=== PATIENT | female | born 1935 | race Caucasian/White ===

== ENCOUNTER → 2018-08-08 10:30 | Outpatient (CLI) | payer MEDICARE, OTHER, SELFPAY ==
--- NOTE | 2018-08-08 10:33 | BI_ITS ---
MAMMOGRAPHY - BILATERAL SCREENING REASON FOR EXAM: Female, 83 years old. Routine annual screening examination. PERTINENT HISTORY: Non-contributory. TECHNIQUE: Digital bilateral breast moises (3D mammographic acquisition) in the CC and MLO projections. 2-D mediolateral oblique (MLO) and craniocaudad (CC) views of both breasts were obtained. CAD: Full Field Digital Mammography with Computer Added Detection was performed. COMPARISON: Comparison is made with prior study dated June 04, 2017 and May 28, 2016. FINDINGS: Breast Composition: There are scattered areas of fibroglandular density. There are no dominant masses or suspicious calcifications. No other significant abnormalities are identified. There has been no significant change since the prior study. BI/SCREENING MAMM (CAD), BILAT IMPRESSION: Stable bilateral screening mammogram. Yearly follow-up mammogram recommended. (A) ASSESSMENT CATEGORY: BIRADS Category 1: Negative. A letter regarding these results will be sent to the patient by the facility within 30 days. Approximately 10% of breast cancers are not detected by mammography. A normal mammogram should not delay biopsy of a clinically suspicious abnormality. [id number] Electronically Signed: Dre Vogel MD at 12:36 EDT Tel [phone], Service support ,
== END ==
PROVIDERS: Family Provider Family Medicine; PCP Family Medicine; Visit Provider Family Medicine
DX: Z12.31 Encounter for screening mammogram for malignant neoplasm of breast (principal)
CPT/HCPCS: 77063; 77067

== ENCOUNTER → 2021-01-10 14:07 | Outpatient (CLI) | payer MEDICARE, OTHER, SELFPAY ==
[2019-06-29 20:10] VITALS: BMI 25.6
--- NOTE | 2021-01-10 14:11 | US_ITS ---
STUDY: ULTRASOUND BREAST - LEFT REASON FOR EXAM: Female, 85 years old. TECHNIQUE: Axial and longitudinal images of the LEFT breast were performed with a high resolution ultrasound transducer. # OF IMAGES: 22 COMPARISON: Comparison is made with prior mammogram done earlier in the day. FINDINGS: LEFT Breast: There is a 4 mm x 4 mm x 2 mm well-defined hypoechoic solid nodule at the 2 o''clock position of the breast at 5 cm from the nipple. This may represent a small fibroadenoma. Biopsy is recommended. US/Breast Limited Unilateral IMPRESSION: 4 mm x 4 mm x 2 mm well-defined hypoechoic solid nodule at the 2 o''clock position of the breast at 5 cm from the nipple. Biopsy is recommended. ASSESSMENT CATEGORY: BIRADS Category 4: Suspicious - Biopsy Should Be Considered. A letter regarding these results will be sent to the patient by the facility within 30 days. Electronically Signed: Dre Vogel MD at 19:23 EDT , Service support ,
--- NOTE | 2021-01-10 14:11 | BI_ITS ---
MAMMOGRAPHY - BILATERAL DIAGNOSTIC REASON FOR EXAM: Female, 85 years old. Pea-sized lump in the upper outer quadrant of the left breast. PERTINENT HISTORY: Non-contributory. TECHNIQUE: Digital bilateral breast moises (3D mammographic acquisition) in the CC and MLO projections. 2-D mediolateral oblique (MLO) and craniocaudad (CC) views of both breasts were obtained. CAD: Full Field Digital Mammography with Computer Added Detection was performed. COMPARISON: Comparison is made with prior examination 08/08/2018 and 06/04/2017. FINDINGS: Breast Composition: There are scattered areas of fibroglandular density. There are no dominant masses or suspicious calcifications. No other significant abnormalities are identified. There has been no significant change since the prior study. BI/DIAG MAMM W/CAD, BILAT IMPRESSION: Stable bilateral diagnostic mammogram. With the patient''s history of a lump in the upper outer quadrant of the left breast, correlation with ultrasound is recommended. ASSESSMENT CATEGORY: BIRADS Category 0: Incomplete. Need additional imaging evaluation. A letter regarding these results will be sent to the patient by the facility within 30 days. Approximately 10% of breast cancers are not detected by mammography. A normal mammogram should not delay biopsy of a clinically suspicious abnormality. Electronically Signed: Dre Vogel MD at 15:03 EDT , Service support ,
--- NOTE | 2021-01-13 11:30 | NURSING ---
THIS RN CALLED DR QUIROZ'S OFFICE TO SET UP PATIENT REFERRAL FOR BIRADS 4 OF LT BREAST. ROSANA WILL CALL THE PATIENT TO SCHEDULE. THIS RN CALLED PATIENT TO INFORM HER OF THE RESULTS, ANSWER QUESTIONS, AND TO EXPECT A CALL.
== END ==
PROVIDERS: PCP Family Medicine; Referring Provider Family Medicine; Visit Provider Family Medicine
DX: N60.02 Solitary cyst of left breast (principal)
CPT/HCPCS: 76642; 77062; 77066; G0279

== ENCOUNTER → 2021-01-20 10:07 | Outpatient (CLI) | payer MEDICARE, OTHER, SELFPAY ==
[2021-01-16 15:31] VITALS: BMI 25.1
--- NOTE | 2021-01-20 10:12 | US_ITS ---
STUDY: ULTRASOUND BREAST - LEFT REASON FOR EXAM: Female, 85 years old. Breast nodule. TECHNIQUE: Axial and longitudinal images of the LEFT breast were performed with a high resolution ultrasound transducer. # OF IMAGES: 12 COMPARISON: Comparison is made with prior ultrasound of the left breast dated 01/10/2021. FINDINGS: LEFT Breast: There is a 7 mm x 6 mm x 2 mm well-defined hypoechoic nodule at the 2 o''clock position of the breast and 5 cm from the nipple. The biopsy was not performed. Six-month follow-up will be obtained. US/Breast Limited Unilateral IMPRESSION: Stable examination. ASSESSMENT CATEGORY: BIRADS Category 3: Probably Benign - Short-Interval Follow-up Suggested. A letter regarding these results will be sent to the patient by the facility within 30 days. Electronically Signed: Dre Vogel MD at 13:05 EDT , Service support ,
--- NOTE | 2021-01-20 10:47 | HP.PCM_ITS ---
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 Ambrocio Mendez MD) Abnormal ultrasound of breast (Acute) Pruritic dermatitis (Acute) Poison giovanna dermatitis (Acute) Abnormal mammogram of left breast (Acute) Acute ulcerative colitis (Acute) History of back problems (Acute) Hypertension (Chronic) Surgical History (Updated 01/16/21 @ 15:30 by Regina Fontenot) History of eye surgery (Acute) Family History (Updated 01/16/21 @ 15:30 by Regina Fontenot) Father Heart disease Hypertension Social History (Updated 01/16/21 @ 15:[address] Ambrocio Mendez MD) Smoking Status: Never smoker HPI HPI HPI: JOSHUA JETT, is a 85 F who presents to the office today for surgical consultation regarding a palpable left breast mass. The patient is referred by Dr. Tang Iraheta and a written copy my surgical consult and recommendations will be returned to him. 85-year-old female. G6, . Menarche was age 17. First child was born when she was 22. She did not breast-feed. No previous breast biopsies. She has not been on any estrogen replacement. Family history is negative for breast cancer. By the patient reports she had a routine physical exam per Dr. Iraheta and there was concern about a possible left breast mass. For that reason it was recommended to the patient that she have bilateral mammography. It is of note that the patient herself was not able to feel a mass. By the patient report mammography techs also not able to detect a mass. On January 10, 2021 at the [facility] [place] bilateral mammography was performed. This was felt to be stable compared to previous examinations of August 08, 2018 and August 04, 2017. No dominant masses or suspicious calcifications. However it was interpreted as a BI-RADS Category 0. Because the patient had a reported history of a left breast mass and ultrasound was recommended. A left breast ultrasound was performed suggesting a 4 x 4 x 2 mm well-defined hypoechoic solid nodule 2 o'clock position +5 cm. Possible small fibroadenoma. BI-RADS Category 4 biopsy recommended. mputer Aided Diagnostic [facility] Imaging Services [address] [place] [address] DIAG MAMM W/CAD, BILAT MR#: [id number] Name: JOSHUA JETT #:[id number] : 1935 85 From: Dre Vogel MD PCP:Dr. Tang Iraheta, Status[facility] Study:DIAG MAMM W/CAD, BILAT Date of Exam:01/10/21 Exam#[id number] Ordering Dr: Tang Iraheta DO MAMMOGRAPHY - BILATERAL DIAGNOSTIC REASON FOR EXAM: Female, 85 years old. Pea-sized lump in the upper outer quadrant of the left breast. PERTINENT HISTORY: Non-contributory. TECHNIQUE: Digital bilateral breast moises (3D mammographic acquisition) in the CC and MLO projections. 2-D mediolateral oblique (MLO) and craniocaudad (CC) views of both breasts were obtained. CAD: Full Field Digital Mammography with Computer Added Detection was performed. COMPARISON: Comparison is made with prior examination 08/08/2018 and 06/04/2017. FINDINGS: Breast Composition: There are scattered areas of fibroglandular density. There are no dominant masses or suspicious calcifications. No other significant abnormalities are identified. There has been no significant change since the prior study. BI/DIAG MAMM W/CAD, BILAT IMPRESSION: Stable bilateral diagnostic mammogram. With the patient''s history of a lump in the upper outer quadrant of the left breast, correlation with ultrasound is recommended. ASSESSMENT CATEGORY: BIRADS Category 0: Incomplete. Need additional imaging evaluation. A letter regarding these results will be sent to the patient by the facility within 30 days. Approximately 10% of breast cancers are not detected by mammography. A normal mammogram should not delay biopsy of a clinically suspicious abnormality. Electronically Signed: Dre Vogel MD at 15:03 EDT , Service support , [facility] Imaging Services [address] [place] [id number] Breast Limited Unilateral MR#: [id number] Name: JOSHUA JETT Chayhermelinda #:[id number] : 1935F 85 From: Dre Vogel MD PCP:Dr. Tang Iraheta DO Status:[facility] CLI Study:Breast Limited Unilateral Date of Exam:01/10/21 Exam#[id number] Ordering Dr: Tang Iraheta DO STUDY: ULTRASOUND BREAST - LEFT REASON FOR EXAM: Female, 85 years old. TECHNIQUE: Axial and longitudinal images of the LEFT breast were performed with a high resolution ultrasound transducer. # OF IMAGES: 22 COMPARISON: Comparison is made with prior mammogram done earlier in the day. FINDINGS: LEFT Breast: There is a 4 mm x 4 mm x 2 mm well-defined hypoechoic solid nodule at the 2 o''clock position of the breast at 5 cm from the nipple. This may represent a small fibroadenoma. Biopsy is recommended. US/Breast Limited Unilateral IMPRESSION: 4 mm x 4 mm x 2 mm well-defined hypoechoic solid nodule at the 2 o''clock position of the breast at 5 cm from the nipple. Biopsy is recommended. ASSESSMENT CATEGORY: BIRADS Category 4: Suspicious - Biopsy Should Be Considered. A letter regarding these results will be sent to the patient by the facility within 30 days. Electronically Signed: Dre Vogel MD at 19:23 EDT , Service support , HPI HPI HPI: JOSHUA JETT, is a 85 F who presents to the office today for ROS General General: No weight change, appetite, fatigue, colon cancer, breast cancer or weakness HEENT HEENT: Yes eye surgery; no difficulty swallowing, eye injury, swollen glands or hoarseness Endo Endocrine: No thyroid disease, diabetes mellitus, thyroid cancer, Hair loss, heat intolerance or cold intolerance Skin Skin: No rash or changing moles Breast Breast: Yes abnormal mammogram and abnormal US; no left breast lump, right breast lump, nipple discharge, breast pain or breast enlargement Musc Musculoskeletal: Yes back problems; no arthritis, rheumatoid arthritis, gout or joint pain Cardio Cardiovascular: Yes high blood pressure; no murmur, pacemaker, heart disease, atrial fibrillation, heart attack, heart stent, palpitations, shortness of breat with exertion or chest pain Psych Psychiatric: No depression, anxiety or hearing voices Resp Respiratory: No shortness of breath, No sleep apnea, No cough, No COPD, No asthma, No emphysema, No wheezing Gastro Gastrointestinal: No abdominal pain, No nausea or vomiting, No diarrhea, No constipation, No blood in stool, No acid reflux, No hemorrhoids, No ulcers, No gallbladder problem, No black,tarry stools Benjy Hematologic: No blood thinners, No blood disorders, No bleeding, No anemia, No blood clots Neuro Neurologic: No system reviewed and no additional complaints, except as docu, No as per HPI, No abnormal walking, No abnormal hearing, No abnormal movements, No abnormal speech, No behavioral changes, No burning sensations, No confusion, No seizure-like activity, No unsteadiness, No dizziness, No localized weakness, No frequent falls, No headache(s), No lack of coordination, No loss of vision, No memory loss, No numbness, No other visual disturbances, No radiating pain, No restless legs, No sensory deficit, No fainting, No tingling, No tremor(s), No weakness, No other Exam Chest Breast Palpation: No nipple discharge Other: Right breast: No focally concerning mass. No nipple discharge. No axillary or clavicular adenopathy Left breast: Diffuse fibrous change upper outer quadrant left breast. Slight nondescript nodularity. No focally concerning mass. No nipple discharge. No axillary or clavicular adenopathy Cardio Heart Sounds: no murmurs Office Procedures Procedure Time Out Time Out Informed consent given: Yes Consent signed: Yes Time out checklist: patient, procedure, site marked/identified, positioning of patient, supplies available, allergies confirmed, team agrees on procedure Time out staff in room: Yes Time out verified: Yes Time out date: 01/16/21 Time out time: 15:33 Assessment & Plan Problems 1. Abnormal ultrasound of breast R92.8 Plan I have personally reviewed the patient's breast ultrasound. I have personally attempted a left breast ultrasound scanning particularly the left breast 2 o'clock position +5 cm. The area suggested to be present on preultrasound imaging could not be duplicated today. The area on measurement on ultrasound a nd depth is far too small and too deep to be palpated. It does not represent the area that was felt to be of initial concern. In an 85-year-old female the sensitivity of mammography should be very good and no item was identified. At this point I believe that we have a low indication for malignancy. I have offered the patient an attempt at a ultrasound-guided needle core biopsy 2:00 +5 cm to be performed in the ultrasound suite. As noted this lesion has very benign characteristics being very small smooth fatter than wider. It would seem to have a low risk indication. I appreciate the opportunity of assisting with her surgical care. We will schedule and proceed as noted. Copy:Dr. Tang Mendez M.D., F.A.C.S. Coding Level of Care Code 63205 Diagnoses Abnormal ultrasound of breast R92.8 I have re-examined the patient. There are no clinical changes since date of exam.
== END ==
PROVIDERS: PCP Family Medicine; Referring Provider Surgery; Visit Provider Surgery
DX: R92.8 Other abnormal and inconclusive findings on diagnostic imaging of breast (principal)
CPT/HCPCS: 76642

== ENCOUNTER 2021-02-28 15:00 | Outpatient (RCR) | payer MEDICARE, OTHER, SELFPAY ==
[2021-01-16 15:31] VITALS: BMI 25.1
--- NOTE | 2021-01-31 11:03 | HP.PTEVAL_ITS ---
Patient's Visit Information JOSHUA JETT is a 85 year old F referred to Physical Therapy by Dr. Tang Iraheta DO with a diagnosis of SACROLITIS JOINT DYSFUNCTION. Date of Evaluation: 01/31/21 Physical Therapist: Hossein Hernandez, PT, Cert MDT, OCS - Visit Plan Frequency: 2x /Week Duration: 4 Weeks Plan: PT INTERVENTIONS POSTURAL EX'S,DLS,LUMBAR FLEXION ,LE STRENGTHNING/FLEXABLITTY ,MODALTIES NEED , - Subjective This 85 y/o female presents to physical therapy with LBP/SI .Patient has had LBP Feb no predisopsing or mechanism of injury. Patient has pain right lumbar and hamstring. Seen DR muscle relaxers and pain MEDS.Patient denies pa rathesia/tingling. Patient sleeping good .As the day goes gets better.Aggraveting symptoms in AM, wallking and standing affects ADL's and housework . Alleviating factors sitting and resting. Bowel/bladder - .Coughing/sneezing -. No abnormal night pain. No h/o back pain or trauma. Patient treatment . Patient had MRI showed DDD,anteriorlothesis. Patient symptoms affects QOL and function. - Pain Right Back Pain Intensity (Out of 10): 8 Pain Intensity Range: 10 - Objective POSTURE: mild foward posture. GAIT: recipocal pattern mild antalgic. NEURO: denies parathesia/tingling,reflexes L3-4,L4-5,L5-S1 1/3. PALPATION: unremarkable. MMT: quads/hams 4/5,hip flexion 4-/5,ankle 4/5. LUMBAR ROM: flexion min loss,extension mod/severe loss,side glides min loss. FLEXABLITY: : mams min tight ,piriformis min tight - Special Tests L/S Slump test left side: Negative L/S Slump test right side: Negative L/S Left Straight Leg Raise: Negative L/S Right Straight Leg Raise: Negative Lumbar Standing: Flexion - Mechanical Response: No effect Lumbar Standing: Flexion - Symptoms During Testing: No effect Lumbar Standing: Flexion - Symptoms After Testing: No effect Lumbar Standing: Extension - Mechanical Response: No effect Lumbar Standing: Extension - Symptoms During Testing: Increases Lumbar Standing: Extension - Symptoms After Testing: No worse Lumbar Standing: Right Side Glides - Mechanical Response: No effect Lumbar Standing: Right Side Goehner - Symptoms During Testing: No effect Lumbar Standing: Right Side Goehner - Symptoms After Testing: No effect Lumbar Standing: Left Side Goehner - Mechanical Response: No effect Lumbar Standing: Left Side Goehner - Symptoms During Testing: No effect Lumbar Standing: Left Side Goehner - Symptoms After Testing: No effect - Goals Goal 1:: I with HEP Goal Time Frame: 4-6 Weeks Goal 2:: Improved posture/body mechanics Goal Time Frame: 4-6 Weeks Goal 3:: Patient to decrease lumbar pain by 50% or > to improve function and ADLS Goal Time Frame: 4-6 Weeks Goal 4:: Improve lumbar ROM for function of recovery Goal Time Frame: 4-6 Weeks Goal 5:: Patient to decrease back owestry score by 5 points > to improve QOL. Goal Time Frame: 4-6 Weeks - Rehabilitation Potential Physical Therapy Diagnosis: Patient has right lumbar painand radicular symptoms hamstrings with MRI showinh anteriorlothesis causing lateral stenosis with decrease lumbar spine,weakness in hips impairs walking and stbading for ADLS' Rehabilitation Potential: Good - Anticipated Interventions Patient/Client Instruction: Educate patient on: Condition, Plan of Care For the Purpose of:: To decrease pain, To increase ROM, To improve muscle performance and motor function, To improve ability to perform ADL's, To increase tolerance to activity/condition/position, To improve ability of physical actions for home/community/work/leisure, To improve health of tissue, To decrease soft tissue restriction, To increase flexibility/ROM, To reduce risk of recurrence, To improve ability to perform tasks related to life management Therapeutic Exercise to Include: Strength training, Postural training, Flexibilty training, Dynamic Lumbar Stabilization Comment: BLE For the Purpose of:: To decrease pain, To improve muscle performance and motor function, To improve ability to perform ADL's, To increase tolerance to activity/condition/position, To improve performance and independence with ADL's, To improve ability of physical actions for home/community/work/leisure, To improve health of tissue, To decrease soft tissue restriction, To increase flexibility/ROM TENS: Yes IF ES: Yes Cryotherapy (ice pack, ice massage): Yes Thermo therapy (hot pack): Yes Ultrasound (thermal/non thermal): Yes For the Purpose of:: To decrease pain, To decrease swelling/inflammation, To improve nutrient delivery to tissue, To increase oxygenation perfusion, To improve health of tissue, To decrease soft tissue restriction Thank you for the opportunity to evaluate your patient. For Medicare and Medicare HMO plans, please review the plan of care and approve it. It will need to be FAXED BACK to us at [phone] for Medicare purposes. For Medicare only, by signing this I certify the plan of care. Please let me know if there are questions or concerns regarding this plan of care. Physician Signature: Date:
--- NOTE | 2021-02-28 15:23 | HP.PTDCSUM ---
It has been my pleasure to treat JOSHUA JETT referred by Dr. Tang Iraheta DO, with the diagnosis of SACROLITIS JOINT DYSFUNCTION for a total of 9 visit(s). Discharge Date: Please see the following information for a summary of their discharge status. Subjective: Doing alot better .just some ache Right Back Pain Intensity (Out of 10): 0 % Improvement: 90 Objective/Function: GAIT: normal cadance. NEURO:denies parathesia /tingling. LUMBAR ROM: flexion min loss,extension min loss,side glides in loss. MMT: QUADS/HAMS/HIP 4/5 ANKLE 5/5 Goal 1:: I with HEP Goal Progress: Goal Met Goal 2:: Improved posture/body mechanics Goal Progress: Goal Met Goal 3:: Patient to decrease lumbar pain by 50% or > to improve function and ADLS Goal Progress: Goal Met Goal 4:: Improve lumbar ROM for function of recovery Goal Progress: Goal Met Goal 5:: Patient to decrease back owestry score by 5 points > to improve QOL. Goal Progress: Goal Met Plan: D/C If there are questions or concerns regarding this patient's physical therapy, please feel free to call me at [phone]. Thank you for the referral of this patient. Sincerely, Hossein Hernandez PT, Cert MDT, OCS
== END 2021-02-28 19:00 | disposition home or self-care (01) ==
LOC: PT 15:00
PROVIDERS: PCP Family Medicine; Referring Provider Family Medicine; Visit Provider Family Medicine
DX: M53.3 Sacrococcygeal disorders, not elsewhere classified (principal)
CPT/HCPCS: 97014; 97110; 97162; G0283

== ENCOUNTER → 2021-07-25 10:45 | Outpatient (CLI) | payer MEDICARE, OTHER, SELFPAY ==
--- NOTE | 2021-07-25 10:48 | US_ITS ---
STUDY: ULTRASOUND BREAST - LEFT REASON FOR EXAM: Female, 86 years old. Short interval follow-up TECHNIQUE: Axial and longitudinal images of the LEFT breast were performed with a high resolution ultrasound transducer. # OF IMAGES: 11 COMPARISON: 01/20/2021 FINDINGS: LEFT Breast: Heterogeneous background echotexture. At 2 o''clock, 5 cm from nipple, there is no change in the 7 mm oval parallel indistinct isoechoic mass with no posterior features within some dense breast parenchyma and continued short-term follow-up is recommended.: US/Breast Limited Unilateral IMPRESSION: No change in the 7 mm oval parallel indistinct isoechoic mass in the left breast and continued short follow-up is recommended. CC and MLO mammograms of both breasts and the left breast ultrasound recommended in 6 months. ASSESSMENT CATEGORY: BIRADS Category 3: Probably Benign - Short-Interval Follow-up Suggested. A letter regarding these results will be sent to the patient by the facility within 30 days. Electronically Signed: Cuba Madrid MD at 11:54 EDT Tel , Service support ,
== END ==
PROVIDERS: PCP Family Medicine; Visit Provider Surgery
DX: R92.8 Other abnormal and inconclusive findings on diagnostic imaging of breast (principal)
CPT/HCPCS: 76642

== ENCOUNTER 2022-01-31 09:12 | Outpatient (CLI) | payer MEDICARE, OTHER, SELFPAY ==
--- NOTE | 2022-01-31 08:48 | BI_ITS ---
MAMMOGRAPHY - BILATERAL DIAGNOSTIC REASON FOR EXAM: Female, 86 years old. Six-month follow-up examination. PERTINENT HISTORY: Left breast nodule. TECHNIQUE: Digital bilateral breast moises (3D mammographic acquisition) in the CC and MLO projections. 2-D mediolateral oblique (MLO) and craniocaudad (CC) views of both breasts were obtained. CAD: Full Field Digital Mammography with Computer Added Detection was performed. COMPARISON: Comparison is made with prior mammogram dated 01/10/2021 and 08/08/2018. FINDINGS: Breast Composition: There are scattered areas of fibroglandular density. There are no dominant masses or suspicious calcifications. No other significant abnormalities are identified. There has been no significant change since the prior study. BI/DIAG MAMM W/CAD, BILAT IMPRESSION: Stable bilateral diagnostic mammogram. Follow-up sonogram of the left breast is recommended. ASSESSMENT CATEGORY: BIRADS Category 0: Incomplete. Need additional imaging evaluation. A letter regarding these results will be sent to the patient by the facility within 30 days. Approximately 10% of breast cancers are not detected by mammography. A normal mammogram should not delay biopsy of a clinically suspicious abnormality. Electronically Signed: Dre Vogel MD at 10:55 EDT ,
--- NOTE | 2022-01-31 10:20 | US_ITS ---
STUDY: ULTRASOUND BREAST - LEFT REASON FOR EXAM: Female, 86 years old. Six-month follow-up examination for 7 mm nodule in the left breast. TECHNIQUE: Axial and longitudinal images of the LEFT breast were performed with a high resolution ultrasound transducer. # OF IMAGES: 12 COMPARISON: Comparison is made with prior sonogram of the left breast in 07/25/2021 and prior mammogram done earlier today. FINDINGS: LEFT Breast: Stable 7 mm x 8 mm x 4 mm slightly hypoechoic well-defined solid nodule at the 2 o''clock position breast at 5 cm from nipple. US/Breast Limited Unilateral IMPRESSION: Stable examination. ASSESSMENT CATEGORY: BIRADS Category 2: Benign. A letter regarding these results will be sent to the patient by the facility within 30 days. Electronically Signed: Dre Vogel MD at 10:57 EDT ,
== END 2022-01-31 23:59 | disposition home or self-care (01) ==
LOC: OPBI 09:14
PROVIDERS: PCP Family Medicine; Visit Provider Surgery
DX: R92.2 Inconclusive mammogram (principal); R92.8 Other abnormal and inconclusive findings on diagnostic imaging of breast; N63.20 Unspecified lump in the left breast, unspecified quadrant
CPT/HCPCS: 76642; 77062; 77066; G0279

== ENCOUNTER → 2025-06-09 | Outpatient (CLI) | payer MEDICARE, OTHER, SELFPAY ==
--- OUTSIDE RECORDS SUMMARY | 2025-06-09 21:23 | XMS RPT_ITS | CCD ---
Author Organization [facility] Care Team Providers Care Sanitizer Name Role Phone Myrtle Tang Unavailable Unavailable UNKNOWN, PROVIDER Unavailable Unavailable Fracasso, Tang Unavailable Unavailable Fracasso, Tang Unavailable Unavailable UNKNOWN, PROVIDER Unavailable Unavailable Fracasso, Tang Unavailable Unavailable Fracasso, Tang Unavailable Unavailable UNKNOWN, PROVIDER Unavailable Unavailable Fracasso, Tang Unavailable Unavailable Fracasso, Tang Unavailable Unavailable UNKNOWN, PROVIDER Unavailable Unavailable Fracasso, Tang Unavailable Unavailable SCHWEIKERT, DEANDRA A Unavailable Unavailable FRACASSOTANG Unavailable Unavailable SCHWEIKERKal, DEANDRA A Unavailable Unavailable FRACASSO, TANG Unavailable Unavailable FRACASSO, TANG Unavailable Unavailable SCHWEIKERT, DEANDRA A Unavailable Unavailable FRACASSO, TANG Unavailable Unavailable FRACASSO, TANG Unavailable Unavailable FracassoTang Primary Care Provider Tang Iraheta DO Primary Care Provider Rileyo Tang BISHOP Primary Care Provider Tang Iraheta DO Primary Care Provider Tang Iraheta DO Primary Care Provider Deandra Tanner MD Unavailable [phone] Geronimo, Moi Nabi Unavailable MARICRUZ BEDOLLA Attending Unavaila YULI Saha Referring Unavailable TANG IRAHETA Primary Care Unavailable YULI DRUMMOND Attending Unavailable TANG IRAHETA Primary Care Unavailable MARICRUZ BEDOLLA Referring Unavaila opal Irving APRN - JARON, Mary Anna Primary Care Provider [phone] Francisco Javiercahoneyo Tang BISHOP Primary Care Provider [facility], [facility] [place] Primary Care Provider [facility], [facility] [place] [facility] [place] Primary Care Provider Tang Iraheta DO Primary Care Provider Deandra Tanner MD Unavailable [phone] Moi Melton Unavailable Tang Iraheta DO Primary Care Provider [facility] Primary Care Unavailable BAVIS, MORRO Referring Unavailable BAVIS, MORRO Attending Unavailable [facility] Primary Care Unavailable BAVIS, MORRO Referring Unavailable BAVIS, MORRO Attending Unavailable PET[facility]LL[facility] Primary Care Unavailable BAVIS, MORRO Referring Unavailable BAVIS, MORRO Attending Unavailable PET[facility]LLA, [facility] Primary Care Unavailable BAVIS, MORRO Referring Unavailable BAVIS, MORRO Attending Unavailable PETRILLA, [facility] Primary Care Unavailable BAVIS, MORRO Referring Unavailable BAVIS, MORRO Attending Unavailable PETRILLA, [facility] Primary Care Unavailable BAVIS, MORRO Referring Unavailable BAVIS, MORRO Attending Unavailable PETRILLA, [facility] Primary Care Unavailable BAVIS, MORRO Referring Unavailable BAVIS, MORRO Attending Unavailable PETRILLA, [facility] Primary Care Unavailable BAVIS, MORRO Referring Unavailable BAVIS, MORRO Attending Unavailable PETRILLA, [facility] Primary Care Unavailable BAVIS, MORRO Referring Unavailable BAVIS, MORRO Attending Unavailable PETRILLA, [facility] Primary Care Unavailable BAVIS, MORRO Referring Unavailable BAVIS, MORRO Attending Unavailable PETRILLA, [facility] Primary Care Unavailable BAVIS, MORRO Attending Unavailable PETRILLA, [facility] Primary Care Unavailable BAVIS, MORRO Attending Unavailable PETRILLA, [facility] Primary Care Unavailable PETRILLA, WILFRIDO Attending Unavailable [facility]LL[facility], [facility] Primary Care Unavailable PETRILLA, WILFRIDO Attending Unavailable [facility]LL[facility], [facility] Primary Care Unavailable PETRILLA, WILFRIDO Referring Unavailable PETRILLA, WILFRIDO Attending Unavailable [facility] Primary Care Unavailable PET[facility]LL[facility], [facility] Attending Unavailable Medications Current Medications Medication Drug Class(es) Dates Sig (Normalized) Sig (Original) aspirin 81 mg delayed release oral tablet (20 sources) Platelet Aggregation Inhibitor, Nonsteroidal Anti-inflammatory Drug take 1 tablet by mouth once daily aspirin 81 MG EC tablet Take 81 mg by mouth daily. Active biotin 10 mg oral tablet (20 sources) take 1 tablet by mouth once daily biotin 39166 MCG tablet Take by mouth daily. 10,000 mcg Active Calcium Carb-Cholecalciferol (CALCIUM 600 + D PO) (8 sources) take 1 tablet by mouth once daily Calcium Carb-Cholecalcif shameka (CALCIUM 600 + D PO) Take 1 tablet by mouth daily 0 Active calcium citrate 250 mg / cholecalciferol 100 unt oral tablet (20 sources) Vitamin D Calcium Citrate-Vitamin D 250-2.5 MG-MCG tablet Take by mouth. Active lisinopril 20 mg oral tablet (20 sources) Angiotensin Converting Enzyme Inhibitor Start: 04-02-2024 End: 05-14-2025 lisinopril 20 MG tablet TAKE 1 TABLET DAILY 90 tablet 1 05/14/2025 Active Start: 03-10-2024 End: 09-06-2024 take 1 tablet by mouth once daily lisinopril 10 MG tablet Take 1 tablet (10 mg) by mouth daily. 30 tablet 5 03/10/2024 04/02/2024 Discontinued memantine hydrochloride 10 mg oral tablet (16 sources) P-ufhktg-R-aspartate Receptor Antagonist Start: 12-03-2024 End: 03-03-2025 take 1 tablet by mouth twice daily memantine (Namenda) 10 MG tablet Indications: Moderate dementia without behavioral disturbance, psychotic disturbance, mood disturbance, or anxiety, unspecified dementia type (HCC) Take 1 tablet (10 mg) by mouth 2 times daily. 180 tablet 3 12/03/2024 Active Multiple Vitamin tablet (20 sources) take 1 tablet by mouth in the morning Multiple Vitamin tablet Take 1 tablet by mouth in the morning. Active take 1 tablet by mouth in the mo rning Multiple Vitamin tablet Take 1 tablet by mouth in the morning. 0 Active Multiple Vitamin TABS (8 sources) take 1 tablet by iliana th once daily Multiple Vitamin TABS Take 1 tablet by mouth daily 0 Active multivit with minerals/lutein (MULTIVITAMIN 50 PLUS ORAL) (3 sources) multivit with minerals/lutein (MULTIVITAMIN 50 PLUS ORAL) Take by mouth. Active multivit with mi nerals/lutein (MULTIVITAMIN 50 PLUS ORAL) Take by mouth. 0 Active Comment on above: Take by mouth. verapamil hydrochloride 240 mg extended release oral tablet (20 sources) Calcium Channel Chalo Start: 08-23-2022 End: 10-23-2025 take 1 tablet by mouth once daily verapamil SR (Calan SR) 240 MG ER tablet Take 1 tablet (240 mg) by mouth Nightly. 90 tablet 1 04/26/2025 10/23/2025 Active Start: 12-28-2020 End: 05-01-2022 take 1 tablet by mouth once daily verapamil (CALAN SR) 240 MG extended release tablet Take 1 tablet by mouth nightly 90 tablet 1 01/16/2022 05/01/2022 Discontinued (REORDER) Start: 06-30-2019 take 240 mg by mouth every twelve hours Verapamil Active 240 MG PO Q12H June 30, 2019 12:01pm Comment on above: Take 240 mg by mouth daily at bedtime. Completed/Discontinued Medications Medication Drug Class(es) Dates Sig (Normalized) Sig (Original) acetaminophen 500 mg oral tablet (17 sources) Start: 09-03-2024 End: 12-21-2024 acetaminophen (Tylenol) 500 MG tablet 2 bid prn 30 tablet 09/03/2024 12/21/2024 Discontinued (Therapy completed) betamethasone 3 mg/ml / betamethasone acetate 3 mg/ml injectable suspension (4 sources) Corticosteroid Start: 12-26-2023 End: 12-26-2023 betamethasone acetate-betamethason e sodium phosphate (Celestone) injection 6 mg Start: 12-26-2023 End: 12-26-2023 betamethasone acetate-betame thasone sodium phosphate (Celestone) injection 6 mg Start: 02-07-2023 End: 02-07-2023 betamethasone acetate-betame thasone sodium phosphate (Celestone) injection 6 mg calcium carbonate/vitamin D2 (CALCIUM 600 WITH VITAMIN D ORAL) (1 source) End: 09-11-2022 calcium carbonate/vitamin D2 (CALCIUM 600 WITH VITAMIN D ORAL) Take by mouth. 0 09/11/2022 Discontinued Comment on above: Take by mouth. cephalexin 500 mg oral capsule (8 sources) Cephalosporin Antibacterial Start: 02-25-2024 End: 03-10-2024 cephalexin (Keflex) 500 MG capsule Indications: Skin infection Take 1 capsule (500 mg) by mouth in the morning and 1 capsule (500 mg) at noon and 1 capsule (500 mg) in the evening and 1 capsule (500 mg) before bedtime. Do all this for 7 days. 28 capsule 0 02/25/2024 03/10/2024 Discontinued (Therapy completed) collagenase 0.25 unt/mg topical ointment (2 sources) Collagen-specific Enzyme Start: 03-30-2022 End: 03-30-2023 collagenase 250 UNIT/GM ointment APPLY TO WOUND ONCE A DAY (MORE FREQUENTLY IF DRESSING IS SOILED) FOR 30 DAYS 120 g 5 03/30/2022 11/22/2022 Discontinued (Therapy completed) donepezil hydrochloride 5 mg oral tablet (14 sources) Start: 09-01-2024 End: 12-21-2024 take 1 tablet by mouth once daily donepezil (Aricept) 5 MG tablet Take 1 tablet (5 mg) by mouth daily with supper. 90 tablet 3 09/01/2024 12/21/2024 Discontinued EPINEPHrine 0.01 mg/ml / lidocaine hydrochloride 10 mg/ml injectable solution (1 source) Antiarrhythmic, alpha-Adrenergic Agonist, beta-Adrenergic Agonist, Catecholamine, Amide Local Anesthetic Start: 06-23-2021 End: 06-23-2021 lidocaine-EPINEPHrine 1 %-1:[id number] injection 8 mL gadobutrol (Gadavist) injection 5.6 mL (2 sources) Start: 12-04-2022 End: 12-04-2022 gadobutrol (Gadavist) injection 5.6 mL 10 ml lidocaine hydrochloride 10 mg/ml injection (4 sources) Antiarrhythmic, Amide Local Anesthetic Start: 12-26-2023 End: 12-26-2023 lidocaine (Xylocaine) 1 % injection 1 mL Start: 12-26-2023 End: 12-26-2023 lidocaine (Xylocaine) 1 % in jection 1 mL Start: 02-07-2023 End: 02-07-2023 lidocaine (Xylocaine) 1 % in jection 1 mL 24 hr mesalamine 375 mg extended release oral capsule (4 sources) Aminosalicylate Start: 04-20-2019 End: 11-20-2022 take 1 capsule by mouth every twenty-four hours in the morning mesalamine ER (Apriso) 0.375 g 24 hr capsule Take 0.375 g by mouth in the morning. 0 04/20/2019 11/20/2022 Discontinued (Therapy completed) Start: 04-20-2019 End: 09-11-2022 take 1 capsule by mouth once daily in the morning Mesalamine (Apriso) 0.375 gram capsule,extended release 24hr Discontinued 1.5 GM PO EVERY MORNING June 30, 2019 12:00pm January 16, 2021 3:32pm Comment on above: Take 1 capsule by [facility] once daily. predniSONE 10 mg oral tablet (1 source) Start: 2020 End: 2020 Prednisone Discontinued 20 MG PO TWICE A DAY 30 4 September 06, 2021 8:48pm September 10, 2021 1:01am 2 po bid 4D,1 po bid for 4 D, 1 po qd for 4 D 1/2 po qd for 2 days 10 ml sodium bicarbonate 42 mg/ml prefilled syringe (1 source) Start: 2020 End: 2020 sodium bicarbonate 4.2 % injection 1 mEq triamcinolone acetonide 40 mg/ml injectable suspension (2 sources) Corticosteroid Start: 2020 End: 2020 inject 60 mg by intramuscular injection once triamcinolone acetonide 40 mg/mL suspension for injection Discontinued 60 MG IM ONCE 1.5 September 06, 2021 8:21pm September 06, 2021 8:21pm Start: 06-29-2019 End: 06-29-2019 inject 60 mg by intramuscular injection once triamcinolone acetonide 40 mg/mL suspension for injection Discontinued 60 MG IM ONCE 1.5 June 29, 2019 8:00pm June 29, 2019 8:00pm Problems Active Problems Problem Classification Problem Date Documented Date Episodic/Chronic Allergic reactions (1 source) Contact dermatitis due to poison giovanna; Translations: [Allergic contact dermatitis due to plants, except food] Episodic Cardiac dysrhythmias (20 sources) Supraventricular tachycardia; Translations: [Supraventricular tachycardia] Onset: 02-26-2018 Resolved: 04-08-2018 12-29-2019 Chronic Delirium, dementia, and amnestic and other cognitive disorders (20 sources) Dementia; Translations: [Moderate dementia without behavioral disturbance, psychotic disturbance, mood disturbance, or anxiety, unspecified dementia type (HCC)] Onset: 12-21-2024 09-01-2024 Chronic Essential hypertension (20 sources) Essential (primary) hypertension; Translations: [Essential hypertension] Onset: 01-26-2016 01-26-2016 Chronic Heart valve disorders (2 sources) Combined rheumatic disorders of mitral, aortic and tricuspid valves; Translations: [Comb rheumatic disord of mitral, aortic and tricuspid valves] Onset: 02-26-2018 Chronic Joint disorders and dislocations; trauma-related (2 sources) Other internal derangements of left knee; Translations: [Other internal derangements of left knee] Onset: 07-01-2017 Chronic Osteoarthritis (2 sources) Bilateral primary osteoarthritis of knee; Translations: [Bilateral primary osteoarthritis of knee] Onset: 05-24-2017 Chronic Other and ill-defined cerebrovascular disease (20 sources) Cerebrovascular disease; Translations: [Cerebrovascular disease, unspecified] Onset: 03-10-2024 03-10-2024 Chronic Other and ill-defined cerebrovascular disease (2 sources) Cerebrovascular disease, unspecified; Translations: [Cerebrovascular disease, unspecified] Onset: 03-10-2024 Chronic Other and unspecified benign neoplasm (2 sources) History of polyp of colon; Translations: [Personal history of colonic polyps] Episodic Other and unspecified benign neoplasm (1 source) Personal history of colonic polyps; Translations: [History of colonic polyps] Onset: 10-18-2022 Episodic Other bone disease and musculoskeletal deformities (2 sources) Other specified disorders of bone density and structure, unspecified site; Translations: [Oth disrd of bone density and structure, unspecified site] Onset: 01-21-2018 Episodic Other connective tissue disease (1 source) Pain in right arm; Translations: [Pain in right arm] Episodic Other connective tissue disease (4 sources) Triggering of digit; Translations: [Trigger finger, left index finger] Episodic Other connective tissue disease (14 sources) Pain in left lower limb; Translations: [Pain in left leg] 02-28-2024 Episodic Other connective tissue disease (1 source) Bursitis of left hip; Translations: [Other bursitis of hip, left hip] 09-03-2024 Episodic Other hereditary and degenerative nervous system conditions (20 sources) Mild cognitive impairment, so stated; Translations: [Mild cognitive impairment, so stated] Onset: 03-10-2024 03-10-2024 Chronic Other inflammatory condition of skin (1 source) Pruritus of skin; Translations: [Pruritus, unspecified] Episodic Other lower respiratory disease (3 sources) Shortness of breath; Translations: [Shortness of breath] Onset: 02-26-2018 Episodic Other lower respiratory disease (3 sources) Dyspnea; Translations: [Shortness of breath] 04-08-2018 Episodic Other lower respiratory disease (3 sources) Cough; Translations: [Subacute cough] 06-23-2024 Episodic Other nervous system disorders (2 sources) Numbness of hand; Translations: [Anesthesia of skin] Episodic Residual codes; unclassified (1 source) Menopause present; Translations: [Menopause] Onset: 07-04-2017 07-04-2017 Chronic Residual codes; unclassified (2 sources) Edema of left lower leg; Translations: [Localized edema] 04-03-2024 Episodic Residual codes; unclassified (2 sources) Amnesia; Translations: [Other amnesia] 06-23-2024 Episodic Respiratory failure; insufficiency; arrest (adult) (20 sources) Respiratory failure; insufficiency; arrest (adult) Onset: 03-06-2024 03-06-2024 Spondylosis; intervertebral disc disorders; other back problems (1 source) Low back pain; Translations: [Low back pain without sciatica, unspecified back pain laterality, unspecified chronicity] Episodic Unclassified (2 sources) Asymptomatic menopausal state; Translations: [Asymptomatic menopausal state] Onset: 01-21-2018 Episodic Unclassified (1 source) Unknown / UNK(Unknown) Onset: 04-08-2018 Unclassified (20 sources) Impaired Tissue Onset: 03-06-2024 03-06-2024 Unclassified (20 sources) Education needed on impact of smoking on wound Onset: 03-06-2024 03-06-2024 Unclassified (20 sources) Education needed related to ulceration/compromised skin integrity. Onset: 03-06-2024 03-06-2024 Unclassified (20 sources) Patient Stated Goal Onset: 03-06-2024 03-06-2024 Unclassified (20 sources) Knowledge deficit related to disease process & management Onset: 03-06-2024 03-06-2024 Unclassified (1 source) Dementia in other diseases classified elsewhere, moderate, without behavioral disturbance, psychotic disturbance, mood disturbance, and anxiety (HCC); Translations: [Dementia in other diseases classified elsewhere, moderate, without behavioral disturbance, psychotic disturbance, mood disturbance, and anxiety (HCC)] Onset: 12-21-2024 Unclassified (1 source) Unspecified dementia, moderate, without behavioral disturbance, psychotic disturbance, mood disturbance, and anxiety (HCC); Translations: [Unspecified dementia, moderate, without behavioral disturbance, psychotic disturbance, mood disturbance, and anxiety (HCC)] Onset: 12-03-2024 Unclassified (1 source) Subacute cough; Translations: [Subacute cough] Onset: 06-23-2024 Past or Other Problems Problem Classification Problem Date Documented Da te Episodic/Chronic Cardiac dysrhythmias (13 sources) Tachycardia, unspecified; Translations: [Palpitations] Onset: 04-08-2018 04-08-2018 Episodic Conditions associated with dizziness or vertigo (6 sources) Dizziness; Translations: [Dizziness and giddiness] Onset: 09-01-2024 Episodic Disorders of teeth and jaw (20 sources) Torus mandibularis; 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] Onset: 05-13-2022 08-03-2022 Episodic Gastrointestinal hemorrhage (3 sources) Rectal hemorrhage; Translations: [Hemorrhage of anus and rectum] Onset: 09-03-2024 09-03-2024 Episodic Open wounds of extremities (20 sources) Tear of skin; Translations: [Laceration without foreign body, left lower leg, initial encounter] Onset: 02-25-2024 Resolved: 06-23-2024 02-25-2024 Episodic Other connective tissue disease (2 sources) Synovial cyst of popliteal space [Nielsen], left knee; Translations: [Synovial cyst of popliteal space [Nielsen], left knee] Onset: 07-01-2017 Episodic Other connective tissue disease (2 sources) Myalgia, other site; Translations: [Myalgia, other site] Onset: 09-03-2024 Episodic Other connective tissue disease (2 sources) Trochanteric bursitis, left hip; Translations: [Trochanteric bursitis, left hip] Onset: 09-03-2024 Episodic Other gastrointestinal disorders (2 sources) Constipation; Translations: [Other constipation] Onset: 09-03-2024 09-03-2024 Episodic Other gastrointestinal disorders (1 source) Other constipation; Translations: [Other constipation] Onset: 09-03-2024 Episodic Other nervous system disorders (20 sources) Carpal tunnel syndrome of right wrist; Translations: [Carpal tunnel syndrome, right upper limb] Onset: 12-26-2023 Resolved: 06-23-2024 04-08-2023 Chronic Other nervous system disorders (3 sources) Ataxia; Translations: [Ataxia, unspecified] Episodic Other nervous system disorders (13 sources) Unsteady when standing; Translations: [Unsteadiness on feet] Onset: 12-22-2024 12-03-2024 Episodic Other nervous system disorders (1 source) Unsteadiness on feet; Translations: [Unsteadiness on feet] Onset: 12-22-2024 Episodic Other non-traumatic joint disorders (6 sources) Effusion, left knee; Translations: [Other specified joint disorders, left knee] Onset: 05-24-2017 Episodic Residual codes; unclassified (20 sources) Menopause present; Translations: [Asymptomatic menopausal state] Onset: 07-04-2017 07-04-2017 Episodic Residual codes; unclassified (1 source) Forgetful; Translations: [Other general symptoms and signs] Episodic Residual codes; unclassified (2 sources) Other amnesia; Translations: [Other amnesia] Onset: 06-23-2024 Episodic Skin and subcutaneous tissue infections (20 sources) Infection of skin; Translations: [Local infection of the skin and subcutaneous tissue, unspecified] Onset: 02-25-2024 Resolved: 06-23-2024 02-25-2024 Episodic Unclassified (9 sources) Encounter for screening for osteoporosis; Translations: [Ultrasonography of breast abnormal] Onset: 01-21-2018 Episodic Unclassified (1 source) Dementia in other diseases classified elsewhere, moderate, without behavioral disturbance, psychotic disturbance, mood disturbance, and anxiety (HCC); Translations: [Dementia in other diseases classified elsewhere, moderate, without behavioral disturbance, psychotic disturbance, mood disturbance, and anxiety (HCC)] Onset: 12-21-2024 Unclassified (1 source) Unspecified dementia, moderate, without behavioral disturbance, psychotic disturbance, mood disturbance, and anxiety (HCC); Translations: [Unspecified dementia, moderate, without behavioral disturbance, psychotic disturbance, mood disturbance, and anxiety (HCC)] Onset: 12-03-2024 Unclassified (1 source) Subacute cough; Translations: [Subacute cough] Onset: 06-23-2024 Results Test Name Value Interpretation Reference Range Facility 36on 06-02-2025 36 Discussed with shelby tripathi office is unable to schedule at this time. [facility] 36 Name of Caller: John Contact Reason for Appointment: Patient returning call to reschedule cancelled 06/23/25. Unsure who to reschedule with since Dr. Mclaughlin will be out on leave. Please advise. Office Name: [facility] Medication Refills need, if any: n/a Medication Name: n/a [facility] [id number] Recent Visits Date Type Provider Dept 12/21/24 Office Visit Wilfrido Mclaughlin, DO [facility] 09/03/24 Office Visit Wilfrido Mclaughlin DO [facility] 06/23/24 Office Visit Wilfrido Mclaughlin DO [facility] Showing recent visits within past 365 days and meeting all other requirements Future Appointments Date Type Provider Dept 06/23/25 Appointment Wilfrido Mclaughlin DO [facility] Showing future appointments within next 90 days and meeting all other requirements Requested Prescriptions Pending Prescriptions Disp Refills lisinopril 20 MG tablet [Pharmacy Med Name: LISINOPRIL TABS 20MG] 90 tablet 3 Sig: TAKE 1 TABLET DAILY Provider: Wilfrido Mclaughlin DO Verified pharmacy: yes Verified day(s) supplied: yes Verified refill(s) needed (previous prescription showing no refills in chart): Yes Have you received any controlled medications from any other provider? N/A Overdue for visit: No If yes - patient scheduled? Yes Most recent labs completed in chart? Yes Hypertension: Lab Results Component Value Date NA 137 01/16/2022 K 4.3 01/16/2022 EGFR 71 12/21/2024 BUN 19 12/21/2024 CREATININE 0.80 12/21/2024 [facility] [id number] Recent Visits Date Type Provider Dept 12/21/24 Office Visit Wilfrido Mclaughlin DO [facility] 09/03/24 Office Visit Wilfrido Mclaughlin DO [facility] 06/23/24 Office Visit Wilfrido Mclaughlin DO [facility] Showing recent visits within past 365 days and meeting all other requirements Future Appointments Date Type Provider Dept 06/23/25 Appointment Wilfrido Mclaughlin DO [facility] Showing future appointments within next 90 days and meeting all other requirements Requested Prescriptions Pending Prescriptions Disp Refills verapamil SR (Calan SR) 240 MG ER tablet [Pharmacy Med Name: VERAPAMIL ER TABS 240MG] 90 tablet 1 Sig: Take 1 tablet (240 mg) by mouth Nightly. Provider: Wilfrido Mclaughlin DO Verified pharmacy: yes Verified day(s) supplied: yes Verified refill(s) needed (previous prescription showing no refills in chart): Yes Have you received any controlled medications from any other provider? N/A Overdue for visit: No If yes - patient scheduled? N/A Most recent labs completed in chart? N/A None Normal [facility] Progress Noteon 01-19-2025 Progress Note [facility] [employer] [facility] [address] [place] [address] [place] [address] Dept: [phone] Dept PHYSICAL THERAPY DISCHARGE Patient Name: John Navarrete : 1935 Date of Service: 01/19/2025 Referring Provider: Morro Mccray MD Visit #: [id number] Diagnosis: Unsteadiness on feet Mechanism of injury: Was diagnosed with moderate dementia 2 months ago. Pt is forgetful, unsteady. No LOB. No device use. Not feeling that she is limited with any specific activity. Balance issues worsened in past year. (Denied dizziness initially, though onset of dizziness roll supine to left during MMT). Does not feel weak or any decrease in endurance. Patient Preferences: pt goes by John Cristina/Red Flags: None Subjective General Comments: I am good. I think I am done. Has not had any dizziness for about 2 weeks. My head feels better. Balance is better. Once in a while will feel unsteady. Is stronger and I feel like I could go walking again. Is doing all her new and old exercise programs. Outcome Measures Activities-specific Balance Confidence (ABC): 1100, 68.75% (pt confused on how to properly answer these. Score slightly less than initial, despite good subjective reports of balance improvements. Objective GAIT & BALANCE Lower Extremity Strength Right Left Hip Flexion 5 5 Hip Abduction 5- 4 Hip Extension 4+ 4 Knee Extension 5 5 Knee Flexion 5 5 Serratus anterior 4+ 4 Eversion 5 Core Strength: bridge full ROM, abs 4/5 Multi-system balance testin time [id number] (STS): 11 seconds - Use of UEs?: no - Chair height (standard chair = 16-18 in): 17 DGI: - Assistive device used: no Additional balance testing Test Eyes Open (seconds) Eyes Closed (seconds) Sway 0 SLS L 0 mod SLS R 0 mod Assessment John has made good improvements with her core and LE strength, dynamic balance, and she is no longer dizzy. BPPV testing had been positive in 3 canals. BPPV testing was positive for brief symptoms in bilateral HC at her appointment on 01-12-25, though she has been symptom free. At this time, she is able to continue with her independent HEP to work towards further improvements in her functional strength and balance. Skilled PT no longer needed. Goals Active General/Ortho Patient will be independent with HEP. (Completed) Start: 12/08/24 Expected End: 03/08/25 Resolved: 01/19/25 Patient will increase strength in the core, hip and postural mm to be able to improve postural strength and reduce risk for falling. (Completed) Start: 12/08/24 Expected End: 03/08/25 Resolved: 01/19/25 Balance: Patient will improve SLS from 0 to 1 second bilaterally to improve safety with ambulation. (Not Progressing) Start: 12/08/24 Expected End: 03/08/25 Functional Outcome Measure: Patient will improve the ABC score from 69.4% balance confidence to 85% to demonstrate reduce fall risk. (Progressing) Start: 12/08/24 Expected End: 03/08/25 PT Misc Misc: The patient will have an improved FTSTS from 22 seconds to 17 seconds to demonstrate improved functional LE strength. (Completed) Start: 12/08/24 Expected End: 03/08/25 Resolved: 01/19/25 Misc 2 (Progressing) Start: 12/08/24 Expected End: 03/08/25 The patient will have an improved DGI from to to show her fall risk is reducing. Plan Patient no longer requires skilled PT services and will be discharged at this time. Thank you for this referral. For any questions on this patient?s course of therapy, please call the clinic for clarification. Treatment Therapeutic Activity Therapeutic Activity 1: Assessment of MMT, SLS, FTSTS, DGI, function, ABC scale Activity 1 Comment: 27 min Therapeutic Activity 6: balance on firm surface Activity 6 Comment: partial tandem 10 sec x 1 each; SLS at counter 1x each LE Therapeutic Activity 14: standing rows Activity 14 Comment: Lv3 1 x 10 Therapeutic Activity 15: standing bilateral shoulder extension Activity 15 Comment: Lv 3 1 x 10 Patient Education: education re: HEP progression, how to safely progress and when, split over 2 days. Review of step ups. Issued Lv 3 band. 6 min Home Exercise Program: Progressed home exercise program Time Entry Total Treatment Time Start Time: 1623 Stop Time: 1701 Time Calculation (min): 38 min PT Therapeutic Procedures Time Entry Therapeutic Exercise Time Entry: 6 Therapeutic Activity Time Entry: 32 Rani Forbes, PT [facility] Progress Noteon 01-12-2025 Progress Note [facility] [employer] [facility] AT [facility] [address] [facility] [address] Dept: [phone] Dept PHYSICAL THERAPY TREATMENT Patient Name: John Navarrete : 1935 Date of Service: 01/12/2025 Referring Provider: Morro Mccray MD Visit #: 9 Diagnosis: Unsteadiness on feet Mechanism of injury: Was diagnosed with moderate dementia 2 months ago. Pt is forgetful, unsteady. No LOB. No device use. Not feeling that she is limited with any specific activity. Balance issues worsened in past year. (Denied dizziness initially, though onset of dizziness roll supine to left during MMT). Does not feel weak or any decrease in endurance. Patient Preferences: pt goes by John Precautions/Red Flags: None Subjective I feel a lot better. Has not had any of dizziness for the past 2 weeks though still gets the woozy sensation. Once in a while I lose my balance. The balance is much better. Feeling stronger. Wants to work on her balance more for the remaining visits. Compliance with HEP: Yes Objective Roll Test positive right for brief dizziness. Roll Test positive left for brief dizziness. Treatment Therapeutic Activity Therapeutic Activity 3: cable lateral walk with belt & CGA/min assist Activity 3 Comment: 1.5 pl 1 x 4 each Therapeutic Activity 10: cable retro walk with belt & CGA/min assist Activity 10 Comment: 2.5 Pl 1 x 8 Therapeutic Activity 12: standing rows on AIREX Activity [address]: [address] 2 x 10 Therapeutic Activity 15: standing bilateral shoulder extension on AIREX Activity 15 Comment: 2 Pl 2 x 10 Canalith Repositioning Maneuvers BBQ Roll L: Roll Test positive left for brief dizziness. BBQ Roll x 1 BBQ Roll R: Roll Test positive right for brief dizziness. BBQ Roll x 1 Patient Education: education re: continue Modified Mitesh whitaker for HEP. 1 min Home Exercise Program: Deferred Assessment Skilled physical therapy interventions utilized to improve patient?s impairments and work towards established goals. Patient response to treatment: Progressed core, hip, LE and postural strengthening to improve functional strength and mobility and improve balance. Initiated postural strengthening on compliant surface to further improve balance. BPPV testing was positive in bilateral HC. Performed FUR BLOWER OPERATOR to treat bilateral HC canalithiasis. Patient will benefit from continued physical therapy to work towards reduction in dizziness and improved balance and strength. The rationale for today?s treatment was explained to the patient. Verbal cues were provided for correct form with all exercises. Advised patient to continue with Home Exercise Program (HEP). Goals General/Ortho Patient will be independent with HEP. (Progressing) Start: 12/08/24 Expected End: 03/08/25 Patient will increase strength in the core, hip and postural mm to be able to improve postural strength and reduce risk for falling. (Progressing) Start: 12/08/24 Expected End: 03/08/25 Balance: Patient will improve SLS from 0 to 1 second bilaterally to improve safety with ambulation. (Not Addressed) Start: 12/08/24 Expected End: 03/08/25 Functional Outcome Measure: Patient will improve the ABC score from 69.4% balance confidence to 85% to demonstrate reduce fall risk. (Not Addressed) Start: 12/08/24 Expected End: 03/08/25 PT Misc Misc: The patient will have an improved FTSTS from 22 seconds to 17 seconds to demonstrate improved functional LE strength. (Not Addressed) Start: 12/08/24 Expected End: 03/08/25 Misc 2 (Not Addressed) Start: 12/08/24 Expected End: 03/08/25 The patient will have an improved DGI from to to show her fall risk is reducing. Plan Plan for next session: reassessment. Time Entry Total Treatment Time Start Time: 1502 Stop Time: 1547 Time Calculation (min): 45 min PT Therapeutic Procedures Time Entry Therapeutic Exercise Time Entry: 1 Therapeutic Activity Time Entry: 1 Neuromuscular Re-Education Time Entry: 16 Rani Forbes, PT [facility] Progress Noteon 01-05-2025 Progress Note [facility] THERAPY AT [facility] [address] [place] [address] Dept: [phone] Dept PHYSICAL THERAPY TREATMENT Patient Name: John Navarrete : 1935 Date of Service: 01/05/2025 Referring Provider: Morro Mccray MD Visit #: 8 Diagnosis: Unsteadiness on feet Mechanism of injury: Was diagnosed with moderate dementia 2 months ago. Pt is forgetful, unsteady. No LOB. No device use. Not feeling that she is limited with any specific activity. Balance issues worsened in past year. (Denied dizziness initially, though onset of dizziness roll supine to left during MMT). Does not feel weak or any decrease in endurance. Patient Preferences: pt goes by John Precautions/Red Flags: None Subjective I still feel woozy sometimes but not off balance. My head just isn't clear. Compliance with HEP: Yes Objective Objective measurements not taken today. Treatment Therapeutic Exercise Therapeutic Exercise Activity 1: gastroc wedge stretch Activity 1 Comment: 2 min x 1 Therapeutic Activity Therapeutic Activity 1: step ups forwards Activity 1 Comment: 6 step x 5 each LE leading Soft Tissue Mobilization Location: suboccipitals Body Position: Supine Comments: release x 11 minutes Canalith Repositioning Maneuvers BBQ Roll L: 2x BBQ Roll R: 2x Patient Education: review of proper step up for HEP to avoid hitting shins on steps. Home Exercise Program: Deferred Assessment Skilled physical therapy interventions utilized to improve patient?s impairments and work towards established goals. Patient response to treatment: Performed FUR BLOWER OPERATOR to treat BPPV in bilateral HC and reduce dizziness. Manual intervention to address any cervicogenic components of dizziness. Pt had increased mm tension in right > left suboccipitals. No c/o dizziness at end of session today. Patient will benefit from continued physical therapy to work towards reduction of dizziness and improved balance. The rationale for today?s treatment was explained to the patient. Verbal cues were provided for correct form with all exercises. Advised patient to continue with Home Exercise Program (HEP). Goals General/Ortho Patient will be independent with HEP. (Progressing) Start: 12/08/24 Expected End: 03/08/25 Patient will increase strength in the core, hip and postural mm to be able to improve postural strength and reduce risk for falling. (Progressing) Start: 12/08/24 Expected End: 03/08/25 Balance: Patient will improve SLS from 0 to 1 second bilaterally to improve safety with ambulation. (Not Addressed) Start: 12/08/24 Expected End: 03/08/25 Functional Outcome Measure: Patient will improve the ABC score from 69.4% balance confidence to 85% to demonstrate reduce fall risk. (Not Addressed) Start: 12/08/24 Expected End: 03/08/25 PT Misc Misc: The patient will have an improved FTSTS from 22 seconds to 17 seconds to demonstrate improved functional LE strength. (Not Addressed) Start: 12/08/24 Expected End: 03/08/25 Misc 2 (Not Addressed) Start: 12/08/24 Expected End: 03/08/25 The patient will have an improved DGI from 16 to to show her fall risk is reducing. Plan Plan for next session: Progress dynamic balance and LE strengthening. Continue FUR BLOWER OPERATOR as appropriate. Time Entry Total Treatment Time Start Time: 1505 Stop Time: 1547 Time Calculation (min): 42 min PT Therapeutic Procedures Time Entry Therapeutic Exercise Time Entry: 2 Therapeutic Activity Time Entry: 3 Manual Therapy Time Entry: 11 Neuromuscular Re-Education Time Entry: 24 Rani Forbes, PT [facility] 36on 12-31-2024 36 Lyric has been notified [facility] Progress Noteon 12-31-2024 Progress Note [facility]AP[facility] AT [facility] [address] [facility] [place] [address] Dept: [phone] Dept PHYSICAL THERAPY TREATMENT Patient Name: John Navarrete : 1935 Date of Service: 12/31/2024 Referring Provider: Morro Mccray MD Visit #: 7 Diagnosis: Unsteadiness on feet Mechanism of injury: Was diagnosed with moderate dementia 2 months ago. Pt is forgetful, unsteady. No LOB. No device use. Not feeling that she is limited with any specific activity. Balance issues worsened in past year. (Denied dizziness initially, though onset of dizziness roll supine to left during MMT). Does not feel weak or any decrease in endurance. Patient Preferences: pt goes by John Precautions/Red Flags: None Subjective I don't think I am as dizzy as I was. Does feel like she is still off in the head. Also unsteady. Balance is getting better. Also feeling stronger. Compliance with HEP: Yes Objective Sara-Hallpike negativ right & left. Roll test positive bilaterally. Treatment Therapeutic Activity Therapeutic Activity 3: cable lateral walk with belt & CGA/min assist Activity 3 Comment: 1 pl 1 x 7 each Therapeutic Activity 5: BIG step fwd with arms open Activity 5 Comment: 1 x 10 ea Therapeutic Activity 10: cable retro walk with belt & CGA/min assist Activity 10 Comment: 2.5 Pl 1 x Canalith Repositioning Maneuvers Jaleel L PC: Sara-Hallpike negativ left Jaleel R PC: [place]-Hallpike negativ right BBQ Roll L: Roll test positive left. BBQ Roll 1x BBQ Roll R: Roll test positive right. BBQ Roll 1x Home Exercise Program: Deferred Assessment Skilled physical therapy interventions utilized to improve patient?s impairments and work towards established goals. Patient response to treatment: BPPV negative in bilateral PC and positive in bilateral HC for canalithiasis. Performed FUR BLOWER OPERATOR to treat BPPV and reduce dizziness. Progressed core and hip strengthening to improve balance and safety with ambulation. Patient will benefit from continued physical therapy to work towards resolution of BPPV and dizziness and improvements in balance and functional strength and mobility. The rationale for today?s treatment was explained to the patient. Verbal cues were provided for correct form with all exercises. Advised patient to continue with Home Exercise Program (HEP). Goals General/Ortho Patient will be independent with HEP. (Progressing) Start: 12/08/24 Expected End: 03/08/25 Patient will increase strength in the core, hip and postural mm to be able to improve postural strength and reduce risk for falling. (Progressing) Start: 12/08/24 Expected End: 03/08/25 Balance: Patient will improve SLS from 0 to 1 second bilaterally to improve safety with ambulation. (Not Addressed) Start: 12/08/24 Expected End: 03/08/25 Functional Outcome Measure: Patient will improve the ABC score from 69.4% balance confidence to 85% to demonstrate reduce fall risk. (Not Addressed) Start: 12/08/24 Expected End: 03/08/25 PT Misc Misc: The patient will have an improved FTSTS from 22 seconds to 17 seconds to demonstrate improved functional LE strength. (Not Addressed) Start: 12/08/24 Expected End: 03/08/25 Misc 2 (Not Addressed) Start: 12/08/24 Expected End: 03/08/25 The patient will have an improved DGI from to to show her fall risk is reducing. Plan Plan for next session: Continue progression of dynamic balance and balance on compliant surface. Possible initiation of quadruped core strengthening. Time Entry Total Treatment Time Start Time: 1431 Stop Time: 1516 Time Calculation (min): 45 min PT Therapeutic Procedures Time Entry Therapeutic Activity Time Entry: Neuromuscular Re-Education Time Entry: Rani Forbes, PT [facility] 36on 12-30-2024 36 She can stop the mem antine. If the memantine was making her dizzy she will feel better after 48 hours. If she is still dizzy 48 hours later, then she may be coming down with something and needs to call Dr. Mclaughlin. [facility] 36 Name of caller: Lyric Contact phone number: [phone] Relationship to Patient: family member patient and daughter Provider: Dr. Mccray Practice: Neurology Chief Complaint/Reason for Call: Lyric called advising since patient has been taking medication memantine (Namenda) 10 MG tablet she has been feeling more dizziness. Lyric advised if provider wants patient to discontinue taking medication. Please call Lyric back and advise. Best time of day caller can be reached: any Patient advised that office/PCP has 24-48 business hours to return their call: Yes [facility] Progress Noteon 12-29-2024 Progress Note [facility] [address] [place] [id number] Dept: [phone] Dept PHYSICAL THERAPY TREATMENT Patient Name: John Navarrete : 1935 Date of Service: 12/29/2024 Referring Provider: Morro Mccray MD Visit #: 6 Diagnosis: Unsteadiness on feet Mechanism of injury: Was diagnosed with moderate dementia 2 months ago. Pt is forgetful, unsteady. No LOB. No device use. Not feeling that she is limited with any specific activity. Balance issues worsened in past year. (Denied dizziness initially, though onset of dizziness roll supine to left during MMT). Does not feel weak or any decrease in endurance. Patient Preferences: pt goes by John Precautions/Red Flags: None Subjective I am still not 100% with the dizziness, but it is much better. Stopped taking Nimenda on Saturday Had stopped the Aricept one month ago ( Nimenda was the replacement). The dizziness is now a 4/10 and was an 8/10. Not really a change in the dizziness from the last PT visit until stopping the meds. I'm not dizzy, my head just doesn't feel right. Compliance with HEP: Yes Objective Objective measurements not taken today. Treatment Therapeutic Activity Therapeutic Activity 3: cable lateral walk with belt & CGA/min assist Activity 3 Comment: 1 pl 1 x 5 each Therapeutic Activity 9: march walk forwards with CGA to min assist Activity 9 Comment: 2 x 40' Therapeutic Activity 10: cable retro walk with belt & CGA/min assist Activity [address]: [address] 1 x 6 Therapeutic Activity 11: AIREX Activity 11 Comment: feet together EO 1 min x 1, feet apart EC 1 min; staggered stance EO: 1 min x 1 each Therapeutic Activity 12: standing rows Activity 12 Comment: 2.5 Pl 2 x 10 Therapeutic Activity 13: step over 6 wyatt from [employer] mats with railing Activity 13 Comment: laterally x 12; forwards/retro 1 x 12 each LE leading. Therapeutic Activity 14: retro walk Activity 14 Comment: 40' x 2 with CGA/min assist. Patient Education: education re: progression of LE strengthening for HEP & how to safely perform. 2 min Home Exercise Program: Progressed home exercise program Assessment Skilled physical therapy interventions utilized to improve patient?s impairments and work towards established goals. Patient response to treatment: Progressed postural, core, and LE strengthening and balance on compliant surfaces to improve balance and safety with ambulation and ADLs. Pt required 2 brief seated rest breaks during treatment. Attempted to increase weight with resisted lateral stepping, though unable due to weakness. Patient will benefit from continued physical therapy to further improve balance and LE strength and reduce dizziness with ADLs. The rationale for today?s treatment was explained to the patient. Verbal cues were provided for correct form with all exercises. Advised patient to continue with Home Exercise Program (HEP). Goals General/Ortho Patient will be independent with HEP. (Progressing) Start: 12/08/24 Expected End: 03/08/25 Patient will increase strength in the core, hip and postural mm to be able to improve postural strength and reduce risk for falling. (Progressing) Start: 12/08/24 Expected End: 03/08/25 Balance: Patient will improve SLS from 0 to 1 second bilaterally to improve safety with ambulation. (Not Addressed) Start: 12/08/24 Expected End: 03/08/25 Functional Outcome Measure: Patient will improve the ABC score from 69.4% balance confidence to 85% to demonstrate reduce fall risk. (Not Addressed) Start: 12/08/24 Expected End: 03/08/25 PT Misc Misc: The patient will have an improved FTSTS from 22 seconds to 17 seconds to demonstrate improved functional LE strength. (Not Addressed) Start: 12/08/24 Expected End: 03/08/25 Misc 2 (Not Addressed) Start: 12/08/24 Expected End: 03/08/25 The patient will have an improved DGI from 1624 to 2224 to show her fall risk is reducing. Plan Plan for next session: Continue progression of dynamic balance and strengthening. Resume BIG step outs. Time Entry Total Treatment Time Start Time: 1323 Stop Time: 1406 Time Calculation (min): 43 min PT Therapeutic Procedures Time Entry Therapeutic Exercise Time Entry: 2 Therapeutic Activity Time Entry: 39 Rani Forbes, PT [facility] Progress Noteon 12-24-2024 Progress Note [facility] AT [facility] [address] [facility] [place] [address] Dept: [phone] Dept PHYSICAL THERAPY TREATMENT Patient Name: John Navarrete : 1935 Date of Service: 12/24/2024 Referring Provider: Morro Mccray MD Visit #: 5 Diagnosis: Unsteadiness on feet Mechanism of injury: Was diagnosed with moderate dementia 2 months ago. Pt is forgetful, unsteady. No LOB. No device use. Not feeling that she is limited with any specific activity. Balance issues worsened in past year. (Denied dizziness initially, though onset of dizziness roll supine to left during MMT). Does not feel weak or any decrease in endurance. Patient Preferences: pt goes by John Precautions/Red Flags: None Subjective I felt good and the dizziness was gone until the next day. Woke the next day with a little less intense dizziness. Not seeing a lot of change in balance yet. A little dizziness currently. Compliance with HEP: Yes Objective Sara-Hallpike pos brief dizziness x 2-3 seconds. Treatment Therapeutic Activity Therapeutic Activity 3: cable lateral walk with belt & CGA/min assist Activity 3 Comment: 1 pl 1 x 4 each Therapeutic Activity 10: cable retro walk with belt & CGA/min assist Activity [address]: [address] 1 x 7 Therapeutic Activity 11: [employer]RE[employer] Activity 11 Comment: feet close EO 1 min x 1, feet apart EC 1 min, with head turns & nods 1 min x 1 each Canalith Repositioning Maneuvers Jaleel L PC: [place]-Hallpike pos brief dizziness x 2-3 seconds. Jaleel x 1 BBQ Roll L: 1x VOR Exercises VOR x 1 horizontal: 2 min Position: sitting Occulomotor Exercises Smooth pursuit L/R: 1 x 10 sitting Smooth pursuit Up/down: 1 x 10 sitting Convergence: 1 x 10 sitting Home Exercise Program: Deferred Assessment Skilled physical therapy interventions utilized to improve patient?s impairments and work towards established goals. Patient response to treatment: Progressed dynamic LE strengthening and balance on compliant surface to improve the patient's functional strength and mobility. BPPV positive in the left PC with testing. Performed FUR BLOWER OPERATOR to treat left HC and PC. Intiated pursuits and convergence without onset of any symptoms. No dizziness at end of session post FUR BLOWER OPERATOR. Patient will benefit from continued physical therapy to work towards improvements in balance, strength and safety with ADLs, and to reduce dizziness. The rationale for today?s treatment was explained to the patient. Verbal cues were provided for correct form with all exercises. Advised patient to continue with Home Exercise Program (HEP). Goals General/Ortho Patient will be independent with HEP. (Progressing) Start: 12/08/24 Expected End: 03/08/25 Patient will increase strength in the core, hip and postural mm to be able to improve postural strength and reduce risk for falling. (Progressing) Start: 12/08/24 Expected End: 03/08/25 Balance: Patient will improve SLS from 0 to 1 second bilaterally to improve safety with ambulation. (Not Addressed) Start: 12/08/24 Expected End: 03/08/25 Functional Outcome Measure: Patient will improve the ABC score from 69.4% balance confidence to 85% to demonstrate reduce fall risk. (Not Addressed) Start: 12/08/24 Expected End: 03/08/25 PT Misc Misc: The patient will have an improved FTSTS from 22 seconds to 17 seconds to demonstrate improved functional LE strength. (Not Addressed) Start: 12/08/24 Expected End: 03/08/25 Misc 2 (Not Addressed) Start: 12/08/24 Expected End: 03/08/25 The patient will have an improved DGI from to to show her fall risk is reducing. Plan Plan for next session: Progress reps with resisted walking. Progress BIG step outs, Add Modified Gufoni with review for HEP. Progress dynamic gaze stabilization. Time Entry Total Treatment Time Start Time: 1433 Stop Time: 1516 Time Calculation (min): 43 min PT Therapeutic Procedures Time Entry Therapeutic Activity Time Entry: 19 Neuromuscular Re-Education Time Entry: 13 Canalith Repositioning Time Entry: 8 Rani Forbes, PT [facility] Progress Noteon 12-22-2024 Progress Note [facility] AT [facility] [address] [facility] [address] [facility] [address] Dept: [phone] Dept PHYSICAL THERAPY TREATMENT Patient Name: John Navarrete : 1935 Date of Service: 12/22/2024 Referring Provider: Morro Mccray MD Visit #: 4 Diagnosis: Unsteadiness on feet Mechanism of injury: Was diagnosed with moderate dementia 2 months ago. Pt is forgetful, unsteady. No LOB. No device use. Not feeling that she is limited with any specific activity. Balance issues worsened in past year. (Denied dizziness initially, though onset of dizziness roll supine to left during MMT). Does not feel weak or any decrease in endurance. Patient Preferences: pt goes by John Precautions/Red Flags: None Subjective No change in the dizziness yet. Currently 5-6/10 dizziness. I did feel better for 2-3 hours after the last therapy. Dizziness was gone for that duration. Compliance with HEP: Yes Objective [place]-Hallpike pos brief dizziness x 4 seconds Treatment Therapeutic Activity Therapeutic Activity 8: BIG step out laterally with arm open Activity 8 Comment: 1 x 10 each LE Therapeutic Activity 9: march walk forwards with CGA to min assist Activity 9 Comment: 1 x 40' Therapeutic Activity 10: retro walk Activity 10 Comment: 40' x 1 Canalith Repositioning Maneuvers Jaleel L PC: Sara-Hallpike pos brief dizziness x 4 seconds. Jaleel x 1 BBQ Roll L: 1x BBQ Roll R: 1x Munoz-Daroff exercise: ambulation with head turns and nods 40' x 3 each Patient Education: education re: purpose of gaze stabilization to improve vestibulo-ocular dysfunction. 2 min Home Exercise Program: Deferred Assessment Skilled physical therapy interventions utilized to improve patient?s impairments and work towards established goals. Patient response to treatment: Performed FUR BLOWER OPERATOR to reduce BPPV and dizziness. Progressed dynamic balance and LE strengthening, which challenged the patient and required frequent min assist to correct LOB. Onset of dizziness with ambulation with head nod/turns. Pt reported no dizziness immediately post FUR BLOWER OPERATOR today. Patient will benefit from continued physical therapy to work towards resolution of dizziness and progression of core and hip strengthening and improved balance. The rationale for today?s treatment was explained to the patient. Verbal cues were provided for correct form with all exercises. Advised patient to continue with Home Exercise Program (HEP). Goals General/Ortho Patient will be independent with HEP. (Progressing) Start: 12/08/24 Expected End: 03/08/25 Patient will increase strength in the core, hip and postural mm to be able to improve postural strength and reduce risk for falling. (Progressing) Start: 12/08/24 Expected End: 03/08/25 Balance: Patient will improve SLS from 0 to 1 second bilaterally to improve safety with ambulation. (Not Addressed) Start: 12/08/24 Expected End: 03/08/25 Functional Outcome Measure: Patient will improve the ABC score from 69.4% balance confidence to 85% to demonstrate reduce fall risk. (Not Addressed) Start: 12/08/24 Expected End: 03/08/25 PT Misc Misc: The patient will have an improved FTSTS from 22 seconds to 17 seconds to demonstrate improved functional LE strength. (Not Addressed) Start: 12/08/24 Expected End: 03/08/25 Misc 2 (Not Addressed) Start: 12/08/24 Expected End: 03/08/25 The patient will have an improved DGI from to to show her fall risk is reducing. Plan Plan for next session: Add cable retro and lateral walking with belt and CGA. Continue FUR BLOWER OPERATOR. Time Entry Total Treatment Time Start Time: 1319 Stop Time: 1403 Time Calculation (min): 44 min PT Therapeutic Procedures Time Entry Therapeutic Exercise Time Entry: 2 Therapeutic Activity Time Entry: 13 Neuromuscular Re-Education Time Entry: 21 Canalith Repositioning Time Entry: 8 Rani Forbes, PT [facility] ECG 12 leadOrdered By: Enid Barrett on 12-21-2024 [facility] Office Visiton 12-21-2024 Follow-up visit [id number] John Navarrete 1935 [facility] Provider Department Center 12/21/2024 [id number] [facility] Family History Problem Relation Age of Onset Coronary artery disease Mother 86 Comments: age 94 Alcohol abuse Father Comments: age 48 Heart disease Father 48 High Blood Pressure Sister Valvular heart disease Sister Comments: s/p AVR Hyperlipidemia Sister Kidney failure Brother Comments: 06/12 age 80 Family Status - Relation Status Age at Mother 48 Father 94 Sister Alive Brother Level of Service:93979 GA OFFICE/OUTPATIENT ESTABLISHED LOW MDM 20 MIN Reason for Visit and Comments: Follow-up [324664] - Med Check Dizziness [930364] - With rapid heart rate Normal [facility] Progress Noteon 12-21-[address] [facility] [address] [facility] [address] Visit type: Established Patient Reason for Visit: Follow-up (Med Check ) and Dizziness (With rapid heart rate ) Assessment / Plan: John was seen today for follow-up and dizziness. Diagnoses and all orders for this visit: Palpitations (Primary) Comments: Resolved, possible 7-day Holter. Orders: - CBC auto differential; Future - Comprehensive metabolic panel; Future - ECG 12 lead; Future - CBC auto differential - Comprehensive metabolic panel - ECG 12 lead - Magnesium; Future - TSH; Future - T4, free; Future - T3, free; Future - Magnesium - TSH - T4, free - T3, free Essential hypertension Comments: Stable, continue verapamil and lisinopril Moderate late onset Alzheimer's dementia without behavioral disturbance, psychotic disturbance, mood disturbance, or anxiety (HCC) Comments: Encouragement given, reviewed past MRIs and neurology consultation follow-up with Dr. Mccray on consideration of repeat MRI Subjective: Patient ID: John Navarrete is a 89 y.o. female. HPI well-controlled hypertensive patient recently diagnosed with moderate dementia presents concerned about ongoing palpitations over the last week. Occur with and without activity. Lasts a few minutes. Not accompanied by chest pain or shortness of breath. Intermittently has been getting lightheaded for many months and started physical therapy for balance a couple days ago. Recently placed on Namenda per neurology. Had MRI of the head 2 years ago for similar complaints. She denies diplopia or scotomas. No unilateral numbness to the face arm or legs. Review of Systems Aricept gave her side effects. She denies headache or confusion. No photophobia. No recent cough or congestion. Eating and voiding well. Had SVT 7 years ago treated with verapamil successfully. No history of CHF or CVA. No Known Allergies Current Outpatient Medications on File Prior to Visit Medication Sig Dispense Refill aspirin 81 MG EC tablet Take 81 mg by mouth daily. biotin 93632 MCG tablet Take by mouth daily. 10,000 mcg Calcium Citrate-Vitamin D 250-2.5 MG-MCG tablet Take by mouth. lisinopril 20 MG tablet Take 1 tablet (20 mg) by mouth daily. 90 tablet 1 memantine (Namenda) 10 MG tablet Take 1 tablet (10 mg) by mouth 2 times daily. 180 tablet 3 Multiple Vitamin tablet Take 1 tablet by mouth in the morning. verapamil SR (Calan SR) 240 MG ER tablet Take 1 tablet (240 mg) by mouth Nightly. 90 tablet 1 [DISCONTINUED] acetaminophen (Tylenol) 500 MG tablet 2 bid prn 30 tablet 0 [DISCONTINUED] donepezil (Aricept) 5 MG tablet Take 1 tablet (5 mg) by mouth daily with supper. (Patient not taking: Reported on 12/03/2024) 90 tablet 3 No current facility-administered medications on file prior to visit. Patient Active Problem List Diagnosis SVT (supraventricular tachycardia) (HCC) Torus mandibularis Essential hypertension Menopause Mild cognitive impairment with memory loss Cerebral vascular disease Moderate late onset Alzheimer's dementia without behavioral disturbance, psychotic disturbance, mood disturbance, or anxiety (HCC) Social History Tobacco Use Smoking status: Never Smokeless tobacco: Never Substance Use Topics Alcohol use: No Alcohol/week: 0.0 standard drinks of alcohol Past Surgical History: Procedure Laterality Date BUNIONECTOMY Left 2019 CARPAL TUNNEL RELEASE Right 03/29/2023 Endoscopic right carpal tunnel release - Dr. Sommer CATARACT EXTRACTION W/ INTRAOCULAR LENS IMPLANT, BILATERAL Bilateral COLONOSCOPY W/ POLYPECTOMY 08/2019 COLONOSCOPY W/ POLYPECTOMY 09/2022 Dr. Bedolla- no reason for f/u TRIGGER FINGER RELEASE Right 2020 right middle and ring - Dr Sommer TUBAL LIGATION Family History Problem Relation Name Age of Onset Coronary artery disease Mother 86 age 94 Alcohol abuse Father Sherman age 48 Heart disease Father Sherman 48 High Blood Pressure Sister Radha Valvular heart disease Sister Radha s/p AVR Hyperlipidemia Sister Radha Kidney failure Brother Ed 06/12 age 80 Objective: BP 132/76 Pulse 76 Temp 36.3 ?C (97.3 ?F) (Temporal) Ht 5' 3 (1.6 m) Wt 121 lb 6.4 oz (55.1 kg) SpO2 97% BMI 21.51 kg/m? Physical Exam Very pleasant alert and well-groomed. Pupils equal. Extraocular muscles are intact. Cranial nerves are normal. No overt motor or sensory loss of the arms and legs. Her gait is stable. No carotid bruits or thyroid masses. Heart is regular without ectopy or new murmurs. Lungs are clear. Abdomen soft nontender without pain hepatosplenomegaly or masses. No bruits. Extremities have no appreciable edema. Blood pressure recheck excellent. Pupils equal. Extraocular muscles are intact. All cranial nerves normal. Negative Romberg, [id number]-[id number], and fair tandem gait testing. EKG sinus rhythm without ischemia or ectop (more content not included)... Normal [facility] Progress Noteon 12-17-2024 Progress Note [facility] [address] [place] [address] Dept: [phone] Dept PHYSICAL THERAPY TREATMENT Patient Name: John Navarrete : 1935 Date of Service: 12/17/2024 Referring Provider: Morro Mccray MD Visit #: 3 Diagnosis: Unsteadiness on feet Mechanism of injury: Was diagnosed with moderate dementia 2 months ago. Pt is forgetful, unsteady. No LOB. No device use. Not feeling that she is limited with any specific activity. Balance issues worsened in past year. (Denied dizziness initially, though onset of dizziness roll supine to left during MMT). Does not feel weak or any decrease in endurance. Patient Preferences: pt goes by John Cristina/Red Flags: None Subjective I am more unsteady today. Is doing well with the therapy. Legs were a little tired after the PT here. Compliance with HEP: Yes Objective VESTIBULAR Dizziness Current: 0 Worst: 6-7 Best: 0 Positional testing [place] L: positive for spinning x 2-3 seconds; no nystagmus [place] R: negative Roll Test L: positive for brief dizziness Roll Test R: positive for brief dizziness Treatment Therapeutic Activity # of Activities: 7 Therapeutic Activity 1: assessment of BPPV Activity 1 Comment: 6 min Therapeutic Activity 5: BIG step fwd with arms open Activity 5 Comment: 1 x 10 ea Therapeutic Activity 7: step ups forwards with railings Activity 7 Comment: 1 x 15 each LE leading. Canalith Repositioning Maneuvers Jaleel L PC: 1x BBQ Roll L: 1x BBQ Roll R: 1x Patient Education: education re: BPPV, treatment, expected outcome. 4 min Home Exercise Program: Deferred Assessment Skilled physical therapy interventions utilized to improve patient?s impairments and work towards established goals. Patient response to treatment: BPPV testing performed today, and was positive in bilateral HC and the left PC. Performed FUR BLOWER OPERATOR to reduce dizziness and improve functional mobility and safety. Progressed dynamic balance and LE strengthening to increase safety with ADLs and reduce fall risk. Pt struggled with rolling s/l to prone and prone to s/l. Patient will benefit from continued physical therapy to reduce dizziness, improve balance and functional strength and mobility. The rationale for today?s treatment was explained to the patient. Verbal cues were provided for correct form with all exercises. Advised patient to continue with Home Exercise Program (HEP). Goals General/Ortho Patient will be independent with HEP. (Progressing) Start: 12/08/24 Expected End: 03/08/25 Patient will increase strength in the core, hip and postural mm to be able to improve postural strength and reduce risk for falling. (Progressing) Start: 12/08/24 Expected End: 03/08/25 Balance: Patient will improve SLS from 0 to 1 second bilaterally to improve safety with ambulation. (Not Addressed) Start: 12/08/24 Expected End: 03/08/25 Functional Outcome Measure: Patient will improve the ABC score from 69.4% balance confidence to 85% to demonstrate reduce fall risk. (Not Addressed) Start: 12/08/24 Expected End: 03/08/25 PT Misc Misc: The patient will have an improved FTSTS from 22 seconds to 17 seconds to demonstrate improved functional LE strength. (Not Addressed) Start: 12/08/24 Expected End: 03/08/25 Misc 2 (Not Addressed) Start: 12/08/24 Expected End: 03/08/25 The patient will have an improved DGI from 1624 to 2224 to show her fall risk is reducing. Plan Plan for next session: Continue FUR BLOWER OPERATOR, progress with BIG lateral step outs. Time Entry Total Treatment Time Start Time: 1401 Stop Time: 1449 Time Calculation (min): 48 min PT Therapeutic Procedures Time Entry Therapeutic Exercise Time Entry: 4 Therapeutic Activity Time Entry: 18 Neuromuscular Re-Education Time Entry: 14 Canalith Repositioning Time Entry: 8 Rani Forbes, PT Normal [facility] Progress Noteon 12-15-2024 Progress Note [facility] [address] [place] [address] [address] [facility] [address] Dept: [phone] Dept PHYSICAL THERAPY TREATMENT Patient Name: John Navarrete : 1935 Date of Service: 12/15/2024 Referring Provider: Morro Mccray MD Visit #: 2 Diagnosis: Unsteadiness on feet Mechanism of injury: Was diagnosed with moderate dementia 2 months ago. Pt is forgetful, unsteady. No LOB. No device use. Not feeling that she is limited with any specific activity. Balance issues worsened in past year. (Denied dizziness initially, though onset of dizziness roll supine to left during MMT). Does not feel weak or any decrease in endurance. Patient Preferences: pt goes by John Subjective Has continued exercises from prior as well as HEP given. Pt states dizziness more intense last few days more unsteadiness. Compliance with HEP: Yes Objective Objective measurements not taken today. Treatment Therapeutic Exercise # of Activities: 5 Therapeutic Exercise Activity 3: heel/toe raises Activity 3 Comment: at counter 1 x 15 Therapeutic Exercise Activity 4: hip abd at counter Activity 4 Comment: 1 x 15 ea Therapeutic Exercise Activity 5: hip ext at counter Activity 5 Comment: 1 x 15 ea Therapeutic Activity # of Activities: 6 Therapeutic Activity 2: sit to stand Activity 2 Comment: chair 1 x 10 Therapeutic Activity 3: sidestepping Activity 3 Comment: 25' x 1 Therapeutic Activity 4: ambulation fwd wtih head turns/nods Activity 4 Comment: 25' x 2 ea Therapeutic Activity 5: BIG step fwd with arms open Activity 5 Comment: 1 x 10 ea Therapeutic Activity 6: balance on firm surface Activity 6 Comment: WBOS/EC x 30; NBOS/EO x 30; tandem L/R,R/L x 30 ea Home Exercise Program: Progressed home exercise program, documented pt's other exercises in [facility] Assessment Skilled physical therapy interventions utilized to improve patient?s impairments and work towards established goals. Patient response to treatment: Pt reported slight dizziness during ambulation with head turns, 1 L.O.B., CGA for safety. MIN sway on firm surface with WBOS/EO, NBOS/EO; MOD sway with full tandem, CGA. Progressed hip/ankle strengthening at counter, issued for HEP. No report of dizziness at end of session. Patient will benefit from continued physical therapy to improve strength, balance and function. The rationale for today?s treatment was explained to the patient. Verbal cues were provided for correct form with all exercises. Advised patient to continue with Home Exercise Program (HEP). Goals General/Ortho Patient will be independent with HEP. (Initiated) Start: 12/08/24 Expected End: 03/08/25 Patient will increase strength in the core, hip and postural mm to be able to improve postural strength and reduce risk for falling. (Initiated) Start: 12/08/24 Expected End: 03/08/25 Balance: Patient will improve SLS from 0 to 1 second bilaterally to improve safety with ambulation. (Initiated) Start: 12/08/24 Expected End: 03/08/25 Functional Outcome Measure: Patient will improve the ABC score from 69.4% balance confidence to 85% to demonstrate reduce fall risk. (Not Addressed) Start: 12/08/24 Expected End: 03/08/25 PT Misc Misc: The patient will have an improved FTSTS from 22 seconds to 17 seconds to demonstrate improved functional LE strength. (Not Addressed) Start: 12/08/24 Expected End: 03/08/25 Misc 2 (Not Addressed) Start: 12/08/24 Expected End: 03/08/25 The patient will have an improved DGI from to to show her fall risk is reducing. Plan Plan for next session: test ear canals. Progress dynamic balance on firm and compliant surfaces. Time Entry Total Treatment Time Start Time: 321 Stop Time: 399 Time Calculation (min): 38 min PT Therapeutic Procedures Time Entry Therapeutic Exercise Time Entry: 10 Therapeutic Activity Time Entry: 28 Juani Santillan PTA [facility] 36on 12-08-2024 36 Medication name: lisinopril tablet Medication dosage: 20 mg (Miligrams Monthly quantity needed: 30 How many day supply requestin days Medication route: oral (PO) Medication administration time(s): daily If taking medication PRN, reason for taking medication: N/A If this is a controlled substance do you receive this or any other controlled medication from any other doctor or facility: N/A Ordering provider: Arnoldo Date of last office visit: 09.03.2024 Date of next office visit: 12.21.2024 Date of last refill: (see medication tab): 08.11.2024 Updated/Validated preferred pharmacy: Yes Patient instructed to contact the pharmacy prior to picking up the medication: N/A [facility] Progress Noteon 12-08-2024 Progress Note [facility] [address] [facility] [place] [address] Dept: [phone] Dept PHYSICAL THERAPY EVALUATION Patient Name: John Navarrete : 1935 Date of Service: 12/08/2024 Referring Provider: Morro Mccray MD Visit #: 1 Diagnosis: Unsteadiness on feet General Information Mechanism of injury: Was diagnosed with moderate dementia 2 months ago. Pt is forgetful, unsteady. No LOB. No device use. Not feeling that she is limited with any specific activity. Balance issues worsened in past year. (Denied dizziness initially, though onset of dizziness roll supine to left during MMT). Does not feel weak or any decrease in endurance. Patient Preferences: pt goes by John Precautions/Red Flags: None Fall Risk: Yes and unsteady Work status: retired Home Setup: Mandeep in 1 story home with railing to basement. PMHX: John has a past medical history of Diverticular disease, H/O colonoscopy with polypectomy, Hearing loss, History of colon polyps, HTN (hypertension), Lumbar degenerative disc disease, Osteoporosis, and SVT (supraventricular tachycardia) (HCC). She has no past medical history of PONV (postoperative nausea and vomiting). PSHX: John has a past surgical history that includes Colonoscopy w/ polypectomy (08/2019); Bunionectomy (Left, 2018); Trigger finger release (Right, 2020); Cataract extraction w/ intraocular lens implant, bilateral (Bilateral); Tubal ligation; Colonoscopy w/ polypectomy (09/2022); and Carpal tunnel release (Right, 03/29/2023). Have you experienced any anxiety or depression?: No Have you experienced thoughts of self-harm or suicidal thoughts?: No Social Drivers of Health Reviewed: Yes and relies on due to off balance Physician follow-up appointment?: Yes Subjective Chief Complaint: Was diagnosed with moderate dementia 2 months ago. Pt is forgetful, unsteady. No LOB. No device use. Not feeling that she is limited with any specific activity. Balance issues worsened in past year. (Denied dizziness initially, though onset of dizziness roll supine to left during MMT). Does not feel weak or any decrease in endurance. Prior Level of Function: not limited Current Level of Function: not feeling limited with anything specific; just unsteady. Requires railing for any stairs Patient?s Stated Goal: to improve balance. Outcome Measures Activities-specific Balance Confidence (ABC): 1110/16, 69.4% Objective GAIT & BALANCE Observation: slight to mild forward head/rounded shoulder posture. C curvature to spine. Gait Assessment: slower gait speed, no LOB, shortened stride length, slight shuffle on 2 instances. Stairs: step to with railing Transfers: onset of dizziness rolling to left Lower Extremity Strength Right Left Hip Flexion 5 5- Hip Abduction 4- 4- Hip Extension 4 4- Knee Extension 5 5 Knee Flexion 5- 5 Ankle Dorsiflexion (DF) 5 5 Ankle Plantarflexion (PF) Inversion 5 5 Eversion 5 4+ Serratus anterior: right: 4/5, left 4-/5 Core Strength: abs: 4-/5, bridge 1/2 ROM Flexibility: slight HS restrictions bilat. Multi-system balance testin time [id number] (STS): 22 seconds - Use of UEs?: both hands pushing from arm rests yes - Chair height (standard chair = 16-18 in): 17 DGI: - Assistive device used: no Additional balance testing Test Eyes Open (seconds) Eyes Closed (seconds) Sway Romberg 20 slight sway 20 mild sway SLS L 0 mod SLS R 0 mod Assessment John is a 89 y.o. patient with chief complaint of unsteadiness that has gradually worsened and has a recent diagnosis of dementia. She presents with postural faults, gait and balance deficits, core, postural and LE weakness, and intermittent dizziness. She would benefit from further vestibular assessment to be able to fully address balance deficits. She presents with signs and symptoms consistent with weakness, gait and balance deficits associated with aging. The patient would benefit from skilled physical therapy to address decreased strength, impaired balance, decreased mobility, decreased coordination, impaired gait, impaired functional activities, and vestibular impairment. Evaluation complexity is moderate secondary to: patient has 4 or more personal factors and/or comorbidities that will affect plan of care, therapy will be addressing 3 or more elements, and clinical presentation is evolving. Body Systems Affected: musculoskeletal, neuromuscular, and vestibular Rehab Potential: Good Learning Preferences: demonstration, explanation, performance, and printed materials Barriers to Rehab: age, chronicity, comorbidities, duration of symptoms, and memory deficits Goals General/Ortho Patient will be independent with HEP. (Initiated) Start: 12/08/24 Expected End: 03/08/25 Patient will increase strength in the core (more content not included)... Normal [facility] 37on 12-03-2024 37 Start memantine as f ollows: Take 1 tab po QPM for 7 days then take 1 tab po BID. Normal [facility] Office Visiton 12-03-2024 Follow-up visit [id number] LandonJohn mansfield 1935 F Date Provider Department Center 12/03/2024 [id number] MCCRAY [facility] SB ANA LUISA None Family History Problem Relation Age of Onset Coronary artery disease Mother 86 Comments: age 94 Alcohol abuse Father Comments: age 48 Heart disease Father 48 High Blood Pressure Sister Valvular heart disease Sister Comments: s/p AVR Hyperlipidemia Sister Kidney failure Brother Comments: 06/12 age 80 Family Status - Relation Status Age at Mother 48 Father 94 Sister Alive Brother Level of Service:33757 [place] OFFICE/OUTPATIENT ESTABLISHED LOW MDM 20 MIN Reason for Visit and Comments: Follow-up [539759] Memory Loss [66] Normal [facility] Progress Noteon 12-03-2024 Progress Note [facility] [place] [address] [address] [facility] [address] [facility] [address] Dept: [phone] Dept Loc: [phone] Morro Mccray MD CHIEF COMPLAINT: Chief Complaint Patient presents with Follow-up Memory Loss HISTORY OF PRESENT ILLNESS: The patient is a 89 y.o. person who presents with memory loss. She is misplaicing things. She reports that she felt worse and she had more cognitive difficulties. She declined the MRI brain. I reviewed with her why I had ordered it again . I also showed the images from the MRI 2 years ago again. Ask informant to rate the patient's ability using the following scoring system: Dependent= 3 Requires Assistance= 2 Has difficulty but does by self= 1 Normal= 0 Never did the activity but could do now= 0 Never did and would have difficulty now= 1 Score Writing checks, paying bills, balancing checkbook 1 Assembling tax records, business affairs, or papers 0 Shopping alone for clothes, household necessities or groceries 0 Playing a game of skill, working on a hobby 0 Heating water, making a cup of coffee turning off stove after use 0 Preparing a balanced meal 0 Keeping track of current events 0 Paying attention to, understanding, discussing TV, book, magazine 0 Remembering appointments, family occasions, holidays, medications 1 Traveling out of neighborhood, driving, arranging to take a bus 0 Total Score 2 Evaluation Sum scores (range 0-30). Cut-point of 9 (dependent in 3 or more activities) is recommended to indicate impaired function and possible cognitive impairment. She is dizzy when she stands. Not dizzy when seated or lying. Past Medical History: has a past medical history of Diverticular disease, H/O colonoscopy with polypectomy (07/2022), Hearing loss, History of colon polyps (2018), HTN (hypertension) (2005), Lumbar degenerative disc disease (2018), Osteoporosis, and SVT (supraventricular tachycardia) ([facility]) (2017). She has no past medical history of PONV (postoperative nausea and vomiting). Past Surgical History: has a past surgical history that includes Colonoscopy w/ polypectomy (08/2019); Bunionectomy (Left, 2018); Trigger finger release (Right, 2020); Cataract extraction w/ intraocular lens implant, bilateral (Bilateral); Tubal ligation; Colonoscopy w/ polypectomy (09/2022); and Carpal tunnel release (Right, 03/29/2023). Medications: Current Outpatient Medications: aspirin 81 MG EC tablet, Take 81 mg by mouth daily., Disp: , Rfl: biotin 50128 MCG tablet, Take by mouth daily. 10,000 mcg, Disp: , Rfl: Calcium Citrate-Vitamin D 250-2.5 MG-MCG tablet, Take by mouth., Disp: , Rfl: lisinopril 20 MG tablet, TAKE 1 TABLET BY MOUTH DAILY, Disp: 90 tablet, Rfl: 1 Multiple Vitamin tablet, Take 1 tablet by mouth in the morning., Disp: , Rfl: verapamil SR (Calan SR) 240 MG ER tablet, Take 1 tablet (240 mg) by mouth Nightly., Disp: 90 tablet, Rfl: 1 acetaminophen (Tylenol) 500 MG tablet, 2 bid prn (Patient not taking: Reported on 12/03/2024), Disp: 30 tablet, Rfl: 0 memantine (Namenda) 10 MG tablet, Take 1 tablet (10 mg) by mouth 2 times daily., Disp: 180 tablet, Rfl: 3 Allergies: Patient has no known allergies. Social History: Social History Socioeconomic History Marital status: Spouse name: Not on file Number of children: Not on file Years of education: Not on file Highest education level: Not on file Occupational History Not on file Tobacco Use Smoking status: Never Smokeless tobacco: Never Vaping Use Vaping status: Never Used Substance and Sexual Activity Alcohol use: No Alcohol/week: 0.0 standard drinks of alcohol Drug use: No Sexual activity: Not on file Other Topics Concern Not on file Social History Narrative to Mandeep, NS or ETOH use, has 2 sons and 2 dtr, 7 GC and 6 GCC. 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 Overall Financial Resource Strain (CARDIA) Difficulty of Paying Living Expenses: Not hard at all Food Insecurity: No Food Insecurity (01/16/2022) Received from [facility] Hunger Vital Sign Worried About Running Out of Food in the Last Year: Never true Ran Out of Food in the Last Year: Never true Transportation Needs: No Transportation Needs (02/13/2019) Received from [facility] PRAPARE - Transportation Lack of Transportation (Medical): No Lack of Transportation (Non-Medical): No Physical Activity: Insufficiently Active (05/01/2022) Received from [facility] Exercise Vital Sign Days of Exercise per Week: 7 days Minutes of Exercise per Ses (more content not included)... [facility] 36on 11-06-2024 36 Name of caller: John Contact phone number: [phone] Relationship to Patient: patient Provider: Dr. Mclaughlin Practice: [facility] Chief Complaint/Reason for Call: Spoke with patient and pharmacy would be [facility]. Pharmacy updated. Patient would need medications transferred over. Please advise. Best time of day caller can be reached:any Patient advised that office/PCP has 24-48 business hours to return their call: Yes [facility] 36 Name of caller: john Contact phone number: [phone] Relationship to Patient: patient Provider: Dr. Mclaughlin Practice: [facility] Chief Complaint/Reason for Call: pt called in, changed mail order [facility], #[phone], could not find in system, needs refill on verapamil, please call and advise Best time of day caller can be reached: AM Patient advised that office/PCP has 24-48 business hours to return their call: Yes [facility] 36on 10-26-2024 36 Recent Visits Date Type Provider Dept 09/03/24 Office Visit Wilfrido Mclaughlin DO [facility] 06/23/24 Office Visit Wilfrido Mclaughlin DO [facility] 03/10/24 Office Visit Wilfrido Mclaughlin DO [facility] Showing recent visits within past 365 days and meeting all other requirements Future Appointments Date Type Provider Dept 12/21/24 Appointment DO Liliana Soto [facility] Showing future appointments within next 90 days and meeting all other requirements Requested Prescriptions Pending Prescriptions Disp Refills verapamil SR (Calan SR) 240 MG ER tablet [Pharmacy Med Name: VERAPAMIL 240MG SR TABLET 12H] 90 tablet 1 Sig: Take 1 tablet (240 mg) by mouth Nightly. Provider: Wilfrido Mclaughlin DO Verified pharmacy: yes Verified day(s) supplied: yes Verified refill(s) needed (previous prescription showing no refills in chart): Yes Have you received any controlled medications from any other provider? N/A Overdue for visit: No If yes - patient scheduled? N/A Most recent labs completed in chart? N/A None [facility] 36on 09-23-2024 36 Lyric has been notifi ed of providers message and was put on the cancellation list. Next appointment Dec 03, 2024. [facility] 36 Please ask her to ho ld off on taking the donepezil. Please put her on a cancellation list so that she can be seen by Lisbet Acharya, or me at the soonest available so we can go over what has been happening and come up with a game plan. [facility] 36 Lyric called office. States patient wants to cancel MRI. She does not want to do it. She is also requesting a callback to discuss Aricept . She wants to know if patient will go back to how she was previously or be worse. Please advise,. [place] [address] patient has been not ified of providers message [place] [address] Please advise them t o immediately stop the Aricept. We will re-assess what to do at next appt. [place] [address] Name of caller: Lyric Contact phone number: [phone] Relationship to Patient: family member patient and daughter Provider: Lynn MOBLEY Practice: endo Chief Complaint/Reason for Call: patient has told daughter that she feels worst on this new medication donepezil (Aricept) 5 MG Her memory is worst. Please call daughter back to advise. Best time of day caller can be reached: AM Patient advised that office/PCP has 24-48 business hours to return their call: Yes [facility] Office Visiton 09-03-2024 Follow-up visit [id number] John Navarrete 1935 [facility] Provider Department [place] 09/03/2024 [id number] MCLAUGHLIN [facility] Family History Problem Relation Age of Onset Coronary artery disease Mother 86 Comments: age 94 Alcohol abuse Father Comments: age 48 Heart disease Father 48 High Blood Pressure Sister Valvular heart disease Sister Comments: s/p AVR Hyperlipidemia Sister Kidney failure Brother Comments: 06/12 age 80 Family Status - Relation Status Age at Mother 48 Father 94 Sister Alive Brother Level of Service:99073 [place] OFFICE/OUTPATIENT ESTABLISHED LOW MDM 20 MIN Reason for Visit and Comments: Leg Pain [422567] - Left leg Rectal Bleeding [550179] Constipation [928124] [facility] Progress Noteon 09-03-2024 Progress Note [facility] [address] [facility] [address] Visit type: Established Patient Reason for Visit: Leg Pain (Left leg ), Rectal Bleeding, and Constipation Assessment / Plan: John was seen today for leg pain, rectal bleeding and constipation. Diagnoses and all orders for this visit: Bursitis of other bursa of left hip (Primary) Comments: Improving, continue Tylenol 1 g twice daily for bursitis. Orders: - XR hip left 2 or 3 views; Future Essential hypertension Comments: Stable, continue as is Other constipation Comments: Chronic, increase Colace daily, more fruit and fiber Rectal bleeding Comments: Resolved, increase Colace daily. Call with update in a week or 2 if recurring for possible GI referral Other orders - acetaminophen (Tylenol) 500 MG tablet; 2 bid prn Subjective: Patient ID: John Navarrete is a 89 y.o. female. HPI hypertensive patient on verapamil presents with concerns of 1 week of pain in her posterior left buttock. No falls injury. 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 Denies sciatica. Things are improving nicely with Tylenol. Also having 2 episodes of bright red bleeding a scant amount on the toilet tissue. Has some general constipation for a long time. History of diverticulosis and small polyp 2 years ago. No repeat colonoscopy was recommended. She generally is eating well and voiding well. No abdominal pain or emesis. No mucus melena or constipation. Review of Systems no cough Dussel symptoms. Has done well. Being worked up for memory loss. She has deferred recheck MRI and screening lab work for Alzheimer's. Denies chest pain or palpitations. Blood pressure well elsewhere. No recent falls or injury. History of SVT and on verapamil for a while. No Known Allergies Current Outpatient Medications on File Prior to Visit Medication Sig Dispense Refill aspirin 81 MG EC tablet Take 81 mg by mouth daily. biotin 43777 MCG tablet Take by mouth daily. 10,000 mcg Calcium Citrate-Vitamin D 250-2.5 MG-MCG tablet Take by mouth. donepezil (Aricept) 5 MG tablet Take 1 tablet (5 mg) by mouth daily with supper. 90 tablet 3 lisinopril 20 MG tablet TAKE 1 TABLET BY MOUTH DAILY 90 tablet 1 Multiple Vitamin tablet Take 1 tablet by mouth in the morning. verapamil SR (Calan SR) 240 MG ER tablet Take 1 tablet (240 mg) by mouth Nightly. Do not crush or chew. 90 tablet 1 No current facility-administered medications on file prior to visit. Patient Active Problem List Diagnosis SVT (supraventricular tachycardia) (HCC) Torus mandibularis Essential hypertension Menopause Mild cognitive impairment with memory loss Cerebral vascular disease Social History Tobacco Use Smoking status: Never Smokeless tobacco: Never Substance Use Topics Alcohol use: No Alcohol/week: 0.0 standard drinks of alcohol Past Surgical History: Procedure Laterality Date BUNIONECTOMY Left 2019 CARPAL TUNNEL RELEASE Right 03/29/2023 Endoscopic right carpal tunnel release - Dr. Sommer CATARACT EXTRACTION W/ INTRAOCULAR LENS IMPLANT, BILATERAL Bilateral COLONOSCOPY W/ POLYPECTOMY 08/2019 COLONOSCOPY W/ POLYPECTOMY 09/2022 Dr. Bedolla- no reason for f/u TRIGGER FINGER RELEASE Right 2020 right middle and ring - Dr Sommer TUBAL LIGATION Family History Problem Relation Name Age of Onset Coronary artery disease Mother 86 age 94 Alcohol abuse Father Sherman age 48 Heart disease Father Sherman 48 High Blood Pressure Sister Radha Valvular heart disease Sister Radha s/p AVR Hyperlipidemia Sister Radha Kidney failure Brother Ed 06/12 age 80 Objective: BP 138/82 Pulse 68 Temp 36.7 ?C (98 ?F) (Temporal) Ht 5' 3 (1.6 m) Wt 123 lb (55.8 kg) SpO2 98% BMI 21.79 kg/m? Physical Exam pleasant alert and oriented. Well-hydrated. No adenopathy of her neck heart is regular. Lungs are clear. Abdomen soft nontender without pain hepatosplenomegaly or masses. No bruits. Certainly no guarding rigidity or rebound tenderness. Rectal exam revealed a small hemorrhoidal tag with a small crack in it. Possibly recently blood. Not indurated or thrombosed. There is no internal rectal masses on digital exam. Fair range of motion of the back. Pain along the posterior buttock. Negative straight leg raising bilaterally. Normal hip range of motion bilaterally. No motor or sensory loss of the legs feet or toes. Toes downgoing no clonus. She can walk on heels and toes. Pulse color temperature the extremities are normal Normal [facility] 36on 09-01-2024 36 S: Patient spoke wit h [facility] nurse regarding constipation. B: Onset of symptoms the last few days A: Has had 2 BMS and blood noted in the toilet and has a HX of hemorrhoids, small drops on toilet paper, the last couple days has not had blood. Taking stool softener and increasing water, denies open area, has trouble walking d/t the pain. Pain in the back of the leg with a sore spot R: Patient understands care advice. No further needs at this time. Patient instructed to call back with new or worsening symptoms. Reason for Disposition ? MILD rectal bleeding (more than just a few drops or streaks) Protocols used: Rectal [id number] Normal [facility] Office Visiton 09-01-2024 Follow-up visit [id number] John Navarrete 1935 F Date Provider Department Center 09/01/2024 [id number] MCCRAY [facility] ANA LUISA None Family History Problem Relation Age of Onset Coronary artery disease Mother 86 Comments: age 94 Alcohol abuse Father Comments: age 48 Heart disease Father 48 High Blood Pressure Sister Valvular heart disease Sister Comments: s/p AVR Hyperlipidemia Sister Kidney failure Brother Comments: 06/12 age 80 Family Status - Relation Status Age at Mother 48 Father 94 Sister Alive Brother Level of Service:75054 [place] OFFICE/OUTPATIENT ESTABLISHED HIGH MDM 40 MIN Reason for Visit and Comments: New Patient [542] Memory Loss [66] Normal [facility] Progress Noteon 09-01-2024 Progress Note [facility] [address] [facility] [address] Dept: [phone] Dept Loc: [phone] Morro Mccray MD Thank you for your kind request for a neurological consultation on this patient. CHIEF COMPLAINT: Chief Complaint Patient presents with New Patient Memory Loss HISTORY OF PRESENT ILLNESS: The patient is a 89 y.o. person who presents with memory loss. She is misplaicing things. Onset Gradual? Yes Age over 65? No Alzheimer's Dementia? No Short term memory loss for facts (declarative) while distant memories are spared? No Difficulty with word finding of familiar words? Yes Difficulty with drawing, buttoning shirts, constructing models, making a bed, and putting together something that is unassembled? No Changes in personality, behavior, or comportment? No Difficulty with executive functioning? No Making plans? Yes Keeping track of time and finishing tasks on time? No Meaningfully include past knowledge in discussions? No Ask for help or seek information when needed? No Telling stories with details in an organized, sequential manner? Sometimes Prior history of Parkinson's Disease (Parkinson's Disease relate Dementia)? No Associated with impairment in attention fluctuating during the day or from day to day? No Associated with impairment in tasks requiring construction (visuospatial orientation or perception)? No Associated with impairment in recall of recent events? Yes Associated with apathy? No Associated with depressive mood changes and anxiety? No Associated with hallucinations of people, animals or objects? No Associated with excessive daytime sleepiness? No Associated with delusions? No Associated with parkinsonism bradykinesia, tremor, rigidity, or gait changes (Lewy Body Disease)? No Cognitive impairment (similar to above)? No Hallucinations? No H/o acting out dreams? No Fluctuations in attention? No Orthostasis? Yes Age under 65? No Frontal temporal dementia? No Behavioral variant? No Associated with hallucinations? No Associated with socially inappropriate behavior, loss of manners or decorum? No Associated with impulsivity, rashness, or careless actions? No Associated with apathy, loss of initiative? No Associated with binge eating, binge drinking, binge smoking? No Associated with repetitive movements or repeating the same words over and over? Yes Semantic Variant? No Impaired object naming? No Impaired single-word comprehension? No Difficulty reading or writing? Eye issues limits her reading No trouble repeating? Yes No trouble with speaking clearly or with proper grammar? Yes Nonfluent Agrammatic Variant? No Effortful, halting speech with inconsistent sound errors and distortion? No Impaired comprehension of syntactically complex sentences? No Spared single-word comprehension? No Spared object knowledge? No Corticobasal Degeneration? No Asymmetric limb rigidity, akinesia, dystonia, or myclonus? No Orobuccal or limb apraxia? No Cortical sensory deficit? No Alien limb phenomenon? No Progressive Supranuclear Palsy? No Falls or postural instability? No Urinary incontinence? No Behavioral changes? No Onset Sudden? No Associated with head trauma? No Associated with TIA or Stroke symptoms? No Associated with infection? No Associated with auto-immune disease? No Associated with drug or medication? No Associated with tumor or treatment of tumor? No Associated with diet change or gastric bypass? No Associated with depression, anxiety, psychosis, or other psychiatric disease? No Associated with seizures? No Ask informant to rate the patient's ability using the following scoring system: Dependent= 3 Requires Assistance= 2 Has difficulty but does by self= 1 Normal= 0 Never did the activity but could do now= 0 Never did and would have difficulty now= 1 Score Writing checks, paying bills, balancing checkbook 1 Assembling tax records, business affairs, or papers 0 Shopping alone for clothes, household necessities or groceries 0 Playing a game of skill, working on a hobby 0 Heating water, making a cup of coffee turning off stove after use 0 Preparing a balanced meal 0 Keeping track of current events 0 Paying attention to, understanding, discussing TV, book, magazine 0 Remembering appointments, family occasions, holidays, medications 1 Traveling out of neighborhood, driving, arranging to take a bus 0 Total Score 2 Evaluation Sum scores (range 0-30). Cut-point of 9 (dependent in 3 or more activities) is recommended to indicate impaired function and possible cognitive impairment. She is dizzy when she stands. Not dizzy when seated or lying. Past Medical History: has a past medical history of Hearing loss, History of colon polyps (2019), HTN (hypertension) (2006), Lumbar degenerative disc disease (2019), (more content not included)... [facility] 36 08-11-2024 36 Recent Visits Date Type Provider Dept 06/23/24 Office Visit Wilfrido Mclaughlin DO [facility] 03/10/24 Office Visit Wilfrido Mclaughlin DO [facility] 08/29/23 Office Visit Morro Quintana PA-C [facility] Showing recent visits within past 365 days and meeting all other requirements Future Appointments No visits were found meeting these conditions. Showing future appointments within next 90 days and meeting all other requirements Requested Prescriptions Pending Prescriptions Disp Refills lisinopril 20 MG tablet [Pharmacy Med Name: Lisinopril 20 MG Oral Tablet] 90 tablet 1 Sig: TAKE 1 TABLET BY MOUTH DAILY Provider: Wilfrido Mclaughlin DO Verified pharmacy: yes Verified day(s) supplied: yes Verified refill(s) needed (previous prescription showing no refills in chart): Yes Have you received any controlled medications from any other provider? N/A Overdue for visit: No If yes - patient scheduled? N/A Most recent labs completed in chart? Yes Hypertension: Lab Results Component Value Date NA 137 01/16/2022 K 4.3 01/16/2022 EGFR 51 (L) 06/24/2024 BUN 22 06/24/2024 CREATININE 1.05 (H) 06/24/2024 Normal [facility] 36on 06-24-2024 36 Placed call to shelby tripathi. Two patient identifers confirmed. Was able to speak to patient. All concerns in message have been addressed. No questions at this time. Call ended [facility] 36 Name of caller: John Relationship to patient: patient Contact phone number: [phone] Speciality referral requested for: Neurology Diagnosis or reason for referral: Patients forgetfulness as discussed with Dr. Mclaughlin Name of specialist: n/a Name of group/practice: [facility] Patient verified insurance covers referral: N/A Patient insurance: Medicare A and B Has patient seen this specialist in the past: No Estimated time/date patient last saw the specialist: n/a Patient requesting a phone call once referral is placed. States she is not good at using her MyChart. Normal [facility] Office Visiton 06-23-2024 Follow-up visit [id number] John Navarrete 1935 F Date Provider Department Center 06/23/2024 [id number] MCLAUGHLIN [facility] Family History Problem Relation Age of Onset Coronary artery disease Mother 86 Comments: age 94 Alcohol abuse Father Comments: age 48 Heart disease Father 48 High Blood Pressure Sister Valvular heart disease Sister Comments: s/p AVR Hyperlipidemia Sister Kidney failure Brother Comments: 06/12 age 80 Family Status - Relation Status Age at Mother 48 Father 94 Sister Alive Brother Level of Service:91902 [place] OFFICE/OUTPATIENT ESTABLISHED MOD MDM 30 MIN Reason for Visit and Comments: Follow-up [048443] - Med check Cough [28] - X 3 wk Normal [facility] Progress Noteon 06-23-2024 Progress Note [facility] [address] [facility] [address] [place] [facility] [address] Visit type: Established Patient Reason for Visit: Follow-up (Med check) and Cough (X 3 wk ) Assessment / Plan: John was seen today for follow-up and cough. Diagnoses and all orders for this visit: Subacute cough (Primary) Comments: X-ray, [id number] Robitussin-questionable LUBNA inhibitor cough Orders: - XR chest 2 views; Future Essential hypertension Comments: Well-controlled at home, continue verapamil and lisinopril Memory loss Comments: Reviewed past MRI. She will talk with family about neurology consultation,, check lab, baby aspirin daily Orders: - Comprehensive metabolic panel; Future - Vitamin B12; Future - Comprehensive metabolic panel - Vitamin B12 Lipid screening - Lipid panel; Future - Lipid panel Cerebral vascular disease Comments: Reviewed MRI of the head Subjective: Patient ID: John Navarrete is a 89 y.o. female. HPI hypertensive non-smoker presents for checkup but also worried about 3 weeks of a dry cough. Does not feel particularly ill. Negative COVID exam yesterday. Denies fevers shortness of breath or chest pain. Occasional clear phlegm. No history of allergies. Denies exertional dyspnea or edema Review of Systems does bring up about her feeling dizzy still. In November 2022 complaints of dizziness and memory loss were addressed with MRI of the head. Showed possible bilateral lacunar infarcts. Moderate severe generalized parenchymal volume loss but no signs of hydrocephalus or other worrisome features. Had some mild sinus issues. Denies exertional dyspnea or chest pain or sense of palpitations. Echocardiogram done in 2018 not available to review. Complains of intermittent dizzy with turning position. No diplopia or unilateral numbness of the face arm or legs. She does feel she memory is not as good but she reads a lot and feels it is stable. No headache or incontinence. Has not driven in a year due to her 's concerns about her getting dizzy while driving. No change in bowels or bladder. Overall feels well with rare arthralgia. He is pretty positive and upbeat No Known Allergies Current Outpatient Medications on File Prior to Visit Medication Sig Dispense Refill aspirin 81 MG EC tablet Take 81 mg by mouth daily. biotin 51768 MCG tablet Take by mouth daily. 10,000 mcg Calcium Citrate-Vitamin D 250-2.5 MG-MCG tablet Take by mouth. lisinopril 20 MG tablet Take 1 tablet (20 mg) by mouth daily. 90 tablet 1 Multiple Vitamin tablet Take 1 tablet by mouth in the morning. verapamil SR (Calan SR) 240 MG ER tablet Take 1 tablet (240 mg) by mouth Nightly. Do not crush or chew. 90 tablet 1 No current facility-administered medications on file prior to visit. Patient Active Problem List Diagnosis SVT (supraventricular tachycardia) (HCC) Torus mandibularis Essential hypertension Menopause Mild cognitive impairment with memory loss Cerebral vascular disease Social History Tobacco Use Smoking status: Never Smokeless tobacco: Never Substance Use Topics Alcohol use: No Alcohol/week: 0.0 standard drinks of alcohol Past Surgical History: Procedure Laterality Date BUNIONECTOMY Left 2018 Hallux Valgus correction CARPAL TUNNEL RELEASE Right 03/29/2023 Endoscopic right carpal tunnel release - Dr. Sommer CATARACT EXTRACTION W/ INTRAOCULAR LENS IMPLANT, BILATERAL Bilateral COLONOSCOPY W/ POLYPECTOMY 08/2019 no reason to repeat COLONOSCOPY W/ POLYPECTOMY 09/2022 no reason for f/u TRIGGER FINGER RELEASE Right 2020 right middle and ring - Dr Sommer TUBAL LIGATION Family History Problem Relation Name Age of Onset Coronary artery disease Mother 86 age 94 Alcohol abuse Father Sherman age 48 Heart disease Father Sherman 48 High Blood Pressure Sister Radha Valvular heart disease Sister Radha s/p AVR Hyperlipidemia Sister Radha Kidney failure Brother Ed 06/12 age 80 Objective: BP 138/74 Pulse 76 Temp 36.1 ?C (97 ?F) (Temporal) Ht 5' 3 (1.6 m) Wt 124 lb 6.4 oz (56.4 kg) SpO2 98% BMI 22.04 kg/m? Physical Exam exam was unremarkable.. Alert and oriented. She is well-groomed. Has good eye contact and insight. Pupils equal. Extraocular muscles are intact. Cranial nerves are normal. Normal [id number]-lf-[id number] tandem gait testing and lumbar testing. No carotid bruits. No adenopathy or neck masses. No thyroid lesions. Heart is regular. No murmurs. Lungs are clear without rales wheezes or cough abdomen scaphoid without pain hepatosplenomegaly masses or bruits femoral pulses good. No abnormal Normal [facility] [employer] [facility] XR Chest 2 Viewson 4 No focal consolidati on or pulmonary edema. Report Dictated on Electronically Signed By: Daniel Montgomery MD Electronically Signed Date/Time: 06/23/2024 3:23 PM EDT [facility] Patient Name: JOHN NAVARRETE : 1935 Exam Date/Time: 06/23/2024 14:05 Procedure: XR CHEST 2 VIEWS Ordering Provider: MCLAUGHLIN EUGENE Reason For Exam: cough for 3 wks CHEST: CLINICAL INDICATION: cough for 3 wks TECHNIQUE: PA and Lateral COMPARISON: None FINDINGS: No focal consolidation or pulmonary edema. No pleural effusions or pneumothorax. The heart demonstrates normal size. Calcification of the thoracic aorta is noted. Degenerative change of the thoracic spine is noted. Levoscoliosis of the mid to lower thoracic spine. [facility] Daniel Montgomery MD - 12/2023 Patient Name: JOHN NAVARRETE : 1935 Exam Date/Time: 06/23/2024 14:05 Procedure: XR CHEST 2 VIEWS Ordering Provider: MCLAUGHLIN EUGENE Reason For Exam: cough for 3 wks CHEST: CLINICAL INDICATION: cough for 3 wks TECHNIQUE: PA and Lateral COMPARISON: None FINDINGS: No focal consolidation or pulmonary edema. No pleural effusions or pneumothorax. The heart demonstrates normal size. Calcification of the thoracic aorta is noted. Degenerative change of the thoracic spine is noted. Levoscoliosis of the mid to lower thoracic spine. IMPRESSION: No focal consolidation or pulmonary edema. Report Dictated on Electronically Signed By: Daniel Montgomery MD Electronically Signed Date/Time: 06/23/2024 3:23 PM EDT [employer] Radiology Study observation (narrative) [facility] XR Chest 2 ViewsOrdered By: Daniel Montgomery on 06-23-2024 [facility] Work Phone: No Panel Informationon 04-03 CAMILO Brown 04/03/2024 3:31 PM Debridement Wound/Incision 02/28/24 Venous Ulcer Leg Lower;Left;Lateral Performed by: Elisabeth Fairbanks DPM Authorized by: Elisabeth Fairbanks DPM Consent Consent obtained? verbal Consent given by: patient Risks discussed? procedural risks discussed Debridement Details Performed by: physician Debridement type: surgical Level of debridement: subcutaneous tissue Pain control: lidocaine 2% Pain control administration type: topical Pre-debridement measurements Length (cm): 1.4 Width (cm): 1 Depth (cm): 0.1 Surface Area (cm^2): 1.4 Post-debridement measurements Length (cm): 1.4 Width (cm): 1 Depth (cm): 0.1 Percent debrided: 50% Surface Area (cm^2): 1.4 Area Debrided (cm^2): 0.7 Volume (cm^3): 0.14 Tissue and other material debrided: subcutaneous tissue Devitalized tissue debrided: slough Instrument(s) utilized: curette Bleeding: small Hemostasis obtained with: not applicable Procedural pain (0-10): 0 Post-procedural pain: 0 Response to treatment: procedure was tolerated well [facility] No Panel Informationon 03-20 CAMLIO Brown 03/20/2024 2:54 PM Debridement Wound/Incision 02/28/24 Venous Ulcer Leg Lower;Left;Lateral Performed by: Elisabeth Fairbanks DPM Authorized by: Elisabeth Fairbanks DPM Consent Consent obtained? verbal Consent given by: patient Risks discussed? procedural risks discussed Debridement Details Performed by: physician Debridement type: surgical Level of debridement: subcutaneous tissue Pain control: lidocaine 2% Pain control administration type: topical Pre-debridement measurements Length (cm): 1.4 Width (cm): 1 Depth (cm): 0.1 Surface Area (cm^2): 1.4 Post-debridement measurements Length (cm): 1.4 Width (cm): 1 Depth (cm): 0.1 Percent debrided: 50% Surface Area (cm^2): 1.4 Area Debrided (cm^2): 0.7 Volume (cm^3): 0.14 Tissue and other material debrided: subcutaneous tissue Devitalized tissue debrided: fibrin and slough Instrument(s) utilized: curette Bleeding: small Hemostasis obtained with: pressure Procedural pain (0-10): 0 Post-procedural pain: 0 Response to treatment: procedure was tolerated well [facility] No Panel Informationon 03-13 CAMILO Brown 03/13/2024 1:31 PM Debridement Wound/Incision 02/28/24 Venous Ulcer Leg Lower;Left;Lateral Performed by: Elisabeth Fairbanks DPM Authorized by: Elisabeth Fairbanks DPM Consent Consent obtained? verbal Consent given by: patient Risks discussed? procedural risks discussed Debridement Details Performed by: physician Debridement type: surgical Level of debridement: subcutaneous tissue Pain control: lidocaine 2% Pain control administration type: topical Pre-debridement measurements Length (cm): 1.5 Width (cm): 1 Depth (cm): 0.1 Surface Area (cm^2): 1.5 Post-debridement measurements Length (cm): 1.5 Width (cm): 1 Depth (cm): 0.1 Percent debrided: 50% Surface Area (cm^2): 1.5 Area Debrided (cm^2): 0.75 Volume (cm^3): 0.15 Tissue and other material debrided: subcutaneous tissue Devitalized tissue debrided: fibrin and slough Instrument(s) utilized: curette Bleeding: small Hemostasis obtained with: not applicable Procedural pain (0-10): 1 Post-procedural pain: 0 Response to treatment: procedure was tolerated well [employer] ECG 12 leadon 03-10-2024 [facility] No Panel Informationon 03-06 CAMILO Brown 03/06/2024 3:30 PM Debridement Wound/Incision 02/28/24 Venous Ulcer Leg Lower;Left;Lateral Performed by: Elisabeth Fairbanks DPM Authorized by: Elisabeth Fairbanks DPM Consent Consent obtained? verbal Consent given by: patient Risks discussed? procedural risks discussed Debridement Details Performed by: physician Debridement type: surgical Level of debridement: subcutaneous tissue Pain control: lidocaine 2% Pain control administration type: topical Pre-debridement measurements Length (cm): 1.8 Width (cm): 1.1 Depth (cm): 0.1 Surface Area (cm^2): 1.98 Post-debridement measurements Length (cm): 1.8 Width (cm): 1.1 Depth (cm): 0.1 Percent debrided: 75% Surface Area (cm^2): 1.98 Area Debrided (cm^2): 1.49 Volume (cm^3): 0.2 Tissue and other material debrided: subcutaneous tissue Devitalized tissue debrided: fibrin and slough Instrument(s) utilized: curette Bleeding: none Hemostasis obtained with: not applicable Procedural pain (0-10): 1 Post-procedural pain: 1 Response to treatment: procedure was tolerated well [facility] NERVE CONDUCTION TEST WITH Cristiana Quintana 02-20-2023 Tate Flores DO Jeff 02/20/2023 10:17 AM [facility] Neurology Lab EMG/NCS report: Patient: John Navarrete AGE: 87 y.o. Handedness: Left Gender: Female Referring physician: Noah Sommer MD Study date: 02/20/23 Reason for referral: Patient presents with numbness, weakness, and paresthesia in the right hand. EMG/NCS of the right arm is done to evaluate for mononeuropathy affecting the right upper extremity vs. Right cervical radiculopathy. Summary: The right median sensory nerve action potential was absent. The right ulnar sensory nerve action potential was remarkable for a decreased amplitude. The right radial sensory nerve action potential was unremarkable. The right median to ulnar palmar comparison mixed nerve action potential was remarkable for an absent median palmar response. The right median to APB compound muscle action potential was remarkable for a prolonged distal latency, decreased amplitude and a decreased conduction velocity. The right ulnar to ADM compound muscle action potential was remarkable for a decreased conduction velocity across the elbow segment. The right ulnar to FDI compound muscle action potential was remarkable for a decreased conduction velocity across the elbow segment. The right median to ulnar lumbrical interossei comparison study was remarkable for a prolonged median distal latency compared to its ulnar counterpart. Concentric needle EMG was performed in the right upper extremity. No increased insertional activity, fibrillation potentials, fasciculation potentials or positive sharp waves were seen any muscle tested. Motor unit action potentials demonstrated normal morphology and firing pattern throughout. Impression: This is an abnormal study. 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 carpal tunnel syndrome, which is severe electrophysiologically. 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 There is no evidence of a right cervical radiculopathy on this study. All normal values/reference values for this study were taken from the AANEM reference values which were created in 2019. This dictation was done by using the [employer] dictation system. It has been proofread but still may contain unrecognized voice recognition errors. [facility] CBC panel Auto (Bld)on 11-22 Erythrocyte distribution width (RBC) [Ratio] 11.7 % 11.0 - 15.0 % [facility] Hematocrit (Bld) [Volume fraction] 41.5 % 35.0 - 45.0 % [facility] Hemoglobin (Bld) [Mass/Vol] 13.9 g/dL 11.7 - 15.5 g/dL [facility] MCH (RBC) [Entitic mass] 30.6 pg 27.0 - 33.0 pg [facility] MCHC (RBC) [Mass/Vol] 33.5 g/dL 32.0 - 36.0 g/dL [facility] MCV (RBC) [Entitic vol] 91.4 fL 80.0 - 100.0 fL [facility] Platelet mean volume (Bld) [Entitic vol] 9.7 fL 7.5 - 12.5 fL [facility] Platelets (Bld) [#/Vol] 270 10*3/uL [facility] RBC (Bld) [#/Vol] 4.54 10*6/uL [facility] WBC (Bld) [#/Vol] 6.3 10*3/uL [facility] Comprehensive metabolic 1998 panelon 11-22-2022 Albumin [Mass/Vol] 4.4 g/dL 3.6 - 5.1 g/dL [facility] ALP [Catalytic activity/Vol] 98 U/L 37 - 153 U/L [facility] ALT [Catalytic activity/Vol] 13 U/L 6 - 29 U/L [facility] Anion gap [Moles/Vol] 5 mmol/L Low [facility] AST [Catalytic activity/Vol] 19 U/L 10 - 35 U/L [facility] Bilirubin [Mass/Vol] 0.4 mg/dL 0.2 - 1.2 mg/dL [facility] Calcium [Mass/Vol] 9.6 mg/dL 8.6 - 10. 4 mg/dL [facility] Chloride [Moles/Vol] 106 mmol/L 98 - 110 mmol/L [facility] CO2 [Moles/Vol] 29 mmol/L 20 - 32 mmol/L [facility] Creatinine [Mass/Vol] 0.84 mg/dL 0.60 - 0.95 mg/dL [facility] GFR/1.73 sq M.predicted among non-blacks MDRD (S/P/Bld) [Vol rate/Area] 68 mL/min/{1.73_m2} > OR = 60 mL/min/1.73m 2 [facility] Comment on above: The eGFR is based on the CKD-EPI 2020 equation. To calculate the new eGFR from a previous Creatinine or Cystatin C result, go to https://www.kidney.org/professionals/ kdoqi/gfr%5Fcalculator Glucose [Mass/Vol] 97 mg/dL 65 - 99 mg/dL [facility] Comment on above: Fasting reference interval Interpretation and review of laboratory results Abnormal [facility] [employer] Potassium [Moles/Vol] 4.2 mmol/L 3.5 - 5.3 mmol/L [facility] [employer] Protein [Mass/Vol] 6.6 g/dL 6.1 - 8.1 g/dL [facility] Sodium [Moles/Vol] 140 mmol/L 135 - 146 mmol/L [facility] Urea nitrogen [Mass/Vol] 20 mg/dL 7 - 25 mg/dL [facility] [employer] No Panel Informationon 11-22 [facility] SURGICAL PATHOLOGYOrdered By : Lucila Mott on 10-19-2022 Case Report Surgical Pathology R eport Case: [id number] Authorizing Provider: Maricruz Bedolla MD Collected: 10/18/2022 12:17 PM Ordering Location: Ambulatory Surgery Received: 10/18/2022 09:49 PM Pathologist: Lucila Mott MD Specimen: SIGMOID COLON POLYP [facility] Work Phone: FINAL DIAGNOSIS g3qjwSCwINPgcLOaNPJe NVxhbnN bEFMdpSCxV0ClpuktCQmnYY5jDD 4mxXlvtCUhxOQcQPPrKmOsq1hyf 171kQMqp8oiSUNWqqtdbJr3vBwg K22nv5J4OoizW77zoFNuRIV9XOP xSNSduINeEDHyVAG8QMTfwJPoL9 wtVGGqAW3webtuXCegAJqoFVTxl LI2WUEzmNFvC6DwWVWxHYdhNWCq lgs8RcUbFu7cuNBiaOjjCGveUTM oUZFkJYakFWHmZtKuX5rnyE0eJU xkmH5kwYSlL0OeuEs5FSdwemKcM UQdzePtZMA3eMKzdVIyMFNbzCjp KZK2PZfahqFdAMAlgj7dHGI9YxM fWAAsDKLeub9mTHbdKOA2 [facility] Work Phone: Gross Description c8wtoUOrLLEwbYESXCXs MDRcYW5 njOostLy4tYbyEUMahmI2rBBaEX iwd9baBLV9i5xgesQLHahsVNFsF XljQEAzelcyPbR7YNesSSHgcfac GBw2VVrbIVSprAB3WXRcxGGsE1K tSNGqVD2szto7TCZ1SDwhYVDcVa S2TZWhRrXoKhafGPl6EIWyzmV5K ji5MFIyHBWbrEPmf4X1TZijkaju BXQigBPfT588UGqrp4WakVDkBVk ddBOhKWICXpipKpmedHfjw6EeuY NcAApbMAAuZXGePRsedxodVUw5Y TAuFMlwiVIqVE7xbUorNdygtIou s0XykFFwINihJXRbJCJqYBycDFI jFL0MBeAfIEHqCojhMQN5XvR7WQ n2WIVNCcTqWkOwNzUoIWZ6UcSmI Fc3SEf4JNeYKjH0ZCA9GGYbJWA0 UJI8EKT4BFekkVEtSTwxIvZNtoa yuXXoANDbSPqhmfZ7KFAoPGlgRC FcANKGJ58RUHCzD09YS98bDM8PQ BIyqOSaNP1NXWXupXYMSJW5RF6h MSANClxsdHJwYXJcbGluMFxyaW4 gON1ICUy8liDcPEOlKjEyRgXgRO s7NDWjdZ5gBc8irNBseF1wKOYgV HU4ayBacBVbXSDsg9XneSIuYRTx h9A7RVMpz2S7ELCoI4boVGlaySj nPsY0xvIzNlVgvAJeMmVtkSPnAv ArF15cRXZsjGMcwGjcc8LagSc5x JHtQZyuPP5eHVGbGFJeRYK8HO7b LDGjhoCZQkyjLJOaBDvZly0gswJ dlDSgrK4jlOzvwqBdOLHjr6CmZW NyUVJgJ1xlqcLzYE0tKTCmaR7hE ywgOTUwMCBFdWNsaWQgQXZlLiwg E8ifcoBtTK6uKCJISET4SEX3JIq bGYGpGFszkEBaHR8HOfMyVZElYb AvMjAyMiAxOjAxIEFNXHBhciANC pqhqRzvEvOdxIExMaLngzU8ZHGi uBDbKUA7TS7lEOYtkfjqROBtTXB gFGG6SLndwZ81hUSuGBTsHGMwoM NhiTsrmAMgbqNZHzevaU7rCaYin 2wigNg4MSWMPvitqBXmssrvwpK0 QCBjn7bbhHffb2TkvJTbBL6htEw lqJ8yIuLhEjXYDq5= [facility] Work Phone: Performing Lab l3mebQAePMCywANzRkPf MDAwXGF bk5dkFUVdqNWvYxKsZaDrQeJeMp lzqWPwYPBgGvRvd2caq227oGUkt 4axHOJdYvE2uUGdHRUxbZZbD418 JLIeMMpdq5dow8VxWFUarGEmx9O 8AQUUuvnaeFp8jSwdU95vv2U3Hs rmK7jhXSRnHPOqB8QnVN0qIRNkP ws4LOB9JSJ4CWMiKQTtT9CjLU5z WUBlkYHgVOc2r2vnvZqnZXYlIAH 8n6mjBLyaqeOuEB0msb8yjPr9g7 gbglXyKOQuOWFcvWUBVQPjI7Kgz VdeCf2qsIl7uJmpMggpJPO6Jvs5 DD1onb68ukz6pBlpYLEoblhgUrG 3KYjuLCCuayeuTBj0JDhnPXCecL N0TUDltVUcB4QnXMixTT1nibs9Q TO7KKcvXHEdViI6UJCkjYEnJHUt lPeeILcna142JMU1VfSnLW9cA5C gw6K9tZ0yzJKrVZFdnFSoKyCcYQ Fdcp0duIZcWWqsk9QpYSB7clJ7r ZXkuGVgPLYhAX56Ijaym8YiTlbc m5BiK62shOW3MSofh8ujGF1iRbC 2mfAaCLfoh5ozgK5kStD9FNibKU 2mXE2wGUTddP7iksanOOGuTzIpi dpuJWJrvWvivmVkTc6rkRlpNRE7 HVccF8ivxO6jBrP6KIbzT2jsmE6 sXTp1KHaryXJ2HNAigY0mFD4yqr gnd3bmOWcyMRspXGBvecU1flLaJ WKlmRDjE8UizQ6uAMZeKK8xomgg h3yfUQW7RQbyCLFbQOC3JgUxYVR hd4Zwaui3OeImm8CtaCOqJTtzZ7 8no765WFTtiaEjO4hyjAHvdrory WLyvojoVAnqooA0BJSkQSNnILwl XGYxXGZzMjJcbGFuZzEwMzNcaGl trHohHUcrYiVeYXQrGBmsK1efSc RdItQsFtGYhIQczg6biVbjPKooz JXucFNgmFQ4gI6iTMAdjiNzyo3r UYNsnBQXaLV7MFegbrWkW4mtdrs tFNY8GOJnXTX4E0lkQWQTuaLoXH ZeEKJeoZIdIMQQWCD2CER8BGPpU VUVBYDtKMJ0JGH3YVOkPCMhqPYv XHBhclxwYXJkXHBsYWluXGYwXGZ nRhAdaZwzrZ3gBxIcRqRtDxfnZW 3iNZMfR6oubPKyQAYzGVUyT2ieF oPrhO2csDllHEseFeToDlDjTjfp uHXnjQTGQAParuV9d7Q7RDkznUY pblxmMVxmczIyXGxhbmcxMDMzXG bhY7wuFzTiZLEcgVvoVZdwu2RqS SRyOPOdYtWrOAbyWMY5p3J8MFoi xIXytrVSVwUTEA2riBXfbatqIK7 ELlxwYXJ9 [facility] Work Phone: [facility] Work Phone: ANES POSTPROC EVALon 022 ANES POSTPROC EVAL HNO ID: [id number] Author: Zhen Henderson APRN.JOY LOADING MACHINE OPERATOR Service: Anesthesiology Author Type: Nurse Surgery Technician Type: Anesthesia Postprocedure Evaluation Filed: 10/18/2022 12:33 PM Note Text: POST ANESTHESIA EVALUATION NOTE : 1935 Procedure Summary Date: 10/18/22 Room / Location: Ambulatory Surgery Anesthesia Start: 1201 Anesthesia Stop: 1232 Procedure: COLONOSCOPY SCREENING Diagnosis: Screening for colon cancer History of colonic polyps (High risk colon cancer surveillance: Personal history of colonic polyps) Scheduled Providers: Maricruz Bedolla MD Responsible Provider: Zhen Henderson APRN.JOY LOADING MACHINE OPERATOR Anesthesia Type: MAC ASA Status: 2 Anesthesia Type: MAC Last Vitals Vitals Value Taken Time BP 105/57 10/18/22 1231 Temp 36.8 ?C (98.3 ?F) 10/18/22 1231 Pulse 81 10/18/22 1231 Resp 16 10/18/22 1231 SpO2 96 % 10/18/22 1231 Post Anesthesia Patient Status Patient Evaluation: bedside. Anticipated Disposition: phase 2 then home. Neurological Status: sleepy but arousable. Pulmonary Status: breathing comfortably on room air Airway Control: returned to baseline unsupported. Cardiovascular Status: stable. Pain Management: clinically adequate Postoperative Hydration: acceptable. Intraoperative Events: no significant anesthesia events Post Operative Nausea/Vomiting Status: no significant post operative nausea or vomiting Recommendation: continue current plan of care. Anesthesia Observations No Documentation SIGNATURE: Zhen Henderson APRN.JOY LOADING MACHINE OPERATOR PATIENT NAME: John Navarrete DATE: October 18, 2022 TIME: 12:33 PM CSN: [id number] Normal [facility] ANES PRE-OPon 10-18-2022 ANES PRE-OP HNO ID: [id number] Author: Zahraa Padilla APRN.JOY LOADING MACHINE OPERATOR Service: ? Author Type: Nurse Surgery Technician Type: Anesthesia Preprocedure Evaluation Filed: 10/18/2022 11:58 AM Note Text: ANESTHESIOLOGY DAY OF SURGERY NOTE : 1935 Procedure Information Date/Time: 10/18/22 1130 Scheduled providers: Maricruz Bedolla MD Procedure: COLONOSCOPY SCREENING Location: Ambulatory Surgery Estimated body mass index is 24.51 kg/m? as calculated from the following: Height as of this encounter: 157.5 cm (5' 2). Weight as of this encounter: 60.8 kg (134 lb). Most recent hematocrit and potassium results: Potassium 3.8 02/16/2018 Relevant Problems CARDIO (+) Essential hypertension (+) SVT (supraventricular tachycardia) (HCC) PULMONARY (+) SOB (shortness of breath) I - PHYSICAL EVALUATION AIRWAY Patient intubated: No. Tracheostomy tube not present Mallampati: II. TM distance: >3 FB. Neck ROM: full ROM without neurological symptoms. Mouth opening: adequate. Short neck: no. Thick neck: no [place] present: no DENTAL Dental findings: teeth intact. Additional exam findings: no II - ANESTHESIA PLAN ASA Score: 2 Anesthetic Plan: MAC The patient is not a current smoker. NPO Status: adequate Beta Chalo Monitoring Plan Monitoring plan: standard ASA. Post Procedure Analgesic Plan Postoperative analgesic plan: multimodal analgesia. Informed Consent Anesthetic risks, benefits, alternatives, personnel and consent discussed: yes. Patient / Responsible Green Party agrees to proceed: yes Patient / Surrogate agrees to blood products: blood products not planned DNR status not reviewed with patient and/or family prior to surgery. Significant changes in the patient condition since the History and Physical, not otherwise documented in primary service progress note: no. Vitals Value Taken Time BP 174/73 10/18/22 1126 Pulse 99 10/18/22 1126 Resp 16 10/18/22 1126 Temp 36.7 ?C (98.1 ?F) 10/18/22 1126 SpO2 96 % 10/18/22 112 Outpatient Medications as of 10/18/2022 Medication Sig - multivit with minerals/lutein (MULTIVITAMIN 50 PLUS ORAL) Take by mouth. - verapamil SR (CALAN SR, ISOPTIN SR) 240 mg CR tablet Take 240 mg by mouth daily at bedtime. Facility-Administered Medications as of 10/18/2022 Medication Dose Route Frequency - lactated ringers iv infusion 30 mL/hr INTRAVENOUS CONTINUOUS I have interviewed and examined the patient. I have reviewed the medical record and/or the pre-anesthesia evaluation, pertinent labs, and test results. This contains updated information obtained within 48 hours of Surgery/Procedure. SIGNATURE: Zahraa Padilla APRN.CRNA PATIENT NAME: John Navarrete DATE: October 18, 2022 TIME: 11:56 AM CSN: [id number] Normal [facility] Colonoscopyon 10-18-2022 Colonoscopy [facility] Gastrointestinal Endoscopy Patient Name: John Navarrete Procedure Date: 10/18/2022 11:56 AM Date of : 1935 Admit Type: Outpatient Age: 87 Room: [place] [address] Gender: Female Note Status: Finalized Attending MD: Maricruz Bedolla MD Procedure: Colonoscopy Indications: High risk colon cancer surveillance: Personal history of colonic polyps Providers: Maricruz Bedolla MD Patient Profile: Last Colonoscopy: 5 years ago. Referring Physician: Yuli Drummond (Referring ) Medicines: Propofol per Anesthesia Complications: No immediate complications. Requesting Provider: Procedure: Pre-Anesthesia Assessment: - Prior to the procedure, a History and Physical was performed, and patient medications and allergies were reviewed. The patient's tolerance of previous anesthesia was also reviewed. The risks and benefits of the procedure and the sedation options and risks were discussed with the patient. All questions were answered, and informed consent was obtained. Prior Anticoagulants: The patient has taken no anticoagulant or antiplatelet agents. ASA Grade Assessment: II - A patient with mild systemic disease. After reviewing the risks and benefits, the patient was deemed in satisfactory condition to undergo the procedure. After I obtained informed consent, the scope was passed under direct vision. Throughout the procedure, the patient's blood pressure, pulse, and oxygen saturations were monitored continuously. The Colonoscope was introduced through the anus and advanced to the cecum, identified by appendiceal orifice and ileocecal valve. I was present and participated during the entire procedure, including non-guerra portions, and during the administration and monitoring of Moderate Sedation. The colonoscopy was performed without difficulty. The patient tolerated the procedure well. The quality of the bowel preparation was good. The ileocecal valve, appendiceal orifice, and rectum were photographed. Moderate Sedation: MAC anesthesia was administered by the anesthesia team. Findings: A 5 mm polyp was found in the sigmoid colon. The polyp was sessile. The polyp was removed with a hot snare. Resection and retrieval were complete. Scattered small and large-mouthed diverticula were found in the sigmoid colon and descending colon. Impression: - One 5 mm polyp in the sigmoid colon, removed with a hot snare. Resected and retrieved. - Diverticulosis in the sigmoid colon and in the descending colon. Recommendation: - Patient has a contact number available for emergencies. The signs and symptoms of potential delayed complications were discussed with the patient. Return to normal activities tomorrow. Written discharge instructions were provided to the patient. - Resume previous diet. - Continue present medications. - No repeat colonoscopy due to age. - The patient is not currently taking anticoagulant or antiplatelet agents. Procedure Code(s): --- Professional --- 68753, Colonoscopy, flexible; with removal of tumor(s), polyp(s), or other lesion(s) by snare technique CPT copyright 2020 [employer]. All rights reserved. The codes documented in this report are preliminary and upon truck technician review may be revised to meet current compliance requirements. Attending Participation: I personally performed the entire procedure. Scope In: 12:07:22 PM Scope Out: 12:26:23 PM MD Maricruz Pisano MD 10/18/2022 12:30:27 PM This report has been signed electronically by Maricruz Bedolla MD Number of Addenda: 0 Note Initiated On: 10/18/2022 11:56 AM Estimated Blood Loss: Estimated blood loss: none. [facility] Colonoscopy Study observatio non 10-18-2022 [facility] Patient Name: John Navarrete Procedure Date: 10/18/2022 11:56 AM Date of : 1935 Admit Type: Outpatient Age: 87 Room: [place] [address] Gender: Female Note Status: Finalized Attending MD: Maricruz Bedolla MD Procedure: Colonoscopy Indications: High risk colon cancer surveillance: Personal history of colonic polyps Providers: Maricruz Bedolla MD Patient Profile: Last Colonoscopy: 5 years ago. Referring Physician: Yuli Drummond (Referring MD) Medicines: Propofol per Anesthesia Complications: No immediate complications. Requesting Provider: Procedure: Pre-Anesthesia Assessment: - Prior to the procedure, a History and Physical was performed, and patient medications and allergies were reviewed. The patient's tolerance of previous anesthesia was also reviewed. The risks and benefits of the procedure and the sedation options and risks were discussed with the patient. All questions were answered, and informed consent was obtained. Prior Anticoagulants: The patient has taken no anticoagulant or antiplatelet agents. ASA Grade Assessment: II - A patient with mild systemic disease. After reviewing the risks and benefits, the patient was deemed in satisfactory condition to undergo the procedure. After I obtained informed consent, the scope was passed under direct vision. Throughout the procedure, the patient's blood pressure, pulse, and oxygen saturations were monitored continuously. The Colonoscope was introduced through the anus and advanced to the cecum, identified by appendiceal orifice and ileocecal valve. I was present and participated during the entire procedure, including non-guerra portions, and during the administration and monitoring of Moderate Sedation. The colonoscopy was performed without difficulty. The patient tolerated the procedure well. The quality of the bowel preparation was good. The ileocecal valve, appendiceal orifice, and rectum were photographed. Moderate Sedation: MAC anesthesia was administered by the anesthesia team. Findings: A 5 mm polyp was found in the sigmoid colon. The polyp was sessile. The polyp was removed with a hot snare. Resection and retrieval were complete. Scattered small and large-mouthed diverticula were found in the sigmoid colon and descending colon. Impression: - One 5 mm polyp in the sigmoid colon, removed with a hot snare. Resected and retrieved. - Diverticulosis in the sigmoid colon and in the descending colon. Recommendation: - Patient has a contact number available for emergencies. The signs and symptoms of potential delayed complications were discussed with the patient. Return to normal activities tomorrow. Written discharge instructions were provided to the patient. - Resume previous diet. - Continue present medications. - No repeat colonoscopy due to age. - The patient is not currently taking anticoagulant or antiplatelet agents. Procedure Code(s): --- Professional --- 22556, Colonoscopy, flexible; with removal of tumor(s), polyp(s), or other lesion(s) by snare technique CPT copyright 2020 [employer]. All rights reserved. The codes documented in this report are preliminary and upon truck technician review may be revised to meet current compliance requirements. Attending Participation: I personally performed the entire procedure. Scope In: 12:07:22 PM Scope Out: 12:26:23 PM MD Maricruz Pisano MD 10/18/2022 12:30:27 PM This report has been signed electronically by Maricruz Bedolla MD Number of Addenda: 0 Note Initiated On: 12 (more content not included)... PROVATION [facility] Radiology Study observation (narrative) [facility] HISTORY PHYSICALon 2 HISTORY PHYSICAL HNO ID: [id number] Author: Maricruz Bedolla MD Service: Gastroenterology Author Type: Physician Type: HANDP Filed: 10/18/2022 11:52 AM Note Text: HISTORY AND PHYSICAL John Navarrete, 87 year old female here colonoscopy, high risk for colon cancer, personal history of colon polyps Current history and physical on file: No Is a new History and Physical required for today's visit? Yes Indication for procedure: History of colon polyps PROCEDURE(S) SCHEDULED FOR: Colonoscopy with or without biopsies and with or without removal of polyps or lesions, dilation (any means), treatment of bleeding (any means), based on clinical findings. BASELINE BEHAVIOR: Calm BASELINE ORIENTATION: A AND O x3 All medications and allergies reviewed: Yes Skin Assessment: Warm dry muscus membranes pink Airway/Respiratory Assessment: Airway: visualization of the uvula- Yes Mouth: opening greater than 2 fingerbreadths- Yes Neck: full range of motion- Yes Breath sounds clear/equal- Yes Cardiac Assessment: Regular rate and rhythm without murmur Abdominal Assessment: Abdomen soft, non-tender, no masses or organomegaly. Sedation Plan: Deep Additional Comments: None Maricruz Bedolla MD [facility] NURSING PROGon 10-18-2022 NURSING PROG HNO ID: [id number] Author: Whitley Reddy RN Service: ? Author Type: Registered Nurse Type: Nursing Progress Note Filed: 10/18/2022 12:51 PM Note Text: Discharge instructions given and patient voices understanding. All questions answered. Whitley Reddy RN [facility] SURGICAL PATHOLOGYon 022 CASE REPORT [facility] Comment on above: Order Comment: Patrizia vargas Type: TISSUE SPECIMEN Ordering Facility: [facility] Address: [address] [place] [address] Result Comment: Surg ica Pathology Report Case: [id number] Authorizing Provider: Maricruz Bedolla MD Collected: 10/18/2022 12:17 PM Ordering Location: Ambulatory Surgery Received: 10/18/2022 09:49 PM Pathologist: Lucila Mott MD Specimen: SIGMOID COLON POLYP Performed By: #### S #### [facility] CLIA [id number] [address] [place], [place] [address] [facility] FINAL DIAGNOSIS [facility] Comment on above: Order Comment: Patrizia vargas Type: TISSUE SPECIMEN Ordering Facility: [facility] Address: [address] [place] [address] Result Comment: Sigm oid, polypectomy: -Severe thermal artifact -Favor tubular adenoma Performed By: #### S #### [facility] CLIA [id number] [address] [place] [address] FINAL PERFORMING LAB [facility] Comment on above: Order Comment: Speci men Type: TISSUE SPECIMEN Ordering Facility: [facility] Address: [address] [place] [address] Result Comment: Diag nostic interpretation performed at [facility], [address] [place] [address] CLIA# [id number] Agricultural Purchasing Agent: Leonel Lin M.D. Performed By: #### S #### [facility] CLIA [id number] [address] [place] [address] GROSS DESCRIPTION Normal [facility] Comment on above: Order Comment: Speci men Type: TISSUE SPECIMEN Ordering Facility: [facility] Address: [address] [place] [address] Result Comment: A. S IGMOID COLON POLYP Received in formalin are two pieces of allen, soft tissue aggregating to 0.3 x 0.1 x 0.1 cm. Totally submitted in one cassette. [place] [address] JT 10/19/2022 1:01 AM Performed By: #### S #### [facility] IA [id number] [address] [place] [address] CNOVon 09-11-2022 CNOV Office Visit ([facility] ) JOHN NAVARRETE ([id number]) 1935 F Date Time Provider Department 09/11/22 11:00 AM BHANU, YULI GSTNOR During your visit today, we recorded the following information about you: Pulse Blood pressure Weight Height 72/minute 148/64 60.8 kg 1.575 m Yuli Drummond PA-C 09/11/2022 11:20 AM Signed CHIEF COMPLAINT: Patient presents with: Colonoscopy eval: Last colon 09/14/19 HPI John Navarrete is a 87 year old female here today for Colonoscopy eval (Last colon 09/14/19) PMHx of HTN, SVT, SOB Patient tells me that her bowels are usually regular for her. Mostly formed. No abdominal pain, nausea, vomiting, rectal bleeding. Dealing with low back pain. Colonoscopy 2019: Impression: - One 8 mm polyp in the proximal descending colon, removed with a hot snare. Resected and retrieved. Recommendation: - Patient has a contact number available for emergencies. The signs and symptoms of potential delayed complications were discussed with the patient. Return to normal activities tomorrow. Written discharge instructions were provided to the patient. - Resume previous diet. - Continue present medications. - Await pathology results. - No repeat colonoscopy due to age and current age (66 years or older). - The patient has taken no previous anticoagulant or antiplatelet agents. CONVERTED FINAL DIAGNOSIS Proximal descending colon polyp, biopsy - Sessile serrated polyp Current Outpatient Medications Medication Sig multivit with minerals/lutein (MULTIVITAMIN 50 PLUS ORAL) Take by mouth. verapamil SR (CALAN SR, ISOPTIN SR) 240 mg CR tablet Take 240 mg by mouth daily at bedtime. No current facility-administered medications for this visit. 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 ECHOCARDIOGRAM 02/26/2018 normal LV size and systolic fxn; LVEF 66%; moderate 2+ MR; mild 1+ TR; mild 1+ AI TUBAL LIGATION 1972 FAMILY HISTORY Problem Relation Age of Onset Coronary Artery Disease Mother had 4-vessel CABG at age 86 yrs Coronary Artery Disease Father Alcohol/Drug Father heavy drinker (whiskey) Heart disease Sister valvular; valve replacement (pig valve) Hypertension Sister Hyperlipidemia Sister DVT Brother other (pulmonary embolism) Brother REVIEW OF SYSTEMS Review of Systems All other systems reviewed and are negative. PHYSICAL EXAM Pulse 72 Ht 5' 2 (1.58m) Wt 134 lb (60.8kg) BMI 24.50 kg/(m2). Physical Exam Constitutional: Appearance: Normal appearance. She is normal weight. HENT: Head: Normocephalic and atraumatic. Eyes: General: No scleral icterus. Extraocular Movements: Extraocular movements intact. Conjunctiva/sclera: Conjunctivae normal. Pupils: Pupils are equal, round, and reactive to light. Cardiovascular: Rate and Rhythm: Normal rate and regular rhythm. Pulses: Normal pulses. Heart sounds: Normal heart sounds. Pulmonary: Effort: Pulmonary effort is normal. Breath sounds: Normal breath sounds. Abdominal: General: Abdomen is flat. Bowel sounds are normal. Palpations: Abdomen is soft. Tenderness: There is no abdominal tenderness. Musculoskeletal: General: Normal range of motion. Cervical back: Normal range of motion and neck supple. Skin: General: Skin is warm and dry. Coloration: Skin is not jaundiced. Neurological: General: No focal deficit present. Mental Status: She is alert and oriented to person, place, and time. Psychiatric: Mood and Affect: Mood normal. Behavior: Behavior normal. Thought Content: Thought content normal. Judgment: Judgment normal. Assessment/Plan (Z12.11) Screening for colon cancer (primary encounter diagnosis) (Z86.010) History of colonic polyps 1. Screening for colon cancer -- Patient is a healthy 87 year old here today to discuss screening colonoscopy. Discussed this potential complications of a colonoscopy at her age including anesthe (more content not included)... [facility] ED NOTEon 03-16-2022 ED NOTE HNO ID: [id number] Author: Sarina Waggoner RN Service: Emergency Medicine Author Type: Registered Nurse Type: ED Notes Filed: 03/16/2022 8:10 PM Note Text: Wound care are directed. Patient tolerated well. [facility] ED NOTE HNO ID: [id number] Author: Sarina Waggoner RN Service: Emergency Medicine Author Type: Registered Nurse Type: ED Notes Filed: 03/16/2022 7:11 PM Note Text: Patient is camping locally, states she tripped going up the step into the camper and injured skin of right lower leg. [facility] ED PROV NOTEon 03-16-2022 ED PROV NOTE HNO ID: [id number] Author: Jos Kelley MD Service: Emergency Medicine Author Type: Physician Type: ED Provider Notes Filed: 03/16/2022 8:23 PM Note Text: ED Provider Note Patient Name: John Navarrete : 1935 SERVICE DATE: 03/16/22 History Patient presents with: Laceration John Navarrete is a 86 year old female with history of frequent skin tears who presents with Laceration. Patient took nothing for this prior to arrival. - Symptoms began 1 hours prior to arrival. - Severity: moderate - Timing: constant - Quality: Skin tear right guallpa - Laceration is exacerbated by movement. - Laceration is not exacerbated by palpation. - Symptoms are associated with no other injuries. - Symptoms are not associated with numbness tingling or weakness. - Improved by nothing. - Not improved by rest History of frequent skin tears and trouble with wound healing not diabetic. Uncertain when her last tetanus vaccination she was getting into her camper and tripped and struck her right guallpa on the metal step and suffered a skin tear to the right guallpa. PAST MEDICAL HISTORY Diagnosis Date - Adenomatous colon polyp - Aortic valve regurgitation mild 1+ AI - Edema - HTN (hypertension) - Mitral valve regurgitation moderate 2+ MR - Osteoporosis - Palpitations Symptom during SVT - SOB (shortness of breath) Symptom during SVT - SVT (supraventricular tachycardia) (HCC) symptomatic; recurrent; regular tachycardia; terminates abruptly with IV adenosine, so likely adenosine sensitive AV jose dependent type of SVT such as AVNRT or AVRT - Tachycardia - Tricuspid valve regurgitation mild 1+ TR - Ulcerative colitis (HCC) PAST SURGICAL HISTORY Procedure Laterality Date - CATARACT EXTRACTION HX Right 2012 - CATARACT EXTRACTION HX Left 2017 - COLONOSCOPY 09/05/2016 adenomatous polyps - COLONOSCOPY 09/14/2019 Sessile serrated polyp. - ECHOCARDIOGRAM 02/26/2018 normal LV size and systolic fxn; LVEF 66%; moderate 2+ MR; mild 1+ TR; mild 1+ AI - TUBAL LIGATION 1972 FAMILY HISTORY Problem Relation Age of Onset - Coronary Artery Disease Mother had 4-vessel CABG at age 86 yrs - Coronary Artery Disease Father - Alcohol/Drug Father heavy drinker (whiskey) - Heart disease Sister valvular; valve replacement (pig valve) - Hypertension Sister - Hyperlipidemia Sister - DVT Brother - other (pulmonary embolism) Brother Social History Tobacco Use - Smoking status: Never Smoker - Smokeless tobacco: Never Used Vaping Use - Vaping Use: Never used Substance and Sexual Activity - Alcohol use: No - Drug use: No - Sexual activity: Not on file ALLERGIES No Known Allergies Review of Systems Constitutional: Negative for chills and fever. Respiratory: Negative for cough and shortness of breath. Cardiovascular: Negative for chest pain. Gastrointestinal: Negative for abdominal pain, nausea and vomiting. Musculoskeletal: Negative for back pain and neck pain. Skin: Positive for wound. Negative for rash. Allergic/Immunologic: Negative for environmental allergies, food allergies and immunocompromised state. Neurological: Negative for syncope and light-headedness. Psychiatric/Behavioral: Negative for confusion. The patient is not nervous/anxious. Physical Exam Vitals [03/16/22 1909] BP Pulse Temp Temp src Resp SpO2 Weight Height 196/66 90 36.9 ?C (98.5 ?F) Temporal 18 97 % 59 kg (130 lb) 1.575 m (5' 2) Physical Exam Vitals and nursing note reviewed. Constitutional: General: She is not in acute distress. Appearance: Normal appearance. She is not ill-appearing. HENT: Head: Normocephalic and atraumatic. Eyes: General: Right eye: No discharge. Left eye: No discharge. Extraocular Movements: Extraocular movements intact. Cardiovascular: Rate and Rhythm: Normal rate and regular rhythm. Pulmonary: Effort: Pulmonary effort is normal. No respiratory distress. Chest: Chest wall: No tenderness. Abdominal: Palpations: Abdomen is soft. Tenderness: There is no abdominal tenderness. Musculoskeletal: General: Tenderness and signs of injury present. No swelling or deformity. Normal range of motion. Cervical back: No tenderness. Comments: Stellate skin tear right guallpa about 4 cm x 5 cm circumference. Skin: General: Skin is warm and dry. Capillary Refill: Capillary refill takes less than 2 seconds. Findings: No rash. Neurological: General: No focal deficit present. Mental Status: She is alert and oriented to person, place, and time. Psychiatric: Mood and Affect: Mood normal. Behavior: Behavior normal. Thought Content: Thought content normal. Judgment: Judgment normal. Diagnostic Testing ED Labs Ordered and Reviewed - No data to display Procedures ED Course / Clinical Impression Clinical Impressions as of 03/16/22 2016 Noninfected skin tear of right lower extremity, initial encounte (more content not included)... [facility] Surgery Visit Reporton 03-01 Surgery Visit Report [facility] [address] [place] [address] OFFICE VISIT Date of Service: 03/01/22 MR#: [id number] Acct: [id number] Name: JOHN NAVARRETE Rep #: [id number] : 1935 Provider: Dr. Deandra Acevedo Ceb MD soren Age/Sex: 86/F Location: [facility] Status: Signed Intake Intake Visit Reasons: BREAST IMAGING 01/31 Chief Complaint: BIRADS 4 Left Breast Land Manager Required: No Is patient in pain?: No Allergies No Known Allergies Allergy (Verified 03/01/22 14:27) Medications verapamil 240 mg tablet,extended release 240 mg PO Q12H 06/30/19 [History Confirmed 03/01/22] PFSH Medical History Abnormal mammogram of left breast Abnormal ultrasound of breast Acute ulcerative colitis History of back problems Hypertension Poison giovanna dermatitis Pruritic dermatitis Surgical History History of eye surgery Family History Father Heart disease Hypertension Social History Smoking Status: Never smoker HPI HPI HPI: JOHN NAVARRETE, is a 86 F who presents to the office today for ongoing surgical follow-up care. My previous notes reflect the following. HPI: JOHN NAVARRETE, is a 86 F who presents to the office today for surgical follow-up of breast imaging. My previous note of January 20, 2021 reflects the following. Her mammograms of January 10, 2021 were unremarkable. The ultrasound was requested because the patient could palpate an area in the left breast. 85-year-old female presented for a planned ultrasound-guided needle core biopsy upper outer quadrant left breast. She presented to the ultrasound suite. I accompanied her. I inspected the ultrasound finding demonstrated to me by the battery technician. This seemed to be very very similar to surrounding tissue. I could not be absolutely convinced that this represented distinctly different tissue and that I would be able to provide the patient with a definitive result. On July 21, 2021 the patient had an updated left breast ultrasound. Radiology suggests at the 2 o'clock position +5 cm there is a 7 mm oval parallel indistinct isoechoic mass with no posterior features within some dense breast parenchyma. BI-RADS Category 3. Short-term follow-up recommended. Patient has no complaints today. No nipple discharge. No palpable mass. She had updated mammography January 31, 2022 as noted below. At that same setting she had a left unilateral breast ultrasound. They still suggest that these can see a vague density on ultrasound 7 x 8 x 4 mm 2 o'clock position +5 cm left breast. Interpretation is unchanged and BI-RADS Category 2 January 31, 2022 MAMMOGRAPHY - BILATERAL DIAGNOSTIC REASON FOR EXAM: Female, 86 years old. Six-month follow-up examination. PERTINENT HISTORY: Left breast nodule. TECHNIQUE: Digital bilateral breast moises (3D mammographic acquisition) in the CC and MLO projections. 2-D mediolateral oblique (MLO) and craniocaudad (CC) views of both breasts were obtained. CAD: Full Field Digital Mammography with Computer Added Detection was performed. COMPARISON: Comparison is made with prior mammogram dated 01/10/2021 and 08/08/2018. FINDINGS: Breast Composition: There are scattered areas of fibroglandular density. There are no dominant masses or suspicious calcifications. No other significant abnormalities are identified. There has been no significant change since the prior study. BI/DIAG MAMM W/CAD, BILAT IMPRESSION: Stable bilateral diagnostic mammogram. Follow-up sonogram of the left breast is recommended. ASSESSMENT CATEGORY: BIRADS Category 0: Incomplete. Need additional imaging evaluation. A letter regarding these results will be sent to the patient by the facility within 30 days. Approximately 10% of breast cancers are not detected by mammography. A normal mammogram should not delay biopsy of a clinically suspicious abnormality. Electronically Signed: Dre Vogel MD at 10:55 EDT , January 31, 2022 STUDY: ULTRASOUND BREAST - LEFT REASON FOR EXAM: Female, 86 years old. Six-month follow-up examination for 7 mm nodule in the left breast. TECHNIQUE: Axial and longitudinal images of the LEFT breast were performed with a high resolution ultrasound transducer. # OF IMAGES: 12 COMPARISON: Comparison is made with prior sonogram of the left breast in 07/25/2021 and prior mammogram done earlier today. (more content not included)... Normal [facility] Breast Limited Unilateralon 01-31-2022 Breast Limited Unilateral [facility] [address] [place] [address] Breast Limited Unilateral MR#: [id number] Acct: [id number] Name: JOHN NAVARRETE Rep #: [id number] : 1935 F 86 From: Dre smith MD PCP: Dr. Tang Iraheta, Status: [facility] Study: Breast Limited Unilateral Date of Exam: Exam# [id number] Ordering Dr: Deandra Mendez MD STUDY: ULTRASOUND BREAST - LEFT REASON FOR EXAM: Female, 86 years old. Six-month follow-up examination for 7 mm nodule in the left breast. TECHNIQUE: Axial and longitudinal images of the LEFT breast were performed with a high resolution ultrasound transducer. # OF IMAGES: 12 COMPARISON: Comparison is made with prior sonogram of the left breast in 07/25/2021 and prior mammogram done earlier today. FINDINGS: LEFT Breast: Stable 7 mm x 8 mm x 4 mm slightly hypoechoic well-defined solid nodule at the 2 o''clock position breast at 5 cm from nipple. US/Breast Limited Unilateral IMPRESSION: Stable examination. ASSESSMENT CATEGORY: BIRADS Category 2: Benign. A letter regarding these results will be sent to the patient by the facility within 30 days. Electronically Signed: Dre Vogel MD at 10:57 EDT , CC: Dr. Tang Iraheta DO; Dr. Deandra Mendez MD Compliance Analyst: Signed Normal [facility] DIAG MAMM W/CAD, BILATon DIAG MAMM W/CAD, BILAT [facility] [address] [place] [address] DIAG MAMM W/CAD, BILAT MR#: [id number] Acct: [id number] Name: JOHN NAVARRETE Rep #: [id number] : 1935 F 86 From: Dre smith MD PCP: Dr. Tang Iraheta DO Status: REG CLI Study: DIAG MAMM W/CAD, BILAT Date of Exam: 01/31/22 Exam# [id number] Ordering Dr: Deandra Mendez MD MAMMOGRAPHY - BILATERAL DIAGNOSTIC REASON FOR EXAM: Female, 86 years old. Six-month follow-up examination. PERTINENT HISTORY: Left breast nodule. TECHNIQUE: Digital bilateral breast moises (3D mammographic acquisition) in the CC and MLO projections. 2-D mediolateral oblique (MLO) and craniocaudad (CC) views of both breasts were obtained. CAD: Full Field Digital Mammography with Computer Added Detection was performed. COMPARISON: Comparison is made with prior mammogram dated 01/10/2021 and 08/08/2018. FINDINGS: Breast Composition: There are scattered areas of fibroglandular density. There are no dominant masses or suspicious calcifications. No other significant abnormalities are identified. There has been no significant change since the prior study. BI/DIAG MAMM W/CAD, BILAT IMPRESSION: Stable bilateral diagnostic mammogram. Follow-up sonogram of the left breast is recommended. ASSESSMENT CATEGORY: BIRADS Category 0: Incomplete. Need additional imaging evaluation. A letter regarding these results will be sent to the patient by the facility within 30 days. Approximately 10% of breast cancers are not detected by mammography. A normal mammogram should not delay biopsy of a clinically suspicious abnormality. Electronically Signed: Dre Vogel MD at 10:55 EDT , CC: Dr. Tang Iraheta DO; Dr. Deandra Mendez MD Compliance Analyst: Signed Normal [facility] CR Humerus 2+ Views Righton 09-05-2021 CR Humerus 2+ Views Right Patient Name: JOHN NAVARRETE Diagnostic Radiology ACCESSION EXAM DATE/TIME PROCEDURE ORDERING PROVIDER [id number] 09/05/2021 12:16 EST CR Humerus 2+ Views RILEYDO Burden PAUL E. Right CPT code 09708 Reason For Exam (CR Humerus 2+ Views Right) . Report CLINICAL INFORMATION: Right arm pain since remote trauma. No recent trauma. Right humerus: AP and lateral views which include the shoulder and the elbow demonstrate no evidence of acute fracture or dislocation. No bone erosion or periosteal reaction is seen. There is a small calcification lateral to the greater tuberosity most likely related to mild calcific tendinitis. There is mild hypertrophy of the acromioclavicular joint. No significant soft tissue abnormality is identified. IMPRESSION: Mild calcific probable supraspinatus tendinitis. Mild hypertrophy of the acromioclavicular joint. No other significant radiographic abnormality. Report Dictated on Final Dictating Physician: MD BRIGGS HARLAN Signed Date and Time: 09/05/2021 4:30 pm Signed by: MD BRIGGS HARLAN Transcribed Date and Time: 09/05/2021 4:31 Normal [facility] XR HUMERUS RIGHT (MIN 2 VIEW S)on 09-05-2021 Patient Name: JOHN NAVARRETE Diagnostic Radiology ACCESSION EXAM DATE/TIME PROCEDURE ORDERING PROVIDER [id number] 09/05/2021 12:16 EST CR Humerus 2+ Views RILEYDO Burden PAUL Cristiana. Right CPT code 12637 Reason For Exam (CR Humerus 2+ Views Right) . Report CLINICAL INFORMATION: Right arm pain since remote trauma. No recent trauma. Right humerus: AP and lateral views which include the shoulder and the elbow demonstrate no evidence of acute fracture or dislocation. No bone erosion or periosteal reaction is seen. There is a small calcification lateral to the greater tuberosity most likely related to mild calcific tendinitis. There is mild hypertrophy of the acromioclavicular joint. No significant soft tissue abnormality is identified. IMPRESSION: Mild calcific probable supraspinatus tendinitis. Mild hypertrophy of the acromioclavicular joint. No other significant radiographic abnormality. Report Dictated on --- Final --- Dictating Physician: MD BRIGGS HARLAN Signed Date and Time: 09/05/2021 4:30 pm Signed by: MD BRIGGS HARLAN Transcribed Date and Time: 09/05/2021 4:31 Capo Sewell MD - 09/05/2021 [id number] Radiology ACCESSION EXAM DATE/TIME PROCEDURE ORDERING PROVIDER [id number] 09/05/2021 12:16 EST CR Humerus 2+ Views DO IRAHETA PAUL E. Right CPT code 29261 Reason For Exam (CR Humerus 2+ Views Right) . Report CLINICAL INFORMATION: Right arm pain since remote trauma. No recent trauma. Right humerus: AP and lateral views which include the shoulder and the elbow demonstrate no evidence of acute fracture or dislocation. No bone erosion or periosteal reaction is seen. There is a small calcification lateral to the greater tuberosity most likely related to mild calcific tendinitis. There is mild hypertrophy of the acromioclavicular joint. No significant soft tissue abnormality is identified. IMPRESSION: Mild calcific probable supraspinatus tendinitis. Mild hypertrophy of the acromioclavicular joint. No other significant radiographic abnormality. Report Dictated on --- Final --- Dictating Physician: MD BRIGGS HARLAN Signed Date and Time: 09/05/2021 4:30 pm Signed by: MD BRIGGS HARLAN Transcribed Date and Time: 09/05/2021 4:31 [facility] Work Phone: Radiology Study observation (narrative) [facility] Work Phone: XR HUMERUS RIGHT (MIN 2 VIEW S)Ordered By: Cpao Briggs on 09-05-2021 [facility] Work Phone: Surgery Visit Reporton 08-01 Surgery Visit Report [facility] [address] [place], [place] [address] OFFICE VISIT Date of Service: 08/01/21 MR#: [id number] Acct: [id number] Name: JOHN NAVARRETE Rep #: [id number] : 1935 Provider: Dr. Deandra doty MD Age/Sex: 86/F Location: [facility] Status: Signed with Addenda ADDENDUM by Dr. Deandra Mendez MD on 08/01/21 at 1604 Intake Chief Complaint: BIRADS 4 Left Breast Allergies No Known Allergies Allergy (Verified 01/16/21 15:32) Assessment and Plan Assessment and Plan (1) Abnormal ultrasound of breast: Status: Acute 08/01/21 1604 Date Deandra Mendez MD cc: Dr. Tang Iraheta DO * Signed Intake Intake Visit Reasons: DISCUSS BREAST U/S 07/25 RESULTS Chief Complaint: BIRADS 4 Left Breast Allergies No Known Allergies Allergy (Verified 01/16/21 15:32) PFSH Medical History (Updated 01/20/21 @ 10:[address] Deandra Mendez MD) Abnormal mammogram of left breast Abnormal ultrasound of breast Acute ulcerative colitis History of back problems Hypertension Poison giovanna dermatitis Pruritic dermatitis Surgical History (Updated 01/20/21 @ 10:[address] Deandra Mendez MD) History of eye surgery Family History (Updated 01/16/21 @ 15:30 by Regina Fontenot) Father Heart disease Hypertension Social History (Updated 01/16/21 @ 15:[address] Deandra Mendez MD) Smoking Status: Never smoker HPI HPI HPI: JOHN NAVARRETE, is a 86 F who presents to the office today for surgical follow-up of breast imaging. My previous note of January 20, 2021 reflects the following. Her mammograms of January 10, 2021 were unremarkable. The ultrasound was requested because the patient could palpate an area in the left breast. 85-year-old female presented for a planned ultrasound-guided needle core biopsy upper outer quadrant left breast. She presented to the ultrasound suite. I accompanied her. I inspected the ultrasound finding demonstrated to me by the battery technician. This seemed to be very very similar to surrounding tissue. I could not be absolutely convinced that this represented distinctly different tissue and that I would be able to provide the patient with a definitive result. On July 21, 2021 the patient had an updated left breast ultrasound. Radiology suggests at the 2 o'clock position +5 cm there is a 7 mm oval parallel indistinct isoechoic mass with no posterior features within some dense breast parenchyma. BI-RADS Category 3. Short-term follow-up recommended. The patient states that she herself cannot palpate any abnormalities. She has had no nipple discharge. July 25, 2021 STUDY: ULTRASOUND BREAST - LEFT REASON FOR EXAM: Female, 86 years old. Short interval follow-up TECHNIQUE: Axial and longitudinal images of the LEFT breast were performed with a high resolution ultrasound transducer. # OF IMAGES: 11 COMPARISON: 01/20/2021 FINDINGS: LEFT Breast: Heterogeneous background echotexture. At 2 o''clock, 5 cm from nipple, there is no change in the 7 mm oval parallel indistinct isoechoic mass with no posterior features within some dense breast parenchyma and continued short-term follow-up is recommended.: US/Breast Limited Unilateral IMPRESSION: No change in the 7 mm oval parallel indistinct isoechoic mass in the left breast and continued short follow-up is recommended. CC and MLO mammograms of both breasts and the left breast ultrasound recommended in 6 months. ASSESSMENT CATEGORY: BIRADS Category 3: Probably Benign - Short-Interval Follow-up Suggested. A letter regarding these results will be sent to the patient by the facility within 30 days. Electronically Signed: Cuba Madrid MD at 11:54 EDT Tel , Service support , Exam Chest Other: Left breast: Diffuse fibrous change throughout. I cannot detect any focal mass within the left breast. With nursing assistance I attempted ultrasound of the upper outer quadrant left breast 2 o'clock position +5 cm. I again as previously I was unable to duplicate the finding of a consistent mass or abnormality. Assessment and Plan Assessment and Plan (1) Abnormal ultrasound of breast: Status: Acute Plan: Again on clinical examination neither the patient nor I are able to palpate an upper outer quadrant left breast mass. Again I am not able to duplicate the findings of a distinct mass in the upper outer quadrant left breast. I have reviewed the images supplied. This again seems to be consistent with breast tissue. BI-RADS Category 3. Recommendations for bilateral mammograms and left breast ultr (more content not included)... Normal [facility] Breast Limited Unilateralon 07-25-2021 Breast Limited Unilateral [facility] [address] [place] [address] Breast Limited Unilateral MR#: [id number] Acct: [id number] Name: JOHN NAVARRETE Rep #: [id number] : 1935 F 86 From: Cuba Madrid MD PCP: Dr. Tang Iraheta, Status: REG [facility] Study: Breast Limited Unilateral Date of Exam: Exam# [id number] Ordering Dr: Deandra Mendez MD STUDY: ULTRASOUND BREAST - LEFT REASON FOR EXAM: Female, 86 years old. Short interval follow-up TECHNIQUE: Axial and longitudinal images of the LEFT breast were performed with a high resolution ultrasound transducer. # OF IMAGES: 11 COMPARISON: 01/20/2021 FINDINGS: LEFT Breast: Heterogeneous background echotexture. At 2 o''clock, 5 cm from nipple, there is no change in the 7 mm oval parallel indistinct isoechoic mass with no posterior features within some dense breast parenchyma and continued short-term follow-up is recommended.: US/Breast Limited Unilateral IMPRESSION: No change in the 7 mm oval parallel indistinct isoechoic mass in the left breast and continued short follow-up is recommended. CC and MLO mammograms of both breasts and the left breast ultrasound recommended in 6 months. ASSESSMENT CATEGORY: BIRADS Category 3: Probably Benign - Short-Interval Follow-up Suggested. A letter regarding these results will be sent to the patient by the facility within 30 days. Electronically Signed: Cuba Madrid MD at 11:54 EDT Tel , Service support , CC: Dr. Tang Iraheta DO; Dr. Deandra Mendez MD Compliance Analyst: Signed [facility] CR Spine Lumbosacral 4+ View son 01-16-2021 CR Spine Lumbosacral 4+ Views Patient Name: JOHN NAVARRETE Diagnostic Radiology ACCESSION EXAM DATE/TIME PROCEDURE ORDERING PROVIDER [id number] 01/16/2021 11:20 EDT CR Spine Lumbosacral 4+ DO IRAHETA PAUL E. Views CPT code 17714 Reason For Exam (CR Spine Lumbosacral 4+ Views) Pain Report LUMBAR SPINE: CLINICAL INDICATION: Pain. TECHNIQUE: AP, lateral and coned-down L5-S1. COMPARISON: 03/17/2017 FINDINGS: Five lumbar vertebrae are present. The lumbar vertebrae demonstrate no wedge fracture or compression deformity. There is a dextrocurvature of the spine centered at L3. There are hypertrophic facet changes, anterior osteophytes, degenerative endplate changes and multilevel disc height loss which is most notable at L2-L3 and L5-S1. There is approximately 5 mm of anterolisthesis at L4-L5, and approximately 6 mm of anterolisthesis at L5-S1. The pedicles and sacroiliac joints are unremarkable. No abnormal soft tissue calcifications are noted. IMPRESSION: 1. Multilevel lumbar spondylosis. 2. Anterolisthesis at L4-L5 and L5-S1. Report Dictated on Final Dictating Physician: MD PUCKETT NICHOLAS Signed Date and Time: 01/17/2021 2:11 pm Signed by: MD PUCKETT NICHOLAS Transcribed Date and Time: 01/17/2021 2:12 Normal [facility] CNOVon 04-08-2018 CNOV Office Visit (AGCARDPHRA) LANDONJOHN MANSFIELD ([id number]) 1935 FDate Time Provider Department04/08/18 3:00 PM DEANDRA TANNER During your visit today, we recorded the following information about you: Pulse Blood pressure Weight Height 73/minute 150/70 62.1 kg 1.6 Janette Cooley CMA 04/08/2018 2:49 PM SignedMrziyad Navarrete is here as a new patient referred from Dr. Tang Iraheta. Nocardiac complaints today.Aury Joseph MD 04/08/2018 7:53 PM SignedPRIMARY CARE PHYSICIAN:[place] [address]Wbxxn: [phone]: [phone] PHYSICIAN:TANG IRAHE[place] [facility] [place] [address]Nopvilq Care Team:Tang Iraheta as PCP - General (Family Practice)Deandra Tanner as Specialty Expressive Music Therapist (Cardiology)Moi Melton as Specialty Expressive Music Therapist (Gastroenterology)CHIEF COMPLAINT:Evaluation of arrhythmiaHISTORY OF PRESENT ILLNESS:Mrs. Navarrete is a 82 year old female who presents today with her forevaluation of supraventricular tachycardia (SVT). She states she is experiencedintermittent palpitations and tachycardia since at least the . Sheexperiences episodes where she feels rapid heartbeats with palpitations, heartpounding. Episodes start and end suddenly. Episodes typically occur at night,awakening her from sleep. This year, she has experienced episodes 10/30/2017(duration 10 min), 11/21/2017 (two episodes, one at midnight and one at 02:00AM, duration 10 min each), 12/09/2017 (duration 5 min), and 02/16/2018(duration one and one-half hours -- had to go to [facility] and received IVadenosine). She states the only other time that she had to go to the ER was [id number], at which time she received an IV medication that made her hot orflushed so probably adenosine (she states she received the same medication inApril this year). Otherwise, the episodes are self-limited. She tries variousmaneuvers to stop the episodes, such as bearing down, coughing, etc or drinkingcold water. She has been treated with verapamil for at least 10 years, howevershe states that this is also for blood pressure. She states the dosage wasincreased from 180 mg daily to 240 mg daily about 2 or 3 years ago. She is notaware of factors that trigger the episodes, such as caffeine intake or such,although she thinks that stress might play a role. When not having arrhythmia,she denies chest pain, shortness of breath, orthopnea, cough, PND,lightheadedness or syncope. 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- Tachycardia- Tricuspid valve regurgitation mild 1+ TR- Ulcerative colitis (HCC)PAST SURGICAL HISTORYProcedure Laterality Date- CATARACT EXTRACTION HX Right 2012- CATARACT EXTRACTION HX Left 2017- ECHOCARDIOGRAM 02/26/2018 normal LV size and systolic fxn; LVEF 66%; moderate 2+ MR; mild 1+ TR; mild 1+AI- TUBAL LIGATION 1973SOCIAL HISTORYSocial HistorySubstance Use Topics- Smoking status: Never Smoker- Smokeless tobacco: Never Used- Alcohol use NoFAMILY HISTORYProblem Relation Age of Onset- Coronary Artery Disease Mother had 4-vessel CABG at age 86 yrs- Coronary Artery Disease Father- Alcohol/Drug Father heavy drinker (whiskkarena)- Heart disease Sister valvular; valve replacement (pig valve)- Hypertension Sister- Hyperlipidemia Sister- DVT Brother- pulmonary embolism [OTHER] BrotherALLERGIES:ALLERGIESN o Known AllergiesMEDICATIONS:verapa mil SR (CALAN SR) 240 mg CR tablet Take 240 mg by mouth daily at bedtime.mesalamine ER (APRISO) 0.375 gram capsule Take 375 mg by mouth once daily.REVIEW OF SYSTEMS:PAIN ASSESSMENT: arthritic pain; recently had shot for left kneeGENERAL: Negative for: Weight loss or gain, Fever or Chills, Weakness and Sleepdifficulties.HEENT: Negative for:Hearing Impairment, Nosebleeds, Poor Dental Care andBleeding GumsNECK: Negative for: Swelling, Pain, StiffnessRESPIRATORY: Negative for: Cough, Blood in Sputum, Shortness of breath,Wheezing, ApneaGASTROINTESTINAL: Negative for: Trouble swallowing, Heartburn, Change in bowelhabits, Blood in stool, Dark black stoolsMUSCULOSKELETAL: Positive for: generalized arthritic painNEUROLOGIC/PSYCHIATRIC: Negative for: Weakness, Paralysis, Numbness, Tingling,Tremor, Nervousness or anxiety, Depressed mood, Memory lossSKIN: Negative for: Rash, ItchingHEMATOLOGICAL/LYMPHA TIC: Negative for: Easy bruising, Easy bleedingENDOCRINE: Negative for: Heat or Cold Intolerance, Excessive Sweating,Frequent Urination, Frequent ThirstPHYSICAL EXAMINATION:BP 150/70 Pulse 73 Ht 5' 3 (1.60m) Wt 137 lb (62.1kg) SpO2 97% BMI24.27 kg/(m2).General: Well appearing, in no acute distress, speaking in complete sentences.Skin: No clubbing, no cyanosis.Eyes: Extra ocular movements intact, Non-icteric scleraeNeck: no jugular venous distention,, no carotid bruits, , carotids have anormal upstrokeLungs: Clear to auscultation bilaterally, no wheezing or rhonchi.Heart: Regular rhythm, S1, S2 normal, soft Gr I/ systolic murmur lower LSB;no rubsAbdomen: Soft, nontender, bowel sounds normalExtremities: mild pitting edema at ankles bilaterally; Grade 2/4 distal pulsesbilaterally.Neuro: Oriented to person, place and time, alert, cooperative, gait coordinated.CARDIOVASCULAR MEDICINE TESTING:Electrocardiograms: 02/16/2018 01:58: SVT 177 bpm; 02/16/2018 02:18: sinustachycardia 104 bpm; left axis deviation; LVH with repolarization abnormality;04/21/2010 22:09: SVT 177 bpmThere were no tests performed today for review.ASSESSMENT/PLAN:1. SVT (supraventricular tachycardia) (HCC) - ICD9: 427.89, ICD10: I47.1(primary diagnosis)Long history of recurrent episodes, all but two episodes (04/2010, 01/2018)have been self-limited. Termination of the SVT with vagal maneuvers and/or IVadenosine indicates this is AV jose dependent SVT such as AV jose reentranttachycardia (AVNRT) or AV reciprocating tachycardia (AVRT). These AV nodaldependent SVTs are highly curable with catheter ablation and this procedure caneven be offered first-line treatment option in light of superior safety andefficacy. Medical therapy is also a good option, and Ms. Navarrete has done wellwith oral verapamil. She has only had two sustained episodes of SVT in the past8 years. She could certainly continue with the current treatment approach andpursue catheter ablation if the episodes increase in frequency and/or duration.2. Tachycardia - ICD9: 785.0, ICD10: R00.03. Palpitations - ICD9: 785.1, ICD10: R00.2Symptom during SVT4. SOB (shortness of breath) - ICD9: 786.05, ICD10: R06.02Symptom during SVTIMPRESSION:Mrs. Navarrete has recurrent symptomatic SVT. The appearance by EKG is ofnarrow-complex short RP tachycardia consistent with SVT, and the behavior(response to IV adenosine, abrupt onset and termination) is consistent with anAV jose dependent SVT such as AVNRT or AVRT. See discussion above.My recommendation is that Mrs. Navarrete should pursue a change to the currenttreatment approach only if she is experiencing unacceptable quality of lifewith this treatment. She would be a very good candidate for catheter ablationof the SVT if she determines she needs a change in the treatment approach. Fornow, she would like to continue with the medication regimen as prescribed, andthis is not unreasonable.I had a detailed discussion with Mrs. Navarrete and her regarding myevaluation and recommendations. After our discussion, Mrs. Navarrete and trisha expressed understanding and I answered all questions to their apparentsatisfaction. I provided her with educational literature regarding SVT and itsmanagement including catheter ablation.PLAN AND RECOMMENDATIONS:Continue with present treatment regimen as prescribed. Consider catheterablation in the future if things change and she is having unacceptable qualityof life from the SVT.Return if symptoms worsen or fail to improve. She will continue to follow upwith her PCP Dr. Iraheta, and with me as needed. I encouraged her to nothesitate to call the office with questions or concerns in the future.Deandra Tanner MD04/08/2018Deandra Tanner MD 04/08/2018 4:03 PM SignedHeart Rhythm Problem (Arrhythmia)What is arrhythmia?Arrhythmia is an abnormal rhythm of your heartbeat. Your heart may beat fasteror more slowly than normal, or it may skip beats. This can make it harder forthe heart to pump enough blood to your body.Another term for arrhythmia is dysrhythmia.What is the cause?An electrical signal in your heart starts each heartbeat, causing the heartmuscle to squeeze (contract). Normally, this signal starts in the upper rightchamber of the heart (the right atrium) at a place called the sinus node. Thesignal then follows normal pathways to the upper left atrium and to the lowerchambers of the heart (the ventricles). You may have an abnormal heart rhythmif the electrical signals don?t follow the normal pathways or the nerve cellsthat make the electrical signals don?t work right.Common causes of heart rhythm problems are conditions that damage the heart,like coronary artery disease, heart attack, or heart failure.Problems with the heart valves are another common cause. The heart has 4 valvesthat open and close with each heartbeat to help blood flow in the rightdirection through the heart.Some other causes of heart rhythm problems include:-Health problems, such as a stroke, lung disease, diabetes, overactive thyroidgland, or high blood pressure-Abuse of alcohol or drugs, such as cocaine-Some medicines, such as cold medicines-Some natural remedies, such as ephedra, guarana, and licoriceExercise or emotional stress can make your heart beat faster or skip beats, butthis is usually not a cause for concern.Sometimes no cause for arrhythmia can be found.What are the different types of arrhythmia?There are many different types of arrhythmia. The heart may beat very slowly(bradycardia) or very fast (tachycardia). The abnormal rhythm may start ineither the upper or the lower heart chambers. The 2 main types of arrhythmiaare:-Atrial arrhythmia: The electrical signals don?t start in the normal place inthe right atrium and don?t travel normally. This can cause part or all of theheart to beat very fast and not in a normal pattern. This affects the abilityof the heart to pump blood to the rest of the body.-Ventricular arrhythmia: The abnormal rhythm starts in the lower chambers ofthe heart. The heart beats in a rhythm that may be irregular or very fast. Ifsevere and untreated, it can be life-threatening.What are the symptoms?Some arrhythmias do not cause any symptoms, or the symptoms may come and go.Your body may simply adjust to the change in rhythm over time.When you do have symptoms, they may include:-Feeling like your heart is beating too fast or too hard or skipping beats orfluttering-Feeling dizzy or xrjtizdtuel-Epxkquab-Auftzm g tired or weak-Chest pain-Shortness of breathHow is it diagnosed?Your healthcare provider will ask about your symptoms and medical history andexamine your heart and lungs. Tests may include:-An ECG (also called an EKG), which measures and records your heartbeat. Youmay have an ECG while you are resting or while you exercise on a treadmill. Youmay also be asked to wear a small portable ECG monitor for a few days orsometimes a couple weeks.-Blood tests-Chest X-ray-An echocardiogram, which uses sound waves (ultrasound) to show the structuresof the heart and how well the heart muscle is pumping-An angiogram, which uses dye injected into a vein and X-rays to look fornarrowing or blockages of blood vessels-An electrophysiology study (EPS), which uses tiny wires put into your heartthrough your veins to look at the electrical pathways in your heartHow is it treated?The goal of treatment is to help the heart keep a normal rhythm. The righttreatment for you depends on the cause of the arrhythmia, how often you havesymptoms, and the severity of your symptoms. If you have no symptoms, or yoursymptoms are fairly mild, you may not need treatment.If a health problem like a leaky heart valve or heart failure is causing thearrhythmia, treating the health problem may also treat the arrhythmia. Otherpossible treatments are:-Medicine to control the heart rate-Surgery to:?Make small cuts or scars in the heart that will block abnormal electricalpathways (cardiac ablation)?Put an electronic device, such as a pacemaker, under the skin in your chest tohelp control the heartbeat?Improve blood flow to the heart if you have coronary artery disease (bypasssurgery)How can I take care of myself?Follow your healthcare provider's instructions. Ask your provider:-How and when you will hear your test results-How long it will take to recover-What activities you should avoid and when you can return to your normalactivities-How to take care of yourself at home-What symptoms or problems you should watch for and what to do if you have themMake sure you know when you should come back for a checkup.How can I help prevent arrhythmia?The best prevention is to have a heart-healthy lifestyle:-Keep a healthy weight.-Eat a healthy diet.-Stay fit with the right kind of exercise for you.-Decrease stress.-Don?t smoke.-Limit your use of alcohol.Let your healthcare provider know if you have a family history of arrhythmia.If you have heart disease or high blood pressure, follow your healthcareprovider's instructions for treatment.Developed by [employer].Published by [employer].Copyright ?2014 [employer] and/or one of its subsidiaries. All rightsreserved.Deandra Tanner MD 04/08/2018 7:54 PM SignedAddended by: DEANDRA TANNER MD on: 04/08/2018 07:54 PM Modules accepted: OrdersReferring Provider: TANG IRAHETA [[id number]]Allergies As of Date: 04/08/2018(No Known Allergies)Date Reviewed: 04/08/2018Reviewed by: Deandra Tanner - Fully AssessedReason for Visit: New Patient [172] Cmt: ref from Dr. Tang Iraheta-tachycardiaPrimary Visit Diagnosis:SVT (supraventricular tachycardia) (HCC) [I47.1] Other Visit Diagnoses:Tachycardia [R00.0] Palpitations [R00.2] SOB (shortness of breath) [R06.02]Prescriptions as of 04/08/2018 Sig: VERAPAMIL ER (SR) 240 MG TABL* Take 240 mg by mouth daily at* MESALAMINE ER 0.375 GRAM CAPS* Take 375 mg by mouth once franky*Problem List As Of Date 04/08/2018 Noted Resolved A-fib (HCC) [I48.91] 04/08/2018 Essential hypertension [I10] Tachycardia [R00.0] SVT (supraventricular tachycardia) (HCC) [I47.1] SOB (shortness of breath) [R06.02] Palpitations [R00.2] Other instructions from your clinician: Heart Rhythm Problem (Arrhythmia) What is arrhythmia? Arrhythmia is an abnormal rhythm of your heartbeat. Your heart may beat faster or more slowly than normal, or it may skip beats. This can make it harder for the heart to pump enough blood to your body. Another term for arrhythmia is dysrhythmia. What is the cause? An electrical signal in your heart starts each heartbeat, causing the heart muscle to squeeze (contract). Normally, this signal starts in the upper right chamber of the heart (the right atrium) at a place called the sinus node. The signal then follows normal pathways to the upper left atrium and to the lower chambers of the heart (the ventricles). You may have an abnormal heart rhythm if the electrical signals don?t follow the normal pathways or the nerve cells that make the electrical signals don?t work right. Common causes of heart rhythm problems are conditions that damage the heart, like coronary artery disease, heart attack, or heart failure. Problems with the heart valves are another common cause. The heart has 4 valves that open and close with each heartbeat to help blood flow in the right direction through the heart. Some other causes of heart rhythm problems include: -Health problems, such as a stroke, lung disease, diabetes, overactive thyroid gland, or high blood pressure -Abuse of alcohol or drugs, such as cocaine -Some medicines, such as cold medicines -Some natural remedies, such as ephedra, guarana, and licorice Exercise or emotional stress can make your heart beat faster or skip beats, but this is usually not a cause for concern. Sometimes no cause for arrhythmia can be found. What are the different types of arrhythmia? There are many different types of arrhythmia. The heart may beat very slowly (bradycardia) or very fast (tachycardia). The abnormal rhythm may start in either the upper or the lower heart chambers. The 2 main types of arrhythmia are: -Atrial arrhythmia: The electrical signals don?t start in the normal place in the right atrium and don?t travel normally. This can cause part or all of the heart to beat very fast and not in a normal pattern. This affects the ability of the heart to pump blood to the rest of the body. -Ventricular arrhythmia: The abnormal rhythm starts in the lower chambers of the heart. The heart beats in a rhythm that may be irregular or very fast. If severe and untreated, it can be life-threatening. What are the symptoms? Some arrhythmias do not cause any symptoms, or the symptoms may come and go. Your body may simply adjust to the change in rhythm over time. When you do have symptoms, they may include: -Feeling like your heart is beating too fast or too hard or skipping beats or fluttering -Feeling dizzy or lightheaded -Fainting -Feeling tired or weak -Chest pain -Shortness of breath How is it diagnosed? Your healthcare provider will ask about your symptoms and medical history and examine your heart and lungs. Tests may include: -An ECG (also called an EKG), which measures and records your heartbeat. You may have an ECG while you are resting or while you exercise on a treadmill. You may also be asked to wear a small portable ECG monitor for a few days or sometimes a couple weeks. -Blood tests -Chest X-ray -An echocardiogram, which uses sound waves (ultrasound) to show the structures of the heart and how well the heart muscle is pumping -An angiogram, which uses dye injected into a vein and X-rays to look for narrowing or blockages of blood vessels -An electrophysiology study (EPS), which uses tiny wires put into your heart through your veins to look at the electrical pathways in your heart How is it treated? The goal of treatment is to help the heart keep a normal rhythm. The right treatment for you depends on the cause of the arrhythmia, how often you have symptoms, and the severity of your symptoms. If you have no symptoms, or your symptoms are fairly mild, you may not need treatment. If a health problem like a leaky heart valve or heart failure is causing the arrhythmia, treating the health problem may also treat the arrhythmia. Other possible treatments are: -Medicine to control the heart rate -Surgery to: ?Make small cuts or scars in the heart that will block abnormal electrical pathways (cardiac ablation) ?Put an electronic device, such as a pacemaker, under the skin in your chest to help control the heartbeat ?Improve blood flow to the heart if you have coronary artery disease (bypass surgery) How can I take care of myself? Follow your healthcare provider's instructions. Ask your provider: -How and when you will hear your test results -How long it will take to recover -What activities you should avoid and when you can return to your normal activities -How to take care of yourself at home -What symptoms or problems you should watch for and what to do if you have them Make sure you know when you should come back for a checkup. How can I help prevent arrhythmia? The best prevention is to have a heart-healthy lifestyle: -Keep a healthy weight. -Eat a healthy diet. -Stay fit with the right kind of exercise for you. -Decrease stress. -Don?t smoke. -Limit your use of alcohol. Let your healthcare provider know if you have a family history of arrhythmia. If you have heart disease or high blood pressure, follow your healthcare provider's instructions for treatment. Developed by [employer]. Published by [employer]. Copyright ?2014 [employer] and/or one of its subsidiaries. All rights reserved.Visit Notes:>> Ira Mendoza Apr 08, 2018 2:48 PM Status: SignedMrs. Landon is here as a new patient referred from Dr. Tang Iraheta. Nocardiac complaints today.Ira Cooley CMADisposition: Return if symptoms worsen or fail to improve.Follow-up and Disposition History RecordedLetter TextEncounter Number: [id number] Status:Closed by SCHWEIKERT, DEANDRA MD on 04/08/18 [facility] PROGRESSon 04-08-2018 PROGRESS HNO ID: [id number] thor: Deandra Westonervice: (none)Author Type: PhysicianType: Progress NotesFiled: 04/08/2018 7:53 PMNote Text:PRIMARY CARE PHYSICIAN:[place] [address]Sagqn: [phone]: [phone] PHYSICIAN:[place] [address]Xklrefg Care Team:Tang Iraheta as PCP - General (Family Practice)Deandra Tanner as Specialty Expressive Music Therapist (Cardiology)Moi Melton as Specialty Expressive Music Therapist (Gastroenterology)CHIEF COMPLAINT:Evaluation of arrhythmiaHISTORY OF PRESENT ILLNESS:Mrs. Navarrete is a 82 year old female who presents today with her husbandfor evaluation of supraventricular tachycardia (SVT). She states she isexperienced intermittent palpitations and tachycardia since at least [id number]. She experiences episodes where she feels rapid heartbeats withpalpitations, heart pounding. Episodes start and end suddenly. Episodestypically occur at night, awakening her from sleep. This year, she hasexperienced episodes 10/30/2017 (duration 10 min), 11/21/2017 (twoepisodes, one at midnight and one at 02:00 AM, duration 10 min each),12/09/2017 (duration 5 min), and 02/16/2018 (duration one and one-halfhours -- had to go to [facility] and received IV adenosine). She states theonly other time that she had to go to the ER was in 2009, at which timeshe received an IV medication that made her hot or flushed so probablyadenosine (she states she received the same medication in January thisyear). Otherwise, the episodes are self-limited. She tries variousmaneuvers to stop the episodes, such as bearing down, coughing, etc ordrinking cold water. She has been treated with verapamil for at least 10years, however she states that this is also for blood pressure. She statesthe dosage was increased from 180 mg daily to 240 mg daily about 2 or 3years ago. She is not aware of factors that trigger the episodes, such ascaffeine intake or such, although she thinks that stress might play arole. When not having arrhythmia, she denies chest pain, shortness ofbreath, orthopnea, cough, PND, lightheadedness or syncope. 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- Tachycardia- Tricuspid valve regurgitation mild 1+ TR- Ulcerative colitis (HCC)PAST SURGICAL HISTORYProcedure Laterality Date- CATARACT EXTRACTION HX Right 2012- CATARACT EXTRACTION HX Left 2017- ECHOCARDIOGRAM 02/26/2018 normal LV size and systolic fxn; LVEF 66%; moderate 2+ MR; mild 1+ TR;mild 1+ AI- TUBAL LIGATION 1973SOCIAL HISTORYSocial HistorySubstance Use Topics- Smoking status: Never Smoker- Smokeless tobacco: Never Used- Alcohol use NoFAMILY HISTORYProblem Relation Age of Onset- Coronary Artery Disease Mother had 4-vessel CABG at age 86 yrs- Coronary Artery Disease Father- Alcohol/Drug Father heavy drinker (whiskey)- Heart disease Sister valvular; valve replacement (pig valve)- Hypertension Sister- Hyperlipidemia Sister- DVT Brother- pulmonary embolism [OTHER] BrotherALLERGIES:ALLERGIESN o Known AllergiesMEDICATIONS:verapa mil SR (CALAN SR) 240 mg CR tablet Take 240 mg by mouth daily atbedtime.mesalamine ER (APRISO) 0.375 gram capsule Take 375 mg by mouth once daily.REVIEW OF SYSTEMS:PAIN ASSESSMENT: arthritic pain; recently had shot for left kneeGENERAL: Negative for: Weight loss or gain, Fever or Chills, Weakness andSleep difficulties.HEENT: Negative for:Hearing Impairment, Nosebleeds, Poor Dental Care andBleeding GumsNECK: Negative for: Swelling, Pain, StiffnessRESPIRATORY: Negative for: Cough, Blood in Sputum, Shortness of breath,Wheezing, ApneaGASTROINTESTINAL: Negative for: Trouble swallowing, Heartburn, Change inbowel habits, Blood in stool, Dark black stoolsMUSCULOSKELETAL: Positive for: generalized arthritic painNEUROLOGIC/PSYCHIATRIC: Negative for: Weakness, Paralysis, Numbness,Tingling, Tremor, Nervousness or anxiety, Depressed mood, Memory lossSKIN: Negative for: Rash, ItchingHEMATOLOGICAL/LYMPHA TIC: Negative for: Easy bruising, Easy bleedingENDOCRINE: Negative for: Heat or Cold Intolerance, Excessive Sweating,Frequent Urination, Frequent ThirstPHYSICAL EXAMINATION:BP 150/70 Pulse 73 Ht 5' 3 (1.60m) Wt 137 lb (62.1kg) SpO2 97% BMI 24.27 kg/(m2).General: Well appearing, in no acute distress, speaking in completesentences.Skin: No clubbing, no cyanosis.Eyes: Extra ocular movements intact, Non-icteric scleraeNeck: no jugular venous distention,, no carotid bruits, , carotids have anormal upstrokeLungs: Clear to auscultation bilaterally, no wheezing or rhonchi.Heart: Regular rhythm, S1, S2 normal, soft Gr I/ systolic murmur lowerLSB; no rubsAbdomen: Soft, nontender, bowel sounds normalExtremities: mild pitting edema at ankles bilaterally; Grade 2/4 distalpulses bilaterally.Neuro: Oriented to person, place and time, alert, cooperative, gaitcoordinated.CARDIOVASCU LAR MEDICINE TESTING:Electrocardiograms: 02/16/2018 01:58: SVT 177 bpm; 02/16/2018 02:18: sinustachycardia 104 bpm; left axis deviation; LVH with repolarizationabnormality; 04/21/2010 22:09: SVT 177 bpmThere were no tests performed today for review.ASSESSMENT/PLAN:1. SVT (supraventricular tachycardia) (HCC) - ICD9: 427.89, ICD10: I47.1(primary diagnosis)Long history of recurrent episodes, all but two episodes (04/2010,01/2018) have been self-limited. Termination of the SVT with vagalmaneuvers and/or IV adenosine indicates this is AV jose dependent SVTsuch as AV jose reentrant tachycardia (AVNRT) or AV reciprocatingtachycardia (AVRT). These AV jose dependent SVTs are highly curable withcatheter ablation and this procedure can even be offered first-linetreatment option in light of superior safety and efficacy. Medical therapyis also a good option, and Ms. Navarrete has done well with oral verapamil.She has only had two sustained episodes of SVT in the past 8 years. Shecould certainly continue with the current treatment approach and pursuecatheter ablation if the episodes increase in frequency and/or duration.2. Tachycardia - ICD9: 785.0, ICD10: R00.03. Palpitations - ICD9: 785.1, ICD10: R00.2Symptom during SVT4. SOB (shortness of breath) - ICD9: 786.05, ICD10: R06.02Symptom during SVTIMPRESSION:Mrs. Navarrete has recurrent symptomatic SVT. The appearance by EKG is ofnarrow-complex short RP tachycardia consistent with SVT, and thebehavior (response to IV adenosine, abrupt onset and termination) isconsistent with an AV jose dependent SVT such as AVNRT or AVRT. Seediscussion above.My recommendation is that Mrs. Navarrete should pursue a change to thecurrent treatment approach only if she is experiencing unacceptablequality of life with this treatment. She would be a very good candidatefor catheter ablation of the SVT if she determines she needs a change inthe treatment approach. For now, she would like to continue with themedication regimen as prescribed, and this is not unreasonable.I had a detailed discussion with Mrs. Navarrete and her regarding myevaluation and recommendations. After our discussion, Mrs. Navarrete and trisha expressed understanding and I answered all questions to theirapparent satisfaction. I provided her with educational literatureregarding SVT and its management including catheter ablation.PLAN AND RECOMMENDATIONS:Continue with present treatment regimen as prescribed. Consider catheterablation in the future if things change and she is having unacceptablequality of life from the SVT.Return if symptoms worsen or fail to improve. She will continue to followup with her PCP Dr. Iraheta, and with me as needed. I encouraged her tonot hesitate to call the office with questions or concerns in the future.Deandra Tanner MD04/08/2018 Normal [facility] Basic Panelon 02-16-2018 BUN (urea nitrogen) 26 mg/dL High 7-25 [facility] Comment on above: Performed By: #### L P8 ####[address] [address] BUN/Creatinine Ratio 28 mg/mg High 10-20 [facility] Comment on above: Performed By: #### L P8 ####[address] [address] Anion gap 12 mmol/L Normal 8-20 [facility] Comment on above: Performed By: #### L P8 ####[address] [address] Calcium 9.4 mg/dL Normal 8.5-10.1 [facility] Comment on above: Performed By: #### L P8 ####[address] [address] Chloride 106 mmol/L Normal 98-107 [facility] Comment on above: Performed By: #### L P8 ####[address] [address] CO2 23 mmol/L Normal 21-32 [facility] Comment on above: Performed By: #### L P8 ####[address] [address] Creatinine 0.92 mg/dL Normal 0.51-0.95 [facility] Comment on above: Performed By: #### L P8 ####[address] [address] Glucose mass conc 137 mg/dL High 70-99 [facility] Comment on above: Performed By: #### L P8 ####[address] [address] Potassium molar conc 3.8 mmol/L Normal 3.5-5.1 [facility] Comment on above: Performed By: #### L P8 ####[address] [address] Sodium 137 mmol/L Normal 136-145 [facility] Comment on above: Performed By: #### L P8 ####[facility] [place], [place] [address] MDRD eGFRon 02-16-2018 eGFR (non-black) mL/min/{1.73_m2} Normal >60mL/m in/1. 73m2 [facility] Comment on above: Result Comment: If t he patient is , multiply the result by 1.210. Performed By: #### L GFR ####[address] [address] Vital Signs Date Time Vital Sign Value Performing Clinician Facility 12-21-2024 13:34-0500 Diastolic blood pressure 76 mm[Hg] [facility]claughlin [facility]-21-2024 13:34-0500 Heart rate 76 /min Wilfrido Mclaughlin DO Work Phone: [facility] 12-21-2024 13:34-0500 Systolic blood pressure 132 mm[Hg] Wilfrido Mclaughlin DO Work Phone: [facility] 12-21-2024 13:02-0500 Body height 160 cm Wilfrido Mclaughlin DO Work Phone: [facility] 12-21-2024 13:02-0500 Body mass index (BMI) [Ratio] 21.51 kg/m2 Wilfrido Mclaughlin DO Work Phone: [facility] 12-21-2024 13:02-0500 Body temperature 97.3 [degF] Wilfrido Mclaughlin DO Work Phone: [facility] 12-21-2024 13:02-0500 Body weight 55.07 kg Wilfrido Mclaughlin DO Work Phone: [facility] 12-21-2024 13:02-0500 SaO2% (BldA) [Mass fraction] 97 % Wilfrido Mclaughlin DO Work Phone: [facility] 12-03-2024 09:52-0500 Body height 160 cm Morro Mccray MD Work Phone: [facility] 12-03-2024 09:52-0500 Body mass index (BMI) [Ratio] 21.68 kg/m2 Morro Mccray MD Work Phone: [facility] 12-03-2024 09:52-0500 Body weight 55.52 kg Morro Mccray MD Work Phone: [facility] 12-03-2024 09:52-0500 Diastolic blood pressure 85 mm[Hg] Morro Mccray MD Work Phone: [facility] 12-03-2024 09:52-0500 Heart rate 67 /min Morro Mccray MD Work Phone: [facility] 12-03-2024 09:52-0500 Systolic blood pressure 148 mm[Hg] Morro Mccray MD Work Phone: [facility] [facility] 09-03-2024 12:56-0500 Diastolic blood pressure 82 mm[Hg] Wilfrido Mclaughlin DO Work Phone: [facility] 09-03-2024 12:56-0500 Heart rate 68 /min Wilfrido Mclaughlin DO Work Phone: [facility] 09-03-2024 12:56-0500 Systolic blood pressure 138 mm[Hg] Wilfrido Dialloa DO Work Phone: [facility] 09-03-2024 10:56-0500 Body height 160 cm Wilfrido Mclaughlin DO Work Phone: [employer] [facility] 09-03-2024 10:56-0500 Body mass index (BMI) [Ratio] 21.79 kg/m2 Wilfrido Dialloa DO Work Phone: [employer] 09-03-2024 10:56-0500 Body temperature 98.01 [degF] Wilfrido Dialloa DO Work Phone: [employer] [facility] 09-03-2024 10:56-0500 Body weight 55.79 kg Wilfrido Dialloa DO Work Phone: [facility] 09-03-2024 10:56-0500 SaO2% (BldA) [Mass fraction] 98 % Wilfrido Dialloa DO Work Phone: [facility] 09-01-2024 10:56-0500 Body height 160 cm Morro Mccray MD Work Phone: [facility] 09-01-2024 10:56-0500 Body mass index (BMI) [Ratio] 21.93 kg/m2 Morro Mccray MD Work Phone: [facility] 09-01-2024 10:56-0500 Body weight 56.16 kg Morro Mccray MD Work Phone: [facility] 09-01-2024 10:56-0500 Diastolic blood pressure 81 mm[Hg] Morro Mccray MD Work Phone: [facility] 09-01-2024 10:56-0500 Heart rate 81 /min Morro Mccray MD Work Phone: [facility] 09-01-2024 10:56-0500 Systolic blood pressure 149 mm[Hg] Morro Mccray MD Work Phone: [facility] 06-23-2024 13:22-0400 Diastolic blood pressure 74 mm[Hg] Wilfrido Dialloa DO Work Phone: [facility] 06-23-2024 13:22-0400 Heart rate 76 /min Wilfrido Dialloa DO Work Phone: [facility] 06-23-2024 13:22-0400 Systolic blood pressure 138 mm[Hg] Wilfrido Dialloa DO Work Phone: [facility] 06-23-2024 12:58-0400 Body height 160 cm Wilfrido Dialloa DO Work Phone: [facility] 06-23-2024 12:58-0400 Body mass index (BMI) [Ratio] 22.04 kg/m2 Wilfrido Pathaklla DO Work Phone: [facility] 06-23-2024 12:58-0400 Body temperature 97 [degF] Wilfrido Pathakraheema DO Work Phone: [facility] 06-23-2024 12:58-0400 Body weight 56.43 kg Wilfrido Pahtakraheema DO Work Phone: [facility] 06-23-2024 12:58-0400 SaO2% (BldA) [Mass fraction] 98 % Wilfrido Mclaughlin DO Work Phone: [facility] 04-30-2024 14:14-0400 Diastolic blood pressure 62 mm[Hg] [facility] 04-30-2024 14:14-0400 Heart rate 69 /min [facility] 04-30-2024 14:14-0400 Systolic blood pressure 114 mm[Hg] [facility] 04-03-2024 14:18-0400 Body temperature 97.9 [degF] Elisabeth Fairbanks DPM Work Phone: [facility] 04-03-2024 14:18-0400 Diastolic blood pressure 69 mm[Hg] Elisabeth Fairbanks DPM Work Phone: [facility] 04-03-2024 14:18-0400 Heart rate 64 /min Elisabeth Fairbanks DPM Work Phone: [facility] 04-03-2024 14:18-0400 Respiratory rate 18 /min Elisabeth Fairbanks DPM Work Phone: [facility] 04-03-2024 14:18-0400 Systolic blood pressure 148 mm[Hg] Elisabeth Fairbanks DPM Work Phone: [facility] 03-31-2024 14:08-0400 Diastolic blood pressure 78 mm[Hg] [facility] 03-31-2024 14:08-0400 Systolic blood pressure 144 mm[Hg] [facility] 03-20-2024 14:15-0400 Body temperature 98.49 [degF] Elisabeth Fairbanks DPM Work Phone: [facility] 03-20-2024 14:15-0400 Diastolic blood pressure 70 mm[Hg] Elisabeth Fairbanks DPM Work Phone: [facility] 03-20-2024 14:15-0400 Heart rate 76 /min Elisabeth Fairbanks DPM Work Phone: [facility] 03-20-2024 14:15-0400 Respiratory rate 18 /min Elisabeth Fairbanks DPM Work Phone: [facility] 03-20-2024 14:15-0400 Systolic blood pressure 154 mm[Hg] Elisabeth Fairbanks DPM Work Phone: [facility] 03-13-2024 13:11-0400 Body temperature 98.2 [degF] Elisabeth Fairbanks DPM Work Phone: [facility] 03-13-2024 13:11-0400 Diastolic blood pressure 54 mm[Hg] Elisabeth Fairbanks DPM Work Phone: [facility] 03-13-2024 13:11-0400 Heart rate 75 /min Elisabeth Fairbanks DPM Work Phone: [facility] 03-13-2024 13:11-0400 Respiratory rate 18 /min Elisabeth Fairbanks DPM Work Phone: [facility] 03-13-2024 13:11-0400 Systolic blood pressure 136 mm[Hg] Elisabeth Fairbanks DPM Work Phone: [facility] 03-10-2024 12:54-0400 Body height 160 cm Wilfrido Pathakraheemsidra DO Work Phone: [facility] 03-10-2024 12:54-0400 Body mass index (BMI) [Ratio] 21.97 kg/m2 Wilfrido Pathakraheema DO Work Phone: [facility] 03-10-2024 12:54-0400 Body temperature 97.5 [degF] Wilfrido Pathakraheema DO Work Phone: [facility] 03-10-2024 12:54-0400 Body weight 56.25 kg Wilfrido Imania DO Work Phone: [facility] 03-10-2024 12:54-0400 Diastolic blood pressure 64 mm[Hg] Wilfrido Imania DO Work Phone: [facility] 03-10-2024 12:54-0400 Heart rate 65 /min Wilfrido Mclaughlin DO Work Phone: [facility] 03-10-2024 12:54-0400 SaO2% (BldA) [Mass fraction] 96 % Wilfrido Mclaughlin DO Work Phone: [facility] 03-10-2024 12:54-0400 Systolic blood pressure 150 mm[Hg] Wilfrido Mclaughlin DO Work Phone: [facility] 03-06-2024 14:19-0400 Body temperature 98.1 [degF] Elisabeth Fairbanks DPM Work Phone: [facility] 03-06-2024 14:19-0400 Diastolic blood pressure 51 mm[Hg] Elisabeth Newkarena DPM Work Phone: [facility] 03-06-2024 14:19-0400 Heart rate 73 /min Elisabeth Newkarena DPM Work Phone: [facility] 03-06-2024 14:19-0400 Respiratory rate 18 /min Elisabeth Fairbanks DPM Work Phone: [facility] 03-06-2024 14:19-0400 Systolic blood pressure 148 mm[Hg] Elisabeth Newkarena DPM Work Phone: [facility] 02-28-2024 13:43-0400 Body temperature 98.1 [degF] Elisabeth Newkarena DPM Work Phone: [facility] 02-28-2024 13:43-0400 Diastolic blood pressure 65 mm[Hg] Elisabeth Fairbanks DPM Work Phone: [facility] 02-28-2024 13:43-0400 Heart rate 71 /min Elisabeth Newkarena DPM Work Phone: [facility] 02-28-2024 13:43-0400 Respiratory rate 18 /min Elisabeth Newkarena DPM Work Phone: [facility] 02-28-2024 13:43-0400 Systolic blood pressure 160 mm[Hg] Elisabeth Newkarena DPM Work Phone: [facility] 02-25-2024 13:57-0400 Body mass index (BMI) [Ratio] 23.51 kg/m2 Viviana Bridenthal PROOFING MACHINE [employer] Work Phone: [facility] 02-25-2024 13:57-0400 Body temperature 99.1 [degF] Viviana Bridenthal [employer]OOFING MACHINE [employer]ATOR [employer] Work Phone: [facility] 02-25-2024 13:57-0400 Body weight 56.43 kg Viviana Bridenthal PROOFING MACHINE OPERATOR [employer] Work Phone: [facility] 02-25-2024 13:57-0400 Diastolic blood pressure 62 mm[Hg] Viviana Bridenthal PROOFING MACHINE OPERATOR [employer] Work Phone: [facility] 02-25-2024 13:57-0400 Heart rate 68 /min Viviana Bridenthal PROOFING MACHINE OPERATOR [employer] Work Phone: [facility] 02-25-2024 13:57-0400 Respiratory rate 20 /min Viviana Bridenthal PROOFING MACHINE OPERATOR [employer] Work Phone: [facility] 02-25-2024 13:57-0400 Systolic blood pressure 128 mm[Hg] Viviana Bridenthal [employer]OOFING MACHINE O[employer]ATOR [employer] Work Phone: [facility] 08-29-2023 12:56-0500 Body height 154.9 cm Morro Quintana PA-C Work Phone: [facility] 08-29-2023 12:56-0500 Body mass index (BMI) [Ratio] 23.81 kg/m2 Morro Quintana PA-C Work Phone: [facility] 08-29-2023 12:56-0500 Body temperature 98.2 [degF] Morro Francoo PA-C Work Phone: [facility] 08-29-2023 12:56-0500 Body weight 57.15 kg Morro Francoo PA-C Work Phone: [facility] 08-29-2023 12:56-0500 Diastolic blood pressure 82 mm[Hg] Morro Quintana PA-C Work Phone: [facility] 08-29-2023 12:56-0500 Heart rate 67 /min Morro LANDAVERDE-C Work Phone: [facility] 08-29-2023 12:56-0500 SaO2% (BldA) [Mass fraction] 96 % Morro Quintana PA-C Work Phone: [facility] 08-29-2023 12:56-0500 Systolic blood pressure 170 mm[Hg] Morro LANDAVERDE-C Work Phone: [facility] 06-20-2023 09:54-0400 Body height 154.9 cm Noah Sommer MD Work Phone: [facility] 06-20-2023 09:54-0400 Body mass index (BMI) [Ratio] 24 kg/m2 Noah Sommer MD Work Phone: [facility] 06-20-2023 09:54-0400 Body weight 57.61 kg Noah Sommer MD Work Phone: [facility] 06-20-2023 09:54-0400 Diastolic blood pressure 60 mm[Hg] Noah Sommer MD Work Phone: [facility] 06-20-2023 09:54-0400 Systolic blood pressure 132 mm[Hg] Noah Sommer MD Work Phone: [facility] 04-08-2023 14:22-0400 Body height 154.9 cm Dyana Payne PA Work Phone: [facility] 04-08-2023 14:22-0400 Body mass index (BMI) [Ratio] 24 kg/m2 Dayna Payne PA Work Phone: [facility] 04-08-2023 14:22-0400 Body weight 57.61 kg Dayna Payne PA Work Phone: [facility] 04-08-2023 14:22-0400 Diastolic blood pressure 70 mm[Hg] Dayna Payne PA Work Phone: [facility] 04-08-2023 14:22-0400 Heart rate 68 /min Dayna Payne PA Work Phone: [facility] 04-08-2023 14:22-0400 Systolic blood pressure 130 mm[Hg] Dayna Elmer PA Work Phone: [facility] 02-28-2023 13:18-0400 Body height 157.5 cm Morro Quintana PA-C Work Phone: [facility] 02-28-2023 13:18-0400 Body mass index (BMI) [Ratio] 23.59 kg/m2 Morro Quintana PA-C Work Phone: [facility] 02-28-2023 13:18-0400 Body temperature 98.6 [degF] Morro Quintana PA-C Work Phone: [facility] 02-28-2023 13:18-0400 Body weight 58.51 kg Morro Quintana PA-C Work Phone: [facility] 02-28-2023 13:18-0400 Diastolic blood pressure 70 mm[Hg] Morro Quintana PA-C Work Phone: [facility] 02-28-2023 13:18-0400 Heart rate 73 /min Morro Quintana PA-C Work Phone: [facility] 02-28-2023 13:18-0400 SaO2% (BldA) [Mass fraction] 96 % Morro Quintana PA-C Work Phone: [facility] 02-28-2023 13:18-0400 Systolic blood pressure 148 mm[Hg] Morro Quintana PA-C Work Phone: [facility] 02-07-2023 08:41-0400 Body height 157.5 cm Noah Sommer MD Work Phone: [facility] 02-07-2023 08:41-0400 Body mass index (BMI) [Ratio] 23.78 kg/m2 Noah Sommer MD Work Phone: [facility] 04-20-2023 08:41-0400 Body weight 58.97 kg Noah Sommer MD Work Phone: [facility] 02-07-2023 08:41-0400 Diastolic blood pressure 64 mm[Hg] Noah Sommer MD Work Phone: [facility] 02-07-2023 08:41-0400 Systolic blood pressure 118 mm[Hg] Noah Sommer MD Work Phone: [facility] 11-20-2022 10:23-0500 Diastolic blood pressure 74 mm[Hg] Tang Iraheta DO Work Phone: [facility] 11-20-2022 10:23-0500 Systolic blood pressure 144 mm[Hg] Tang Lino DO Work Phone: [facility] 11-20-2022 09:48-0500 Body height 157.5 cm Tang Iraheta DO Work Phone: [facility] 11-20-2022 09:48-0500 Body mass index (BMI) [Ratio] 23.92 kg/m2 Tang Iraheta DO Work Phone: [facility] 11-20-2022 09:48-0500 Body temperature 97.5 [degF] Tang Lino DO Work Phone: [facility] 11-20-2022 09:48-0500 Body weight 59.33 kg Tang Lino DO Work Phone: [facility] 11-20-2022 09:48-0500 Heart rate 85 /min Tang Iraheta DO Work Phone: [facility] 11-20-2022 09:48-0500 SaO2% (BldA) [Mass fraction] 99 % Tang Lino DO Work Phone: [facility] 10-18-2022 12:48-0500 Diastolic blood pressure 67 mm[Hg] Maricruz Bedolla MD Work Phone: [facility] 10-18-2022 12:48-0500 Heart rate 82 /min Maricruz Bedolla MD Work Phone: [facility] 10-18-2022 12:48-0500 Respiratory rate 16 /min Maricruz Bedolla MD Work Phone: [facility] 10-18-2022 12:48-0500 SaO2% (BldA) [Mass fraction] 96 % Maricruz Bedolla MD Work Phone: [facility] 10-18-2022 12:48-0500 Systolic blood pressure 139 mm[Hg] Maricruz Bedolla MD Work Phone: [facility] 10-18-2022 12:31-0500 Body temperature 98.29 [degF] Maricruz Bedolla MD Work Phone: [facility] 10-18-2022 11:26-0500 Body height 157.5 cm Maricruz Bedolla MD Work Phone: [facility] 10-18-2022 11:26-0500 Body mass index (BMI) [Ratio] 24.51 kg/m2 Maricruz Bedolla MD Work Phone: [facility] 10-18-2022 11:26-0500 Body weight 60.78 kg Maricruz Bedolla MD Work Phone: [facility] 09-11-2022 10:56-0500 Body height 157.5 cm Yuli Bhanu PA-C Work Phone: [facility] 09-11-2022 10:56-0500 Body weight 60.78 kg Yuli Bhanu PA-C Work Phone: [facility] 09-11-2022 10:56-0500 Diastolic blood pressure 64 mm[Hg] Yuli Bhanu PA-C Work Phone: [facility] 09-11-2022 10:56-0500 Heart rate 72 /min Yuli Bhanu PA-C Work Phone: [facility] 09-11-2022 10:56-0500 Systolic blood pressure 148 mm[Hg] Yuli Bhanu PA-C Work Phone: [facility] 06-23-2021 08:17-0400 Body temperature 98.8 [degF] Noah Sommer MD Work Phone: [facility] Work Phone: 06-23-2021 08:17-0400 Diastolic blood pressure 75 mm[Hg] Noah Sommer MD Work Phone: [facility] Work Phone: 06-23-2021 08:17-0400 Heart rate 72 /min Noah Sommer MD Work Phone: [facility] Work Phone: 06-23-2021 08:17-0400 Respiratory rate 20 /min Noah Sommer MD Work Phone: [facility] Work Phone: 06-23-2021 08:17-0400 SaO2% (BldA) [Mass fraction] 94 % Noah Sommer MD Work Phone: [facility] Work Phone: 06-23-2021 08:17-0400 Systolic blood pressure 119 mm[Hg] Noah Sommer MD Work Phone: [facility] Work Phone: 06-23-2021 06:23-0400 Body height 154.9 cm Noah Sommer MD Work Phone: [facility] Work Phone: 06-23-2021 06:23-0400 Body mass index (BMI) [Ratio] 24.56 kg/m2 Noah Sommer MD Work Phone: [facility] Work Phone: 06-23-2021 06:23-0400 Body weight 58.97 kg Noah Sommer MD Work Phone: [facility] Work Phone: Encounters Encounter Date Encounter Type Care Provider Facility Start: 05-14-2025 End: 05-14-2025 Refill Wilfrido Mclaughlin DO Work Phone: [facility] Start: 04-23-2025 End: 04-26-2025 Refill Wilfrido Mclaughlin DO Work Phone: [facility] Start: 01-19-2025 End: 01-19-2025 ambulatory Morro Mccray MD Work Phone: [facility] Ch[facility] Comment on above: Unsteadiness on feet (Primary Dx) Start: 01-12-2025 End: 01-12-2025 Follow-up encounter Morro Mccray MD Work Phone: [facility] Cah[facility] Comment on above: Unsteadiness on feet (Primary Dx) Start: 01-12-2025 End: 01-12-2025 ambulatory [facility] Start: 01-05-2025 End: 01-05-2025 Follow-up encounter Morro Mccray MD Work Phone: [facility] Comment on above: Unsteadiness on feet (Primary Dx) Start: 01-05-2025 End: 01-05-2025 ambulatory [facility] Start: 12-31-2024 End: 12-31-2024 Follow-up encounter Morro Mccray MD Work Phone: [facility] [employer] [facility] Comment on above: Unsteadiness on feet (Primary Dx) Start: 12-31-2024 End: 12-31-2024 ambulatory [facility] Start: 12-30-2024 End: 12-30-2024 Telephone encounter Morro Mccray MD Work Phone: [facility] Comment on above: Medication Problem Start: 12-29-2024 End: 12-29-2024 Follow-up encounter Morro Mccray MD Work Phone: [facility] Ch[facility] Comment on above: Unsteadiness on feet (Primary Dx) Start: 12-29-2024 End: 12-29-2024 ambulatory [facility] Start: 12-24-2024 End: 12-24-2024 Follow-up encounter Morro Mccray MD Work Phone: [facility] [employer] [facility] Comment on above: Unsteadiness on feet (Primary Dx) Start: 12-24-2024 End: 12-24-2024 ambulatory [facility] Start: 12-22-2024 End: 12-22-2024 ambulatory [facility] Start: 12-22-2024 End: 12-22-2024 Follow-up encounter Morro Mccray MD Work Phone: [facility] Comment on above: Unsteadiness on feet (Primary Dx) Start: 12-21-2024 End: 12-21-2024 Office outpatient visit 15 minutes Wilfrido Erazo Arnoldo BISHOP Work Phone: [facility] Comment on above: Palpitations (Primar y Dx); Essential hypertension; Moderate late onset Alzheimer's dementia without behavioral disturbance, psychotic disturbance, mood disturbance, or anxiety (HCC) Start: 12-21-2024 End: 12-21-2024 ambulatory [facility] Start: 12-17-2024 End: 12-17-2024 Follow-up encounter Morro Mccray MD Work Phone: [facility] Comment on above: Unsteadiness on feet (Primary Dx) Start: 12-17-2024 End: 12-17-2024 ambulatory [facility] Start: 12-15-2024 End: 12-15-2024 Follow-up encounter Morro Mccray MD Work Phone: [facility] Comment on above: Unsteadiness on feet (Primary Dx) Start: 12-15-2024 End: 12-15-2024 ambulatory [facility] Start: 12-08-2024 End: 12-08-2024 Refill Wilfrido Mclaughlin DO Work Phone: [facility] Comment on above: Unsteadiness on feet Start: 12-03-2024 End: 12-03-2024 Office outpatient visit 15 minutes Morro Mccray MD Work Phone: [facility] Comment on above: Moderate dementia wi thout behavioral disturbance, psychotic disturbance, mood disturbance, or anxiety, unspecified dementia type (HCC) (Primary Dx); Unsteadiness on feet Start: 12-03-2024 End: 12-03-2024 ambulatory [facility] Start: 11-09-2024 End: 11-09-2024 Orders Only Wilfrido Mclaughlin DO Work Phone: [facility] Start: 11-06-2024 End: 01-12-2025 Telephone encounter Wilfrido Mclaughlin DO Work Phone: [facility] Comment on above: Other Start: 10-26-2024 End: 10-26-2024 Refill Wilfrido Mclaughlin DO Work Phone: [facility] Start: 09-23-2024 End: 09-23-2024 Telephone encounter Morro Mccray MD Work Phone: [facility] Comment on above: Medication Problem Start: 09-03-2024 End: 09-03-2024 Office outpatient visit 15 minutes Wilfrido Mclaughlin DO Work Phone: [facility] Comment on above: Bursitis of other bu rsa of left hip (Primary Dx); Essential hypertension; Other constipation; Rectal bleeding Start: 09-03-2024 End: 09-03-2024 ambulatory [facility] Start: 09-01-2024 End: 09-01-2024 Office outpatient visit 40 minutes Morro Mccray MD Work Phone: [facility] Comment on above: Moderate dementia wi thout behavioral disturbance, psychotic disturbance, mood disturbance, or anxiety, unspecified dementia type (HCC) (Primary Dx); Vertigo Start: 09-01-2024 End: 09-01-2024 ambulatory [facility] Start: 08-11-2024 End: 08-11-2024 Refill [facility]frido Mclaughlin [facility] Phone[facility] Start: 06-24-2024 End: 06-25-2024 Telephone encounter Wilfrido Castro Arnoldo BISHOP Work Phone: [facility] Comment on above: Referral Start: 06-23-2024 End: 06-23-2024 Subsequent hospital visit by physician Wilfrido Mclaughlin DO Work Phone: [facility] Comment on above: Subacute cough Start: 06-23-2024 End: 06-23-2024 ambulatory [facility] Start: 06-23-2024 End: 06-23-2024 Office outpatient visit 25 minutes iWlfrido Castro Arnoldo BISHOP Work Phone: [facility] Comment on above: Subacute cough (Prim luis angel Dx); Essential hypertension; Memory loss; Lipid screening; Cerebral vascular disease Start: 06-23-2024 End: 06-23-2024 ambulatory [facility] Start: 05-11-2024 End: 05-11-2024 Refill Wilfrido Castro Imanisidra Work Phone: [facility] Start: 04-30-2024 End: 04-30-2024 Clinical Support [facility] Comment on above: Essential hypertensi on Start: 04-03-2024 End: 04-03-2024 Subsequent hospital visit by physician Elisabeth Fairbanks DPM Work Phone: [facility] Comment on above: Pain in left leg (Pr imary Dx); Open wound of left lower leg, subsequent encounter; Edema of left lower leg Start: 04-02-2024 Orders Only Wilfrido rossi DO Work Phone: [facility] Start: 03-31-2024 End: 03-31-2024 Clinical Support [facility] Comment on above: Essential hypertensi on Start: 03-20-2024 End: 03-20-2024 Subsequent hospital visit by physician Elisabeth Fairbanks DPM Work Phone: [facility] Comment on above: Cellulitis of left l eg (Primary Dx); Open wound of left lower leg, subsequent encounter; Pain in left leg Start: 03-13-2024 End: 03-13-2024 Subsequent hospital visit by physician Elisabeth Fairbanks DPM Work Phone: [facility] Comment on above: Open wound of left l ower leg, subsequent encounter (Primary Dx); Skin tear of lower leg without complication, left, initial encounter; Cellulitis of left leg; Pain in left leg Start: 03-10-2024 End: 03-10-2024 Office outpatient visit 25 minutes Wilfrido Mclaughlin DO Work Phone: [facility] Comment on above: Essential hypertensi on (Primary Dx); Skin tear of lower leg without complication, left, initial encounter; Palpitations; Cerebral vascular disease; Mild cognitive impairment with memory loss Start: 03-06-2024 End: 03-06-2024 Subsequent hospital visit by physician Elisabeth Fairbanks DPM Work Phone: [facility] Comment on above: Skin tear of lower l eg without complication, left, initial encounter (Primary Dx); Cellulitis of left leg; Pain in left leg Start: 02-28-2024 End: 02-28-2024 Subsequent hospital visit by physician Elisabeth Fairbanks DPM Work Phone: [facility] Comment on above: Skin tear of lower l eg without complication, left, initial encounter (Primary Dx); Pain in left leg; Cellulitis of left leg Start: 02-26-2024 Telephone encounter Wilfrido tovar DO Work Phone: [facility] Comment on above: Appointment (Wound c are) Start: 02-25-2024 End: 02-25-2024 Office outpatient visit 15 minutes Viviana Mills [employer]OO[employer]ING MACHINE [employer] Work Phone: [facility] Comment on above: Skin tear of lower l eg without complication, left, initial encounter (Primary Dx); Skin infection Start: 02-24-2024 ambulatory John Kidd RN [facility] Start: 02-24-2024 Patient encounter procedure John Kidd RN [facility] Start: 01-20-2024 Refill Wilfrido F Lawson lla DO Work Phone: [facility] Start: 12-26-2023 End: 12-26-2023 Office outpatient visit 15 minutes Noah Sommer MD Work Phone: [facility] Comment on above: Carpal tunnel syndro me of right wrist (Primary Dx); S/P endoscopic carpal tunnel release; Trigger finger, right little finger; Trigger finger, left little finger Start: 11-01-2023 Refill Wilfrido F Lawson lla DO Work Phone: [facility] Start: 08-29-2023 End: 08-29-2023 Assay of hemosiderin, quant Morro Quintana PA-C Work Phone: [facility] [facility] Work Phone: Start: 08-29-2023 End: 08-29-2023 Patient encounter procedure Morro Quintana PA-C Work Phone: [facility] Comment on above: Routine general medi andrew examination at health care facility (Primary Dx); Elevated blood pressure reading in office with diagnosis of hypertension Start: 07-29-2023 Refill Wilfrido F Lawson lla DO Work Phone: [facility] Start: 06-20-2023 End: 06-20-2023 Postop follow up visit related to original px Noah Sommer MD Work Phone: [facility] Comment on above: Status post carpal t unnel release (Primary Dx) Start: 04-08-2023 End: 04-08-2023 Postop follow up visit related to original px Dayna LANDAVERDE Work Phone: [facility] Comment on above: S/P endoscopic carpa l tunnel release (Primary Dx); Carpal tunnel syndrome of right wrist Start: 03-21-2023 ambulatory Zoroastrianism Back er PA-C Work Phone: [facility] Start: 02-28-2023 End: 02-28-2023 Office outpatient visit 15 minutes Morro Quintana PA-C Work Phone: [facility] Comment on above: Dizziness (Primary D x) Start: 02-26-2023 Refill Morro Gaona A-C Work Phone: [facility] Start: 02-20-2023 End: 02-20-2023 Subsequent hospital visit by physician Noah Sommer MD Work Phone: [facility] Comment on above: Numbness of right amezquita nd Start: 02-07-2023 End: 02-07-2023 Office outpatient visit 15 minutes Noah Sommer MD Work Phone: [facility] Comment on above: Trigger index finger of left hand; Trigger ring finger of left hand; Numbness of right hand Start: 12-07-2022 Telephone encounter Tang douglas DO Work Phone: [facility] Comment on above: Results Start: 12-04-2022 End: 12-04-2022 Subsequent hospital visit by physician Tang Iraheta DO Work Phone: [facility] Comment on above: Ataxia Start: 11-28-2022 Telephone encounter Tang douglas DO Work Phone: [facility] Comment on above: Results Start: 11-20-2022 End: 11-20-2022 Office outpatient visit 25 minutes Tang Iraheta DO Work Phone: [facility] Comment on above: Ataxia (Primary Dx); Essential hypertension; Forgetfulness Start: 11-15-2022 ambulatory Aminta Esparza Cl inical Communication Start: 11-15-2022 Patient encounter procedure Aminta Esparza Clinical Communication Start: 10-18-2022 End: 10-18-2022 ambulatory MARICRUZ BEDOLLA Facility:[facility] Start: 10-18-2022 End: 10-18-2022 Subsequent hospital visit by physician Maricruz Bedolla MD Work Phone: Amb[facility] Surgery Comment on above: Screening for colon cancer [Z12.11] Start: 10-16-2022 ambulatory Maricruz Bedolla MD Work Phone: Ambulatory Surgery Start: 09-11-2022 End: 09-11-2022 ambulatory YULI DRUMMOND Facility:[facility] Start: 09-11-2022 End: 09-11-2022 Patient encounter procedure Yuli Drummond PA-C Work Phone: [facility] [place] Comment on above: Screening for colon cancer (Primary Dx); History of colonic polyps Start: 06-08-2022 End: 06-08-2022 Subsequent hospital visit by physician Elisabeth Fairbanks DPM Work Phone: [facility] Start: 05-25-2022 End: 05-25-2022 Subsequent hospital visit by physician Elisabeth Fairbanks DPM Work Phone: [facility] Start: 05-04-2022 End: 05-04-2022 Subsequent hospital visit by physician Elisabeth Fairbanks DPM Work Phone: [facility] Start: 04-06-2022 End: 04-06-2022 Subsequent hospital visit by physician Elisabeth Fairbanks DPM Work Phone: [facility] Start: 03-30-2022 End: 03-30-2022 Subsequent hospital visit by physician Elisabeth Fairbanks DPM Work Phone: [facility] Start: 01-31-2022 End: 01-31-2022 Patient encounter procedure [facility] Start: 09-05-2021 End: 09-05-2021 Subsequent hospital visit by physician Tang Iraheta DO Work Phone: [facility] Comment on above: Right arm pain Start: 06-23-2021 End: 06-23-2021 Subsequent hospital visit by physician Noah Sommer MD Work Phone: [facility] Comment on above: Arrived Start: 01-16-2021 End: 01-16-2021 Subsequent hospital visit by physician Tang Iraheta Work Phone: [facility] Comment on above: Low back pain withou t sciatica, unspecified back pain laterality, unspecified chronicity Start: 04-14-2018 Ambulatory DEANDRA TANNER Fac ility:[facility] Start: 04-08-2018 End: 04-08-2018 Ambulatory DEANDRA TANNER [facility] Start: 02-26-2018 Ambulatory Tang Farah [facility] Start: 01-21-2018 Ambulatory Tang Esparza [facility] Start: 07-01-2017 Ambulatory Tang Farah [facility] Start: 05-24-2017 Ambulatory Tang Esparza [facility] Procedures Date Procedure Procedure Detail Performing Clinician Start: 12-21-2024 Ecg routine ecg w/least 12 lds w/i&r Wilfrido Mclaughlin DO Work Phone: Start: 09-03-2024 Adult depression screening assessment Wilfrido Mclaughlin DO Work Phone: Start: 06-24-2024 Lipid 1996 panel - Serum or Plasma Wilfrido Diallosidra Work Phone: Start: 06-23-2024 Radiologic exam chest 2 views Wilfrido Erazo Arnoldo Work Phone: Start: 04-03-2024 Debridement subcutaneous tissue 20 sq cm/< Elisabeth Fairbanks DPM Work Phone: Start: 03-20-2024 Debridement subcutaneous tissue 20 sq cm/< Elisabeth Fairbanks DPM Work Phone: Start: 03-13-2024 Debridement subcutaneous tissue 20 sq cm/< Ira Newey DPM Work Phone: Start: 03-10-2024 Ecg routine ecg w/least 12 lds w/i&r Wilfrido F Lawsonlla DO Work Phone: Start: 03-06-2024 Debridement subcutaneous tissue 20 sq cm/< Elisabeth Fairbanks DPM Work Phone: Start: 12-26-2023 End: 06-23-2024 History of decompression of median nerve S/P endoscopic carpal tunnel release Noah Sommer MD Work Phone: Start: 08-29-2023 Adult depression screening assessment Morro Quintana PA-C Work Phone: Start: 02-20-2023 Nerve conduction studies 7-8 studies Noah Sommer MD Work Phone: Start: 11-21-2022 Comprehensive metabolic panel Tang Iraheta DO Work Phone: Start: 10-18-2022 Level iv surg pathology gross&microscopic exam Maricruz Bedolla MD Work Phone: Start: 10-18-2022 Colonoscopy flx dx w/collj spec when pfrmd Yuli Garcia PA-C Work Phone: Start: 01-31-2022 Ultrasonography of breast Start: 01-31-2022 Bilateral mammography Start: 09-05-2021 Radex humerus minimum 2 views Tang Iraheta DO Work Phone: Start: 09-14-2019 Colonoscopy Elisabeth Fairbanks DPM Work Phone: History of decompres raul of median nerve S/P endoscopic carpal tunnel release Dayna LADNAVERDE Work Phone: History of decompres raul of median nerve Status post carpal tunnel release Noah Sommer MD Work Phone: Plan of Treatment Date Care Activity Detail Author Start: 03-16-2032 DTaP/Tdap/Td vaccine (2 - Td or Tdap) DTaP/Tdap/Td vaccine (2 - Td or Tdap) [facility] Start: 03-16-2032 DTaP/Tdap/Td Vaccine s (2 - Td or Tdap) DTaP/Tdap/Td Vaccines (2 - Td or Tdap) [facility] Start: 03-16-2032 Urine microalbumin profile [facility] Start: 09-14-2029 Screening for malign ant neoplasm of colon [facility] Start: 06-24-2029 Lipid panel Lipid Panel [facility] Start: 09-03-2025 Depression Screening Depression Scre ening [facility] Start: 06-23-2025 End: 06-23-2025 Patient encounter procedure 06/23/2025 1:00 PM EDT Office Visit [facility] [address] [place] [address] Wilfrido Mclaughlin DO [address] [place] [address] [facility] Start: 06-21-2025 Influenza vaccination Influenza Vacc ine (#1) [facility] Start: 03-12-2025 End: 03-12-2025 Patient encounter procedure 03/12/2025 1:00 PM EDT Office Visit [facility] [address] [place] [phone] Morro Mccray MD [address] [place] [address] [facility] Start: 02-17-2025 COVID-19 Vaccine ( season) COVID-19 Vaccine ( season) [facility] Start: 01-19-2025 End: 01-19-2025 ambulatory 01/19/2025 4:15 PM EDT Evaluation [facility] [address] [place] [address] [place] [address] Rani Frobes, PT [facility] Start: 01-16-2025 Diabetes Screening Diabetes Screenin g [facility] Start: 01-12-2025 End: 01-12-2025 ambulatory 01/12/2025 3:00 PM EDT Evaluation [facility] [place] [address] [facility] [place] [phone] Morro Mccray MD [address] [place] [address] Rani Forbes, PT [facility] Start: 01-07-2025 End: 01-07-2025 Follow-up encounter [facility] [place] Start: 01-05-2025 End: 01-05-2025 Follow-up encounter 01/05/2025 3:00 PM EDT Follow-Up [facility] [address] [place] [address] [place] [phone] Morro Mccray MD [address] [place] [address] Rani Forbes, PT [facility] [place] Start: 12-31-2024 End: 12-31-2024 Follow-up encounter [facility] [place] Start: 12-29-2024 End: 12-29-2024 Follow-up encounter 12/29/2024 1:15 PM EDT Follow-Up [facility]anka [address] [place] [address] [place] [phone] Morro Mccray MD [address] [place] [address] Rani Forbes, PT [facility] Start: 12-24-2024 End: 12-24-2024 Follow-up encounter 12/24/2024 2:30 PM EST [facility] [address] [place] [address] [place] [phone] Morro Mccray MD [address] [place] [address] Rani Forbes, PT [facility] Start: 12-22-2024 End: 12-22-2024 Follow-up encounter 12/22/2024 1:15 PM EST Follow-Up [facility] [address] [place] [address] [place] [phone] Morro Mccray MD [address] [place] [address] Rani Forbes, PT [facility] Start: 12-21-2024 End: 12-21-2025 CBC W Auto Differential panel - Blood CBC auto differential Lab Routine Palpitations Expected: 12/21/2024 (Approximate), Expires: 12/21/2025 [facility] Work Phone: Comment on above: Expected: 12/21/2024 (Approximate), Expires: 12/21/2025 Start: 12-21-2024 End: 12-21-2025 Comprehensive metabolic 1998 panel - Serum or Plasma Comprehensive metabolic panel Lab Routine Palpitations Expected: 12/21/2024 (Approximate), Expires: 12/21/2025 [facility] Comment on above: Expected: 12/21/2024 (Approximate), Expires: 12/21/2025 Start: 12-21-2024 End: 12-21-2025 Magnesium [Mass/volume] in Serum or Plasma Magnesium Lab Routine Palpitations Expected: 12/21/2024 (Approximate), Expires: 12/21/2025 [facility] Comment on above: Expected: 12/21/2024 (Approximate), Expires: 12/21/2025 Start: 12-21-2024 End: 12-21-2025 Thyrotropin [Units/volume] in Serum or Plasma TSH Lab Routine Palpitations Expected: 12/21/2024 (Approximate), Expires: 12/21/2025 [facility] Comment on above: Expected: 12/21/2024 (Approximate), Expires: 12/21/2025 Start: 12-21-2024 End: 12-21-2025 Thyroxine (T4) free [Mass/volume] in Serum or Plasma T4, free Lab Routine Palpitations Expected: 12/21/2024 (Approximate), Expires: 12/21/2025 [facility] Comment on above: Expected: 12/21/2024 (Approximate), Expires: 12/21/2025 Start: 12-21-2024 End: 12-21-2025 Triiodothyronine (T3) Free [Mass/volume] in Serum or Plasma T3, free Lab Routine Palpitations Expected: 12/21/2024 (Approximate), Expires: 12/21/2025 [facility] Comment on above: Expected: 12/21/2024 (Approximate), Expires: 12/21/2025 Start: 12-21-2024 End: 12-21-2024 Patient encounter procedure [facility] Start: 12-17-2024 End: 12-17-2024 Follow-up encounter 12/17/2024 2:00 PM EST Follow-Up [facility] at [address] [place] [phone] Morro Mccray MD [address] [place] [address] Rani Forbes, PT [facility] at [facility] Start: 12-15-2024 End: 12-15-2024 Follow-up encounter 12/15/2024 3:15 PM EST Follow-Up [facility] at [address] [place] [address] [place] [phone] Morro Mccray MD [address] [address] Juani Santillan, [employer]K [employer] OFFICER [facility] Therapy at [facility] Start: 12-08-2024 End: 12-08-2024 ambulatory 12/08/2024 3:30 PM EST Evaluation [facility] Therapy at [facility] [address] [address] [place] [address] Morro Mccray MD [address] [place] [address] Rani Forbes, PT [facility] at [facility] Start: 12-03-2024 End: 12-03-2024 Patient encounter procedure 12/03/2024 10:00 AM EST Office Visit [facility] [address] [place] [phone] Morro Mccray MD [address] [place] [address] [facility] Start: 09-29-2024 End: 09-29-2024 Patient encounter procedure 09/29/2024 12:30 PM EST Appointment [facility] [address] [place] [address] Morro Mccray MD [address] [place] [address] [facility] [address] [facility] Start: 09-28-2024 Medicare Annual Well ness (AWV) Medicare Annual Wellness (AWV) [facility] Start: 09-03-2024 End: 09-03-2025 XR Hip - left 3 Views XR hip left 2 or 3 views Imaging Routine Bursitis of other bursa of left hip Expected: 09/03/2024, Expires: 09/03/2025 [facility] [employer] [facility] Work Phone: Comment on above: Expected: 09/03/2024 , Expires: 09/03/2025 Start: 09-03-2024 End: 09-03-2024 Patient encounter procedure 09/03/2024 11:00 AM EST Office Visit [facility] [address] [place] [address] Wilfrido Mclaughlin, [address] [place] [address] [facility] Start: 09-01-2024 End: 09-01-2025 MR Brain WO contrast MR brain wo contrast Imaging Routine Moderate dementia without behavioral disturbance, psychotic disturbance, mood disturbance, or anxiety, unspecified dementia type (HCC) Vertigo Expected: 09/01/2024, Expires: 09/01/2025 [facility] Comment on above: Expected: 09/01/2024 , Expires: 09/01/2025 Start: 09-01-2024 End: 09-01-2025 [facility] AD-Detect , Beta-Amyloid 42/40 Ratio, Plasma Test code: 17111 - Miscellaneous Test [facility] [employer] [facility] Work Phone: Comment on above: Expected: 09/01/2024 (Approximate), Expires: 09/01/2025 Start: 08-29-2024 Depression Screening Depression Scre ening [facility] Start: 06-23-2024 End: 06-23-2025 Cobalamin (Vitamin B12) [Mass/volume] in Serum or Plasma Vitamin B12 Lab Routine Memory loss Expected: 06/23/2024 (Approximate), Expires: 06/23/2025 [facility] [employer] Comment on above: Expected: 06/23/2024 (Approximate), Expires: 06/23/2025 Start: 06-23-2024 End: 06-23-2025 Comprehensive metabolic 1998 panel - Serum or Plasma Comprehensive metabolic panel Lab Routine Memory loss Expected: 06/23/2024 (Approximate), Expires: 06/23/2025 [facility] [employer] Comment on above: Expected: 06/23/2024 (Approximate), Expires: 06/23/2025 Start: 06-23-2024 End: 06-23-2025 Lipid 1996 panel - Serum or Plasma Lipid panel Lab Routine Lipid screening Expected: 06/23/2024 (Approximate), Expires: 06/23/2025 [facility] Work Phone: Comment on above: Expected: 06/23/2024 (Approximate), Expires: 06/23/2025 Start: 06-23-2024 End: 06-23-2024 Patient encounter procedure 06/23/2024 1:00 PM EDT Office Visit [facility] [address] [place] [address] Wilfrido Mclaughlin, [address] [place] [address] [facility] Start: 06-21-2024 COVID-19 Vaccine ( season) COVID-19 Vaccine ( season) [facility] Start: 06-21-2024 COVID-19 Vaccine ( season) COVID-19 Vaccine ( season) [facility] Start: 06-21-2024 Covid-19 Vaccine ( season) Covid-19 Vaccine ( season) [facility] Start: 06-21-2024 Influenza vaccination Influenza Vacc ine (#1) [facility] Start: 04-30-2024 End: 04-30-2024 Clinical Support 04/30/2024 2:00 PM EDT Clinical Support [facility] [address] [place] [address] [facility] Start: 04-17-2024 End: 04-17-2024 Patient encounter procedure 04/17/2024 2:30 PM EDT Appointment [facility] [place] [address] [place] [phone] Elisabeth Fairbanks DPM [address] [place] [address] [facility] [place] Start: 04-03-2024 End: 04-03-2024 Patient encounter procedure 04/03/2024 2:00 PM EDT Appointment [facility] [place] [address] [place] [address] Elisabeth Fairbanks DPM [address] [place] [address] [facility] [place] Start: 03-31-2024 End: 03-31-2024 Clinical Support 03/31/2024 2:00 PM EDT Clinical Support [facility] [address] [place] [phone] [facility] Start: 03-20-2024 End: 03-20-2024 Patient encounter procedure 03/20/2024 2:15 PM EDT Appointment [facility] [place] [address] [place] [address] Elisabeth Fairbanks DPM [address] [place] [address] [facility] [place] Start: 03-13-2024 End: 03-13-2024 Patient encounter procedure 03/13/2024 1:15 PM EDT Appointment [facility] [place] [address] [place] [address] Elisabeth Fairbanks DPM [address] [place] [address] [facility] Start: 03-10-2024 End: 03-10-2025 CBC W Auto Differential panel - Blood CBC auto differential Lab Routine Essential hypertension Expected: 03/10/2024 (Approximate), Expires: 03/10/2025 [facility] Work Phone: Comment on above: Expected: 03/10/2024 (Approximate), Expires: 03/10/2025 Start: 03-10-2024 End: 03-10-2025 Comprehensive metabolic 1998 panel - Serum or Plasma Comprehensive metabolic panel Lab Routine Essential hypertension Expected: 03/10/2024 (Approximate), Expires: 03/10/2025 [facility] Comment on above: Expected: 03/10/2024 (Approximate), Expires: 03/10/2025 Start: 03-10-2024 End: 03-10-2025 Thyrotropin [Units/volume] in Serum or Plasma TSH Lab Routine Palpitations Expected: 03/10/2024 (Approximate), Expires: 03/10/2025 [facility] Comment on above: Expected: 03/10/2024 (Approximate), Expires: 03/10/2025 Start: 03-10-2024 End: 03-10-2024 Patient encounter procedure 03/10/2024 1:00 PM EDT Office Visit [facility] [address] [place] [address] Wilfrido Mclaughlin DO [address] [place] [address] [facility] Start: 03-06-2024 End: 03-06-2024 Patient encounter procedure 03/06/2024 2:30 PM EDT Appointment [facility] [place] [address] [facility] [place] [phone] Elisabeth Fairbanks DPM [address] [place], [place] [phone] [facility] [place] Start: 02-28-2024 End: 02-28-2024 Patient encounter procedure 02/28/2024 1:45 PM EDT Appointment [facility] [place] [address] [facility] [phone] Elisabeth Fairbanks DPM [address] [place], [place] [phone] [facility] [place] Start: 02-25-2024 End: 02-25-2024 Patient encounter procedure 02/25/2024 2:00 PM EDT Office Visit [facility] [address] [place] [address] Viviana Mills APRN - [employer] [address] [place] [address] [facility] Start: 12-19-2023 End: 12-19-2023 Patient encounter procedure 12/19/2023 8:15 AM EST Office Visit [facility] [address] [place] [address] [place] [address] Noah Sommer MD [address] [place], [place] [id number] [facility] Start: 10-21-2023 Advance Directive Discussion Advance Directive Discussion [facility] Start: 09-17-2023 End: 09-17-2023 Clinical Support 09/17/2023 1:00 PM EST Clinical Support [facility] [address] [place] [address] [facility] Start: 08-29-2023 End: 08-29-2023 Patient encounter procedure [facility] Start: 06-21-2023 COVID-19 Vaccine ( season) COVID-19 Vaccine () [facility] Start: 06-21-2023 Influenza vaccination Influenza Vacc ine (#1) [facility] Start: 06-13-2023 End: 06-13-2023 Patient encounter procedure 06/13/2023 9:15 AM EDT Office Visit [facility] [address] [place] [phone] Noah Sommer MD [address] [place] [phone] [facility] Start: 05-02-2023 Annual Wellness Visi t (AWV) Annual Wellness Visit (AWV) [facility] Start: 05-01-2023 Depression Screen Depression Screen [facility] Start: 04-08-2023 End: 04-08-2023 Patient encounter procedure 04/08/2023 Office Visit Orthopedic Surgery Dayna Payne PA [address] [facility] [place], [place] [phone] [facility] Start: 03-29-2023 End: 03-29-2023 Admission to same day surgery center 03/29/2023 Surgery Procedural Noah Sommer MD [address] [facility] [address] [place], [place] [phone] Endoscopic Right carpal tunnel release, possible open [24190 (CPT )] [facility] Comment on above: Endoscopic Right car pal tunnel release, possible open [18386 (CPT )] Start: 03-29-2023 End: 03-29-2023 Ndsc wrst surg w/rls transvrs carpl ligm ENDOSCOPIC RELEASE CARPAL TUNNEL Carpal tunnel syndrome, right upper limb 03/29/2023 2:30 PM EDT [facility] Operating Room Start: 03-29-2023 Subsequent hospital visit by physician 03/29/2023 Hospital Encounter Procedural Noah Sommer MD [address] [facility] [address] [place] [address] [facility] Start: 03-26-2023 End: 03-26-2023 Admission to establishment 03/26/2023 Pre-Admission Testing Pre-Admission Testing Noah Sommer MD [address] [facility] [address] [place] [address] [facility] Pre-Admit Testing Start: 03-20-2023 Depression Screen Depression Screen [facility] Start: 03-14-2023 End: 03-14-2023 Patient encounter procedure 03/14/2023 Office Visit Orthopedic Surgery Noah Sommer MD [address] [facility] [address] [place] [address] [facility] Start: 03-01-2023 End: 03-01-2024 Urinalysis complete panel - Urine Urinalysis with reflex microscopic (clean catch) Lab Routine Dizziness Expected: 03/01/2023 (Approximate), Expires: 03/01/2024 [facility] [employer] Work Phone: Comment on above: Expected: 03/01/2023 (Approximate), Expires: 03/01/2024 Start: 02-28-2023 End: 02-28-2023 Patient encounter procedure 02/28/2023 Office Visit [facility] Morro Quintana PA-C [address] [place] [address] [facility] Start: 02-20-2023 End: 02-20-2023 Patient encounter procedure 02/20/2023 Appointment Neurology Noah Sommer MD [address] [facility] [address] [place] [id number] [facility] Neuro Start: 02-07-2023 End: 02-08-2024 NERVE CONDUCTION TEST WITH EMG NERVE CONDUCTION TEST WITH [facility] Neurology Routine Numbness of right hand Expected: 02/07/2023 (Approximate), Expires: 02/08/2024 [facility] [employer] [facility] Work Phone: Comment on above: Expected: 02/07/2023 (Approximate), Expires: 02/08/2024 Start: 11-20-2022 End: 11-20-2022 Patient encounter procedure 11/20/2022 Office Visit [facility] Tang Iraheta DO [address] [place] [address] [facility] Start: 10-21-2022 ADVANCE DIRECTIVE DISCUSSION ADVANCE DIRECTIVE DISCUSSION [facility] Start: 10-21-2022 DEPRESSION ASSESSMENT DEPRESSION ASS ESSMENT [facility] Start: 06-21-2022 Influenza vaccination Flu vaccine (# 1) [facility] Start: 05-01-2022 End: 05-01-2022 Patient encounter procedure 05/01/2022 Office Visit [facility] Tang Iraheta DO [address] [place] [address] [facility] Medicine Start: 04-11-2022 Annual Wellness Visi t (AWV) Annual Wellness Visit (AWV) [facility] Start: 01-31-2022 Breast Complete Unilateral Breast Complete Unilateral [facility] Work Phone: Start: 01-31-2022 DIAG MAMM W/CAD, UNILAT DI[facility] Work Phone: Start: 12-29-2021 Creatinine measurement Creatinine mo nitoring [facility] Start: 12-29-2021 Potassium monitoring Potassium monit oring [facility] Start: 12-21-2021 COVID-19 Vaccine (4 - Booster for Moderna series) COVID-19 Vaccine (4 - Booster for Moderna series) [facility] Start: 10-21-2021 ADVANCE DIRECTIVE DISCUSSION ADVANCE DIRECTIVE DISCUSSION [facility] Start: 10-21-2021 DEPRESSION ASSESSMENT DEPRESSION ASS ESSMENT [facility] Start: 10-18-2021 COVID-19 VACCINE (4 - Booster for Moderna series) COVID-19 VACCINE (4 - Booster for Moderna series) [facility] Start: 10-18-2021 COVID-19 Vaccine (4 - Moderna series) COVID-19 Vaccine (4 - Moderna series) [facility] Start: 07-03-2021 End: 07-03-2021 Patient encounter procedure 07/03/2021 Office Visit Orthopedic Surgery Dayna Payne PA [address] [facility] [address] [place] [address] [phone] [facility] [place] Start: 06-21-2021 Influenza vaccination Flu vaccine (# 1) [facility] Work Phone: Start: 04-10-2021 End: 04-10-2021 Office Visit 04/10/2021 Office Visit Family Medicine Tang Iraheta, DO [address] [place] [address] [phone] [facility] Start: 02-16-2021 DIABETES SCREEN DIABETES SCREEN [facility] Start: 08-08-2020 Screening for malign ant neoplasm of breast Breast cancer screen [facility] Start: 01-22-2020 Screening for osteoporosis Bone Density Scan [facility] Start: 04-09-2019 Annual Wellness Visi t (AWV) Annual Wellness Visit (AWV) [facility] Work Phone: Start: 2012 RSV Immunization for Adults (1 - 1-dose 75+ series) RSV Immunization for Adults (1 - 1-dose 75+ series) [facility] Start: 2012 RSV Vaccine (1 - 1-d ose 75+ series) RSV Vaccine (1 - 1-dose 75+ series) [facility] Start: 03-24-2010 SHINGRIX VACCINE (2 of 3) GUALLPA GRIX VACCINE (2 of 3) [facility] Start: 2002 BONE DENSITY BONE DENSITY [facility] Start: 2002 Screening for osteoporosis Bone Density Screening [facility] Start: 1997 RSV Immunization age d 60 or older (1 - 1-dose 60+ series) RSV Immunization aged 60 or older (1 - 1-dose 60+ series) [facility] Start: 1982 Screening for malign ant neoplasm of colon [facility] Start: 1956 DTaP/Tdap/Td vaccine (1 - Tdap) DTaP/Tdap/Td vaccine (1 - Tdap) [facility] Start: 1955 Anxiety Screening Anxiety Screening [facility] Start: 1955 Depression Screening Depression Scre ening [facility] Start: 1949 Depression Screening Depression Scre ening [facility] Start: 1937 Hepatitis B Vaccines (1 of 3 - 3-dose series) Hepatitis B Vaccines (1 of 3 - 3-dose series) [facility] Start: 1937 Lipid panel Lipid Panel [facility] Start: 1937 Medicare Annual Well ness (AWV) Medicare Annual Wellness (AWV) [facility] Start: 1937 Screening for osteoporosis Bone Density Scan [facility] Dressing Order: Awilda agen, Xeroform; Daily; 4x4 gauze; Kerlex, Paper tape; Double Layer tubigrip Dressing Order: Collagen, Xeroform; Daily; 4x4 gauze; Kerlex, Paper tape; Double Layer tubigrip Wound Ostomy Routine Ordered: 03/06/2024 [employer] Work Phone: Comment on above: Ordered: 03/06/2024 Dressing Order: Awilda agen, Xeroform; Daily; 4x4 gauze; Kerlex, Paper tape; Double Layer tubigrip Dressing Order: Collagen, Xeroform; Daily; 4x4 gauze; Kerlex, Paper tape; Double Layer tubigrip Wound Ostomy Routine Open wound of left lower leg, subsequent encounter Ordered: 03/13/2024 [employer] Work Phone: Comment on above: Ordered: 03/13/2024 Dressing Order: Awilda agen; Daily; 4x4 gauze; Kerlex, Paper tape; Double Layer tubigrip Dressing Order: Collagen; Daily; 4x4 gauze; Kerlex, Paper tape; Double Layer tubigrip Wound Ostomy Routine Open wound of left lower leg, subsequent encounter Ordered: 03/20/2024 [employer] Work Phone: Comment on above: Ordered: 03/20/2024 Dressing Order: Awilda agen; Daily; 4x4 gauze; Kerlex, Paper tape; Double Layer tubigrip Dressing Order: Collagen; Daily; 4x4 gauze; Kerlex, Paper tape; Double Layer tubigrip Wound Ostomy Routine Open wound of left lower leg, subsequent encounter Ordered: 04/03/2024 [employer] Work Phone: Comment on above: Ordered: 04/03/2024 Dressing Order: Xero form; 4x4 gauze; Kerlex, Paper tape; Double Layer tubigrip Dressing Order: Xeroform; 4x4 gauze; Kerlex, Paper tape; Double Layer tubigrip Wound Ostomy Routine Skin tear of lower leg without complication, left, initial encounter Ordered: 02/28/2024 [employer] Work Phone: Comment on above: Ordered: 02/28/2024 End: 12-04-2022 MR Brain WO and W contrast IV [employer] Work Phone: Comment on above: Once for 1 Occurrenc es starting 12/04/2022 until 12/04/2022 Oxygen therapy [[facility] Data Set] Initiate Oxygen Therapy Protocol Respiratory Care Routine Daily until discontinued starting 06/23/2021 [employer] Work Phone: Comment on above: Daily until disconti nued starting 06/23/2021 End: 09-11-2023 Screening colonoscopy COLONOSCOPY SCREENING Endoscopy Routine Screening for colon cancer History of colonic polyps 1 Occurrences starting 09/11/2022 until 09/11/2023 [facility] Work Phone: Comment on above: 1 Occurrences starti ng 09/11/2022 until 09/11/2023 End: 01-16-2021 XR LUMBAR SPINE (MIN 4 VIEWS) XR LUMBAR SPINE (MIN 4 VIEWS) Imaging Routine Low back pain without sciatica, unspecified back pain laterality, unspecified chronicity 1 Occurrences starting 01/16/2021 until 01/16/2021 [employer] Work Phone: Comment on above: 1 Occurrences starti ng 01/16/2021 until 01/16/2021 XR LUMBAR SPINE (MIN 4 VIEWS) XR LUMBAR SPINE (MIN 4 VIEWS) Imaging Routine Low back pain without sciatica, unspecified back pain laterality, unspecified chronicity 01/16/2021 11:20 AM EDT [employer] Work Phone: [facility] Immunizations Immunization Date Immunization Notes Care Provider Fa cili 08-26-2024 Pneumococcal Conjuga te PCV20, Pf (Prevnar 20) Wilfrido Mclaughlin [employer] Work Phone: [facility] [employer] 08-19-2024 influenza, high dose seasonal, preservative-free Wilfrido Mclaughlin [employer] Work Phone: [facility] [employer] 08-19-2024 influenza virus vacc ine, unspecified formulation Wilfrido Mclaughlin [employer] Work Phone: [facility] [employer] 08-29-2023 Influenza, Seasonal, Quadrivalent, Adjuvanted Wilfrido Mclaughlin [employer] Work Phone: [facility] [employer] 08-29-2023 influenza virus vacc ine, unspecified formulation [facility] Schedule [facility] [employer] 08-09-2022 Influenza, Seasonal, Quadrivalent, Adjuvanted Wilfrido Mclaughlin DO Work Phone: [facility] 08-09-2022 influenza virus vacc ine, unspecified formulation Noah Sommer MD Work Phone: [facility] 03-16-2022 tetanus toxoid, redu edilia diphtheria toxoid, and acellular pertussis vaccine, adsorbed Yuli Drummond PA-C Work Phone: [facility] 08-23-2021 COVID-19, Moderna, Primary or Immunocompromised, PF, 100mcg/0.5mL Tang Iraheta DO Work Phone: [facility] Work Phone: 07-24-2021 Influenza, High-dose , Quadv, 65 yrs +, IM (Fluzone) Tang Iraheta DO Work Phone: [facility] Work Phone: 12-08-2020 COVID-19, Moderna, Primary or Immunocompromised, PF, 100mcg/0.5mL Tang Mcintyrejanesoz DO Work Phone: [facility] 11-10-2020 COVID-19, Moderna, Primary or Immunocompromised, PF, 100mcg/0.5mL Tang Irmaoz DO Work Phone: [facility] Work Phone: 09-23-2020 zoster vaccine recombinant Tang Irmaoz DO Work Phone: [facility] Work Phone: 07-18-2020 Influenza, injectabl e, quadrivalent, preservative free Wilfrido Pathakflo DO Work Phone: [facility] 07-18-2020 Influenza, Quadv, adjuvanted, 65 yrs +, IM, PF (Fluad) Tang Iraheta DO Work Phone: [facility] Work Phone: 07-18-2020 zoster vaccine recombinant Tang Iraheta DO Work Phone: [facility] Work Phone: 08-03-2019 Seasonal trivalent influenza vaccine, adjuvanted, preservative free Tang ESPARZA Work Phone: 08-04-2015 pneumococcal conjuga te vaccine, 13 valent Tang ESPARZA Work Phone: 01-27-2010 pneumococcal polysaccharide vaccine, 23 valent Tang ESPARZA Work Phone: 01-27-2010 zoster vaccine, live Tang Vazquez [facility] Work Phone: 07-18-2009 influenza virus vacc ine, whole virus Wilfrido Mclaughlin DO Work Phone: [facility] [employer] Payers Date Payer Category Payer Medicare supplementa l policy (as second payer) [employer] [id number] 2022 Unknown [id number] 2018 Private Health Insurance [facility] AAR SUPPLEMENT [id number] 2018-Present [phone] [address] [place] [address] Indemnity [id number] 2015 Unknown [id number] 2002 Medicare 2002 Medicare [id number] Medicare [id number] Self-pay SELF PAY INSURANCE [id number] Social History Date Type Detail Facility Start: 02-16-2018 End: 12-19-2020 Tobacco smoking status NHIS Never smoker [facility] Start: 02-16-2018 End: 12-19-2020 Tobacco use and exposure Never used [employer] Work Phone: Start: 12-19-2020 End: 12-21-2024 Alcohol intake Current non-drinker of alcohol (finding) [employer] Work Phone: Start: 02-13-2019 End: 01-16-2022 History SDOH Alcohol Frequency 1 [employer] Work Phone: Start: 02-13-2019 End: 01-16-2022 History SDOH Social Connections Phone 5 [employer] Work Phone: Start: 02-13-2019 History SDOH Social Connections Worship 3 [facility] Work Phone: Start: 02-13-2019 History SDOH Stress 2 [facility] Work Phone: Start: 1935 Sex Assigned At Not on file [facility] Work Phone: Start: 09-01-2022 End: 03-29-2023 Exposure to SARS-CoV-2 (event) Not sure [employer] Work Phone: Start: 06-23-2021 End: 09-03-2024 Alcohol intake [facility] [employer] Start: 08-01-2021 Tobacco smoking stat us FLIS Unknown if ever smoked [facility] Work Phone: Start: 1935 Sex Assigned At Female W [facility] Work Phone: Start: 05-01-2022 History SDOH Physica l Activity DPW 7 [facility] Work Phone: Start: 03-29-2023 End: 09-03-2024 Tobacco use panel [facility] Frequency of Alcohol Consumption Not on file [facility] [employer] Start: 05-21-2022 Sex Female (finding) [facility] Goals Date Patient Goal Desired Activity /State Personal health goal Clinical Notes 04-08-2018 to 05-14-2025 Telephone Encounter - Yara Moore MA - 05/14/2025 8:51 AM EDTTelephone Encounter - Yara Moore MA - 05/14/2025 8:51 AM EDTTelephone Encounter - Anna Barrett MA - 04/26/2025 7:57 AM EDT Note Date & Type Note Facility 05-14-2025 Telephone encounter Note Recent Visits Date Type Provider Dept 12/21/24 Office Visit Wilfrido Mclaughlin, DO [facility] 09/03/24 Office Visit Wilfrido Mclaughlin DO [facility] 06/23/24 Office Visit Wilfrido Mclaughlin DO [facility] Showing recent visits within past 365 days and meeting all other requirements Future Appointments Date Type Provider Dept 06/23/25 Appointment Wilfrido Mclaughlin DO [facility] Showing future appointments within next 90 days and meeting all other requirements Requested Prescriptions Pending Prescriptions Disp Refills lisinopril 20 MG tablet [Pharmacy Med Name: LISINOPRIL TABS 20MG] 90 tablet 3 Sig: TAKE 1 TABLET DAILY Provider: Wilfrido Mclaughlin DO Verified pharmacy: yes Verified day(s) supplied: yes Verified refill(s) needed (previous prescription showing no refills in chart): Yes Have you received any controlled medications from any other provider? N/A Overdue for visit: No If yes - patient scheduled? Yes Most recent labs completed in chart? Yes Hypertension: Lab Results Component Value Date NA 137 01/16/2022 K 4.3 01/16/2022 EGFR 71 12/21/2024 BUN 19 12/21/2024 CREATININE 0.80 12/21/2024 Reesio 05-14-2025 Miscellaneous Notes Recent Visits Date Type Provider Dept 12/21/24 Office Visit Wilfrido Mclaughlin DO [facility] 09/03/24 Office Visit Wilfrido Mclaughlin DO [facility] 06/23/24 Office Visit Wilfrido Mclaughlin DO [facility] Showing recent visits within past 365 days and meeting all other requirements Future Appointments Date Type Provider Dept 06/23/25 Appointment Wilfrido Mclaughlin DO [facility] Showing future appointments within next 90 days and meeting all other requirements Requested Prescriptions Pending Prescriptions Disp Refills lisinopril 20 MG tablet [Pharmacy Med Name: LISINOPRIL TABS 20MG] 90 tablet 3 Sig: TAKE 1 TABLET DAILY Provider: Wilfrido Mclaughlin DO Verified pharmacy: yes Verified day(s) supplied: yes Verified refill(s) needed (previous prescription showing no refills in chart): Yes Have you received any controlled medications from any other provider? N/A Overdue for visit: No If yes - patient scheduled? Yes Most recent labs completed in chart? Yes Hypertension: Lab Results Component Value Date NA 137 01/16/2022 K 4.3 01/16/2022 EGFR 71 12/21/2024 BUN 19 12/21/2024 CREATININE 0.80 12/21/2024 documented in this encounter [facility] 04-26-2025 Telephone encounter Note Recent Visits Date Type Provider Dept 12/21/24 Office Visit Wilfrido Mclaughlin DO [facility] 09/03/24 Office Visit Wilfrido Mclaughlin DO [facility] 06/23/24 Office Visit Wilfrido Mclaughlin DO [facility] Showing recent visits within past 365 days and meeting all other requirements Future Appointments Date Type Provider Dept 06/23/25 Appointment DO [facility] Showing future appointments within next 90 days and meeting all other requirements Requested Prescriptions Pending Prescriptions Disp Refills verapamil SR (Calan SR) 240 MG ER tablet [Pharmacy Med Name: VERAPAMIL ER TABS 240MG] 90 tablet 1 Sig: Take 1 tablet (240 mg) by mouth Nightly. Provider: Wilfrido Mclaughlin DO Verified pharmacy: yes Verified day(s) supplied: yes Verified refill(s) needed (previous prescription showing no refills in chart): Yes Have you received any controlled medications from any other provider? N/A Overdue for visit: No If yes - patient scheduled? N/A Most recent labs completed in chart? N/A None [facility] 04-26-2025 Miscellaneous Notes Recent Visits Date Type Provider Dept 12/21/24 Office Visit Wilfrido Mclaughlin, DO [facility] 09/03/24 Office Visit Wilfrido Mclaughlin, DO [facility] 06/23/24 Office Visit Wilfrido Mclaughlin, DO [facility] Showing recent visits within past 365 days and meeting all other requirements Future Appointments Date Type Provider Dept 06/23/25 Appointment Wilfrido MclaughlinDO [facility] Showing future appointments within next 90 days and meeting all other requirements Requested Prescriptions Pending Prescriptions Disp Refills verapamil SR (Calan SR) 240 MG ER tablet [Pharmacy Med Name: VERAPAMIL ER TABS 240MG] 90 tablet 1 Sig: Take 1 tablet (240 mg) by mouth Nightly. Provider: Wilfrido Mclaughlin DO Verified pharmacy: yes Verified day(s) supplied: yes Verified refill(s) needed (previous prescription showing no refills in chart): Yes Have you received any controlled medications from any other provider? N/A Overdue for visit: No If yes - patient scheduled? N/A Most recent labs completed in chart? N/A None documented in this encounter [facility] 01-19-2025 History of Present illness Narrative [facility] [address] [facility] [address] Dept: [phone] Dept PHYSICAL THERAPY DISCHARGE Patient Name: John Navarrete : 1935 Date of Service: 01/19/2025 Referring Provider: Morro Mccray MD Visit #: 10 Diagnosis: Unsteadiness on feet Mechanism of injury: Was diagnosed with moderate dementia 2 months ago. Pt is forgetful, unsteady. No LOB. No device use. Not feeling that she is limited with any specific activity. Balance issues worsened in past year. (Denied dizziness initially, though onset of dizziness roll supine to left during MMT). Does not feel weak or any decrease in endurance. Patient Preferences: pt goes by John Precautions/Red Flags: None Subjective General Comments: I am good. I think I am done. Has not had any dizziness for about 2 weeks. My head feels better. Balance is better. Once in a while will feel unsteady. Is stronger and I feel like I could go walking again. Is doing all her new and old exercise programs. Outcome Measures Activities-specific Balance Confidence (ABC): 1100, 68.75% (pt confused on how to properly answer these. Score slightly less than initial, despite good subjective reports of balance improvements. Objective GAIT & BALANCE Lower Extremity Strength Right Left Hip Flexion 5 5 Hip Abduction 5- 4 Hip Extension 4+ 4 Knee Extension 5 5 Knee Flexion 5 5 Serratus anterior 4+ 4 Eversion 5 Core Strength: bridge full ROM, abs 4/5 Multi-system balance testin time Goh-zf-Hnxhi (STS): 11 seconds - Use of UEs?: no - Chair height (standard chair = 16-18 in): 17 DGI: - Assistive device used: no Additional balance testing Test Eyes Open (seconds) Eyes Closed (seconds) Sway 0 SLS L 0 mod SLS R 0 mod Assessment John has made good improvements with her core and LE strength, dynamic balance, and she is no longer dizzy. BPPV testing had been positive in 3 canals. BPPV testing was positive for brief symptoms in bilateral HC at her appointment on 01-12-25, though she has been symptom free. At this time, she is able to continue with her independent HEP to work towards further improvements in her functional strength and balance. Skilled PT no longer needed. Goals Active General/Ortho Patient will be independent with HEP. (Completed) Start: 12/08/24 Expected End: 03/08/25 Resolved: 01/19/25 Patient will increase strength in the core, hip and postural mm to be able to improve postural strength and reduce risk for falling. (Completed) Start: 12/08/24 Expected End: 03/08/25 Resolved: 01/19/25 Balance: Patient will improve SLS from 0 to 1 second bilaterally to improve safety with ambulation. (Not Progressing) Start: 12/08/24 Expected End: 03/08/25 Functional Outcome Measure: Patient will improve the ABC score from 69.4% balance confidence to 85% to demonstrate reduce fall risk. (Progressing) Start: 12/08/24 Expected End: 03/08/25 PT Misc Misc: The patient will have an improved FTSTS from 22 seconds to 17 seconds to demonstrate improved functional LE strength. (Completed) Start: 12/08/24 Expected End: 03/08/25 Resolved: 01/19/25 Misc 2 (Progressing) Start: 12/08/24 Expected End: 03/08/25 The patient will have an improved DGI from to to show her fall risk is reducing. Plan Patient no longer requires skilled PT services and will be discharged at this time. Thank you for this referral. For any questions on this patient s course of therapy, please call the clinic for clarification. Treatment Therapeutic Activity Therapeutic Activity 1: Assessment of MMT, SLS, FTSTS, DGI, function, ABC scale Activity 1 Comment: 27 min Therapeutic Activity 6: balance on firm surface Activity 6 Comment: partial tandem 10 sec x 1 each; SLS at counter 1x each LE Therapeutic Activity 14: standing rows Activity 14 Comment: Lv3 1 x 10 Therapeutic Activity 15: standing bilateral shoulder extension Activity 15 Comment: Lv 3 1 x 10 Patient Education: education re: HEP progression, how to safely progress and when, split over 2 days. Review of step ups. Issued Lv 3 band. 6 min Home Exercise Program: Progressed home exercise program Time Entry Total Treatment Time Start Time: 1623 Stop Time: 1701 Time Calculation (min): 38 min PT Therapeutic Procedures Time Entry Therapeutic Exercise Time Entry: 6 Therapeutic Activity Time Entry: 32 Rani Forbes PT documented in this encounter [facility] [employer] 01-12-2025 History of Present illness Narrative Images from the original note were not included. [facility] [address] [facility] [address] Dept: [phone] Dept PHYSICAL THERAPY TREATMENT Patient Name: John Navarrete : 1935 Date of Service: 01/12/2025 Referring Provider: Morro Mccray MD Visit #: 9 Diagnosis: Unsteadiness on feet Mechanism of injury: Was diagnosed with moderate dementia 2 months ago. Pt is forgetful, unsteady. No LOB. No device use. Not feeling that she is limited with any specific activity. Balance issues worsened in past year. (Denied dizziness initially, though onset of dizziness roll supine to left during MMT). Does not feel weak or any decrease in endurance. Patient Preferences: pt goes by John Precautions/Red Flags: None Subjective I feel a lot better. Has not had any of dizziness for the past 2 weeks though still gets the woozy sensation. Once in a while I lose my balance. The balance is much better. Feeling stronger. Wants to work on her balance more for the remaining visits. Compliance with HEP: Yes Objective Roll Test positive right for brief dizziness. Roll Test positive left for brief dizziness. Treatment Therapeutic Activity Therapeutic Activity 3: cable lateral walk with belt & CGA/min assist Activity 3 Comment: 1.5 pl 1 x 4 each Therapeutic Activity 10: cable retro walk with belt & CGA/min assist Activity 10 Comment: 2.5 Pl 1 x 8 Therapeutic Activity 12: standing rows on [employer] Activity [address]: [address] 2 x 10 Therapeutic Activity 15: standing bilateral shoulder extension on [employer] Activity 15 Comment: 2 Pl 2 x 10 Canalith Repositioning Maneuvers BBQ Roll L: Roll Test positive left for brief dizziness. BBQ Roll x 1 BBQ Roll R: Roll Test positive right for brief dizziness. BBQ Roll x 1 Patient Education: education re: continue Modified Mitesh bilmadi for HEP. 1 min Home Exercise Program: Deferred Assessment Skilled physical therapy interventions utilized to improve patient s impairments and work towards established goals. Patient response to treatment: Progressed core, hip, LE and postural strengthening to improve functional strength and mobility and improve balance. Initiated postural strengthening on compliant surface to further improve balance. BPPV testing was positive in bilateral HC. Performed FUR BLOWER OPERATOR to treat bilateral HC canalithiasis. Patient will benefit from continued physical therapy to work towards reduction in dizziness and improved balance and strength. The rationale for today s treatment was explained to the patient. Verbal cues were provided for correct form with all exercises. Advised patient to continue with Home Exercise Program (HEP). Goals General/Ortho Patient will be independent with HEP. (Progressing) Start: 12/08/24 Expected End: 03/08/25 Patient will increase strength in the core, hip and postural mm to be able to improve postural strength and reduce risk for falling. (Progressing) Start: 12/08/24 Expected End: 03/08/25 Balance: Patient will improve SLS from 0 to 1 second bilaterally to improve safety with ambulation. (Not Addressed) Start: 12/08/24 Expected End: 03/08/25 Functional Outcome Measure: Patient will improve the ABC score from 69.4% balance confidence to 85% to demonstrate reduce fall risk. (Not Addressed) Start: 12/08/24 Expected End: 03/08/25 PT Misc Misc: The patient will have an improved FTSTS from 22 seconds to 17 seconds to demonstrate improved functional LE strength. (Not Addressed) Start: 12/08/24 Expected End: 03/08/25 Misc 2 (Not Addressed) Start: 12/08/24 Expected End: 03/08/25 The patient will have an improved DGI from 1624 to 2224 to show her fall risk is reducing. Plan Plan for next session: reassessment. Time Entry Total Treatment Time Start Time: 1502 Stop Time: 1547 Time Calculation (min): 45 min PT Therapeutic Procedures Time Entry Therapeutic Exercise Time Entry: 1 Therapeutic Activity Time Entry: 1 Neuromuscular Re-Education Time Entry: 16 Rani Forbes PT documented in this encounter [facility] 01-05-2025 History of Present illness Narrative Images from the original note were not included. [facility] THERAPY AT [address] [address] Dept: [phone] Dept PHYSICAL THERAPY TREATMENT Patient Name: John Navarrete : 1935 Date of Service: 01/05/2025 Referring Provider: Morro Mccray MD Visit #: 8 Diagnosis: Unsteadiness on feet Mechanism of injury: Was diagnosed with moderate dementia 2 months ago. Pt is forgetful, unsteady. No LOB. No device use. Not feeling that she is limited with any specific activity. Balance issues worsened in past year. (Denied dizziness initially, though onset of dizziness roll supine to left during MMT). Does not feel weak or any decrease in endurance. Patient Preferences: pt goes by John Cristina/Red Flags: None Subjective I still feel woozy sometimes but not off balance. My head just isn't clear. Compliance with HEP: Yes Objective Objective measurements not taken today. Treatment Therapeutic Exercise Therapeutic Exercise Activity 1: gastroc wedge stretch Activity 1 Comment: 2 min x 1 Therapeutic Activity Therapeutic Activity 1: step ups forwards Activity 1 Comment: 6 step x 5 each LE leading Soft Tissue Mobilization Location: suboccipitals Body Position: Supine Comments: release x 11 minutes Canalith Repositioning Maneuvers BBQ Roll L: 2x BBQ Roll R: 2x Patient Education: review of proper step up for HEP to avoid hitting shins on steps. Home Exercise Program: Deferred Assessment Skilled physical therapy interventions utilized to improve patient s impairments and work towards established goals. Patient response to treatment: Performed FUR BLOWER OPERATOR to treat BPPV in bilateral HC and reduce dizziness. Manual intervention to address any cervicogenic components of dizziness. Pt had increased mm tension in right > left suboccipitals. No c/o dizziness at end of session today. Patient will benefit from continued physical therapy to work towards reduction of dizziness and improved balance. The rationale for today s treatment was explained to the patient. Verbal cues were provided for correct form with all exercises. Advised patient to continue with Home Exercise Program (HEP). Goals General/Ortho Patient will be independent with HEP. (Progressing) Start: 12/08/24 Expected End: 03/08/25 Patient will increase strength in the core, hip and postural mm to be able to improve postural strength and reduce risk for falling. (Progressing) Start: 12/08/24 Expected End: 03/08/25 Balance: Patient will improve SLS from 0 to 1 second bilaterally to improve safety with ambulation. (Not Addressed) Start: 12/08/24 Expected End: 03/08/25 Functional Outcome Measure: Patient will improve the ABC score from 69.4% balance confidence to 85% to demonstrate reduce fall risk. (Not Addressed) Start: 12/08/24 Expected End: 03/08/25 PT Misc Misc: The patient will have an improved FTSTS from 22 seconds to 17 seconds to demonstrate improved functional LE strength. (Not Addressed) Start: 12/08/24 Expected End: 03/08/25 Misc 2 (Not Addressed) Start: 12/08/24 Expected End: 03/08/25 The patient will have an improved DGI from to to show her fall risk is reducing. Plan Plan for next session: Progress dynamic balance and LE strengthening. Continue FUR BLOWER OPERATOR as appropriate. Time Entry Total Treatment Time Start Time: 1505 Stop Time: 1547 Time Calculation (min): 42 min PT Therapeutic Procedures Time Entry Therapeutic Exercise Time Entry: 2 Therapeutic Activity Time Entry: 3 Manual Therapy Time Entry: 11 Neuromuscular Re-Education Time Entry: 24 Rani Frobes PT documented in this encounter [facility] [employer] 12-31-2024 History of Present illness Narrative Images from the original note were not included. [facility] [employer] [facility] AT [facility] [employer] [place] [address] [facility] [address] Dept: [phone] Dept PHYSICAL THERAPY TREATMENT Patient Name: John Navarrete : 1935 Date of Service: 12/31/2024 Referring Provider: Morro Mccray MD Visit #: 7 Diagnosis: Unsteadiness on feet Mechanism of injury: Was diagnosed with moderate dementia 2 months ago. Pt is forgetful, unsteady. No LOB. No device use. Not feeling that she is limited with any specific activity. Balance issues worsened in past year. (Denied dizziness initially, though onset of dizziness roll supine to left during MMT). Does not feel weak or any decrease in endurance. Patient Preferences: pt goes by John Precautions/Red Flags: None Subjective I don't think I am as dizzy as I was. Does feel like she is still off in the head. Also unsteady. Balance is getting better. Also feeling stronger. Compliance with HEP: Yes Objective [place]-Hallpike negativ right & left. Roll test positive bilaterally. Treatment Therapeutic Activity Therapeutic Activity 3: cable lateral walk with belt & CGA/min assist Activity 3 Comment: 1 pl 1 x 7 each Therapeutic Activity 5: BIG step fwd with arms open Activity 5 Comment: 1 x 10 ea Therapeutic Activity 10: cable retro walk with belt & CGA/min assist Activity 10 Comment: 2.5 Pl 1 x Canalith Repositioning Maneuvers Jaleel L PC: Sara-Hallpike negativ left Jaleel R PC: [place]-Hallpike negativ right BBQ Roll L: Roll test positive left. BBQ Roll 1x BBQ Roll R: Roll test positive right. BBQ Roll 1x Home Exercise Program: Deferred Assessment Skilled physical therapy interventions utilized to improve patient s impairments and work towards established goals. Patient response to treatment: BPPV negative in bilateral PC and positive in bilateral HC for canalithiasis. Performed FUR BLOWER OPERATOR to treat BPPV and reduce dizziness. Progressed core and hip strengthening to improve balance and safety with ambulation. Patient will benefit from continued physical therapy to work towards resolution of BPPV and dizziness and improvements in balance and functional strength and mobility. The rationale for today s treatment was explained to the patient. Verbal cues were provided for correct form with all exercises. Advised patient to continue with Home Exercise Program (HEP). Goals General/Ortho Patient will be independent with HEP. (Progressing) Start: 12/08/24 Expected End: 03/08/25 Patient will increase strength in the core, hip and postural mm to be able to improve postural strength and reduce risk for falling. (Progressing) Start: 12/08/24 Expected End: 03/08/25 Balance: Patient will improve SLS from 0 to 1 second bilaterally to improve safety with ambulation. (Not Addressed) Start: 12/08/24 Expected End: 03/08/25 Functional Outcome Measure: Patient will improve the ABC score from 69.4% balance confidence to 85% to demonstrate reduce fall risk. (Not Addressed) Start: 12/08/24 Expected End: 03/08/25 PT Misc Misc: The patient will have an improved FTSTS from 22 seconds to 17 seconds to demonstrate improved functional LE strength. (Not Addressed) Start: 12/08/24 Expected End: 03/08/25 Misc 2 (Not Addressed) Start: 12/08/24 Expected End: 03/08/25 The patient will have an improved DGI from 16 to to show her fall risk is reducing. Plan Plan for next session: Continue progression of dynamic balance and balance on compliant surface. Possible initiation of quadruped core strengthening. Time Entry Total Treatment Time Start Time: 1431 Stop Time: 1516 Time Calculation (min): 45 min PT Therapeutic Procedures Time Entry Therapeutic Activity Time Entry: 21 Neuromuscular Re-Education Time Entry: 19 Rani Forbes PT documented in this encounter [facility] 12-31-2024 Telephone encounter Note Lyric has been notified [facility] 12-31-2024 Miscellaneous Notes Lyric has been notified She can stop the memantine. If the memantine was making her dizzy she will feel better after 48 hours. If she is still dizzy 48 hours later, then she may be coming down with something and needs to call Dr. Mclaughlin. Name of caller: Lyric Contact phone number: [phone] Relationship to Patient: family member patient and daughter Provider: Dr. Mccray Practice: Neurology Chief Complaint/Reason for Call: Lyric called advising since patient has been taking medication memantine (Namenda) 10 MG tablet she has been feeling more dizziness. Lyric advised if provider wants patient to discontinue taking medication. Please call Lyric back and advise. Best time of day caller can be reached: any Patient advised that office/PCP has 24-48 business hours to return their call: Yes documented in this encounter [facility] 12-30-2024 Telephone encounter Note She can stop the memantine. If the memantine was making her dizzy she will feel better after 48 hours. If she is still dizzy 48 hours later, then she may be coming down with something and needs to call Dr. Mclaughlin. [facility] 12-30-2024 Miscellaneous Notes She can stop the memantine. If the memantine was making her dizzy she will feel better after 48 hours. If she is still dizzy 48 hours later, then she may be coming down with something and needs to call Dr. Mclaughlin. Name of caller: Lyric Contact phone number: [phone] Relationship to Patient: family member patient and daughter Provider: Dr. Mccray Practice: Neurology Chief Complaint/Reason for Call: Lyric called advising since patient has been taking medication memantine (Namenda) 10 MG tablet she has been feeling more dizziness. Lyric advised if provider wants patient to discontinue taking medication. Please call Lyric back and advise. Best time of day caller can be reached: any Patient advised that office/PCP has 24-48 business hours to return their call: Yes documented in this encounter [facility] 12-30-2024 Telephone encounter Note Name of caller: Lyric Contact phone number: [phone] Relationship to Patient: family member patient and daughter Provider: Dr. Mccray Practice: Neurology Chief Complaint/Reason for Call: Lyric called advising since patient has been taking medication memantine (Namenda) 10 MG tablet she has been feeling more dizziness. Lyric advised if provider wants patient to discontinue taking medication. Please call Lyric back and advise. Best time of day caller can be reached: any Patient advised that office/PCP has 24-48 business hours to return their call: Yes [facility] 12-29-2024 History of Present illness Narrative Images from the original note were not included. [facility]AP[facility] AT [facility] [address] [facility] [address] [facility] [address] Dept: [phone] Dept PHYSICAL THERAPY TREATMENT Patient Name: John Navarrete : 1935 Date of Service: 12/29/2024 Referring Provider: Morro Mccray MD Visit #: 6 Diagnosis: Unsteadiness on feet Mechanism of injury: Was diagnosed with moderate dementia 2 months ago. Pt is forgetful, unsteady. No LOB. No device use. Not feeling that she is limited with any specific activity. Balance issues worsened in past year. (Denied dizziness initially, though onset of dizziness roll supine to left during MMT). Does not feel weak or any decrease in endurance. Patient Preferences: pt goes by John Precautions/Red Flags: None Subjective I am still not 100% with the dizziness, but it is much better. Stopped taking Nimenda on Saturday Had stopped the Aricept one month ago ( Nimenda was the replacement). The dizziness is now a 4/10 and was an 8/10. Not really a change in the dizziness from the last PT visit until stopping the meds. I'm not dizzy, my head just doesn't feel right. Compliance with HEP: Yes Objective Objective measurements not taken today. Treatment Therapeutic Activity Therapeutic Activity 3: cable lateral walk with belt & CGA/min assist Activity 3 Comment: 1 pl 1 x 5 each Therapeutic Activity 9: december walk forwards with CGA to min assist Activity 9 Comment: 2 x 40' Therapeutic Activity 10: cable retro walk with belt & CGA/min assist Activity 10 Comment: 2.5 Pl 1 x 6 Therapeutic Activity 11: [employer] Activity 11 Comment: feet together EO 1 min x 1, feet apart EC 1 min; staggered stance EO: 1 min x 1 each Therapeutic Activity 12: standing rows Activity 12 Comment: 2.5 Pl 2 x 10 Therapeutic Activity 13: step over 6 wyatt from [employer] mats with railing Activity 13 Comment: laterally x 12; forwards/retro 1 x 12 each LE leading. Therapeutic Activity 14: retro walk Activity 14 Comment: 40' x 2 with CGA/min assist. Patient Education: education re: progression of LE strengthening for HEP & how to safely perform. 2 min Home Exercise Program: Progressed home exercise program Assessment Skilled physical therapy interventions utilized to improve patient s impairments and work towards established goals. Patient response to treatment: Progressed postural, core, and LE strengthening and balance on compliant surfaces to improve balance and safety with ambulation and ADLs. Pt required 2 brief seated rest breaks during treatment. Attempted to increase weight with resisted lateral stepping, though unable due to weakness. Patient will benefit from continued physical therapy to further improve balance and LE strength and reduce dizziness with ADLs. The rationale for today s treatment was explained to the patient. Verbal cues were provided for correct form with all exercises. Advised patient to continue with Home Exercise Program (HEP). Goals General/Ortho Patient will be independent with HEP. (Progressing) Start: 12/08/24 Expected End: 03/08/25 Patient will increase strength in the core, hip and postural mm to be able to improve postural strength and reduce risk for falling. (Progressing) Start: 12/08/24 Expected End: 03/08/25 Balance: Patient will improve SLS from 0 to 1 second bilaterally to improve safety with ambulation. (Not Addressed) Start: 12/08/24 Expected End: 03/08/25 Functional Outcome Measure: Patient will improve the ABC score from 69.4% balance confidence to 85% to demonstrate reduce fall risk. (Not Addressed) Start: 12/08/24 Expected End: 03/08/25 PT Misc Misc: The patient will have an improved FTSTS from 22 seconds to 17 seconds to demonstrate improved functional LE strength. (Not Addressed) Start: 12/08/24 Expected End: 03/08/25 Misc 2 (Not Addressed) Start: 12/08/24 Expected End: 03/08/25 The patient will have an improved DGI from 1624 to 24 to show her fall risk is reducing. Plan Plan for next session: Continue progression of dynamic balance and strengthening. Resume BIG step outs. Time Entry Total Treatment Time Start Time: 1323 Stop Time: 1406 Time Calculation (min): 43 min PT Therapeutic Procedures Time Entry Therapeutic Exercise Time Entry: 2 Therapeutic Activity Time Entry: 39 Rani Forbes PT documented in this encounter [facility] [employer] 12-24-2024 History of Present illness Narrative Images from the original note were not included. [facility] THERAPY AT [facility] [address] [place] [address] [address] Dept: [phone] Dept PHYSICAL THERAPY TREATMENT Patient Name: John Navarrete : 1935 Date of Service: 12/24/2024 Referring Provider: Morro Mccray MD Visit #: 5 Diagnosis: Unsteadiness on feet Mechanism of injury: Was diagnosed with moderate dementia 2 months ago. Pt is forgetful, unsteady. No LOB. No device use. Not feeling that she is limited with any specific activity. Balance issues worsened in past year. (Denied dizziness initially, though onset of dizziness roll supine to left during MMT). Does not feel weak or any decrease in endurance. Patient Preferences: pt goes by John Precautions/Red Flags: None Subjective I felt good and the dizziness was gone until the next day. Woke the next day with a little less intense dizziness. Not seeing a lot of change in balance yet. A little dizziness currently. Compliance with HEP: Yes Objective Sara-Hallpike pos brief dizziness x 2-3 seconds. Treatment Therapeutic Activity Therapeutic Activity 3: cable lateral walk with belt & CGA/min assist Activity 3 Comment: 1 pl 1 x 4 each Therapeutic Activity 10: cable retro walk with belt & CGA/min assist Activity [address]: [address] 1 x 7 Therapeutic Activity 11: [employer] Activity 11 Comment: feet close EO 1 min x 1, feet apart EC 1 min, with head turns & nods 1 min x 1 each Canalith Repositioning Maneuvers Jaleel L PC: Sara-Hallpike pos brief dizziness x 2-3 seconds. Jaleel x 1 BBQ Roll L: 1x VOR Exercises VOR x 1 horizontal: 2 min Position: sitting Occulomotor Exercises Smooth pursuit L/R: 1 x 10 sitting Smooth pursuit Up/down: 1 x 10 sitting Convergence: 1 x 10 sitting Home Exercise Program: Deferred Assessment Skilled physical therapy interventions utilized to improve patient s impairments and work towards established goals. Patient response to treatment: Progressed dynamic LE strengthening and balance on compliant surface to improve the patient's functional strength and mobility. BPPV positive in the left PC with testing. Performed FUR BLOWER OPERATOR to treat left HC and PC. Intiated pursuits and convergence without onset of any symptoms. No dizziness at end of session post FUR BLOWER OPERATOR. Patient will benefit from continued physical therapy to work towards improvements in balance, strength and safety with ADLs, and to reduce dizziness. The rationale for today s treatment was explained to the patient. Verbal cues were provided for correct form with all exercises. Advised patient to continue with Home Exercise Program (HEP). Goals General/Ortho Patient will be independent with HEP. (Progressing) Start: 12/08/24 Expected End: 03/08/25 Patient will increase strength in the core, hip and postural mm to be able to improve postural strength and reduce risk for falling. (Progressing) Start: 12/08/24 Expected End: 03/08/25 Balance: Patient will improve SLS from 0 to 1 second bilaterally to improve safety with ambulation. (Not Addressed) Start: 12/08/24 Expected End: 03/08/25 Functional Outcome Measure: Patient will improve the ABC score from 69.4% balance confidence to 85% to demonstrate reduce fall risk. (Not Addressed) Start: 12/08/24 Expected End: 03/08/25 PT Misc Misc: The patient will have an improved FTSTS from 22 seconds to 17 seconds to demonstrate improved functional LE strength. (Not Addressed) Start: 12/08/24 Expected End: 03/08/25 Misc 2 (Not Addressed) Start: 12/08/24 Expected End: 03/08/25 The patient will have an improved DGI from 1624 to 2224 to show her fall risk is reducing. Plan Plan for next session: Progress reps with resisted walking. Progress BIG step outs, Add Modified [place]uf[place] with review for HEP. Progress dynamic gaze stabilization. Time Entry Total Treatment Time Start Time: 1433 Stop Time: 1516 Time Calculation (min): 43 min PT Therapeutic Procedures Time Entry Therapeutic Activity Time Entry: 19 Neuromuscular Re-Education Time Entry: 13 Canalith Repositioning Time Entry: 8 Rani Forbes PT documented in this encounter [facility] [employer] 12-22-2024 History of Present illness Narrative Images from the original note were not included. [facility] THERAPY AT [facility] [address] [place] [address] Dept: [phone] Dept PHYSICAL THERAPY TREATMENT Patient Name: John Navarrete : 1935 Date of Service: 12/22/2024 Referring Provider: Morro Mccray MD Visit #: 4 Diagnosis: Unsteadiness on feet Mechanism of injury: Was diagnosed with moderate dementia 2 months ago. Pt is forgetful, unsteady. No LOB. No device use. Not feeling that she is limited with any specific activity. Balance issues worsened in past year. (Denied dizziness initially, though onset of dizziness roll supine to left during MMT). Does not feel weak or any decrease in endurance. Patient Preferences: pt goes by John Precautions/Red Flags: None Subjective No change in the dizziness yet. Currently 5-6/10 dizziness. I did feel better for 2-3 hours after the last therapy. Dizziness was gone for that duration. Compliance with HEP: Yes Objective Sara-Hallpike pos brief dizziness x 4 seconds Treatment Therapeutic Activity Therapeutic Activity 8: BIG step out laterally with arm open Activity 8 Comment: 1 x 10 each LE Therapeutic Activity 9: march walk forwards with CGA to min assist Activity 9 Comment: 1 x 40' Therapeutic Activity 10: retro walk Activity 10 Comment: 40' x 1 Canalith Repositioning Maneuvers Jaleel L PC: [place]-Hallpike pos brief dizziness x 4 seconds. Jaleel x 1 BBQ Roll L: 1x BBQ Roll R: 1x Munoz-Daroff exercise: ambulation with head turns and nods 40' x 3 each Patient Education: education re: purpose of gaze stabilization to improve vestibulo-ocular dysfunction. 2 min Home Exercise Program: Deferred Assessment Skilled physical therapy interventions utilized to improve patient s impairments and work towards established goals. Patient response to treatment: Performed FUR BLOWER OPERATOR to reduce BPPV and dizziness. Progressed dynamic balance and LE strengthening, which challenged the patient and required frequent min assist to correct LOB. Onset of dizziness with ambulation with head nod/turns. Pt reported no dizziness immediately post FUR BLOWER OPERATOR today. Patient will benefit from continued physical therapy to work towards resolution of dizziness and progression of core and hip strengthening and improved balance. The rationale for today s treatment was explained to the patient. Verbal cues were provided for correct form with all exercises. Advised patient to continue with Home Exercise Program (HEP). Goals General/Ortho Patient will be independent with HEP. (Progressing) Start: 12/08/24 Expected End: 03/08/25 Patient will increase strength in the core, hip and postural mm to be able to improve postural strength and reduce risk for falling. (Progressing) Start: 12/08/24 Expected End: 03/08/25 Balance: Patient will improve SLS from 0 to 1 second bilaterally to improve safety with ambulation. (Not Addressed) Start: 12/08/24 Expected End: 03/08/25 Functional Outcome Measure: Patient will improve the ABC score from 69.4% balance confidence to 85% to demonstrate reduce fall risk. (Not Addressed) Start: 12/08/24 Expected End: 03/08/25 PT Misc Misc: The patient will have an improved FTSTS from 22 seconds to 17 seconds to demonstrate improved functional LE strength. (Not Addressed) Start: 12/08/24 Expected End: 03/08/25 Misc 2 (Not Addressed) Start: 12/08/24 Expected End: 03/08/25 The patient will have an improved DGI from to to show her fall risk is reducing. Plan Plan for next session: Add cable retro and lateral walking with belt and CGA. Continue FUR BLOWER OPERATOR. Time Entry Total Treatment Time Start Time: 1319 Stop Time: 1403 Time Calculation (min): 44 min PT Therapeutic Procedures Time Entry Therapeutic Exercise Time Entry: 2 Therapeutic Activity Time Entry: 13 Neuromuscular Re-Education Time Entry: 21 Canalith Repositioning Time Entry: 8 Rani Forbes PT documented in this encounter [facility] 12-21-2024 History of Present illness Narrative Images from the original note were not included. [facility] - [address] [facility] [address] Visit type: Established Patient Reason for Visit: Follow-up (Med Check ) and Dizziness (With rapid heart rate ) Assessment / Plan: John was seen today for follow-up and dizziness. Diagnoses and all orders for this visit: Palpitations (Primary) Comments: Resolved, possible 7-day Holter. Orders: - CBC auto differential; Future - Comprehensive metabolic panel; Future - ECG 12 lead; Future - CBC auto differential - Comprehensive metabolic panel - ECG 12 lead - Magnesium; Future - TSH; Future - T4, free; Future - T3, free; Future - Magnesium - TSH - T4, free - T3, free Essential hypertension Comments: Stable, continue verapamil and lisinopril Moderate late onset Alzheimer's dementia without behavioral disturbance, psychotic disturbance, mood disturbance, or anxiety (HCC) Comments: Encouragement given, reviewed past MRIs and neurology consultation follow-up with Dr. Mccray on consideration of repeat MRI Subjective: Patient ID: John Navarrete is a 89 y.o. female. HPI well-controlled hypertensive patient recently diagnosed with moderate dementia presents concerned about ongoing palpitations over the last week. Occur with and without activity. Lasts a few minutes. Not accompanied by chest pain or shortness of breath. Intermittently has been getting lightheaded for many months and started physical therapy for balance a couple days ago. Recently placed on Namenda per neurology. Had MRI of the head 2 years ago for similar complaints. She denies diplopia or scotomas. No unilateral numbness to the face arm or legs. Review of Systems Aricept gave her side effects. She denies headache or confusion. No photophobia. No recent cough or congestion. Eating and voiding well. Had SVT 7 years ago treated with verapamil successfully. No history of CHF or CVA. No Known Allergies Current Outpatient Medications on File Prior to Visit Medication Sig Dispense Refill aspirin 81 MG EC tablet Take 81 mg by mouth daily. biotin 73147 MCG tablet Take by mouth daily. 10,000 mcg Calcium Citrate-Vitamin D 250-2.5 MG-MCG tablet Take by mouth. lisinopril 20 MG tablet Take 1 tablet (20 mg) by mouth daily. 90 tablet 1 memantine (Namenda) 10 MG tablet Take 1 tablet (10 mg) by mouth 2 times daily. 180 tablet 3 Multiple Vitamin tablet Take 1 tablet by mouth in the morning. verapamil SR (Calan SR) 240 MG ER tablet Take 1 tablet (240 mg) by mouth Nightly. 90 tablet 1 [DISCONTINUED] acetaminophen (Tylenol) 500 MG tablet 2 bid prn 30 tablet 0 [DISCONTINUED] donepezil (Aricept) 5 MG tablet Take 1 tablet (5 mg) by mouth daily with supper. (Patient not taking: Reported on 12/03/2024) 90 tablet 3 No current facility-administered medications on file prior to visit. Patient Active Problem List Diagnosis SVT (supraventricular tachycardia) (HCC) Torus mandibularis Essential hypertension Menopause Mild cognitive impairment with memory loss Cerebral vascular disease Moderate late onset Alzheimer's dementia without behavioral disturbance, psychotic disturbance, mood disturbance, or anxiety (HCC) Social History Tobacco Use Smoking status: Never Smokeless tobacco: Never Substance Use Topics Alcohol use: No Alcohol/week: 0.0 standard drinks of alcohol Past Surgical History: Procedure Laterality Date BUNIONECTOMY Left 2019 CARPAL TUNNEL RELEASE Right 03/29/2023 Endoscopic right carpal tunnel release - Dr. Sommer CATARACT EXTRACTION W/ INTRAOCULAR LENS IMPLANT, BILATERAL Bilateral COLONOSCOPY W/ POLYPECTOMY 08/2019 COLONOSCOPY W/ POLYPECTOMY 09/2022 Dr. Bedolla- no reason for f/u TRIGGER FINGER RELEASE Right 2020 right middle and ring - Dr Sommer TUBAL LIGATION Family History Problem Relation Name Age of Onset Coronary artery disease Mother 86 age 94 Alcohol abuse Father Sherman age 48 Heart disease Father Sherman 48 High Blood Pressure Sister Radha Valvular heart disease Sister Radha s/p AVR Hyperlipidemia Sister Radha Kidney failure Brother Ed 06/12 age 80 Objective: BP 132/76 Pulse 76 Temp 36.3 C (97.3 F) (Temporal) Ht 5' 3 (1.6 m) Wt 121 lb 6.4 oz (55.1 kg) SpO2 97% BMI 21.51 kg/m Physical Exam Very pleasant alert and well-groomed. Pupils equal. Extraocular muscles are intact. Cranial nerves are normal. No overt motor or sensory loss of the arms and legs. Her gait is stable. No carotid bruits or thyroid masses. Heart is regular without ectopy or new murmurs. Lungs are clear. Abdomen soft nontender without pain hepatosplenomegaly or masses. No bruits. Extremities have no appreciable edema. Blood pressure recheck excellent. Pupils equal. Extraocular muscles are intact. All cranial nerves normal. Negative Romberg, [id number], and fair tandem gait testing. EKG sinus rhythm without ischemia or ectopy documented in this encounter [facility] 12-17-2024 History of Present illness Narrative Images from the original note were not included. [facility] AT [facility] [address] [place] [address] [place] [address] Dept: [phone] Dept PHYSICAL THERAPY TREATMENT Patient Name: John Navarrete : 1935 Date of Service: 12/17/2024 Referring Provider: Morro Mccray MD Visit #: 3 Diagnosis: Unsteadiness on feet Mechanism of injury: Was diagnosed with moderate dementia 2 months ago. Pt is forgetful, unsteady. No LOB. No device use. Not feeling that she is limited with any specific activity. Balance issues worsened in past year. (Denied dizziness initially, though onset of dizziness roll supine to left during MMT). Does not feel weak or any decrease in endurance. Patient Preferences: pt goes by John Cristina/Red Flags: None Subjective I am more unsteady today. Is doing well with the therapy. Legs were a little tired after the PT here. Compliance with HEP: Yes Objective VESTIBULAR Dizziness Current: 0 Worst: 6-7 Best: 0 Positional testing [place] L: positive for spinning x 2-3 seconds; no nystagmus [place] R: negative Roll Test L: positive for brief dizziness Roll Test R: positive for brief dizziness Treatment Therapeutic Activity # of Activities: 7 Therapeutic Activity 1: assessment of BPPV Activity 1 Comment: 6 min Therapeutic Activity 5: BIG step fwd with arms open Activity 5 Comment: 1 x 10 ea Therapeutic Activity 7: step ups forwards with railings Activity 7 Comment: 1 x 15 each LE leading. Canalith Repositioning Maneuvers Jaleel L PC: 1x BBQ Roll L: 1x BBQ Roll R: 1x Patient Education: education re: BPPV, treatment, expected outcome. 4 min Home Exercise Program: Deferred Assessment Skilled physical therapy interventions utilized to improve patient s impairments and work towards established goals. Patient response to treatment: BPPV testing performed today, and was positive in bilateral HC and the left PC. Performed FUR BLOWER OPERATOR to reduce dizziness and improve functional mobility and safety. Progressed dynamic balance and LE strengthening to increase safety with ADLs and reduce fall risk. Pt struggled with rolling s/l to prone and prone to s/l. Patient will benefit from continued physical therapy to reduce dizziness, improve balance and functional strength and mobility. The rationale for today s treatment was explained to the patient. Verbal cues were provided for correct form with all exercises. Advised patient to continue with Home Exercise Program (HEP). Goals General/Ortho Patient will be independent with HEP. (Progressing) Start: 12/08/24 Expected End: 03/08/25 Patient will increase strength in the core, hip and postural mm to be able to improve postural strength and reduce risk for falling. (Progressing) Start: 12/08/24 Expected End: 03/08/25 Balance: Patient will improve SLS from 0 to 1 second bilaterally to improve safety with ambulation. (Not Addressed) Start: 12/08/24 Expected End: 03/08/25 Functional Outcome Measure: Patient will improve the ABC score from 69.4% balance confidence to 85% to demonstrate reduce fall risk. (Not Addressed) Start: 12/08/24 Expected End: 03/08/25 PT Misc Misc: The patient will have an improved FTSTS from 22 seconds to 17 seconds to demonstrate improved functional LE strength. (Not Addressed) Start: 12/08/24 Expected End: 03/08/25 Misc 2 (Not Addressed) Start: 12/08/24 Expected End: 03/08/25 The patient will have an improved DGI from 1624 to 2224 to show her fall risk is reducing. Plan Plan for next session: Continue FUR BLOWER OPERATOR, progress with BIG lateral step outs. Time Entry Total Treatment Time Start Time: 1401 Stop Time: 1449 Time Calculation (min): 48 min PT Therapeutic Procedures Time Entry Therapeutic Exercise Time Entry: 4 Therapeutic Activity Time Entry: 18 Neuromuscular Re-Education Time Entry: 14 Canalith Repositioning Time Entry: 8 Rani Forbes PT documented in this encounter [facility] [employer] 12-15-2024 History of Present illness Narrative Images from the original note were not included. [facility] AT [facility] [address] [place] [address] [facility] [address] Dept: [phone] Dept PHYSICAL THERAPY TREATMENT Patient Name: John Navarrete : 1935 Date of Service: 12/15/2024 Referring Provider: Morro Mccray MD Visit #: 2 Diagnosis: Unsteadiness on feet Mechanism of injury: Was diagnosed with moderate dementia 2 months ago. Pt is forgetful, unsteady. No LOB. No device use. Not feeling that she is limited with any specific activity. Balance issues worsened in past year. (Denied dizziness initially, though onset of dizziness roll supine to left during MMT). Does not feel weak or any decrease in endurance. Patient Preferences: pt goes by John Subjective Has continued exercises from prior as well as HEP given. Pt states dizziness more intense last few days more unsteadiness. Compliance with HEP: Yes Objective Objective measurements not taken today. Treatment Therapeutic Exercise # of Activities: 5 Therapeutic Exercise Activity 3: heel/toe raises Activity 3 Comment: at counter 1 x 15 Therapeutic Exercise Activity 4: hip abd at counter Activity 4 Comment: 1 x 15 ea Therapeutic Exercise Activity 5: hip ext at counter Activity 5 Comment: 1 x 15 ea Therapeutic Activity # of Activities: 6 Therapeutic Activity 2: sit to stand Activity 2 Comment: chair 1 x 10 Therapeutic Activity 3: sidestepping Activity 3 Comment: 25' x 1 Therapeutic Activity 4: ambulation fwd wtih head turns/nods Activity 4 Comment: 25' x 2 ea Therapeutic Activity 5: BIG step fwd with arms open Activity 5 Comment: 1 x 10 ea Therapeutic Activity 6: balance on firm surface Activity 6 Comment: WBOS/EC x 30; NBOS/EO x 30; tandem L/R,R/L x 30 ea Home Exercise Program: Progressed home exercise program, documented pt's other exercises in [facility] Assessment Skilled physical therapy interventions utilized to improve patient s impairments and work towards established goals. Patient response to treatment: Pt reported slight dizziness during ambulation with head turns, 1 L.O.B., CGA for safety. MIN sway on firm surface with WBOS/EO, NBOS/EO; MOD sway with full tandem, CGA. Progressed hip/ankle strengthening at counter, issued for HEP. No report of dizziness at end of session. Patient will benefit from continued physical therapy to improve strength, balance and function. The rationale for today s treatment was explained to the patient. Verbal cues were provided for correct form with all exercises. Advised patient to continue with Home Exercise Program (HEP). Goals General/Ortho Patient will be independent with HEP. (Initiated) Start: 12/08/24 Expected End: 03/08/25 Patient will increase strength in the core, hip and postural mm to be able to improve postural strength and reduce risk for falling. (Initiated) Start: 12/08/24 Expected End: 03/08/25 Balance: Patient will improve SLS from 0 to 1 second bilaterally to improve safety with ambulation. (Initiated) Start: 12/08/24 Expected End: 03/08/25 Functional Outcome Measure: Patient will improve the ABC score from 69.4% balance confidence to 85% to demonstrate reduce fall risk. (Not Addressed) Start: 12/08/24 Expected End: 03/08/25 PT Misc Misc: The patient will have an improved FTSTS from 22 seconds to 17 seconds to demonstrate improved functional LE strength. (Not Addressed) Start: 12/08/24 Expected End: 03/08/25 Misc 2 (Not Addressed) Start: 12/08/24 Expected End: 03/08/25 The patient will have an improved DGI from to to show her fall risk is reducing. Plan Plan for next session: test ear canals. Progress dynamic balance on firm and compliant surfaces. Time Entry Total Treatment Time Start Time: 321 Stop Time: 399 Time Calculation (min): 38 min PT Therapeutic Procedures Time Entry Therapeutic Exercise Time Entry: 10 Therapeutic Activity Time Entry: 28 Juani Santillan PTA Cosigned by Rani Forbes PT at 12/15/2024 9:26 PM EST documented in this encounter [facility] 12-08-2024 History of Present illness Narrative [facility] AT [facility] [address] [place] [address] [facility] [address] Dept: [phone] Dept PHYSICAL THERAPY EVALUATION Patient Name: John Navarrete : 1935 Date of Service: 12/08/2024 Referring Provider: Morro Mccray MD Visit #: 1 Diagnosis: Unsteadiness on feet General Information Mechanism of injury: Was diagnosed with moderate dementia 2 months ago. Pt is forgetful, unsteady. No LOB. No device use. Not feeling that she is limited with any specific activity. Balance issues worsened in past year. (Denied dizziness initially, though onset of dizziness roll supine to left during MMT). Does not feel weak or any decrease in endurance. Patient Preferences: pt goes by John Precautions/Red Flags: None Fall Risk: Yes and unsteady Work status: retired Home Setup: Mandeep in 1 story home with railing to basement. PMHX: John has a past medical history of Diverticular disease, H/O colonoscopy with polypectomy, Hearing loss, History of colon polyps, HTN (hypertension), Lumbar degenerative disc disease, Osteoporosis, and SVT (supraventricular tachycardia) (HCC). She has no past medical history of PONV (postoperative nausea and vomiting). PSHX: John has a past surgical history that includes Colonoscopy w/ polypectomy (08/2019); Bunionectomy (Left, 2018); Trigger finger release (Right, 2020); Cataract extraction w/ intraocular lens implant, bilateral (Bilateral); Tubal ligation; Colonoscopy w/ polypectomy (09/2022); and Carpal tunnel release (Right, 03/29/2023). Have you experienced any anxiety or depression?: No Have you experienced thoughts of self-harm or suicidal thoughts?: No Social Drivers of Health Reviewed: Yes and relies on due to off balance Physician follow-up appointment?: Yes Subjective Chief Complaint: Was diagnosed with moderate dementia 2 months ago. Pt is forgetful, unsteady. No LOB. No device use. Not feeling that she is limited with any specific activity. Balance issues worsened in past year. (Denied dizziness initially, though onset of dizziness roll supine to left during MMT). Does not feel weak or any decrease in endurance. Prior Level of Function: not limited Current Level of Function: not feeling limited with anything specific; just unsteady. Requires railing for any stairs Patient s Stated Goal: to improve balance. Outcome Measures Activities-specific Balance Confidence (ABC): 1110/16, 69.4% Objective GAIT & BALANCE Observation: slight to mild forward head/rounded shoulder posture. C curvature to spine. Gait Assessment: slower gait speed, no LOB, shortened stride length, slight shuffle on 2 instances. Stairs: step to with railing Transfers: onset of dizziness rolling to left Lower Extremity Strength Right Left Hip Flexion 5 5- Hip Abduction 4- 4- Hip Extension 4 4- Knee Extension 5 5 Knee Flexion 5- 5 Ankle Dorsiflexion (DF) 5 5 Ankle Plantarflexion (PF) Inversion 5 5 Eversion 5 4+ Serratus anterior: right: 4/5, left 4-/5 Core Strength: abs: 4-/5, bridge 1/2 ROM Flexibility: slight HS restrictions bilat. Multi-system balance testin time [id number] (STS): 22 seconds - Use of UEs?: both hands pushing from arm rests yes - Chair height (standard chair = 16-18 in): 17 DGI: - Assistive device used: no Additional balance testing Test Eyes Open (seconds) Eyes Closed (seconds) Sway Romberg 20 slight sway 20 mild sway SLS L 0 mod SLS R 0 mod Assessment John is a 89 y.o. patient with chief complaint of unsteadiness that has gradually worsened and has a recent diagnosis of dementia. She presents with postural faults, gait and balance deficits, core, postural and LE weakness, and intermittent dizziness. She would benefit from further vestibular assessment to be able to fully address balance deficits. She presents with signs and symptoms consistent with weakness, gait and balance deficits associated with aging. The patient would benefit from skilled physical therapy to address decreased strength, impaired balance, decreased mobility, decreased coordination, impaired gait, impaired functional activities, and vestibular impairment. Evaluation complexity is moderate secondary to: patient has 4 or more personal factors and/or comorbidities that will affect plan of care, therapy will be addressing 3 or more elements, and clinical presentation is evolving. Body Systems Affected: musculoskeletal, neuromuscular, and vestibular Rehab Potential: Good Learning Preferences: demonstration, explanation, performance, and printed materials Barriers to Rehab: age, chronicity, comorbidities, duration of symptoms, and memory deficits Goals General/Ortho Patient will be independent with HEP. (Initiated) Start: 12/08/24 Expected End: 03/08/25 Patient will increase strength in the core, hip and postural mm to be able to improve postural strength and reduce risk for falling. (Initiated) Start: 12/08/24 Expected End: 03/08/25 Balance: Patient will improve SLS from 0 to 1 second bilaterally to improve safety with ambulation. (Initiated) Start: 12/08/24 Expected End: 03/08/25 Functional Outcome Measure: Patient will improve the ABC score from 69.4% balance confidence to 85% to demonstrate reduce fall risk. (Initiated) Start: 12/08/24 Expected End: 03/08/25 PT Misc Misc: The patient will have an improved FTSTS from 22 seconds to 17 seconds to demonstrate improved functional LE strength. (Initiated) Start: 12/08/24 Expected End: 03/08/25 Misc 2 (Initiated) Start: 12/08/24 Expected End: 03/08/25 The patient will have an improved DGI from to to show her fall risk is reducing. Plan Frequency and Duration: 2/wk for 10 visits Therapeutic Contents: client education, gait training, home exercise program, manual therapy techniques, neuromuscular re-education, therapeutic activities, therapeutic exercise, vestibular rehabilitation, and modalities as needed Plan for next session: Perform vestibular assessment next appt with primary PT. Initiate static and dynamic balance, BIG sit to stand & forward step outs, core and hip strengthening as able. Risks and benefits were discussed with the patient and/or family, and the patient and/or family participated with the plan of care and agrees. Treatment Therapeutic Exercise # of Activities: 2 Therapeutic Exercise Activity 1: SLR flexion Activity 1 Comment: 1 x 5 each bilat. Therapeutic Exercise Activity 2: scapular retraction Activity 2 Comment: 1 x 5 Therapeutic Activity # of Activities: 1 Therapeutic Activity 1: bridges Activity 1 Comment: 3 sec 1 x 3 Patient Education: education re: initial HEP. 1 min Home Exercise Program: Created Time Entry Total Treatment Time Start Time: 1534 Stop Time: 162 Time Calculation (min): 46 min PT Evaluation Time Entry PT Evaluation (Moderate) Time Entry: 42 PT Therapeutic Procedures Time Entry Therapeutic Exercise Time Entry: 3 Therapeutic Activity Time Entry: 1 Rani Forbes PT documented in this encounter [facility] 12-08-2024 Telephone encounter Note Medication name: lisinopril tablet Medication dosage: 20 mg (Miligrams Monthly quantity needed: 30 How many day supply requestin days Medication route: oral (PO) Medication administration time(s): daily If taking medication PRN, reason for taking medication: N/A If this is a controlled substance do you receive this or any other controlled medication from any other doctor or facility: N/A Ordering provider: Arnoldo Date of last office visit: 09.03.2024 Date of next office visit: 12.21.2024 Date of last refill: (see medication tab): 08.11.2024 Updated/Validated preferred pharmacy: Yes Patient instructed to contact the pharmacy prior to picking up the medication: N/A [facility] 12-08-2024 Miscellaneous Notes Medication name: lisinopril tablet Medication dosage: 20 mg (Miligrams Monthly quantity needed: 30 How many day supply requestin days Medication route: oral (PO) Medication administration time(s): daily If taking medication PRN, reason for taking medication: N/A If this is a controlled substance do you receive this or any other controlled medication from any other doctor or facility: N/A Ordering provider: Arnoldo Date of last office visit: 09.03.2024 Date of next office visit: 12.21.2024 Date of last refill: (see medication tab): 08.11.2024 Updated/Validated preferred pharmacy: Yes Patient instructed to contact the pharmacy prior to picking up the medication: N/A documented in this encounter [facility] 12-03-2024 History of Present illness Narrative Images from the original note were not included. [place] [id number] [address] [facility] [address] [facility] [address] Dept: [phone] Dept Loc: [phone] Morro Mccray MD CHIEF COMPLAINT: Chief Complaint Patient presents with Follow-up Memory Loss HISTORY OF PRESENT ILLNESS: The patient is a 89 y.o. person who presents with memory loss. She is misplaicing things. She reports that she felt worse and she had more cognitive difficulties. She declined the MRI brain. I reviewed with her why I had ordered it again . I also showed the images from the MRI 2 years ago again. Ask informant to rate the patient's ability using the following scoring system: Dependent= 3 Requires Assistance= 2 Has difficulty but does by self= 1 Normal= 0 Never did the activity but could do now= 0 Never did and would have difficulty now= 1 Score Writing checks, paying bills, balancing checkbook 1 Assembling tax records, business affairs, or papers 0 Shopping alone for clothes, household necessities or groceries 0 Playing a game of skill, working on a hobby 0 Heating water, making a cup of coffee turning off stove after use 0 Preparing a balanced meal 0 Keeping track of current events 0 Paying attention to, understanding, discussing TV, book, magazine 0 Remembering appointments, family occasions, holidays, medications 1 Traveling out of neighborhood, driving, arranging to take a bus 0 Total Score 2 Evaluation Sum scores (range 0-30). Cut-point of 9 (dependent in 3 or more activities) is recommended to indicate impaired function and possible cognitive impairment. She is dizzy when she stands. Not dizzy when seated or lying. Past Medical History: has a past medical history of Diverticular disease, H/O colonoscopy with polypectomy (07/2022), Hearing loss, History of colon polyps (2018), HTN (hypertension) (2005), Lumbar degenerative disc disease (2018), Osteoporosis, and SVT (supraventricular tachycardia) (HCC) (2017). She has no past medical history of PONV (postoperative nausea and vomiting). Past Surgical History: has a past surgical history that includes Colonoscopy w/ polypectomy (08/2019); Bunionectomy (Left, 2018); Trigger finger release (Right, 2020); Cataract extraction w/ intraocular lens implant, bilateral (Bilateral); Tubal ligation; Colonoscopy w/ polypectomy (09/2022); and Carpal tunnel release (Right, 03/29/2023). Medications: Current Outpatient Medications: aspirin 81 MG EC tablet, Take 81 mg by mouth daily., Disp: , Rfl: biotin 62399 MCG tablet, Take by mouth daily. 10,000 mcg, Disp: , Rfl: Calcium Citrate-Vitamin D 250-2.5 MG-MCG tablet, Take by mouth., Disp: , Rfl: lisinopril 20 MG tablet, TAKE 1 TABLET BY MOUTH DAILY, Disp: 90 tablet, Rfl: 1 Multiple Vitamin tablet, Take 1 tablet by mouth in the morning., Disp: , Rfl: verapamil SR (Calan SR) 240 MG ER tablet, Take 1 tablet (240 mg) by mouth Nightly., Disp: 90 tablet, Rfl: 1 acetaminophen (Tylenol) 500 MG tablet, 2 bid prn (Patient not taking: Reported on 12/03/2024), Disp: 30 tablet, Rfl: 0 memantine (Namenda) 10 MG tablet, Take 1 tablet (10 mg) by mouth 2 times daily., Disp: 180 tablet, Rfl: 3 Allergies: Patient has no known allergies. Social History: Social History Socioeconomic History Marital status: Spouse name: Not on file Number of children: Not on file Years of education: Not on file Highest education level: Not on file Occupational History Not on file Tobacco Use Smoking status: Never Smokeless tobacco: Never Vaping Use Vaping status: Never Used Substance and Sexual Activity Alcohol use: No Alcohol/week: 0.0 standard drinks of alcohol Drug use: No Sexual activity: Not on file Other Topics Concern Not on file Social History Narrative to Mandeep, NS or ETOH use, has 2 sons and 2 dtr, 7 GC and 6 GCC. 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 Overall Financial Resource Strain ([facility]) Difficulty of Paying Living Expenses: Not hard at all Food Insecurity: No Food Insecurity (01/16/2022) Received from [facility] Hunger Vital Sign Worried About Running Out of Food in the Last Year: Never true Ran Out of Food in the Last Year: Never true Transportation Needs: No Transportation Needs (02/13/2019) Received from [facility] PRAPARE - Transportation Lack of Transportation (Medical): No Lack of Transportation (Non-Medical): No Physical Activity: Insufficiently Active (05/01/2022) Received from [facility] Exercise Vital Sign Days of Exercise per Week: 7 days Minutes of Exercise per Session: 10 min Stress: No Stress Concern Present (02/13/2019) Received from [facility] [place] [facility] [employer] [facility] - Occupational Stress Questionnaire Feeling of Stress : Only a little Social Connections: Socially Integrated (02/13/2019) Received from [facility] Social Connection and Isolation Panel [NHANES] Frequency of Communication with Friends and Family: More than three times a week Frequency of Social Gatherings with Friends and Family: More than three times a week Attends Holiness Services: More than 4 times per year Active Member of Clubs or Organizations: Yes Attends Club or Organization Meetings: More than 4 times per year Marital Status: Intimate Partner Violence: Not on file Housing Stability: Not on file Family History: Family History Problem Relation Name Age of Onset Coronary artery disease Mother 86 age 94 Alcohol abuse Father Sherman age 48 Heart disease Father Sherman 48 High Blood Pressure Sister Radha Valvular heart disease Sister Radha s/p AVR Hyperlipidemia Sister Radha Kidney failure Brother Ed 06/12 age 80 REVIEW OF SYSTEMS: Review of Systems Constitutional: Negative for appetite change, chills, diaphoresis, fever and unexpected weight change. HENT: Negative for dental problem and mouth sores. Eyes: Negative for discharge and itching. Respiratory: Negative for chest tightness. Cardiovascular: Negative for chest pain and leg swelling. Gastrointestinal: Negative for rectal pain and vomiting. Endocrine: Negative for polydipsia, polyphagia and polyuria. Genitourinary: Negative for decreased urine volume, flank pain and genital sores. Musculoskeletal: Negative for arthralgias. Skin: Negative for color change. Allergic/Immunologic: Negative for food allergies and immunocompromised state. Neurological: Memory Loss Hematological: Negative for adenopathy. Does not bruise/bleed easily. Psychiatric/Behavioral: Negative for agitation, behavioral problems, decreased concentration, sleep disturbance and suicidal ideas. PHYSICAL EXAM: Vitals: BP (!) 148/85 (BP Location: Left arm, Patient Position: Sitting, BP Cuff Size: Adult) Pulse 67 Ht 5' 3 (1.6 m) Wt 122 lb 6.4 oz (55.5 kg) BMI 21.68 kg/m General Appearance: Patient is in no apparent distress. Head is normocephalic, atraumatic Cardiovascular: Regular rate and rhythm. No heart murmurs. No carotid bruit Neurologic: Mentation: Alert and oriented x 3 to person, place and time. Speech and Language: Speech and language normal Concentration and Attention: Concentration normal Memory: Memory grossly the same Fund of Knowledge: Fund of knowledge normal Cranial Nerves: II, III, IV, V, , VII, VIII, IX, X, XI, XII tested and were intact including fundoscopic exam (optic discs) and visual field to confrontation. Motor: Strength: Strength 5 out of 5 with normal tone Alternating Movements: Normal Cogwheel Rigidity: None Tone: Tone is normal Tremor / Involuntary Movements: None Deep Tendon Reflexes: 1 out of 4 symmetrical in all four limbs. Coordination: Normal coordination upper and lower extremities Gait and Station: Station is normal Gait is abnormal. Weid based rosetta has to use en block turning. DATA No results found for: PHENYTOIN, PHENOBARB, VALPROATE, CBMZ Lab Results Component Value Date WBC 6.6 03/10/2024 HGB 14.0 03/10/2024 HCT 41.5 03/10/2024 PLT 269 03/10/2024 ALT 15 06/24/2024 AST 20 06/24/2024 NA 137 01/16/2022 K 4.3 01/16/2022 CL 103 01/16/2022 CREATININE 1.05 (H) 06/24/2024 BUN 22 06/24/2024 CO2 26 06/24/2024 TSH 2.80 03/10/2024 XR chest 2 views Narrative: Patient Name: JOHN NAVARRTEE : 1935 Exam Date/Time: 06/23/2024 14:05 Procedure: XR CHEST 2 VIEWS Ordering Provider: MCLAUGHLIN EUGENE Reason For Exam: cough for 3 wks CHEST: CLINICAL INDICATION: cough for 3 wks TECHNIQUE: PA and Lateral COMPARISON: None FINDINGS: No focal consolidation or pulmonary edema. No pleural effusions or pneumothorax. The heart demonstrates normal size. Calcification of the thoracic aorta is noted. Degenerative change of the thoracic spine is noted. Levoscoliosis of the mid to lower thoracic spine. Impression: No focal consolidation or pulmonary edema. Report Dictated on Electronically Signed By: Daniel Montgomery MD Electronically Signed Date/Time: 06/23/2024 3:23 PM EDT No results found for: LEVETIRACETA, FERRITIN, CRP, BRADLEY, ANCANo components found for: TOPIRA No results found for: SHERMAN, IMMUNOGLOBUL, OLIGOBANDS VITAMIN B12 Date Value Ref Range Status 06/24/2024 567 200 - 1,100 pg/mL Final No results found for: HOC46UI, HEPCAB Procedure: MR BRAIN W AND WO CONTRAST Ordering Provider: IRAHETA PAUL Reason For Exam: Ataxia EXAMINATION: MR BRAIN W AND WO CONTRAST HISTORY: Ataxia TECHNIQUE: Multiplanar, multisequence MRI of the brain was performed without and with intravenous gadolinium contrast. Contrast: 5.6mL Gadavist IV COMPARISON: None RESULT: Acute Change: There is no evidence of restricted diffusion to suggest an acute infarct. Hemorrhage: Small focus of susceptibility artifact at the lateral margin of the left lentiform nucleus may represent microhemorrhage, small vessel or mineralization. Mass Lesion/ Mass Effect: Discontinuity of the falx with small interhemispheric cyst anteriorly. No significant mass effect. There is otherwise no evidence of an intracranial mass or extra-axial fluid collection. No abnormal parenchymal or leptomeningeal enhancement is noted following contrast administration. Chronic Change: Extensive, confluent increased T2 and FLAIR signal is present in the supratentorial white matter which is nonspecific but likely represents extensive chronic microvascular ischemia. Patchy T2/FLAIR signal changes in the terry are also likely related to microvascular ischemic changes. Old small lacunar infarcts in the bilateral left greater than right basal ganglia. Small old infarct in the right cerebellar hemisphere. Parenchyma: There is moderate to severe generalized parenchymal volume loss. Ventricles: Ventriculomegaly corresponds to the degree of parenchymal volume loss. Skull Base: Hypothalamic and pituitary region are grossly normal. Craniocervical junction is normal. No significant marrow replacement process. Vasculature: Major intracranial arterial structures, and dural venous sinuses show typical flow void, suggesting patency by spin echo criteria. Other: 1.9 cm mucous retention cyst or polyp in the left maxillary sinus. Small right mastoid effusions. The visualized paranasal sinuses and mastoid air cells are clear. Bilateral lens replacements. The orbits and extracranial soft tissues are unremarkable. IMPRESSION: No acute intracranial process. No abnormal intracranial enhancement. Chronic microvascular ischemic changes and generalized volume loss as discussed. [facility]rology Lab EMG/NCS report: Patient: John Navarrete AGE: 87 y.o. Handedness: Left Gender: Female Referring physician: Noah Sommer MD Study date: 02/20/23 Reason for referral: Patient presents with numbness, weakness, and paresthesia in the right hand. EMG/NCS of the right arm is done to evaluate for mononeuropathy affecting the right upper extremity vs. Right cervical radiculopathy. Summary: The right median sensory nerve action potential was absent. The right ulnar sensory nerve action potential was remarkable for a decreased amplitude. The right radial sensory nerve action potential was unremarkable. The right median to ulnar palmar comparison mixed nerve action potential was remarkable for an absent median palmar response. The right median to APB compound muscle action potential was remarkable for a prolonged distal latency, decreased amplitude and a decreased conduction velocity. The right ulnar to ADM compound muscle action potential was remarkable for a decreased conduction velocity across the elbow segment. The right ulnar to FDI compound muscle action potential was remarkable for a decreased conduction velocity across the elbow segment. The right median to ulnar lumbrical interossei comparison study was remarkable for a prolonged median distal latency compared to its ulnar counterpart. Concentric needle EMG was performed in the right upper extremity. No increased insertional activity, fibrillation potentials, fasciculation potentials or positive sharp waves were seen any muscle tested. Motor unit action potentials demonstrated normal morphology and firing pattern throughout. Impression: This is an abnormal study. 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 carpal tunnel syndrome, which is severe electrophysiologically. 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 There is no evidence of a right cervical radiculopathy on this study. All normal values/reference values for this study were taken from the AANEM reference values which were created in 2019. Report Dictated on Electronically Signed By: Parviz Peñaloza Electronically Signed Date/Time: 12/06/2022 3:18 PM EST ASSESSMENT AND PLAN Problem List Items Addressed This Visit None Visit Diagnoses Moderate dementia without behavioral disturbance, psychotic disturbance, mood disturbance, or anxiety, unspecified dementia type (HCC) - Primary Relevant Medications memantine (Namenda) 10 MG tablet Unsteadiness on feet She is to get started on memantine 10 mg BID to help with the memory loss. She is to get PT. I spent 30 minutes caring for this patient today, reviewing labs and records, seeing the patient, documenting in the record and arranging for studies. documented in this encounter [facility] 12-03-2024 Instructions Morro Mccray MD - 12/03/2024 10:00 AM EST Start memantine as follows: Take 1 tab po QPM for 7 days then take 1 tab po BID. documented in this encounter [facility] 11-06-2024 Telephone encounter Note Name of caller: John Contact phone number: [phone] Relationship to Patient: patient Provider: Dr. Mclaughlin Practice: [facility] Chief Complaint/Reason for Call: Spoke with patient and pharmacy would be [facility]. Pharmacy updated. Patient would need medications transferred over. Please advise. Best time of day caller can be reached:any Patient advised that office/PCP has 24-48 business hours to return their call: Yes [facility] 11-06-2024 Miscellaneous Notes Name of caller: John Contact phone number: [phone] Relationship to Patient: patient Provider: Dr. Mclaughlin Practice: [facility] Chief Complaint/Reason for Call: Spoke with patient and pharmacy would be [facility]. Pharmacy updated. Patient would need medications transferred over. Please advise. Best time of day caller can be reached:any Patient advised that office/PCP has 24-48 business hours to return their call: Yes Name of caller: john Contact phone number: [phone] Relationship to Patient: patient Provider: Dr. Mclaughlin Practice: [facility] Chief Complaint/Reason for Call: pt called in, changed mail order [facility], #[phone], could not find in system, needs refill on verapamil, please call and advise Best time of day caller can be reached: AM Patient advised that office/PCP has 24-48 business hours to return their call: Yes documented in this encounter [facility] 11-06-2024 Telephone encounter Note Name of caller: john Contact phone number: [phone] Relationship to Patient: patient Provider: Dr. Mclaughlin Practice: [facility] Chief Complaint/Reason for Call: pt called in, changed mail order [facility], #[phone], could not find in system, needs refill on verapamil, please call and advise Best time of day caller can be reached: AM Patient advised that office/PCP has 24-48 business hours to return their call: Yes [facility] 10-26-2024 Telephone encounter Note Recent Visits Date Type Provider Dept 09/03/24 Office Visit Wilfrido Mclaughlin, DO [facility] 06/23/24 Office Visit Wilfrido Mclaughlin DO [facility] 03/10/24 Office Visit Wilfrido Mclaughlin DO [facility] Showing recent visits within past 365 days and meeting all other requirements Future Appointments Date Type Provider Dept 12/21/24 Appointment Wilfrido Mclaughlin DO [facility] Showing future appointments within next 90 days and meeting all other requirements Requested Prescriptions Pending Prescriptions Disp Refills verapamil SR (Calan SR) 240 MG ER tablet [Pharmacy Med Name: VERAPAMIL 240MG SR TABLET 12H] 90 tablet 1 Sig: Take 1 tablet (240 mg) by mouth Nightly. Provider: Wilfrido Mclaughiln DO Verified pharmacy: yes Verified day(s) supplied: yes Verified refill(s) needed (previous prescription showing no refills in chart): Yes Have you received any controlled medications from any other provider? N/A Overdue for visit: No If yes - patient scheduled? N/A Most recent labs completed in chart? N/A None [facility] 10-26-2024 Miscellaneous Notes Recent Visits Date Type Provider Dept 09/03/24 Office Visit Wilfrido Mclaughlin, DO [facility] 06/23/24 Office Visit Wilfrido Mclaughlin, DO [facility] 03/10/24 Office Visit Wilfrido Mclaughlin DO [facility] Showing recent visits within past 365 days and meeting all other requirements Future Appointments Date Type Provider Dept 12/21/24 Appointment Wilfrido Mclaughlin DO [facility] Showing future appointments within next 90 days and meeting all other requirements Requested Prescriptions Pending Prescriptions Disp Refills verapamil SR (Calan SR) 240 MG ER tablet [Pharmacy Med Name: VERAPAMIL 240MG SR TABLET 12H] 90 tablet 1 Sig: Take 1 tablet (240 mg) by mouth Nightly. Provider: Wilfrido Mclaughlin DO Verified pharmacy: yes Verified day(s) supplied: yes Verified refill(s) needed (previous prescription showing no refills in chart): Yes Have you received any controlled medications from any other provider? N/A Overdue for visit: No If yes - patient scheduled? N/A Most recent labs completed in chart? N/A None documented in this encounter [facility] 09-23-2024 Telephone encounter Note Lyric has been notified of providers message and was put on the cancellation list. Next appointment Dec 03, 2024. [facility] 09-23-2024 Miscellaneous Notes Lyric has been notified of providers message and was put on the cancellation list. Next appointment Dec 03, 2024. Please ask her to hold off on taking the donepezil. Please put her on a cancellation list so that she can be seen by Lisbet Acharya, or me at the soonest available so we can go over what has been happening and come up with a game plan. Lyric called office. States patient wants to cancel MRI. She does not want to do it. She is also requesting a callback to discuss Aricept . She wants to know if patient will go back to how she was previously or be worse. Please advise,. patient has been notified of providers message Please advise them to immediately stop the Aricept. We will re-assess what to do at next appt. Name of caller: Lyric Contact phone number: [phone] Relationship to Patient: family member patient and daughter Provider: Lynn MOBLEY Practice: endo Chief Complaint/Reason for Call: patient has told daughter that she feels worst on this new medication donepezil (Aricept) 5 MG Her memory is worst. Please call daughter back to advise. Best time of day caller can be reached: AM Patient advised that office/PCP has 24-48 business hours to return their call: Yes documented in this encounter [facility] 09-23-2024 Telephone encounter Note Please ask her to hold off on taking the donepezil. Please put her on a cancellation list so that she can be seen by Lisbet Acharya, or at the soonest available so we can go over what has been happening and come up with a game plan. [facility] 09-23-2024 Telephone encounter Note Lyric called office. States patient wants to cancel MRI. She does not want to do it. She is also requesting a callback to discuss Aricept . She wants to know if patient will go back to how she was previously or be worse. Please advise,. [facility] 09-23-2024 Telephone encounter Note patient has been notified of providers message [facility] 09-23-2024 Telephone encounter Note Please advise them to immediately stop the Aricept. We will re-assess what to do at next appt. [facility] 09-23-2024 Telephone encounter Note Name of caller: Lyric Contact phone number: [phone] Relationship to Patient: family member patient and daughter Provider: Lynn MOBLEY Practice: endo Chief Complaint/Reason for Call: patient has told daughter that she feels worst on this new medication donepezil (Aricept) 5 MG Her memory is worst. Please call daughter back to advise. Best time of day caller can be reached: AM Patient advised that office/PCP has 24-48 business hours to return their call: Yes [facility] 09-03-2024 History of Present illness Narrative Images from the original note were not included. [facility] - [address] [facility] [id number] Visit type: Established Patient Reason for Visit: Leg Pain (Left leg ), Rectal Bleeding, and Constipation Assessment / Plan: John was seen today for leg pain, rectal bleeding and constipation. Diagnoses and all orders for this visit: Bursitis of other bursa of left hip (Primary) Comments: Improving, continue Tylenol 1 g twice daily for bursitis. Orders: - XR hip left 2 or 3 views; Future Essential hypertension Comments: Stable, continue as is Other constipation Comments: Chronic, increase Colace daily, more fruit and fiber Rectal bleeding Comments: Resolved, increase Colace daily. Call with update in a week or 2 if recurring for possible GI referral Other orders - acetaminophen (Tylenol) 500 MG tablet; 2 bid prn Subjective: Patient ID: John Navarrete is a 89 y.o. female. HPI hypertensive patient on verapamil presents with concerns of 1 week of pain in her posterior left buttock. No falls injury. 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 Denies sciatica. Things are improving nicely with Tylenol. Also having 2 episodes of bright red bleeding a scant amount on the toilet tissue. Has some general constipation for a long time. History of diverticulosis and small polyp 2 years ago. No repeat colonoscopy was recommended. She generally is eating well and voiding well. No abdominal pain or emesis. No mucus melena or constipation. Review of Systems no cough Dussel symptoms. Has done well. Being worked up for memory loss. She has deferred recheck MRI and screening lab work for Alzheimer's. Denies chest pain or palpitations. Blood pressure well elsewhere. No recent falls or injury. History of SVT and on verapamil for a while. No Known Allergies Current Outpatient Medications on File Prior to Visit Medication Sig Dispense Refill aspirin 81 MG EC tablet Take 81 mg by mouth daily. biotin 07422 MCG tablet Take by mouth daily. 10,000 mcg Calcium Citrate-Vitamin D 250-2.5 MG-MCG tablet Take by mouth. donepezil (Aricept) 5 MG tablet Take 1 tablet (5 mg) by mouth daily with supper. 90 tablet 3 lisinopril 20 MG tablet TAKE 1 TABLET BY MOUTH DAILY 90 tablet 1 Multiple Vitamin tablet Take 1 tablet by mouth in the morning. verapamil SR (Calan SR) 240 MG ER tablet Take 1 tablet (240 mg) by mouth Nightly. Do not crush or chew. 90 tablet 1 No current facility-administered medications on file prior to visit. Patient Active Problem List Diagnosis SVT (supraventricular tachycardia) (HCC) Torus mandibularis Essential hypertension Menopause Mild cognitive impairment with memory loss Cerebral vascular disease Social History Tobacco Use Smoking status: Never Smokeless tobacco: Never Substance Use Topics Alcohol use: No Alcohol/week: 0.0 standard drinks of alcohol Past Surgical History: Procedure Laterality Date BUNIONECTOMY Left 2019 CARPAL TUNNEL RELEASE Right 03/29/2023 Endoscopic right carpal tunnel release - Dr. Sommer CATARACT EXTRACTION W/ INTRAOCULAR LENS IMPLANT, BILATERAL Bilateral COLONOSCOPY W/ POLYPECTOMY 08/2019 COLONOSCOPY W/ POLYPECTOMY 09/2022 Dr. Bedolla- no reason for f/u TRIGGER FINGER RELEASE Right 2020 right middle and ring - Dr Sommer TUBAL LIGATION Family History Problem Relation Name Age of Onset Coronary artery disease Mother 86 age 94 Alcohol abuse Father Sherman age 48 Heart disease Father Sherman 48 High Blood Pressure Sister Radha Valvular heart disease Sister Radha s/p AVR Hyperlipidemia Sister Radha Kidney failure Brother Ed 06/12 age 80 Objective: BP 138/82 Pulse 68 Temp 36.7 C (98 F) (Temporal) Ht 5' 3 (1.6 m) Wt 123 lb (55.8 kg) SpO2 98% BMI 21.79 kg/m Physical Exam pleasant alert and oriented. Well-hydrated. No adenopathy of her neck heart is regular. Lungs are clear. Abdomen soft nontender without pain hepatosplenomegaly or masses. No bruits. Certainly no guarding rigidity or rebound tenderness. Rectal exam revealed a small hemorrhoidal tag with a small crack in it. Possibly recently blood. Not indurated or thrombosed. There is no internal rectal masses on digital exam. Fair range of motion of the back. Pain along the posterior buttock. Negative straight leg raising bilaterally. Normal hip range of motion bilaterally. No motor or sensory loss of the legs feet or toes. Toes downgoing no clonus. She can walk on heels and toes. Pulse color temperature the extremities are normal documented in this encounter [facility] 09-01-2024 History of Present illness Narrative Images from the original note were not included. [facility] [place] [address] [place] [address] [facility] [address] Dept: [phone] Dept Loc: [phone] Morro Mccray MD Thank you for your kind request for a neurological consultation on this patient. CHIEF COMPLAINT: Chief Complaint Patient presents with New Patient Memory Loss HISTORY OF PRESENT ILLNESS: The patient is a 89 y.o. person who presents with memory loss. She is misplaicing things. Onset Gradual? Yes Age over 65? No Alzheimer's Dementia? No Short term memory loss for facts (declarative) while distant memories are spared? No Difficulty with word finding of familiar words? Yes Difficulty with drawing, buttoning shirts, constructing models, making a bed, and putting together something that is unassembled? No Changes in personality, behavior, or comportment? No Difficulty with executive functioning? No Making plans? Yes Keeping track of time and finishing tasks on time? No Meaningfully include past knowledge in discussions? No Ask for help or seek information when needed? No Telling stories with details in an organized, sequential manner? Sometimes Prior history of Parkinson's Disease (Parkinson's Disease relate Dementia)? No Associated with impairment in attention fluctuating during the day or from day to day? No Associated with impairment in tasks requiring construction (visuospatial orientation or perception)? No Associated with impairment in recall of recent events? Yes Associated with apathy? No Associated with depressive mood changes and anxiety? No Associated with hallucinations of people, animals or objects? No Associated with excessive daytime sleepiness? No Associated with delusions? No Associated with parkinsonism bradykinesia, tremor, rigidity, or gait changes (Lewy Body Disease)? No Cognitive impairment (similar to above)? No Hallucinations? No H/o acting out dreams? No Fluctuations in attention? No Orthostasis? Yes Age under 65? No Frontal temporal dementia? No Behavioral variant? No Associated with hallucinations? No Associated with socially inappropriate behavior, loss of manners or decorum? No Associated with impulsivity, rashness, or careless actions? No Associated with apathy, loss of initiative? No Associated with binge eating, binge drinking, binge smoking? No Associated with repetitive movements or repeating the same words over and over? Yes Semantic Variant? No Impaired object naming? No Impaired single-word comprehension? No Difficulty reading or writing? Eye issues limits her reading No trouble repeating? Yes No trouble with speaking clearly or with proper grammar? Yes Nonfluent Agrammatic Variant? No Effortful, halting speech with inconsistent sound errors and distortion? No Impaired comprehension of syntactically complex sentences? No Spared single-word comprehension? No Spared object knowledge? No Corticobasal Degeneration? No Asymmetric limb rigidity, akinesia, dystonia, or myclonus? No Orobuccal or limb apraxia? No Cortical sensory deficit? No Alien limb phenomenon? No Progressive Supranuclear Palsy? No Falls or postural instability? No Urinary incontinence? No Behavioral changes? No Onset Sudden? No Associated with head trauma? No Associated with TIA or Stroke symptoms? No Associated with infection? No Associated with auto-immune disease? No Associated with drug or medication? No Associated with tumor or treatment of tumor? No Associated with diet change or gastric bypass? No Associated with depression, anxiety, psychosis, or other psychiatric disease? No Associated with seizures? No Ask informant to rate the patient's ability using the following scoring system: Dependent= 3 Requires Assistance= 2 Has difficulty but does by self= 1 Normal= 0 Never did the activity but could do now= 0 Never did and would have difficulty now= 1 Score Writing checks, paying bills, balancing checkbook 1 Assembling tax records, business affairs, or papers 0 Shopping alone for clothes, household necessities or groceries 0 Playing a game of skill, working on a hobby 0 Heating water, making a cup of coffee turning off stove after use 0 Preparing a balanced meal 0 Keeping track of current events 0 Paying attention to, understanding, discussing TV, book, magazine 0 Remembering appointments, family occasions, holidays, medications 1 Traveling out of neighborhood, driving, arranging to take a bus 0 Total Score 2 Evaluation Sum scores (range 0-30). Cut-point of 9 (dependent in 3 or more activities) is recommended to indicate impaired function and possible cognitive impairment. She is dizzy when she stands. Not dizzy when seated or lying. Past Medical History: has a past medical history of Hearing loss, History of colon polyps (2018), HTN (hypertension) (2005), Lumbar degenerative disc disease (2018), Osteoporosis, and SVT (supraventricular tachycardia) (HCC) (2017). She has no past medical history of PONV (postoperative nausea and vomiting). Past Surgical History: has a past surgical history that includes Colonoscopy w/ polypectomy (08/2019); Bunionectomy (Left, 2018); Trigger finger release (Right, 2020); Cataract extraction w/ intraocular lens implant, bilateral (Bilateral); Tubal ligation; Colonoscopy w/ polypectomy (09/2022); and Carpal tunnel release (Right, 03/29/2023). Medications: Current Outpatient Medications: aspirin 81 MG EC tablet, Take 81 mg by mouth daily., Disp: , Rfl: biotin 43912 MCG tablet, Take by mouth daily. 10,000 mcg, Disp: , Rfl: Calcium Citrate-Vitamin D 250-2.5 MG-MCG tablet, Take by mouth., Disp: , Rfl: lisinopril 20 MG tablet, TAKE 1 TABLET BY MOUTH DAILY, Disp: 90 tablet, Rfl: 1 Multiple Vitamin tablet, Take 1 tablet by mouth in the morning., Disp: , Rfl: verapamil SR (Calan SR) 240 MG ER tablet, Take 1 tablet (240 mg) by mouth Nightly. Do not crush or chew., Disp: 90 tablet, Rfl: 1 donepezil (Aricept) 5 MG tablet, Take 1 tablet (5 mg) by mouth daily with supper., Disp: 90 tablet, Rfl: 3 Allergies: Patient has no known allergies. Social History: Social History Socioeconomic History Marital status: Spouse name: Not on file Number of children: Not on file Years of education: Not on file Highest education level: Not on file Occupational History Not on file Tobacco Use Smoking status: Never Smokeless tobacco: Never Vaping Use Vaping status: Never Used Substance and Sexual Activity Alcohol use: No Alcohol/week: 0.0 standard drinks of alcohol Drug use: No Sexual activity: Not on file Other Topics Concern Not on file Social History Narrative to Mandeep, NS or ETOH use, has 2 sons and 2 dtr, 7 GC and 6 GCC. 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 Overall Financial Resource Strain (CARDIA) Difficulty of Paying Living Expenses: Not hard at all Food Insecurity: No Food Insecurity (01/16/2022) Received from [facility] Hunger Vital Sign Worried About Running Out of Food in the Last Year: Never true Ran Out of Food in the Last Year: Never true Transportation Needs: No Transportation Needs (02/13/2019) Received from [facility] PRAPARE - Transportation Lack of Transportation (Medical): No Lack of Transportation (Non-Medical): No Physical Activity: Insufficiently Active (05/01/2022) Received from [facility] Exercise Vital Sign Days of Exercise per Week: 7 days Minutes of Exercise per Session: 10 min Stress: No Stress Concern Present (02/13/2019) Received from [facility] [place] [facility] [employer] [facility] - Occupational Stress Questionnaire Feeling of Stress : Only a little Social Connections: Socially Integrated (02/13/2019) Received from [facility] Social Connection and Isolation Panel [NHANES] Frequency of Communication with Friends and Family: More than three times a week Frequency of Social Gatherings with Friends and Family: More than three times a week Attends Holiness Services: More than 4 times per year Active Member of Clubs or Organizations: Yes Attends Club or Organization Meetings: More than 4 times per year Marital Status: Intimate Partner Violence: Not on file Housing Stability: Not on file Family History: Family History Problem Relation Name Age of Onset Coronary artery disease Mother 86 age 94 Alcohol abuse Father Sherman age 48 Heart disease Father Sherman 48 High Blood Pressure Sister Radha Valvular heart disease Sister Radha s/p AVR Hyperlipidemia Sister Radha Kidney failure Brother Ed 06/12 age 80 REVIEW OF SYSTEMS: Review of Systems Constitutional: Negative for appetite change, chills, diaphoresis, fever and unexpected weight change. HENT: Negative for dental problem and mouth sores. Eyes: Negative for discharge and itching. Respiratory: Negative for chest tightness. Cardiovascular: Negative for chest pain and leg swelling. Gastrointestinal: Negative for rectal pain and vomiting. Endocrine: Negative for polydipsia, polyphagia and polyuria. Genitourinary: Negative for decreased urine volume, flank pain and genital sores. Musculoskeletal: Negative for arthralgias. Skin: Negative for color change. Allergic/Immunologic: Negative for food allergies and immunocompromised state. Neurological: Memory Loss Hematological: Negative for adenopathy. Does not bruise/bleed easily. Psychiatric/Behavioral: Negative for agitation, behavioral problems, decreased concentration, sleep disturbance and suicidal ideas. PHYSICAL EXAM: Vitals: BP (!) 149/81 (BP Location: Left arm, Patient Position: Sitting, BP Cuff Size: Adult) Pulse 81 Ht 5' 3 (1.6 m) Wt 123 lb 12.8 oz (56.2 kg) BMI 21.93 kg/m General Appearance: Patient is in no apparent distress. Head is normocephalic, atraumatic Cardiovascular: Regular rate and rhythm. No heart murmurs. No carotid bruit Neurologic: MOCA-b (2013) Mentation: Alert and oriented x 3 to person, place and time. Speech and Language: Speech and language normal Concentration and Attention: Concentration normal Memory: Memory 5/5 immediate, 0/5 delayed Fund of Knowledge: Fund of knowledge normal Cranial Nerves: II, III, IV, V, , VII, VIII, IX, X, XI, XII tested and were intact including fundoscopic exam (optic discs) and visual field to confrontation. Head position changes caused CW nystagmus with fast beat to the right when she was looking right and down beat when looking to the left. Motor: Strength: Strength 5 out of 5 with normal tone Alternating Movements: Normal Cogwheel Rigidity: None Tone: Tone is normal Tremor / Involuntary Movements: None Deep Tendon Reflexes: 1 out of 4 symmetrical in all four limbs. Coordination: Normal coordination upper and lower extremities Gait and Station: Gait and Station is normal DATA No results found for: PHENYTOIN, PHENOBARB, VALPROATE, CBMZ Lab Results Component Value Date WBC 6.6 03/10/2024 HGB 14.0 03/10/2024 HCT 41.5 03/10/2024 PLT 269 03/10/2024 ALT 15 06/24/2024 AST 20 06/24/2024 NA 137 01/16/2022 K 4.3 01/16/2022 CL 103 01/16/2022 CREATININE 1.05 (H) 06/24/2024 BUN 22 06/24/2024 CO2 26 06/24/2024 TSH 2.80 03/10/2024 @LASTAPPOINTMENTTHISPROV@ XR chest 2 views Narrative: Patient Name: JOHN NAVARRETE : 1935 Exam Date/Time: 06/23/2024 14:05 Procedure: XR CHEST 2 VIEWS Ordering Provider: MCLAUGHLIN EUGENE Reason For Exam: cough for 3 wks CHEST: CLINICAL INDICATION: cough for 3 wks TECHNIQUE: PA and Lateral COMPARISON: None FINDINGS: No focal consolidation or pulmonary edema. No pleural effusions or pneumothorax. The heart demonstrates normal size. Calcification of the thoracic aorta is noted. Degenerative change of the thoracic spine is noted. Levoscoliosis of the mid to lower thoracic spine. Impression: No focal consolidation or pulmonary edema. Report Dictated on Electronically Signed By: Daniel Montgomery MD Electronically Signed Date/Time: 06/23/2024 3:23 PM EDT No results found for: LEVETIRACETA, FERRITIN, CRP, BRADLEY, ANCANo components found for: TOPIRA No results found for: SHERMAN, IMMUNOGLOBUL, OLIGOBANDS VITAMIN B12 Date Value Ref Range Status 06/24/2024 567 200 - 1,100 pg/mL Final No results found for: [id number], HEPCAB Procedure: MR BRAIN W AND WO CONTRAST Ordering Provider: IRAHETA PAUL Reason For Exam: Ataxia EXAMINATION: MR BRAIN W AND WO CONTRAST HISTORY: Ataxia TECHNIQUE: Multiplanar, multisequence MRI of the brain was performed without and with intravenous gadolinium contrast. Contrast: 5.6mL Gadavist IV COMPARISON: None RESULT: Acute Change: There is no evidence of restricted diffusion to suggest an acute infarct. Hemorrhage: Small focus of susceptibility artifact at the lateral margin of the left lentiform nucleus may represent microhemorrhage, small vessel or mineralization. Mass Lesion/ Mass Effect: Discontinuity of the falx with small interhemispheric cyst anteriorly. No significant mass effect. There is otherwise no evidence of an intracranial mass or extra-axial fluid collection. No abnormal parenchymal or leptomeningeal enhancement is noted following contrast administration. Chronic Change: Extensive, confluent increased T2 and FLAIR signal is present in the supratentorial white matter which is nonspecific but likely represents extensive chronic microvascular ischemia. Patchy T2/FLAIR signal changes in the terry are also likely related to microvascular ischemic changes. Old small lacunar infarcts in the bilateral left greater than right basal ganglia. Small old infarct in the right cerebellar hemisphere. Parenchyma: There is moderate to severe generalized parenchymal volume loss. Ventricles: Ventriculomegaly corresponds to the degree of parenchymal volume loss. Skull Base: Hypothalamic and pituitary region are grossly normal. Craniocervical junction is normal. No significant marrow replacement process. Vasculature: Major intracranial arterial structures, and dural venous sinuses show typical flow void, suggesting patency by spin echo criteria. Other: 1.9 cm mucous retention cyst or polyp in the left maxillary sinus. Small right mastoid effusions. The visualized paranasal sinuses and mastoid air cells are clear. Bilateral lens replacements. The orbits and extracranial soft tissues are unremarkable. IMPRESSION: No acute intracranial process. No abnormal intracranial enhancement. Chronic microvascular ischemic changes and generalized volume loss as discussed. [facility] Lab EMG/NCS report: Patient: John Navarrete AGE: 87 y.o. Handedness: Left Gender: Female Referring physician: Noah Sommer MD Study date: 02/20/23 Reason for referral: Patient presents with numbness, weakness, and paresthesia in the right hand. EMG/NCS of the right arm is done to evaluate for mononeuropathy affecting the right upper extremity vs. Right cervical radiculopathy. Summary: The right median sensory nerve action potential was absent. The right ulnar sensory nerve action potential was remarkable for a decreased amplitude. The right radial sensory nerve action potential was unremarkable. The right median to ulnar palmar comparison mixed nerve action potential was remarkable for an absent median palmar response. The right median to APB compound muscle action potential was remarkable for a prolonged distal latency, decreased amplitude and a decreased conduction velocity. The right ulnar to ADM compound muscle action potential was remarkable for a decreased conduction velocity across the elbow segment. The right ulnar to FDI compound muscle action potential was remarkable for a decreased conduction velocity across the elbow segment. The right median to ulnar lumbrical interossei comparison study was remarkable for a prolonged median distal latency compared to its ulnar counterpart. Concentric needle EMG was performed in the right upper extremity. No increased insertional activity, fibrillation potentials, fasciculation potentials or positive sharp waves were seen any muscle tested. Motor unit action potentials demonstrated normal morphology and firing pattern throughout. Impression: This is an abnormal study. 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 carpal tunnel syndrome, which is severe electrophysiologically. 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 There is no evidence of a right cervical radiculopathy on this study. All normal values/reference values for this study were taken from the AANEM reference values which were created in 2019. Report Dictated on Electronically Signed By: Parviz Peñaloza Electronically Signed Date/Time: 12/06/2022 3:18 PM EST ASSESSMENT AND PLAN Problem List Items Addressed This Visit None Visit Diagnoses Moderate dementia without behavioral disturbance, psychotic disturbance, mood disturbance, or anxiety, unspecified dementia type (HCC) - Primary Relevant Orders [facility] AD-Detect , Beta-Amyloid 42/40 Ratio, Plasma Test code: 06262 - Miscellaneous Test [facility]-Detect [id number], plasma. Test code 18062 - Miscellaneous Test [facility] Apolipoprotein E (ApoE) Isoform, Plasma Test Code 40702 - Miscellaneous Test MR brain wo contrast Vertigo Relevant Orders MR brain wo contrast Donepezil 5 mg po QPM. Definitely has a lot of vascular disease on MRI brain. I advised her to avoid driving as much as possible. It is medically necessary for her to get biomarker testing for Alzheimer's. The pt is to get MRI brain I spent 55 minutes caring for this patient today, reviewing labs and records, seeing the patient, documenting in the record and arranging for studies. documented in this encounter [facility] 08-11-2024 Telephone encounter Note Recent Visits Date Type Provider Dept 06/23/24 Office Visit Wilfrido Mclaughlin, DO [facility] 03/10/24 Office Visit Wilfrido Mclaughlin, DO [facility] 08/29/23 Office Visit Morro Quintana PA-C [facility] Showing recent visits within past 365 days and meeting all other requirements Future Appointments No visits were found meeting these conditions. Showing future appointments within next 90 days and meeting all other requirements Requested Prescriptions Pending Prescriptions Disp Refills lisinopril 20 MG tablet [Pharmacy Med Name: Lisinopril 20 MG Oral Tablet] 90 tablet 1 Sig: TAKE 1 TABLET BY MOUTH DAILY Provider: Wilfrido Mclaughlin DO Verified pharmacy: yes Verified day(s) supplied: yes Verified refill(s) needed (previous prescription showing no refills in chart): Yes Have you received any controlled medications from any other provider? N/A Overdue for visit: No If yes - patient scheduled? N/A Most recent labs completed in chart? Yes Hypertension: Lab Results Component Value Date NA 137 01/16/2022 K 4.3 01/16/2022 EGFR 51 (L) 06/24/2024 BUN 22 06/24/2024 CREATININE 1.05 (H) 06/24/2024 [facility] 08-11-2024 Miscellaneous Notes Recent Visits Date Type Provider Dept 06/23/24 Office Visit Wilfrido Mclaughlin, DO [facility] 03/10/24 Office Visit Wilfrido Mclaughlin DO [facility] 08/29/23 Office Visit Morro Quintana PA-C [facility] Showing recent visits within past 365 days and meeting all other requirements Future Appointments No visits were found meeting these conditions. Showing future appointments within next 90 days and meeting all other requirements Requested Prescriptions Pending Prescriptions Disp Refills lisinopril 20 MG tablet [Pharmacy Med Name: Lisinopril 20 MG Oral Tablet] 90 tablet 1 Sig: TAKE 1 TABLET BY MOUTH DAILY Provider: Wilfrido Mclaughlin DO Verified pharmacy: yes Verified day(s) supplied: yes Verified refill(s) needed (previous prescription showing no refills in chart): Yes Have you received any controlled medications from any other provider? N/A Overdue for visit: No If yes - patient scheduled? N/A Most recent labs completed in chart? Yes Hypertension: Lab Results Component Value Date NA 137 01/16/2022 K 4.3 01/16/2022 EGFR 51 (L) 06/24/2024 BUN 22 06/24/2024 CREATININE 1.05 (H) 06/24/2024 documented in this encounter [facility] 06-25-2024 Note Referral pended for dx and doctor's signature [facility] 06-25-2024 Telephone encounter Note Referral pended for dx and doctor's signature [facility] 06-25-2024 Miscellaneous Notes Referral pended for dx and doctor's signature Placed call to patient. Two patient identifers confirmed. Was able to speak to patient. All concerns in message have been addressed. No questions at this time. Call ended Name of caller: John Relationship to patient: patient Contact phone number: [phone] Speciality referral requested for: Neurology Diagnosis or reason for referral: Patients forgetfulness as discussed with Dr. Mclaughlin Name of specialist: n/a Name of group/practice: [facility] Patient verified insurance covers referral: N/A Patient insurance: Medicare A and B Has patient seen this specialist in the past: No Estimated time/date patient last saw the specialist: n/a Patient requesting a phone call once referral is placed. States she is not good at using her MyChart. documented in this encounter [facility] 06-24-2024 Telephone encounter Note Placed call to patient. Two patient identifers confirmed. Was able to speak to patient. All concerns in message have been addressed. No questions at this time. Call ended [facility] 06-24-2024 Telephone encounter Note Name of caller: John Relationship to patient: patient Contact phone number: [phone] Speciality referral requested for: Neurology Diagnosis or reason for referral: Patients forgetfulness as discussed with Dr. Mclaughlin Name of specialist: n/a Name of group/practice: [facility] Patient verified insurance covers referral: N/A Patient insurance: Medicare A and B Has patient seen this specialist in the past: No Estimated time/date patient last saw the specialist: n/a Patient requesting a phone call once referral is placed. States she is not good at using her MyChart. [facility] 06-23-2024 History of Present illness Narrative Images from the original note were not included. [facility] [address] [place] [id number] Visit type: Established Patient Reason for Visit: Follow-up (Med check) and Cough (X 3 wk ) Assessment / Plan: John was seen today for follow-up and cough. Diagnoses and all orders for this visit: Subacute cough (Primary) Comments: X-ray, zdzv-kii-ysioevd Robitussin-questionable LUBNA inhibitor cough Orders: - XR chest 2 views; Future Essential hypertension Comments: Well-controlled at home, continue verapamil and lisinopril Memory loss Comments: Reviewed past MRI. She will talk with family about neurology consultation,, check lab, baby aspirin daily Orders: - Comprehensive metabolic panel; Future - Vitamin B12; Future - Comprehensive metabolic panel - Vitamin B12 Lipid screening - Lipid panel; Future - Lipid panel Cerebral vascular disease Comments: Reviewed MRI of the head Subjective: Patient ID: John Navarrete is a 89 y.o. female. HPI hypertensive non-smoker presents for checkup but also worried about 3 weeks of a dry cough. Does not feel particularly ill. Negative COVID exam yesterday. Denies fevers shortness of breath or chest pain. Occasional clear phlegm. No history of allergies. Denies exertional dyspnea or edema Review of Systems does bring up about her feeling dizzy still. In November 2022 complaints of dizziness and memory loss were addressed with MRI of the head. Showed possible bilateral lacunar infarcts. Moderate severe generalized parenchymal volume loss but no signs of hydrocephalus or other worrisome features. Had some mild sinus issues. Denies exertional dyspnea or chest pain or sense of palpitations. Echocardiogram done in 2018 not available to review. Complains of intermittent dizzy with turning position. No diplopia or unilateral numbness of the face arm or legs. She does feel she memory is not as good but she reads a lot and feels it is stable. No headache or incontinence. Has not driven in a year due to her 's concerns about her getting dizzy while driving. No change in bowels or bladder. Overall feels well with rare arthralgia. He is pretty positive and upbeat No Known Allergies Current Outpatient Medications on File Prior to Visit Medication Sig Dispense Refill aspirin 81 MG EC tablet Take 81 mg by mouth daily. biotin 85637 MCG tablet Take by mouth daily. 10,000 mcg Calcium Citrate-Vitamin D 250-2.5 MG-MCG tablet Take by mouth. lisinopril 20 MG tablet Take 1 tablet (20 mg) by mouth daily. 90 tablet 1 Multiple Vitamin tablet Take 1 tablet by mouth in the morning. verapamil SR (Calan SR) 240 MG ER tablet Take 1 tablet (240 mg) by mouth Nightly. Do not crush or chew. 90 tablet 1 No current facility-administered medications on file prior to visit. Patient Active Problem List Diagnosis SVT (supraventricular tachycardia) (HCC) Torus mandibularis Essential hypertension Menopause Mild cognitive impairment with memory loss Cerebral vascular disease Social History Tobacco Use Smoking status: Never Smokeless tobacco: Never Substance Use Topics Alcohol use: No Alcohol/week: 0.0 standard drinks of alcohol Past Surgical History: Procedure Laterality Date BUNIONECTOMY Left 2018 Hallux Valgus correction CARPAL TUNNEL RELEASE Right 03/29/2023 Endoscopic right carpal tunnel release - Dr. Sommer CATARACT EXTRACTION W/ INTRAOCULAR LENS IMPLANT, BILATERAL Bilateral COLONOSCOPY W/ POLYPECTOMY 08/2019 no reason to repeat COLONOSCOPY W/ POLYPECTOMY 09/2022 no reason for f/u TRIGGER FINGER RELEASE Right 2020 right middle and ring - Dr Sommer TUBAL LIGATION Family History Problem Relation Name Age of Onset Coronary artery disease Mother 86 age 94 Alcohol abuse Father Sherman age 48 Heart disease Father Sherman 48 High Blood Pressure Sister Radha Valvular heart disease Sister Radha s/p AVR Hyperlipidemia Sister Radha Kidney failure Brother Ed 06/12 age 80 Objective: BP 138/74 Pulse 76 Temp 36.1 C (97 F) (Temporal) Ht 5' 3 (1.6 m) Wt 124 lb 6.4 oz (56.4 kg) SpO2 98% BMI 22.04 kg/m Physical Exam exam was unremarkable.. Alert and oriented. She is well-groomed. Has good eye contact and insight. Pupils equal. Extraocular muscles are intact. Cranial nerves are normal. Normal rfeaty-vp-mlls tandem gait testing and lumbar testing. No carotid bruits. No adenopathy or neck masses. No thyroid lesions. Heart is regular. No murmurs. Lungs are clear without rales wheezes or cough abdomen scaphoid without pain hepatosplenomegaly masses or bruits femoral pulses good. No abnormal documented in this encounter [facility] 06-23-2024 Instructions Wilfrido Mclaughlin DO - 06/23/2024 1:00 PM EDT Consider seeing a neurologist in the future for evaluation for your memory loss and dizziness documented in this encounter [facility] 06-23-2024 Note Consider seeing a ne urologist in the future for evaluation for your memory loss and dizziness [facility] 05-11-2024 Telephone encounter Note Recent Visits Date Type Provider Dept 03/10/24 Office Visit Wilfrido Mclaughlin DO [facility] 08/29/23 Office Visit Morro Quintana PA-C [facility] Showing recent visits within past 365 days and meeting all other requirements Future Appointments Date Type Provider Dept 06/23/24 Appointment Wilfrido Castro DO [facility] Showing future appointments within next 90 days and meeting all other requirements Requested Prescriptions Pending Prescriptions Disp Refills verapamil SR (Calan SR) 240 MG ER tablet 90 tablet 1 Sig: Take 1 tablet (240 mg) by mouth Nightly. Do not crush or chew. Provider: Wilfrido Mclaughlin DO Verified pharmacy: yes Verified day(s) supplied: yes Verified refill(s) needed (previous prescription showing no refills in chart): Yes Have you received any controlled medications from any other provider? N/A Overdue for visit: No If yes - patient scheduled? Yes Most recent labs completed in chart? N/A [facility] 05-11-2024 Miscellaneous Notes Recent Visits Date Type Provider Dept 03/10/24 Office Visit Wilfrido Mclaughlin DO [facility] 08/29/23 Office Visit Morro Quintana PA-C [facility] Showing recent visits within past 365 days and meeting all other requirements Future Appointments Date Type Provider Dept 06/23/24 Appointment Wilfrido Mclaughlin DO [facility] Showing future appointments within next 90 days and meeting all other requirements Requested Prescriptions Pending Prescriptions Disp Refills verapamil SR (Calan SR) 240 MG ER tablet 90 tablet 1 Sig: Take 1 tablet (240 mg) by mouth Nightly. Do not crush or chew. Provider: Wilfrido Mclaughlin DO Verified pharmacy: yes Verified day(s) supplied: yes Verified refill(s) needed (previous prescription showing no refills in chart): Yes Have you received any controlled medications from any other provider? N/A Overdue for visit: No If yes - patient scheduled? Yes Most recent labs completed in chart? N/A Medication name: verapamil SR (Calan SR) 240 MG ER tablet Medication dosage: 240 mg (Miligrams Monthly quantity needed: 90 How many day supply requestin year Medication route: oral (PO) Medication administration time(s): bedtime (HS) If taking medication PRN, reason for taking medication: N/A If this is a controlled substance do you receive this or any other controlled medication from any other doctor or facility: No Ordering provider: Dr. Mclaughlin Date of last office visit: 03.10.2024 Date of next office visit: 06.23.2024 Date of last refill: (see medication tab): 01.20.2024 Updated/Validated preferred pharmacy: Yes Patient instructed to contact the pharmacy prior to picking up the medication: Yes documented in this encounter [facility] 05-11-2024 Telephone encounter Note Medication name: verapamil SR (Calan SR) 240 MG ER tablet Medication dosage: 240 mg (Miligrams Monthly quantity needed: 90 How many day supply requestin year Medication route: oral (PO) Medication administration time(s): bedtime (HS) If taking medication PRN, reason for taking medication: N/A If this is a controlled substance do you receive this or any other controlled medication from any other doctor or facility: No Ordering provider: Dr. Mclaughlin Date of last office visit: 03.10.2024 Date of next office visit: 06.23.2024 Date of last refill: (see medication tab): 01.20.2024 Updated/Validated preferred pharmacy: Yes Patient instructed to contact the pharmacy prior to picking up the medication: Yes [facility] 04-30-2024 History of Present illness Narrative Images from the original note were not included. [address] [facility] [id number] @patname@ Patient arrived for nurse visit today. Two patient identifiers used to confirm correct patient yes Supervising provider for clinic visit Wilfrido Mclaughlin is taking verapamil and lisinopril for hypertension with excellent compliance and no side effects large Shortness of breath no Medication compliance yes Medication Reconciliation yes BP Medication taken prior to visit yes at what time Verapamil at 8:30 am B/P Reading taken manual Home Monitoring yes Patient advised if follow up is needed, outreach will occur in 48 hours 114/62 pulse 69 Also patient has a log of bp check scanned into media Blood pressure reading okay, no med changes Placed call to patient. Was able to speak to patient. All concerns in message have been addressed. No questions at this time. Call ended documented in this encounter [facility] 04-03-2024 History of Present illness Narrative Associated Order(s): Debridement Post-Procedure Diagnose(s): Open wound of left lower leg, subsequent encounter; Pain in left leg; Edema of left lower leg Images from the original note were not included. Wound Care Visit CHIEF COMPLAINT: Chief Complaint Patient presents with Wound Care PT presents today for evaluation of left leg wound. She relates that her leg has again improved in comfort. Her has been performing daily dressing changes. She is doing well and has been noting improvement with the wound HISTORY OF PRESENT ILLNESS: The patient is a 88 y.o. female with significant past medical history of Past Medical History: Diagnosis Date Hearing loss History of colon polyps 2019 Dr. Afshan garcia 2021, defers rech exams HTN (hypertension) 2006 Lumbar degenerative disc disease 2019 Osteoporosis SVT (supraventricular tachycardia) (HCC) 2018 [facility] ECHO- Dr. Freedman consultation, [facility] Past Medical History: Past Medical History: Diagnosis Date Hearing loss History of colon polyps 2019 Dr. Afshan garcia 2021, defers rech exams HTN (hypertension) 2006 Lumbar degenerative disc disease 2019 Osteoporosis SVT (supraventricular tachycardia) (HCC) 2018 [facility] ECHO- Dr. Freedman consultation, [facility] Past Surgical History: Past Surgical History: Procedure Laterality Date BUNIONECTOMY Left 2018 Hallux Valgus correction CARPAL TUNNEL RELEASE Right 03/29/2023 Endoscopic right carpal tunnel release - Dr. Sommer CATARACT EXTRACTION W/ INTRAOCULAR LENS IMPLANT, BILATERAL Bilateral COLONOSCOPY W/ POLYPECTOMY 08/2019 no reason to repeat COLONOSCOPY W/ POLYPECTOMY 09/2022 no reason for f/u TRIGGER FINGER RELEASE Right 2020 right middle and ring -dr sommer TUBAL LIGATION Current Medications: Current Outpatient Medications: aspirin 81 MG EC tablet, Take 81 mg by mouth daily., Disp: , Rfl: lisinopril 20 MG tablet, Take 1 tablet (20 mg) by mouth daily., Disp: 90 tablet, Rfl: 1 Multiple Vitamin tablet, Take 1 tablet by mouth in the morning., Disp: , Rfl: verapamil SR (Calan SR) 240 MG ER tablet, Take 1 tablet (240 mg) by mouth Nightly. Do not crush or chew., Disp: 90 tablet, Rfl: 0 Allergies: No Known Allergies Social History: Social History Socioeconomic History Marital status: Spouse name: Not on file Number of children: Not on file Years of education: Not on file Highest education level: Not on file Occupational History Not on file Tobacco Use Smoking status: Never Smokeless tobacco: Never Vaping Use Vaping Use: Never used Substance and Sexual Activity Alcohol use: No Alcohol/week: 0.0 standard drinks of alcohol Drug use: No Sexual activity: Not on file Other Topics Concern Not on file Social History Narrative to Mandeep, NS or ETOH use, has 2 sons and 2 dtr, 7 GC and 6 GCC. 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 of Health Financial Resource Strain: Not on file Food Insecurity: Not on file Transportation Needs: Not on file Physical Activity: Not on file Stress: Not on file Social Connections: Not on file Intimate Partner Violence: Not on file Housing Stability: Not on file Family History: Family History Problem Relation Name Age of Onset Coronary artery disease Mother 86 age 94 Alcohol abuse Father Sherman age 48 Heart disease Father Sherman 48 High Blood Pressure Sister Radha Valvular heart disease Sister Radha s/p AVR Hyperlipidemia Sister Radha Kidney failure Brother Ed 06/12 age 80 REVIEW OF SYSTEMS: Review of Systems Constitutional: Negative for chills and fever. HENT: Negative for sore throat. Respiratory: Negative for shortness of breath. Cardiovascular: Negative for leg swelling. Gastrointestinal: Negative for diarrhea, nausea and vomiting. Skin: Positive for wound. PHYSICAL EXAM: Physical Exam Constitutional: Appearance: Normal appearance. HENT: Head: Normocephalic. Musculoskeletal: General: Tenderness and signs of injury present. Skin: Capillary Refill: Capillary refill takes 2 to 3 seconds. Findings: Wound present. Comments: ulceration with minimal erythema zahra wound, drainage clear noted, no streaking, no purulent drainage, decreased pain to palpation, wound bed is 50% slough, 50% granulation tissue, new skin formation noted along the wound edges, wound continues to improve Neurological: Mental Status: She is alert and oriented to person, place, and time. Psychiatric: Mood and Affect: Mood normal. Vitals: BP (!) 148/69 Pulse 64 Temp 36.6 C (97.9 F) Resp 18 Wound: Wound/Incision Incision Wrist Anterior;Right (Active) Wound/Incision 02/28/24 Venous Ulcer Leg Lower;Left;Lateral (Active) Wound Image 04/03/24 1423 Site Assessment Sloughing 04/03/24 1423 Zahra-Wound Assessment Hyperpigmented 04/03/24 1423 Wound Length (cm) 1.4 cm 04/03/24 1423 Wound Width (cm) 1 cm 04/03/24 1423 Wound Surface Area (cm^2) 1.4 cm^2 04/03/24 1423 Wound Depth (cm) 0.1 cm 04/03/24 1423 Wound Volume (cm^3) 0.14 cm^3 04/03/24 1423 Wound Healing % 53 04/03/24 1423 Drainage Description Serosanguineous 04/03/24 1423 Odor None 04/03/24 1423 Drainage Amount Moderate 04/03/24 1423 Treatments Cleansed 04/03/24 1423 Primary Dressing Collagen 04/03/24 1519 Secondary Dressing 4x4 gauze 04/03/24 1519 Secured with Kerlex 04/03/24 1519 Compression Double Layer tubigrip 04/03/24 1519 Dressing Status New dressing 04/03/24 1519 Wound Bed Granulation (%) 10 % 04/03/24 1423 Wound Bed Slough (%) 90 % 06/14/24 1423 Lab Results Component Value Date WBC 6.6 03/10/2024 HGB 14.0 03/10/2024 HCT 41.5 03/10/2024 MCV 94.1 03/10/2024 PLT 269 03/10/2024 Lab Results Component Value Date GLUCOSE 89 03/10/2024 CALCIUM 10.0 03/10/2024 NA 137 01/16/2022 K 4.3 01/16/2022 CO2 27 03/10/2024 CL 103 01/16/2022 BUN 25 03/10/2024 CREATININE 0.92 03/10/2024 No results found for: HGBA1C No results found for: SEDRATE No results found for: CRP No results found for: LABGRAM No components found for: LABAERO No components found for: LABANAE IMPRESSION 1. Pain in left leg 2. Open wound of left lower leg, subsequent encounter 3. Edema of left lower leg PLAN: Orders Placed This Encounter Procedures Debridement This order was created via procedure documentation Standing Status: Standing Number of Occurrences: 1 Wound Care OP Follow-up 2 weeks Dressing Order: Collagen; Daily; 4x4 gauze; Kerlex, Paper tape; Double Layer tubigrip To cleanse wound apply Hibiclens for 3 minutes and rinse with saline Order Specific Question: Primary Dressing Answer: Collagen Order Specific Question: Dressing Frequency Answer: Daily Order Specific Question: Secondary Dressing Answer: 4x4 gauze Order Specific Question: Secured With Answer: Kerlex Order Specific Question: Secured With Answer: Paper tape Order Specific Question: Compression Answer: Double Layer tubigrip Debridement Wound/Incision 02/28/24 Venous Ulcer Leg Lower;Left;Lateral Performed by: Elisabeth Fairbanks DPM Authorized by: Elisabeth Fairbanks DPM Consent Consent obtained? verbal Consent given by: patient Risks discussed? procedural risks discussed Debridement Details Performed by: physician Debridement type: surgical Level of debridement: subcutaneous tissue Pain control: lidocaine 2% Pain control administration type: topical Pre-debridement measurements Length (cm): 1.4 Width (cm): 1 Depth (cm): 0.1 Surface Area (cm^2): 1.4 Post-debridement measurements Length (cm): 1.4 Width (cm): 1 Depth (cm): 0.1 Percent debrided: 50% Surface Area (cm^2): 1.4 Area Debrided (cm^2): 0.7 Volume (cm^3): 0.14 Tissue and other material debrided: subcutaneous tissue Devitalized tissue debrided: slough Instrument(s) utilized: curette Bleeding: small Hemostasis obtained with: not applicable Procedural pain (0-10): 0 Post-procedural pain: 0 Response to treatment: procedure was tolerated well 02/28/24 wound assessed. Continue taking oral abx as prescribed by other provider. Hibiclens wash with saline rinse. Pat dry. Cover with dressing as ordered and compression daily. Monitor and call with any additional concerns. Follow up one week 03/06/24 debrided wound. Continues with hibiclens and saline rinse. Apply collagen and DSD to wound daily, cover with DSD and compression. Good improvement this week. Follow up one week for re eval 03/13/24 debrided wound today. Continue with collagen and DSD daily with compression. Wound is improving. Follow up one week 03/20/24 debrided wound. Continue with collagen and DSD with compression daily. Pleased with progress. Follow up 2 weeks for re eval 04/03/24 debrided wound. Continue with collagen dressing as ordered. Wound is making good improvement. Follow up 2 weeks No follow-ups on file. Elisabeth Fairbanks DPM 04/03/2024 3:31 PM documented in this encounter [facility] 04-03-2024 Hospital Discharge instructions Elisa Moise RN - 04/03/2024 2:00 PM EDT To cleanse wound apply Hibiclens for 3 minutes and rinse with saline. After cleansing, apply lightly moistened collagen directly on wound, and cover with gauze. Change dressings daily. Wear double layer tubigrip on left lower leg daily- apply from behind the toes to below the knee, readjust as needed to keep in proper place. Signs and symptoms of wound infection: - fever - flu-like symptoms - pus or unusual drainage - foul odor - worsening of wound - spreading redness or warmth around the wound - increased pain - increasing and/or uncontrolled blood sugar for diabetics Call the wound care clinic to report these symptoms. When the wound care clinic is closed, either after hours, on weekends, or on holidays, go to urgent care or the emergency department for treatment. You should go directly to the emergency department for severe signs or symptoms of infection. documented in this encounter [facility] 03-31-2024 History of Present illness Narrative Images from the original note were not included. [address] [place] [address] [address] [facility] [phone] @patname@ Patient arrived for nurse visit today. Two patient identifiers used to confirm correct patient yes Supervising provider for clinic visit Dr. Mclaughlin is taking Lisinopril and verampil for hypertension with excellent compliance and some side effects. Stated she feels it is causing constipation regular Shortness of breath no Medication compliance yes Medication Reconciliation yes BP Medication taken prior to visit yes at what time 7:00am B/P Reading taken manual Home Monitoring no Patient advised if follow up is needed, outreach will occur in 48 hours First BP: 154/80 Second BP:144/78 HR:78 Blood pressure not at goal, I have increased lisinopril to 20 mg daily. 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 documented in this encounter [facility] 03-20-2024 History of Present illness Narrative Associated Order(s): Debridement Post-Procedure Diagnose(s): Cellulitis of left leg; Open wound of left lower leg, subsequent encounter; Pain in left leg Images from the original note were not included. Wound Care Visit CHIEF COMPLAINT: Chief Complaint Patient presents with Wound Care PT presents today for evaluation of left leg wound. She relates improvement in comfort this week. She has been compliant with dressing changes and compression. HISTORY OF PRESENT ILLNESS: The patient is a 88 y.o. female with significant past medical history of Past Medical History: Diagnosis Date Hearing loss History of colon polyps 2019 Dr. Afshan garcia 2021, defers rech exams HTN (hypertension) 2006 Lumbar degenerative disc disease 2019 Osteoporosis SVT (supraventricular tachycardia) (HCC) 2017 [facility] ECHO- Dr. Freedman consultation, [facility] Past Medical History: Past Medical History: Diagnosis Date Hearing loss History of colon polyps 2019 Dr. Afshan garcia 2021, defers rech exams HTN (hypertension) 2006 Lumbar degenerative disc disease 2019 Osteoporosis SVT (supraventricular tachycardia) (HCC) 2017 [facility] ECHO- Dr. Freedman consultation, [facility] Past Surgical History: Past Surgical History: Procedure Laterality Date BUNIONECTOMY Left 2018 Hallux Valgus correction CARPAL TUNNEL RELEASE Right 03/29/2023 Endoscopic right carpal tunnel release - Dr. Sommer CATARACT EXTRACTION W/ INTRAOCULAR LENS IMPLANT, BILATERAL Bilateral COLONOSCOPY W/ POLYPECTOMY 08/2019 no reason to repeat COLONOSCOPY W/ POLYPECTOMY 09/2022 no reason for f/u TRIGGER FINGER RELEASE Right 2020 right middle and ring -dr sommer TUBAL LIGATION Current Medications: Current Outpatient Medications: aspirin 81 MG EC tablet, Take 81 mg by mouth daily., Disp: , Rfl: lisinopril 10 MG tablet, Take 1 tablet (10 mg) by mouth daily., Disp: 30 tablet, Rfl: 5 Multiple Vitamin tablet, Take 1 tablet by mouth in the morning., Disp: , Rfl: verapamil SR (Calan SR) 240 MG ER tablet, Take 1 tablet (240 mg) by mouth Nightly. Do not crush or chew., Disp: 90 tablet, Rfl: 0 Allergies: No Known Allergies Social History: Social History Socioeconomic History Marital status: Spouse name: Not on file Number of children: Not on file Years of education: Not on file Highest education level: Not on file Occupational History Not on file Tobacco Use Smoking status: Never Smokeless tobacco: Never Vaping Use Vaping Use: Never used Substance and Sexual Activity Alcohol use: No Alcohol/week: 0.0 standard drinks of alcohol Drug use: No Sexual activity: Not on file Other Topics Concern Not on file Social History Narrative to Mandeep, NS or ETOH use, has 2 sons and 2 dtr, 7 GC and 6 GCC. 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 of Health Financial Resource Strain: Not on file Food Insecurity: Not on file Transportation Needs: Not on file Physical Activity: Not on file Stress: Not on file Social Connections: Not on file Intimate Partner Violence: Not on file Housing Stability: Not on file Family History: Family History Problem Relation Name Age of Onset Coronary artery disease Mother 86 age 94 Alcohol abuse Father Sherman age 48 Heart disease Father Sherman 48 High Blood Pressure Sister Radha Valvular heart disease Sister Radha s/p AVR Hyperlipidemia Sister Radha Kidney failure Brother Ed 06/12 age 80 REVIEW OF SYSTEMS: Review of Systems Constitutional: Negative for chills and fever. HENT: Negative for sore throat. Respiratory: Negative for shortness of breath. Cardiovascular: Negative for leg swelling. Gastrointestinal: Negative for diarrhea, nausea and vomiting. Skin: Positive for wound. PHYSICAL EXAM: Physical Exam Constitutional: Appearance: Normal appearance. HENT: Head: Normocephalic. Musculoskeletal: General: Tenderness and signs of injury present. Skin: Capillary Refill: Capillary refill takes 2 to 3 seconds. Findings: Wound present. Comments: ulceration with mild erythema zahra wound, drainage clear noted, no streaking, no purulent drainage, decreased pain to palpation, wound bed is 50% slough and fibrin, 50% granulation tissue, new skin formation noted along the wound edges Neurological: Mental Status: She is alert and oriented to person, place, and time. Psychiatric: Mood and Affect: Mood normal. Vitals: BP (!) 154/70 Pulse 76 Temp 36.9 C (98.5 F) Resp 18 Wound: Wound/Incision Incision Wrist Anterior;Right (Active) Wound/Incision 02/28/24 Venous Ulcer Leg Lower;Left;Lateral (Active) Wound Image 03/20/24 1424 Site Assessment Sloughing 03/20/24 1400 Zahra-Wound Assessment Hyperpigmented;Edema 03/20/24 1400 Wound Length (cm) 1.4 cm 03/20/24 1400 Wound Width (cm) 1 cm 03/20/24 1400 Wound Surface Area (cm^2) 1.4 cm^2 03/20/24 1400 Wound Depth (cm) 0.1 cm 03/20/24 1400 Wound Volume (cm^3) 0.14 cm^3 03/20/24 1400 Wound Healing % 53 03/20/24 1400 Drainage Description Serosanguineous 03/20/24 1400 Odor None 03/13/24 1313 Drainage Amount Small 03/20/24 1400 Treatments Cleansed 03/20/24 1400 Primary Dressing Collagen;Xeroform 03/13/24 1341 Secondary Dressing 4x4 gauze 03/13/24 1341 Secured with Kerlex;Paper tape 03/13/24 1341 Compression Double Layer tubigrip 03/13/24 1341 Dressing Status New dressing;Clean, dry & intact 03/13/24 1341 Wound Bed Granulation (%) 5 % 03/06/24 1425 Wound Bed Slough (%) 100 % 03/20/24 1400 Lab Results Component Value Date WBC 6.6 03/10/2024 HGB 14.0 03/10/2024 HCT 41.5 03/10/2024 MCV 94.1 03/10/2024 PLT 269 03/10/2024 Lab Results Component Value Date GLUCOSE 89 03/10/2024 CALCIUM 10.0 03/10/2024 NA 137 01/16/2022 K 4.3 01/16/2022 CO2 27 03/10/2024 CL 103 01/16/2022 BUN 25 03/10/2024 CREATININE 0.92 03/10/2024 No results found for: HGBA1C No results found for: SEDRATE No results found for: CRP No results found for: LABGRAM No components found for: LABAERO No components found for: LABANAE IMPRESSION 1. Cellulitis of left leg 2. Open wound of left lower leg, subsequent encounter 3. Pain in left leg PLAN: Orders Placed This Encounter Procedures Debridement This order was created via procedure documentation Standing Status: Standing Number of Occurrences: 1 Wound Care OP Follow-up 2 weeks Dressing Order: Collagen; Daily; 4x4 gauze; Kerlex, Paper tape; Double Layer tubigrip To cleanse wound apply Hibiclens for 3 minutes and rinse with saline Order Specific Question: Primary Dressing Answer: Collagen Order Specific Question: Dressing Frequency Answer: Daily Order Specific Question: Secondary Dressing Answer: 4x4 gauze Order Specific Question: Secured With Answer: Kerlex Order Specific Question: Secured With Answer: Paper tape Order Specific Question: Compression Answer: Double Layer tubigrip Debridement Wound/Incision 02/28/24 Venous Ulcer Leg Lower;Left;Lateral Performed by: Elisabeth Fairbanks DPM Authorized by: Elisabeth Fairbanks DPM Consent Consent obtained? verbal Consent given by: patient Risks discussed? procedural risks discussed Debridement Details Performed by: physician Debridement type: surgical Level of debridement: subcutaneous tissue Pain control: lidocaine 2% Pain control administration type: topical Pre-debridement measurements Length (cm): 1.4 Width (cm): 1 Depth (cm): 0.1 Surface Area (cm^2): 1.4 Post-debridement measurements Length (cm): 1.4 Width (cm): 1 Depth (cm): 0.1 Percent debrided: 50% Surface Area (cm^2): 1.4 Area Debrided (cm^2): 0.7 Volume (cm^3): 0.14 Tissue and other material debrided: subcutaneous tissue Devitalized tissue debrided: fibrin and slough Instrument(s) utilized: curette Bleeding: small Hemostasis obtained with: pressure Procedural pain (0-10): 0 Post-procedural pain: 0 Response to treatment: procedure was tolerated well 02/28/24 wound assessed. Continue taking oral abx as prescribed by other provider. Hibiclens wash with saline rinse. Pat dry. Cover with dressing as ordered and compression daily. Monitor and call with any additional concerns. Follow up one week 03/06/24 debrided wound. Continues with hibiclens and saline rinse. Apply collagen and DSD to wound daily, cover with DSD and compression. Good improvement this week. Follow up one week for re eval 03/13/24 debrided wound today. Continue with collagen and DSD daily with compression. Wound is improving. Follow up one week 03/20/24 debrided wound. Continue with collagen and DSD with compression daily. Pleased with progress. Follow up 2 weeks for re eval No follow-ups on file. Elisabeth Fairbanks DPM 03/20/2024 2:54 PM documented in this encounter [facility] 03-20-2024 Hospital Discharge instructions Elisa Moise RN - 03/20/2024 2:15 PM EDT Apply Hibiclens for 3 minutes and rinse with saline. After cleansing, apply lightly moistened collagen directly on wound, and cover with gauze. Wear double layer tubigrip on left lower leg daily- apply from behind the toes to below the knee,readjust as needed to keep in proper place. Signs and symptoms of wound infection: - fever - flu-like symptoms - pus or unusual drainage - foul odor - worsening of wound - spreading redness or warmth around the wound - increased pain - increasing and/or uncontrolled blood sugar for diabetics Call the wound care clinic to report these symptoms. When the wound care clinic is closed, either after hours, on weekends, or on holidays, go to urgent care or the emergency department for treatment. You should go directly to the emergency department for severe signs or symptoms of infection. documented in this encounter [facility] 03-20-2024 Miscellaneous Notes Encounter addended by: Dayna Schulte RN on: 03/20/2024 3:20 PM Actions taken: Flowsheet accepted documented in this encounter [facility] 03-20-2024 Note Encounter addended b y: Dayna Schulte RN on: 03/20/2024 3:20 PM Actions taken: Flowsheet accepted [facility] 03-20-2024 Note Encounter addended b y: Dayna Schulte RN on: 03/20/2024 3:20 PM Actions taken: Flowsheet accepted [facility] 03-20-2024 Note Encounter addended b y: Dayna Schulte RN on: 03/20/2024 3:20 PM Actions taken: Flowsheet accepted [facility] 03-13-2024 History of Present illness Narrative Associated Order(s): Debridement Post-Procedure Diagnose(s): Cellulitis of left leg; Open wound of left lower leg, subsequent encounter; Pain in left leg Images from the original note were not included. Wound Care Visit CHIEF COMPLAINT: Chief Complaint Patient presents with Wound Care PT presents today for evaluation of left leg wound. She states that she is getting some sharp pain in the area of the wound off and on. She states she wore her compression as directed. She did not receive her supplies but states she has enough for this week. HISTORY OF PRESENT ILLNESS: The patient is a 88 y.o. female with significant past medical history of Past Medical History: Diagnosis Date Hearing loss History of colon polyps 2019 Dr. Afshan garcia 2021, defers rech exams HTN (hypertension) 2005 Lumbar degenerative disc disease 2019 Osteoporosis SVT (supraventricular tachycardia) (HCC) 2017 [facility] ECHO- Dr. Freedman consultation, [facility] Past Medical History: Past Medical History: Diagnosis Date Hearing loss History of colon polyps 2019 Dr. Afshan garcia 2021, defers rech exams HTN (hypertension) 2006 Lumbar degenerative disc disease 2019 Osteoporosis SVT (supraventricular tachycardia) (HCC) 2017 [facility] ECHO- Dr. Freedman consultation, [facility] Past Surgical History: Past Surgical History: Procedure Laterality Date BUNIONECTOMY Left 2018 Hallux Valgus correction CARPAL TUNNEL RELEASE Right 03/29/2023 Endoscopic right carpal tunnel release - Dr. Sommer CATARACT EXTRACTION W/ INTRAOCULAR LENS IMPLANT, BILATERAL Bilateral COLONOSCOPY W/ POLYPECTOMY 08/2019 no reason to repeat COLONOSCOPY W/ POLYPECTOMY 09/2022 no reason for f/u TRIGGER FINGER RELEASE Right 2020 right middle and ring -dr sommer TUBAL LIGATION Current Medications: Current Outpatient Medications: aspirin 81 MG EC tablet, Take 81 mg by mouth daily., Disp: , Rfl: lisinopril 10 MG tablet, Take 1 tablet (10 mg) by mouth daily., Disp: 30 tablet, Rfl: 5 Multiple Vitamin tablet, Take 1 tablet by mouth in the morning., Disp: , Rfl: verapamil SR (Calan SR) 240 MG ER tablet, Take 1 tablet (240 mg) by mouth Nightly. Do not crush or chew., Disp: 90 tablet, Rfl: 0 Allergies: No Known Allergies Social History: Social History Socioeconomic History Marital status: Spouse name: Not on file Number of children: Not on file Years of education: Not on file Highest education level: Not on file Occupational History Not on file Tobacco Use Smoking status: Never Smokeless tobacco: Never Vaping Use Vaping Use: Never used Substance and Sexual Activity Alcohol use: No Alcohol/week: 0.0 standard drinks of alcohol Drug use: No Sexual activity: Not on file Other Topics Concern Not on file Social History Narrative to Mandeep, NS or ETOH use, has 2 sons and 2 dtr, 7 GC and 6 GCC. 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 of Health Financial Resource Strain: Not on file Food Insecurity: Not on file Transportation Needs: Not on file Physical Activity: Not on file Stress: Not on file Social Connections: Not on file Intimate Partner Violence: Not on file Housing Stability: Not on file Family History: Family History Problem Relation Name Age of Onset Coronary artery disease Mother 86 age 94 Alcohol abuse Father Sherman age 48 Heart disease Father Sherman 48 High Blood Pressure Sister Radha Valvular heart disease Sister Radha s/p AVR Hyperlipidemia Sister Radha Kidney failure Brother Ed 06/12 age 80 REVIEW OF SYSTEMS: Review of Systems Constitutional: Negative for chills and fever. HENT: Negative for sore throat. Respiratory: Negative for shortness of breath. Cardiovascular: Negative for leg swelling. Gastrointestinal: Negative for diarrhea, nausea and vomiting. Skin: Positive for wound. PHYSICAL EXAM: Physical Exam Constitutional: Appearance: Normal appearance. HENT: Head: Normocephalic. Musculoskeletal: General: Tenderness and signs of injury present. Skin: Capillary Refill: Capillary refill takes 2 to 3 seconds. Findings: Wound present. Comments: Skin tear left lateral anterior leg with mild erythema zahra wound, drainage clear noted, no streaking, no purulent drainage, decreased pain to palpation, wound bed is 50% slough and fibrin, 50% granulation tissue, new skin formation noted along the wound edges Neurological: Mental Status: She is alert and oriented to person, place, and time. Psychiatric: Mood and Affect: Mood normal. Vitals: BP 136/54 Pulse 75 Temp 36.8 C (98.2 F) Resp 18 Wound: Wound/Incision Incision Wrist Anterior;Right (Active) Wound/Incision 02/28/24 Venous Ulcer Leg Lower;Left;Lateral (Active) Wound Image 03/13/24 1313 Site Assessment Sloughing 03/13/24 1313 Zahra-Wound Assessment Edema;Hyperpigmented 03/13/24 1313 Wound Length (cm) 1.5 cm 03/13/24 1313 Wound Width (cm) 1 cm 03/13/24 1313 Wound Surface Area (cm^2) 1.5 cm^2 03/13/24 1313 Wound Depth (cm) 0.1 cm 03/13/24 1313 Wound Volume (cm^3) 0.15 cm^3 03/13/24 1313 Wound Healing % 50 03/13/24 1313 Drainage Description Serosanguineous 03/13/24 1313 Odor None 03/13/24 1313 Drainage Amount Small 03/13/24 1313 Treatments Cleansed 03/13/24 1313 Primary Dressing Collagen;Xeroform 03/06/24 1510 Secondary Dressing 4x4 gauze 03/06/24 1510 Secured with Kerlex;Paper tape 03/06/24 1510 Compression Double Layer tubigrip 03/06/24 1510 Wound Bed Granulation (%) 5 % 03/06/24 1425 Wound Bed Slough (%) 100 % 03/13/24 1313 Lab Results Component Value Date WBC 6.6 03/10/2024 HGB 14.0 03/10/2024 HCT 41.5 03/10/2024 MCV 94.1 03/10/2024 PLT 269 03/10/2024 Lab Results Component Value Date GLUCOSE 89 03/10/2024 CALCIUM 10.0 03/10/2024 NA 137 01/16/2022 K 4.3 01/16/2022 CO2 27 03/10/2024 CL 103 01/16/2022 BUN 25 03/10/2024 CREATININE 0.92 03/10/2024 No results found for: HGBA1C No results found for: SEDRATE No results found for: CRP No results found for: LABGRAM No components found for: LABAERO No components found for: LABANAE IMPRESSION 1. Open wound of left lower leg, subsequent encounter 2. Skin tear of lower leg without complication, left, initial encounter 3. Cellulitis of left leg 4. Pain in left leg PLAN: Orders Placed This Encounter Procedures Debridement This order was created via procedure documentation Standing Status: Standing Number of Occurrences: 1 Wound Care OP Follow-up One week Dressing Order: Collagen, Xeroform; Daily; 4x4 gauze; Kerlex, Paper tape; Double Layer tubigrip Apply Hibiclens for 3 minutes and rinse with saline Order Specific Question: Primary Dressing Answer: Collagen Order Specific Question: Primary Dressing Answer: Xeroform Order Specific Question: Dressing Frequency Answer: Daily Order Specific Question: Secondary Dressing Answer: 4x4 gauze Order Specific Question: Secured With Answer: Kerlex Order Specific Question: Secured With Answer: Paper tape Order Specific Question: Compression Answer: Double Layer tubigrip Debridement Wound/Incision 02/28/24 Venous Ulcer Leg Lower;Left;Lateral Performed by: Elisabeth Fairbanks DPM Authorized by: Elisabeth Fairbanks DPM Consent Consent obtained? verbal Consent given by: patient Risks discussed? procedural risks discussed Debridement Details Performed by: physician Debridement type: surgical Level of debridement: subcutaneous tissue Pain control: lidocaine 2% Pain control administration type: topical Pre-debridement measurements Length (cm): 1.5 Width (cm): 1 Depth (cm): 0.1 Surface Area (cm^2): 1.5 Post-debridement measurements Length (cm): 1.5 Width (cm): 1 Depth (cm): 0.1 Percent debrided: 50% Surface Area (cm^2): 1.5 Area Debrided (cm^2): 0.75 Volume (cm^3): 0.15 Tissue and other material debrided: subcutaneous tissue Devitalized tissue debrided: fibrin and slough Instrument(s) utilized: curette Bleeding: small Hemostasis obtained with: not applicable Procedural pain (0-10): 1 Post-procedural pain: 0 Response to treatment: procedure was tolerated well 02/28/24 wound assessed. Continue taking oral abx as prescribed by other provider. Hibiclens wash with saline rinse. Pat dry. Cover with dressing as ordered and compression daily. Monitor and call with any additional concerns. Follow up one week 03/06/24 debrided wound. Continues with hibiclens and saline rinse. Apply collagen and DSD to wound daily, cover with DSD and compression. Good improvement this week. Follow up one week for re eval 03/13/24 debrided wound today. Continue with collagen and DSD daily with compression. Wound is improving. Follow up one week No follow-ups on file. Elisabeth Fairbanks DPM 03/13/2024 1:31 PM documented in this encounter [facility] 03-13-2024 Hospital Discharge instructions Elisa Moise RN - 03/13/2024 1:15 PM EDT Apply Hibiclens for 3 minutes and rinse with saline. After cleansing, apply lightly moistened collagen directly on wound. Place xeroform over the collagen, and cover with gauze. Wear double layer tubigrip on left lower leg daily- apply from behind the toes to below the knee,readjust as needed to keep in proper place. Signs and symptoms of wound infection: - fever - flu-like symptoms - pus or unusual drainage - foul odor - worsening of wound - spreading redness or warmth around the wound - increased pain - increasing and/or uncontrolled blood sugar for diabetics Call the wound care clinic to report these symptoms. When the wound care clinic is closed, either after hours, on weekends, or on holidays, go to urgent care or the emergency department for treatment. You should go directly to the emergency department for severe signs or symptoms of infection. documented in this encounter [facility] 03-10-2024 History of Present illness Narrative Images from the original note were not included. [facility] [address] [place] [address] [address] [facility] [id number] Visit type: Established Patient Reason for Visit: Follow-up (Med check) Assessment / Plan: John was seen today for follow-up. Diagnoses and all orders for this visit: Essential hypertension (Primary) Comments: Uncontrolled, add lisinopril every morning. Continue verapamil q PM, BP check 4 weeks Orders: - CBC auto differential; Future - Comprehensive metabolic panel; Future - CBC auto differential - Comprehensive metabolic panel Skin tear of lower leg without complication, left, initial encounter Comments: Healing, continue wound care Palpitations - TSH; Future - ECG 12 lead; Future - TSH Cerebral vascular disease Comments: Stable, baby aspirin daily indefinitely Mild cognitive impairment with memory loss Comments: Stable, conservative measures discussed Subjective: Patient ID: John Navarrete is a 88 y.o. female. HPI hypertensive patient with history of remote SVT, mild memory loss and cerebrovascular disease presents for first-time evaluation by myself. Past medical, past surgical, family social history reviewed and chart updated appropriately. Overall she is feeling well. No change in memory. She sometimes still gets dizzy looking backwards. No she does says about once a week she has a 5 to 10-minute episode of palpitations. Not accompanied by change in vision speech or balance. Not accompanied by chest pressure shortness of breath and she declines PND orthopnea. Of note she saw Dr. Tanner at [facility] 6 years ago and was continued on verapamil for which she has been on for many years for hypertension. At that time echocardiogram normal. Review of Systems No recent earache sore throat or cough. No chest pain with the palpitations. She denies PND orthopnea claudication or edema. Eating and voiding well. No heartburn or abdominal pain. Bowels are regular. No recurrent GI issues. No dysuria hematuria. Of note had an MRI of the head about a year and a half ago that showed possible remote CVA but moderate cerebrovascular disease. No Known Allergies Current Outpatient Medications on File Prior to Visit Medication Sig Dispense Refill aspirin 81 MG EC tablet Take 81 mg by mouth daily. Multiple Vitamin tablet Take 1 tablet by mouth in the morning. verapamil SR (Calan SR) 240 MG ER tablet Take 1 tablet (240 mg) by mouth Nightly. Do not crush or chew. 90 tablet 0 [DISCONTINUED] cephalexin (Keflex) 500 MG capsule Take 1 capsule (500 mg) by mouth in the morning and 1 capsule (500 mg) at noon and 1 capsule (500 mg) in the evening and 1 capsule (500 mg) before bedtime. Do all this for 7 days. (Patient not taking: Reported on 03/10/2024) 28 capsule 0 No current facility-administered medications on file prior to visit. Patient Active Problem List Diagnosis SVT (supraventricular tachycardia) (HCC) Torus mandibularis Essential hypertension Menopause S/P endoscopic carpal tunnel release Carpal tunnel syndrome of right wrist Skin tear of lower leg without complication, left, initial encounter Skin infection Mild cognitive impairment with memory loss Cerebral vascular disease Social History Tobacco Use Smoking status: Never Smokeless tobacco: Never Substance Use Topics Alcohol use: No Alcohol/week: 0.0 standard drinks of alcohol Past Surgical History: Procedure Laterality Date BUNIONECTOMY Left 2018 Hallux Valgus correction CARPAL TUNNEL RELEASE Right 03/29/2023 Endoscopic right carpal tunnel release - Dr. Sommer CATARACT EXTRACTION W/ INTRAOCULAR LENS IMPLANT, BILATERAL Bilateral COLONOSCOPY W/ POLYPECTOMY 08/2019 no reason to repeat COLONOSCOPY W/ POLYPECTOMY 09/2022 no reason for f/u TRIGGER FINGER RELEASE Right 2020 right middle and ring -dr sommer TUBAL LIGATION Family History Problem Relation Name Age of Onset Coronary artery disease Mother 86 age 94 Alcohol abuse Father Shemran age 48 Heart disease Father Sherman 48 High Blood Pressure Sister Radha Valvular heart disease Sister Radha s/p AVR Hyperlipidemia Sister Radha Kidney failure Brother Ed 06/12 age 80 Objective: BP (!) 150/64 (BP Location: Left arm, Patient Position: Sitting, BP Cuff Size: Adult long) Pulse 65 Temp 36.4 C (97.5 F) (Temporal) Ht 5' 3 (1.6 m) Wt 124 lb (56.2 kg) SpO2 96% BMI 21.97 kg/m Physical Exam pleasant alert and oriented. Recall is good. Blood pressure 150/70. Pulse in the 60s. No JVD adenopathy or carotid bruits. No thyroid or neck masses. Heart is rate without gallops or new murmurs or ectopy. Lungs are clear. Abdomen without pain hepatosplenomegaly masses bruits or ascites. Femoral pedal pulses good. No leg edema. Normal range of motion of hips and knees. Cranial nerves are normal. Toes downgoing no clonus. Normal finger-nose and Romberg testing. Tandem gait testing was fair Reviewed past echocardiogram, cardiology report, MRI of the head, and recent labs. EKG sinus rhythm without ischemia. No arrhythmia noted documented in this encounter [facility] 03-10-2024 Instructions Wilfrido Mclaughlin DO - 03/10/2024 1:00 PM EDT Blood pressure check with staff in 4 weeks documented in this encounter [facility] 03-06-2024 History of Present illness Narrative Associated Order(s): Debridement Post-Procedure Diagnose(s): Cellulitis of left leg; Skin tear of lower leg without complication, left, initial encounter; Pain in left leg Images from the original note were not included. Wound Care Visit CHIEF COMPLAINT: Chief Complaint Patient presents with Wound Care PT presents today for evaluation of left leg wound. She did well with her dressings this week but did not receive her supplies. She relates improved comfort today. She has no new concerns. HISTORY OF PRESENT ILLNESS: The patient is a 88 y.o. female with significant past medical history of Past Medical History: Diagnosis Date Arthritis fingers Carpal tunnel syndrome on right SCHEDULED FOR THE SURGERY ON 03/29/23 AT [facility] Colitis Colon polyp 09/15/2019 HL (hearing loss) HTN (hypertension) Osteoporosis Tachycardia Past Medical History: Past Medical History: Diagnosis Date Arthritis fingers Carpal tunnel syndrome on right SCHEDULED FOR THE SURGERY ON 03/29/23 AT [facility] Colitis Colon polyp 09/15/2019 HL (hearing loss) HTN (hypertension) Osteoporosis Tachycardia Past Surgical History: Past Surgical History: Procedure Laterality Date CARPAL TUNNEL RELEASE Right 03/29/2023 Endoscopic right carpal tunnel release - Dr. Sommer COLONOSCOPY 09/15/2019 several. polyp EYE SURGERY Bilateral cataracts [facility] XR ENDO COLONSCOPY W DILATATION 10/18/2022 1 polyp. No follow-up colonoscopy suggested due to age OSTEOTOMY Left 05/22/2019 Hallux Valgus correction TRIGGER FINGER RELEASE Right 06/23/2021 right middle and ring -dr sommer TUBAL LIGATION Current Medications: Current Outpatient Medications: aspirin 81 MG EC tablet, Take 81 mg by mouth daily., Disp: , Rfl: Multiple Vitamin tablet, Take 1 tablet by mouth in the morning., Disp: , Rfl: verapamil SR (Calan SR) 240 MG ER tablet, Take 1 tablet (240 mg) by mouth Nightly. Do not crush or chew., Disp: 90 tablet, Rfl: 0 Allergies: No Known Allergies Social History: Social History Socioeconomic History Marital status: Spouse name: Not on file Number of children: Not on file Years of education: Not on file Highest education level: Not on file Occupational History Not on file Tobacco Use Smoking status: Never Smokeless tobacco: Never Vaping Use Vaping Use: Never used Substance and Sexual Activity Alcohol use: No Alcohol/week: 0.0 standard drinks of alcohol Drug use: No Sexual activity: Not on file Other Topics Concern Not on file Social History Narrative Not on file Social Determinants of Health Financial Resource Strain: Not on file Food Insecurity: Not on file Transportation Needs: Not on file Physical Activity: Not on file Stress: Not on file Social Connections: Not on file Intimate Partner Violence: Not on file Housing Stability: Not on file Family History: Family History Problem Relation Name Age of Onset High Blood Pressure Sister Other ([id number]) Father 48 Alcohol at Heart disease Sister Valvular heart disease Heart disease Mother 94 [place]. Had coronary artery bypass graft age 86 Heart disease Father 48 48.00 [place] Hyperlipidemia Sister REVIEW OF SYSTEMS: Review of Systems Constitutional: Negative for chills and fever. HENT: Negative for sore throat. Respiratory: Negative for shortness of breath. Cardiovascular: Negative for leg swelling. Gastrointestinal: Negative for diarrhea, nausea and vomiting. Skin: Positive for wound. PHYSICAL EXAM: Physical Exam Constitutional: Appearance: Normal appearance. HENT: Head: Normocephalic. Musculoskeletal: General: Tenderness and signs of injury present. Skin: Capillary Refill: Capillary refill takes 2 to 3 seconds. Findings: Wound present. Comments: Skin tear left lateral anterior leg with decrease erythema zahra wound, drainage clear noted, no streaking, no purulent drainage, pain to palpation, wound bed is 75% slough and fibrin, 25% granulation tissue Neurological: Mental Status: She is alert and oriented to person, place, and time. Psychiatric: Mood and Affect: Mood normal. Vitals: BP (!) 148/51 Pulse 73 Temp 36.7 C (98.1 F) Resp 18 Wound: Wound/Incision Incision Wrist Anterior;Right (Active) Wound/Incision 02/28/24 Venous Ulcer Leg Lower;Left;Lateral (Active) Wound Image 03/06/24 142 Site Assessment Sloughing;Granulation 03/06/24 142 Zahra-Wound Assessment Blanchable erythema 03/06/24 1425 Wound Length (cm) 1.8 cm 03/06/24 1425 Wound Width (cm) 1.1 cm 03/06/24 1425 Wound Surface Area (cm^2) 1.98 cm^2 03/06/24 1425 Wound Depth (cm) 0.1 cm 03/06/24 1425 Wound Volume (cm^3) 0.198 cm^3 03/06/24 1425 Wound Healing % 34 03/06/24 1425 Drainage Description Serosanguineous 03/06/24 142 Drainage Amount Small 03/06/24 1425 Treatments Cleansed 03/06/24 142 Primary Dressing Collagen;Xeroform 03/06/24 1510 Secondary Dressing 4x4 gauze 03/06/24 1510 Secured with Kerlex;Paper tape 03/06/24 1510 Compression Double Layer tubigrip 03/06/24 1510 Wound Bed Granulation (%) 5 % 03/06/24 142 Wound Bed Slough (%) 95 % 03/06/24 142 Lab Results Component Value Date WBC 6.3 11/21/2022 HGB 13.9 11/21/2022 HCT 41.5 11/21/2022 MCV 91.4 11/21/2022 PLT 270 11/21/2022 Lab Results Component Value Date GLUCOSE NEGATIVE 03/01/2023 CALCIUM 9.6 11/21/2022 NA 137 01/16/2022 K 4.3 01/16/2022 CO2 29 11/21/2022 CL 103 01/16/2022 BUN 20 11/21/2022 CREATININE 0.84 11/21/2022 No results found for: HGBA1C No results found for: SEDRATE No results found for: CRP No results found for: LABGRAM No components found for: LABAERO No components found for: LABANAE IMPRESSION 1. Skin tear of lower leg without complication, left, initial encounter 2. Cellulitis of left leg 3. Pain in left leg PLAN: Orders Placed This Encounter Procedures Debridement This order was created via procedure documentation Standing Status: Standing Number of Occurrences: 1 Wound Care OP Follow-up One week Dressing Order: Collagen, Xeroform; Daily; 4x4 gauze; Kerlex, Paper tape; Double Layer tubigrip Apply Hibiclens for 3 minutes and rinse with saline Order Specific Question: Primary Dressing Answer: Collagen Order Specific Question: Primary Dressing Answer: Xeroform Order Specific Question: Dressing Frequency Answer: Daily Order Specific Question: Secondary Dressing Answer: 4x4 gauze Order Specific Question: Secured With Answer: Kerlex Order Specific Question: Secured With Answer: Paper tape Order Specific Question: Compression Answer: Double Layer tubigrip Debridement Wound/Incision 02/28/24 Venous Ulcer Leg Lower;Left;Lateral Performed by: Elisabeth Fairbanks DPM Authorized by: Elisabeth Fairbanks DPM Consent Consent obtained? verbal Consent given by: patient Risks discussed? procedural risks discussed Debridement Details Performed by: physician Debridement type: surgical Level of debridement: subcutaneous tissue Pain control: lidocaine 2% Pain control administration type: topical Pre-debridement measurements Length (cm): 1.8 Width (cm): 1.1 Depth (cm): 0.1 Surface Area (cm^2): 1.98 Post-debridement measurements Length (cm): 1.8 Width (cm): 1.1 Depth (cm): 0.1 Percent debrided: 75% Surface Area (cm^2): 1.98 Area Debrided (cm^2): 1.49 Volume (cm^3): 0.2 Tissue and other material debrided: subcutaneous tissue Devitalized tissue debrided: fibrin and slough Instrument(s) utilized: curette Bleeding: none Hemostasis obtained with: not applicable Procedural pain (0-10): 1 Post-procedural pain: 1 Response to treatment: procedure was tolerated well 02/28/24 wound assessed. Continue taking oral abx as prescribed by other provider. Hibiclens wash with saline rinse. Pat dry. Cover with dressing as ordered and compression daily. Monitor and call with any additional concerns. Follow up one week 03/06/24 debrided wound. Continues with hibiclens and saline rinse. Apply collagen and DSD to wound daily, cover with DSD and compression. Good improvement this week. Follow up one week for re eval No follow-ups on file. Elisabeth Fairbanks DPM 03/06/2024 3:30 PM documented in this encounter [facility] 03-06-2024 Hospital Discharge instructions Elisa Moise RN - 03/06/2024 2:30 PM EDT Apply Hibiclens for 3 minutes and rinse with saline. After cleansing, apply lightly moistened collagen directly on wound. Place xeroform over the collagen, and cover with gauze. Wear double layer tubigrip on left lower leg daily- apply from behind the toes to below the knee,readjust as needed to keep in proper place. Signs and symptoms of wound infection: - fever - flu-like symptoms - pus or unusual drainage - foul odor - worsening of wound - spreading redness or warmth around the wound - increased pain - increasing and/or uncontrolled blood sugar for diabetics Call the wound care clinic to report these symptoms. When the wound care clinic is closed, either after hours, on weekends, or on holidays, go to urgent care or the emergency department for treatment. You should go directly to the emergency department for severe signs or symptoms of infection. documented in this encounter [facility] 02-28-2024 History of Present illness Narrative Images from the original note were not included. Wound Care Visit CHIEF COMPLAINT: Chief Complaint Patient presents with Wound Care PT presents today for evaluation of left leg wound. She states she hit her leg on the step getting in the car last week. She states it got red and painful and she became concerned so she saw a family medicine doctor who gave her keflex. She has been dressing it at home with wound supplies from her previous visits HISTORY OF PRESENT ILLNESS: The patient is a 88 y.o. female with significant past medical history of Past Medical History: Diagnosis Date Arthritis fingers Carpal tunnel syndrome on right SCHEDULED FOR THE SURGERY ON 03/29/23 AT [facility] Colitis Colon polyp 09/15/2019 HL (hearing loss) HTN (hypertension) Osteoporosis Tachycardia Past Medical History: Past Medical History: Diagnosis Date Arthritis fingers Carpal tunnel syndrome on right SCHEDULED FOR THE SURGERY ON 03/29/23 AT [facility] Colitis Colon polyp 09/15/2019 HL (hearing loss) HTN (hypertension) Osteoporosis Tachycardia Past Surgical History: Past Surgical History: Procedure Laterality Date CARPAL TUNNEL RELEASE Right 03/29/2023 Endoscopic right carpal tunnel release - Dr. Sommer COLONOSCOPY 09/15/2019 several. polyp EYE SURGERY Bilateral cataracts IMGHX XR ENDO COLONSCOPY W DILATATION 10/18/2022 1 polyp. No follow-up colonoscopy suggested due to age OSTEOTOMY Left 05/22/2019 Hallux Valgus correction TRIGGER FINGER RELEASE Right 06/23/2021 right middle and ring -dr sommer TUBAL LIGATION Current Medications: Current Outpatient Medications: aspirin 81 MG EC tablet, Take 81 mg by mouth daily., Disp: , Rfl: cephalexin (Keflex) 500 MG capsule, Take 1 capsule (500 mg) by mouth in the morning and 1 capsule (500 mg) at noon and 1 capsule (500 mg) in the evening and 1 capsule (500 mg) before bedtime. Do all this for 7 days., Disp: 28 capsule, Rfl: 0 Multiple Vitamin tablet, Take 1 tablet by mouth in the morning., Disp: , Rfl: verapamil SR (Calan SR) 240 MG ER tablet, Take 1 tablet (240 mg) by mouth Nightly. Do not crush or chew., Disp: 90 tablet, Rfl: 0 Allergies: No Known Allergies Social History: Social History Socioeconomic History Marital status: Spouse name: Not on file Number of children: Not on file Years of education: Not on file Highest education level: Not on file Occupational History Not on file Tobacco Use Smoking status: Never Smokeless tobacco: Never Vaping Use Vaping Use: Never used Substance and Sexual Activity Alcohol use: No Alcohol/week: 0.0 standard drinks of alcohol Drug use: No Sexual activity: Not on file Other Topics Concern Not on file Social History Narrative Not on file Social Determinants of Health Financial Resource Strain: Not on file Food Insecurity: Not on file Transportation Needs: Not on file Physical Activity: Not on file Stress: Not on file Social Connections: Not on file Intimate Partner Violence: Not on file Housing Stability: Not on file Family History: Family History Problem Relation Name Age of Onset High Blood Pressure Sister Other ([id number]) Father 48 Alcohol at Heart disease Sister Valvular heart disease Heart disease Mother 94 [place]. Had coronary artery bypass graft age 86 Heart disease Father 48 48.00 [place] Hyperlipidemia Sister REVIEW OF SYSTEMS: Review of Systems Constitutional: Negative for chills and fever. HENT: Negative for sore throat. Respiratory: Negative for shortness of breath. Cardiovascular: Negative for leg swelling. Gastrointestinal: Negative for diarrhea, nausea and vomiting. Skin: Positive for wound. PHYSICAL EXAM: Physical Exam Constitutional: Appearance: Normal appearance. HENT: Head: Normocephalic. Musculoskeletal: General: Tenderness and signs of injury present. Skin: Capillary Refill: Capillary refill takes 2 to 3 seconds. Findings: Wound present. Comments: Skin tear left lateral anterior leg with erythema zahra wound, drainage clear noted, no streaking, no purulent drainage, pain to palpation Neurological: Mental Status: She is alert and oriented to person, place, and time. Psychiatric: Mood and Affect: Mood normal. Vitals: BP (!) 160/65 Pulse 71 Temp 36.7 C (98.1 F) Resp 18 Wound: Wound/Incision Incision Wrist Anterior;Right (Active) Wound/Incision 02/28/24 Venous Ulcer Leg Lower;Left;Lateral (Active) Wound Image 02/28/24 1349 Site Assessment Sloughing;Granulation 02/28/24 1349 Zahra-Wound Assessment Blanchable erythema;Hyperpigmented 02/28/24 1349 Wound Length (cm) 2.3 cm 02/28/24 1349 Wound Width (cm) 1.3 cm 02/28/24 1349 Wound Surface Area (cm^2) 2.99 cm^2 02/28/24 1349 Wound Depth (cm) 0.1 cm 02/28/24 1349 Wound Volume (cm^3) 0.299 cm^3 02/28/24 1349 Drainage Description Serosanguineous 02/28/24 1349 Drainage Amount Small 02/28/24 1349 Treatments Cleansed 02/28/24 1349 Primary Dressing Xeroform 02/28/24 1430 Secondary Dressing 4x4 gauze 02/28/24 1430 Secured with Kerlex;Paper tape 02/28/24 1430 Compression Double Layer tubigrip 02/28/24 1430 Wound Bed Granulation (%) 5 % 02/28/24 1349 Wound Bed Slough (%) 95 % 02/28/24 1349 Lab Results Component Value Date WBC 6.3 11/21/2022 HGB 13.9 11/21/2022 HCT 41.5 11/21/2022 MCV 91.4 11/21/2022 PLT 270 11/21/2022 Lab Results Component Value Date GLUCOSE NEGATIVE 03/01/2023 CALCIUM 9.6 11/21/2022 NA 137 01/16/2022 K 4.3 01/16/2022 CO2 29 11/21/2022 CL 103 01/16/2022 BUN 20 11/21/2022 CREATININE 0.84 11/21/2022 No results found for: HGBA1C No results found for: SEDRATE No results found for: CRP No results found for: LABGRAM No components found for: LABAERO No components found for: LABANAE IMPRESSION 1. Pain in left leg 2. Skin tear of lower leg without complication, left, initial encounter 3. Cellulitis of left leg PLAN: Orders Placed This Encounter Procedures Wound Care OP Follow-up One week Dressing Order: Xeroform; 4x4 gauze; Kerlex, Paper tape; Double Layer tubigrip Apply Hibiclens for 3 minutes and rinse with saline Order Specific Question: Primary Dressing Answer: Xeroform Order Specific Question: Secondary Dressing Answer: 4x4 gauze Order Specific Question: Secured With Answer: Kerlex Order Specific Question: Secured With Answer: Paper tape Order Specific Question: Compression Answer: Double Layer tubigrip 02/28/24 wound assessed. Continue taking oral abx as prescribed by other provider. Hibiclens wash with saline rinse. Pat dry. Cover with dressing as ordered and compression daily. Monitor and call with any additional concerns. Follow up one week No follow-ups on file. Elisabeth Fairbanks DPM 02/28/2024 2:50 PM documented in this encounter [facility] 02-28-2024 History of Present illness Narrative Images from the original note were not included. Wound Care Visit CHIEF COMPLAINT: Chief Complaint Patient presents with Wound Care PT presents today for evaluation of left leg wound. She states she hit her leg on the step getting in the car last week. She states it got red and painful and she became concerned so she saw a family medicine doctor who gave her keflex. She has been dressing it at home with wound supplies from her previous visits HISTORY OF PRESENT ILLNESS: The patient is a 88 y.o. female with significant past medical history of Past Medical History: Diagnosis Date Arthritis fingers Carpal tunnel syndrome on right SCHEDULED FOR THE SURGERY ON 03/29/23 AT [facility] Colitis Colon polyp 09/15/2019 HL (hearing loss) HTN (hypertension) Osteoporosis Tachycardia Past Medical History: Past Medical History: Diagnosis Date Arthritis fingers Carpal tunnel syndrome on right SCHEDULED FOR THE SURGERY ON 03/29/23 AT [facility] Colitis Colon polyp 09/15/2019 HL (hearing loss) HTN (hypertension) Osteoporosis Tachycardia Past Surgical History: Past Surgical History: Procedure Laterality Date CARPAL TUNNEL RELEASE Right 03/29/2023 Endoscopic right carpal tunnel release - Dr. Sommer COLONOSCOPY 09/15/2019 several. polyp EYE SURGERY Bilateral cataracts IMGHX XR ENDO COLONSCOPY W DILATATION 10/18/2022 1 polyp. No follow-up colonoscopy suggested due to age OSTEOTOMY Left 05/22/2019 Hallux Valgus correction TRIGGER FINGER RELEASE Right 06/23/2021 right middle and ring -dr sommer TUBAL LIGATION Current Medications: Current Outpatient Medications: aspirin 81 MG EC tablet, Take 81 mg by mouth daily., Disp: , Rfl: cephalexin (Keflex) 500 MG capsule, Take 1 capsule (500 mg) by mouth in the morning and 1 capsule (500 mg) at noon and 1 capsule (500 mg) in the evening and 1 capsule (500 mg) before bedtime. Do all this for 7 days., Disp: 28 capsule, Rfl: 0 Multiple Vitamin tablet, Take 1 tablet by mouth in the morning., Disp: , Rfl: verapamil SR (Calan SR) 240 MG ER tablet, Take 1 tablet (240 mg) by mouth Nightly. Do not crush or chew., Disp: 90 tablet, Rfl: 0 Allergies: No Known Allergies Social History: Social History Socioeconomic History Marital status: Spouse name: Not on file Number of children: Not on file Years of education: Not on file Highest education level: Not on file Occupational History Not on file Tobacco Use Smoking status: Never Smokeless tobacco: Never Vaping Use Vaping Use: Never used Substance and Sexual Activity Alcohol use: No Alcohol/week: 0.0 standard drinks of alcohol Drug use: No Sexual activity: Not on file Other Topics Concern Not on file Social History Narrative Not on file Social Determinants of Health Financial Resource Strain: Not on file Food Insecurity: Not on file Transportation Needs: Not on file Physical Activity: Not on file Stress: Not on file Social Connections: Not on file Intimate Partner Violence: Not on file Housing Stability: Not on file Family History: Family History Problem Relation Name Age of Onset High Blood Pressure Sister Other ([id number]) Father 48 Alcohol at Heart disease Sister Valvular heart disease Heart disease Mother 94 [place]. Had coronary artery bypass graft age 86 Heart disease Father 48 48.00 [place] Hyperlipidemia Sister REVIEW OF SYSTEMS: Review of Systems Constitutional: Negative for chills and fever. HENT: Negative for sore throat. Respiratory: Negative for shortness of breath. Cardiovascular: Negative for leg swelling. Gastrointestinal: Negative for diarrhea, nausea and vomiting. Skin: Positive for wound. PHYSICAL EXAM: Physical Exam Constitutional: Appearance: Normal appearance. HENT: Head: Normocephalic. Musculoskeletal: General: Tenderness and signs of injury present. Skin: Capillary Refill: Capillary refill takes 2 to 3 seconds. Findings: Wound present. Comments: Skin tear left lateral anterior leg with erythema zahra wound, drainage clear noted, no streaking, no purulent drainage, pain to palpation Neurological: Mental Status: She is alert and oriented to person, place, and time. Psychiatric: Mood and Affect: Mood normal. Vitals: BP (!) 160/65 Pulse 71 Temp 36.7 C (98.1 F) Resp 18 Wound: Wound/Incision Incision Wrist Anterior;Right (Active) Wound/Incision 02/28/24 Venous Ulcer Leg Lower;Left;Lateral (Active) Wound Image 02/28/24 1349 Site Assessment Sloughing;Granulation 02/28/24 134 Zahra-Wound Assessment Blanchable erythema;Hyperpigmented 02/28/24 1349 Wound Length (cm) 2.3 cm 02/28/24 1349 Wound Width (cm) 1.3 cm 02/28/24 1349 Wound Surface Area (cm^2) 2.99 cm^2 02/28/24 1349 Wound Depth (cm) 0.1 cm 02/28/24 1349 Wound Volume (cm^3) 0.299 cm^3 02/28/24 1349 Drainage Description Serosanguineous 02/28/24 1349 Drainage Amount Small 02/28/24 1349 Treatments Cleansed 02/28/24 1349 Primary Dressing Xeroform 02/28/24 1430 Secondary Dressing 4x4 gauze 02/28/24 1430 Secured with Kerlex;Paper tape 02/28/24 1430 Compression Double Layer tubigrip 02/28/24 1430 Wound Bed Granulation (%) 5 % 02/28/24 1349 Wound Bed Slough (%) 95 % 02/28/24 1349 Lab Results Component Value Date WBC 6.3 11/21/2022 HGB 13.9 11/21/2022 HCT 41.5 11/21/2022 MCV 91.4 11/21/2022 PLT 270 11/21/2022 Lab Results Component Value Date GLUCOSE NEGATIVE 03/01/2023 CALCIUM 9.6 11/21/2022 NA 137 01/16/2022 K 4.3 01/16/2022 CO2 29 11/21/2022 CL 103 01/16/2022 BUN 20 11/21/2022 CREATININE 0.84 11/21/2022 No results found for: HGBA1C No results found for: SEDRATE No results found for: CRP No results found for: LABGRAM No components found for: LABAERO No components found for: LABANAE IMPRESSION 1. Pain in left leg 2. Skin tear of lower leg without complication, left, initial encounter 3. Cellulitis of left leg PLAN: Orders Placed This Encounter Procedures Wound Care OP Follow-up One week Dressing Order: Xeroform; 4x4 gauze; Kerlex, Paper tape; Double Layer tubigrip Apply Hibiclens for 3 minutes and rinse with saline Order Specific Question: Primary Dressing Answer: Xeroform Order Specific Question: Secondary Dressing Answer: 4x4 gauze Order Specific Question: Secured With Answer: Kerlex Order Specific Question: Secured With Answer: Paper tape Order Specific Question: Compression Answer: Double Layer tubigrip 02/28/24 wound assessed. Continue taking oral abx as prescribed by other provider. Hibiclens wash with saline rinse. Pat dry. Cover with dressing as ordered and compression daily. Monitor and call with any additional concerns. Follow up one week No follow-ups on file. Elisabeth Fairbanks DPM 02/28/2024 2:50 PM documented in this encounter [facility] 02-28-2024 Hospital Discharge instructions Elias Moise RN - 02/28/2024 1:45 PM EDT Apply Hibiclens for 3 minutes and rinse with saline. After cleansing, apply xeroform on wound and cover with gauze. Wear double layer tubigrip on left lower leg daily. Apply from behind the toes to below the knee- readjust as needed to keep in proper place. Signs and symptoms of wound infection: - fever - flu-like symptoms - pus or unusual drainage - foul odor - worsening of wound - spreading redness or warmth around the wound - increased pain - increasing and/or uncontrolled blood sugar for diabetics Call the wound care clinic to report these symptoms. When the wound care clinic is closed, either after hours, on weekends, or on holidays, go to urgent care or the emergency department for treatment. You should go directly to the emergency department for severe signs or symptoms of infection. documented in this encounter [facility] 02-28-2024 Hospital Discharge instructions Elisa Moise RN - 02/28/2024 1:45 PM EDT Apply Hibiclens for 3 minutes and rinse with saline. After cleansing, apply xeroform on wound and cover with gauze. Wear double layer tubigrip on left lower leg daily. Apply from behind the toes to below the knee- readjust as needed to keep in proper place. Signs and symptoms of wound infection: - fever - flu-like symptoms - pus or unusual drainage - foul odor - worsening of wound - spreading redness or warmth around the wound - increased pain - increasing and/or uncontrolled blood sugar for diabetics Call the wound care clinic to report these symptoms. When the wound care clinic is closed, either after hours, on weekends, or on holidays, go to urgent care or the emergency department for treatment. You should go directly to the emergency department for severe signs or symptoms of infection. documented in this encounter [facility] 02-28-2024 Miscellaneous Notes Encounter addended by: Elisa Mosie RN on: 03/06/2024 8:29 AM Actions taken: OP Care Plan added, OP Care Plan problem added, OP Care Plan goal added, OP Care Plan task added Encounter addended by: Elisa Moise RN on: 03/06/2024 8:30 AM Actions taken: OP Care Plan task added, OP Care Plan goal added, OP Care Plan problem added, OP Care Plan added documented in this encounter [facility] 02-28-2024 Note Encounter addended b y: Elisa Moise RN on: 03/06/2024 8:29 AM Actions taken: OP Care Plan added, OP Care Plan problem added, OP Care Plan goal added, OP Care Plan task added [facility] 02-28-2024 Note Encounter addended b y: Elisa Moise RN on: 03/06/2024 8:30 AM Actions taken: OP Care Plan task added, OP Care Plan goal added, OP Care Plan problem added, OP Care Plan added [facility] 02-28-2024 Note Encounter addended b y: Elisa Moise RN on: 03/06/2024 8:29 AM Actions taken: OP Care Plan added, OP Care Plan problem added, OP Care Plan goal added, OP Care Plan task added [facility] 02-28-2024 Note Encounter addended b y: Elisa Moise RN on: 03/06/2024 8:30 AM Actions taken: OP Care Plan task added, OP Care Plan goal added, OP Care Plan problem added, OP Care Plan added T [facility] 02-26-2024 Telephone encounter Note Noted. Agree with disposition. [facility] 02-26-2024 Miscellaneous Notes Noted. Agree with disposition. Name of caller: John Contact phone number: [phone] Relationship to Patient: patient Provider: Dr. Mclaughlin Practice: [facility] Chief Complaint/Reason for Call: Pt states that she will be going to [facility] for treatment on left leg. Pt states they can get her in sooner with her previous provider sooner than [facility]. FYI Best time of day caller can be reached: Any Patient advised that office/PCP has 24-48 business hours to return their call: No documented in this encounter [facility] 02-26-2024 Telephone encounter Note Name of caller: John Contact phone number: [phone] Relationship to Patient: patient Provider: Dr. Mclaughlin Practice: [facility] Chief Complaint/Reason for Call: Pt states that she will be going to [facility] for treatment on left leg. Pt states they can get her in sooner with her previous provider sooner than [facility]. FYI Best time of day caller can be reached: Any Patient advised that office/PCP has 24-48 business hours to return their call: No [facility] 02-25-2024 Evaluation + Plan note Associated Problem(s): Skin tear of lower leg without complication, left, initial encounter Keep wound clean, apply nonadherent dressing follow-up with wound clinic [facility] 02-25-2024 Miscellaneous Notes Associated Problem(s): Skin tear of lower leg without complication, left, initial encounter Keep wound clean, apply nonadherent dressing follow-up with wound clinic Associated Problem(s): Skin infection Will treat for suspected developing cellulitis surrounding wound. Referral to wound clinic. Follow-up for any worsening or failure for symptoms to improve. Keep wound clean and covered. documented in this encounter [facility] 02-25-2024 Evaluation + Plan note Associated Problem(s): Skin infection Will treat for suspected developing cellulitis surrounding wound. Referral to wound clinic. Follow-up for any worsening or failure for symptoms to improve. Keep wound clean and covered. [facility] 02-25-2024 History of Present illness Narrative Patient was identified by name and Date of . Images from the original note were not included. 02/25/2024 John Navarrete (: 1935) is a 88 y.o. female , POD scheduled, Established patient, here for evaluation of the following chief complaint(s): Laceration (Left leg) ASSESSMENT/PLAN: 1. Skin tear of lower leg without complication, left, initial encounter Assessment & Plan: Keep wound clean, apply nonadherent dressing follow-up with wound clinic Orders: - [facility] [facility]EWELINA [facility] 2. Skin infection Assessment & Plan: Will treat for suspected developing cellulitis surrounding wound. Referral to wound clinic. Follow-up for any worsening or failure for symptoms to improve. Keep wound clean and covered. Orders: - cephalexin (Keflex) 500 MG capsule; Take 1 capsule (500 mg) by mouth in the morning and 1 capsule (500 mg) at noon and 1 capsule (500 mg) in the evening and 1 capsule (500 mg) before bedtime. Do all this for 7 days., Starting Sat02/25/2024, Until Sat03/03/2024, Normal Follow up for with specialist. SUBJECTIVE/OBJECTIVE: HPI - John Navarrete (: 1935) is a 88 y.o. female , Established patient of Dr. Cotton, here for evaluation of the following chief complaint(s): Laceration (Left leg) Presents today with her for left lower leg skin tear. Reports doing it last Saturday when she was getting out of the car and hit her lower leg with a car door. Reports that it did bleed some it was cleaned up and she applied a dressing. Has been keeping it clean. Reports having a skin tear on the right lower leg a couple years ago and needing to go to the wound clinic. Denies any fever or chills. No pain with ambulation. Does have some increasing redness surrounding the wound. No new drainage. Prior to Admission medications Medication Sig Start Date End Date Taking? Authorizing Provider aspirin 81 MG EC tablet Take 81 mg by mouth daily. Yes Historical Provider, Multiple Vitamin tablet Take 1 tablet by mouth in the morning. Yes Historical Provider, verapamil SR (Calan SR) 240 MG ER tablet Take 1 tablet (240 mg) by mouth Nightly. Do not crush or chew. 01/20/24 Yes Morro Quintana PA-C Review of Systems Constitutional: Negative for activity change, chills, fatigue and fever. Respiratory: Negative. Cardiovascular: Negative. Skin: Positive for wound. Vitals: 02/25/24 1357 BP: 128/62 Pulse: 68 Resp: 20 Temp: 37.3 C (99.1 F) TempSrc: Infrared Weight: 124 lb 6.4 oz (56.4 kg) Physical Exam Constitutional: General: She is not in acute distress. Appearance: Normal appearance. She is not ill-appearing. Pulmonary: Effort: Pulmonary effort is normal. Skin: Neurological: Mental Status: She is alert and oriented to person, place, and time. An electronic signature was used to authenticate this note. ASHLYN Cespedes CNP 02/25/2024 4:17 PM documented in this encounter [facility] 02-24-2024 Telephone encounter Note S: The patient is calling the [facility] about a skin tear. B: This happened on Saturday A: She tore the skin on the left lower leg just above the ankle. She estimates it to be about 1.5 inches. At this point, it does not appear infected. She did clean it out and is using home care products. R: POD scheduled, insurance verified. Care advice reviewed. Reason for Disposition Patient wants to be seen Protocols used: Skin [id number] [facility] 02-24-2024 Miscellaneous Notes S: The patient is calling the [facility] about a skin tear. B: This happened on Saturday A: She tore the skin on the left lower leg just above the ankle. She estimates it to be about 1.5 inches. At this point, it does not appear infected. She did clean it out and is using home care products. R: POD scheduled, insurance verified. Care advice reviewed. Reason for Disposition Patient wants to be seen Protocols used: Skin [id number] documented in this encounter [facility] 01-20-2024 Telephone encounter Note Medication name: verapamil SR (Calan SR) 240 MG ER tablet Medication dosage: 240 mg (Miligrams Monthly quantity needed: 30 How many day supply requesting: Requesting 1 year supply Medication route: Oral Medication administration time(s): Nightly If taking medication PRN, reason for taking medication: n/a If this is a controlled substance do you receive this or any other controlled medication from any other doctor or facility: n/a Ordering provider: Morro Coffman Date of last office visit: 09/17/24 Date of next office visit: 03/10/24 Date of last refill: (see medication tab): 11/01/23 Updated/Validated preferred pharmacy: Yes Patient instructed to contact the pharmacy prior to picking up the medication: N/A [facility] 01-20-2024 Miscellaneous Notes Medication name: verapamil SR (Calan SR) 240 MG ER tablet Medication dosage: 240 mg (Miligrams Monthly quantity needed: 30 How many day supply requesting: Requesting 1 year supply Medication route: Oral Medication administration time(s): Nightly If taking medication PRN, reason for taking medication: n/a If this is a controlled substance do you receive this or any other controlled medication from any other doctor or facility: n/a Ordering provider: Morro Coffman Date of last office visit: 09/17/24 Date of next office visit: 03/10/24 Date of last refill: (see medication tab): 11/01/23 Updated/Validated preferred pharmacy: Yes Patient instructed to contact the pharmacy prior to picking up the medication: N/A documented in this encounter [facility] 12-26-2023 History of Present illness Narrative Images from the original note were not included. [facility] [address] [place] [address] Dept: [phone] Dept 12/26/2023 Chief Complaint Patient presents with Follow-up Right endoscopic carpal tunnel release on 03/29/23, Bilateral small trigger fingers SUBJECTIVE John is approximately 9 month(s) s/p Right endoscopic carpal tunnel release. She is no longer taking anything for pain. She reports significant improvement in her carpal tunnel symptoms and complains of new symptoms to include worsening bilateral small finger triggering, right is worse than left. OBJECTIVE There were no vitals taken for this visit. Ortho Exam Focused Exam of the RIGHT Upper Extremity Skin: intact without any evidence of breakdown Edema: no evidence of edema Palpation: non tender to palpation throughout ROM: full functional ROM of the shoulder, elbow, wrist, and hand Stability: no evidence of joint instabilities Motor: Intact in the hand - able to fire AIN, PIN, and Ulnar nerves Sensation: RIGHT Hand 2-point discrimination (mm) Thumb Index Long Ring Small r u r u r u r u r u >10 >10 >10 >10 >10 >10 >10 >10 >10 >10 Median Ulnar Perfusion: Brisk capillary refill in all 5 digits Focused Exam of the BILATERAL Upper Extremity Skin: intact without any evidence of breakdown Edema: no evidence of edema Palpation: TTP over the A1 marialuisa of the little finger ROM: Limited in the affected digit secondary to pain and joint stiffness *Able to demonstrate triggering in office today: Yes* Stability: no evidence of joint instabilities Motor: Intact in the hand - able to fire AIN, PIN, and Ulnar nerves Perfusion: Brisk capillary refill in all 5 digits IMAGING NONE PROCEDURE Procedure Note: Trigger Finger Injection The RIGHT SMALL finger A1 marialuisa was identified as the injection site. I discussed the risks/benefits of a corticosteroid injection to include but not be limited to infection, subcutaneous fat atrophy, elevated blood glucose, local redness and pain. After discussion of the risk/benefits the patient elected to proceed. Under sterile conditions, the flexor sheath was injected with a mixture of 0.5mL of 1% Lidocaine and 0.5mL of Celestone (6mg/mL). A sterile bandage was applied. John tolerated the procedure well without complication. I advised John of the expected response, possible reactions and the instructions for care of her hand. Procedure Note: Trigger Finger Injection The LEFT SMALL finger A1 marialuisa was identified as the injection site. I discussed the risks/benefits of a corticosteroid injection to include but not be limited to infection, subcutaneous fat atrophy, elevated blood glucose, local redness and pain. After discussion of the risk/benefits the patient elected to proceed. Under sterile conditions, the flexor sheath was injected with a mixture of 0.5mL of 1% Lidocaine and 0.5mL of Celestone (6mg/mL). A sterile bandage was applied. John tolerated the procedure well without complication. I advised John of the expected response, possible reactions and the instructions for care of her hand. ASSESSMENT (G56.01) Carpal tunnel syndrome of right wrist (Z98.890) S/P endoscopic carpal tunnel release (M65.351) Trigger finger, right little finger (M65.352) Trigger finger, left little finger 1. Carpal tunnel syndrome of right wrist 2. S/P endoscopic carpal tunnel release 3. Trigger finger, right little finger 4. Trigger finger, left little finger PLAN John feels subjectively much improved 9-month status post endoscopic carpal tunnel release. Still has occasional numbness tingling the hand but is glad she had her surgery. Now presents with bilateral small finger triggering. Both were injected today without complication. Understand she can consider repeat injections or trigger finger releases in the future if her symptoms do not resolve. Otherwise OTC meds for pain. Immobilization: NO immobilization required at this point - FULL ROM encouraged without resitrictions Weight Bearing: Weight Bearing As Tolerated Rehabilitation: NO formal rehabilitation required at this point. Follow-up: John will followup with me on an as needed basis. She knows to call the office with any questions or concerns in the interim. Future Imaging: NONE Noah Sommer MD Hand and Upper Extremity Surgery [facility] Department of Orthopaedics and Sports Medicine 12/26/2023 at 10:52 AM (Please note that portions of this note may have been completed with a voice recognition program. Efforts were made to edit the dictations but occasionally words are mis-transcribed.) documented in this encounter [facility] 11-01-2023 Telephone encounter Note Medication name: verapamil SR (Calan SR) 240 MG ER tablet Medication dosage: 240 mg (Miligrams Monthly quantity needed: 30 How many day supply requestin days Medication route: oral (PO) Medication administration time(s): bedtime (HS) If taking medication PRN, reason for taking medication: N/A If this is a controlled substance do you receive this or any other controlled medication from any other doctor or facility: N/A Ordering provider: Dr. Mclaughlin Date of last office visit: 08/29/23 Date of next office visit: 03/10/24 Date of last refill: (see medication tab): 07/29/23 Updated/Validated preferred pharmacy: Yes Patient instructed to contact the pharmacy prior to picking up the medication: Yes [facility] 11-01-2023 Miscellaneous Notes Medication name: verapamil SR (Calan SR) 240 MG ER tablet Medication dosage: 240 mg (Miligrams Monthly quantity needed: 30 How many day supply requestin days Medication route: oral (PO) Medication administration time(s): bedtime (HS) If taking medication PRN, reason for taking medication: N/A If this is a controlled substance do you receive this or any other controlled medication from any other doctor or facility: N/A Ordering provider: Dr. Mclaughlin Date of last office visit: 08/29/23 Date of next office visit: 03/10/24 Date of last refill: (see medication tab): 07/29/23 Updated/Validated preferred pharmacy: Yes Patient instructed to contact the pharmacy prior to picking up the medication: Yes documented in this encounter [facility] 08-29-2023 History of Present illness Narrative Images from the original note were not included. [facility] [address] [place] [facility] [address] Dept: [phone] Dept Chief Complaint: John Navarrete is an 88 y.o. female here for an annual wellness visit. Assessment/Plan : Problem List Items Addressed This Visit None Visit Diagnoses Routine general medical examination at health care facility - Primary Elevated blood pressure reading in office with diagnosis of hypertension I have reviewed and reconciled the medication list with the patient today. Current Outpatient Medications Medication Sig Dispense Refill aspirin 81 MG EC tablet Take 81 mg by mouth daily. Multiple Vitamin tablet Take 1 tablet by mouth in the morning. verapamil SR (Calan SR) 240 MG ER tablet Take 1 tablet (240 mg) by mouth Nightly. Do not crush or chew. 90 tablet 0 No current facility-administered medications for this visit. Also reviewed during this visit: Allergies Meds Problems The following health maintenance schedule was reviewed with the patient and provided in printed form in the after visit summary: Health Maintenance Topic Date Due Lipid Panel Never done Medicare Annual Wellness (AWV) Never done Bone Density Scan Never done Depression Screening Never done COVID-19 Vaccine (4 - Moderna series) 10/18/2021 Influenza Vaccine (1) 06/21/2023 DTaP/Tdap/Td Vaccines (2 - Td or Tdap) 03/16/2032 Pneumococcal Vaccine: 65+ Years Completed Zoster Vaccines Completed HIB Vaccines Aged Out Hepatitis B Vaccines Aged Out IPV Vaccines Aged Out Hepatitis A Vaccines Aged Out Meningococcal Vaccine Aged Out Rotavirus Vaccines Aged Out HPV Vaccines Aged Out List of current healthcare providers: Patient Care Team: Wilfrido Mclaughlin DO as PCP - General (Family Medicine) No orders of the defined types were placed in this encounter. Subjective :88-year-old female with underlying history of hypertension and SVT who was last seen in February of this year had a previous MRI done in November for concerns of unsteady gait and balance issues which was otherwise unremarkable for any acute disease process. She presents back to the office today for annual checkup and evaluation. Patient's last blood work was done back in November of this year. At that time his CBC and chemistry are otherwise unremarkable and normal. She did have a urinalysis checked in February. The urine was otherwise subsequently clear and no signs of infection or dehydration. Concerns for memory, occasionally forgetful, don't currently drive.history of periodic dizzy, no issues with confusion and leaving the house or leaving appliances on or running water. does state she's forgetful. Patient states memory is not a problem and not affecting daily functioning. Continuing to do well and watches her weight, but doesn't deprive herself. Review of Systems Constitutional: Negative for chills and fever. HENT: Negative for congestion and sore throat. Respiratory: Negative for cough and shortness of breath. Cardiovascular: Negative for chest pain. Gastrointestinal: Negative for abdominal pain, diarrhea, nausea and vomiting. Genitourinary: Negative for difficulty urinating, dysuria, frequency and urgency. Musculoskeletal: Negative for back pain. Neurological: Negative for dizziness and light-headedness. All other systems reviewed and are negative. Physical Exam Vitals reviewed. Constitutional: General: She is not in acute distress. Appearance: Normal appearance. She is not ill-appearing or toxic-appearing. HENT: Right Ear: Tympanic membrane and ear canal normal. Left Ear: Tympanic membrane and ear canal normal. Ears: Comments: Wears hearing aids without concerns Mouth/Throat: Mouth: Mucous membranes are moist. Pharynx: No oropharyngeal exudate or posterior oropharyngeal erythema. Eyes: General: No scleral icterus. Conjunctiva/sclera: Conjunctivae normal. Pupils: Pupils are equal, round, and reactive to light. Neck: Vascular: No carotid bruit. Cardiovascular: Rate and Rhythm: Normal rate and regular rhythm. Heart sounds: Normal heart sounds. Pulmonary: Effort: Pulmonary effort is normal. No respiratory distress. Breath sounds: Normal breath sounds. Abdominal: General: Bowel sounds are normal. There is no distension. Palpations: Abdomen is soft. Tenderness: There is no abdominal tenderness. There is no guarding. Musculoskeletal: Cervical back: Normal range of motion and neck supple. No rigidity or tenderness. Right lower leg: No edema. Left lower leg: No edema. Lymphadenopathy: Cervical: No cervical adenopathy. Skin: General: Skin is warm and dry. Neurological: Mental Status: She is alert. Psychiatric: Mood and Affect: Mood normal. Health Risk Assessment: General: General In general, how would you say your health is?: Good In the past 7 days, have you experienced any of the following: New or Increased Pain, New or Increased Fatigue, Loneliness, Social Isolation, Stress or Anger?: No Do you get the social and emotional suppport you need?: Yes Health Habits/Nutrition: Health Habits / Nutrition On average, how many days per week do you engage in moderate to strenous exercise (like a brisk walk)?: 7 days On average, how man minutes do you engage in exercise at this level?: 10 min Have you lost any weight without trying in the past 3 months? : No Have you seen the dentist within the past year?: Yes Hearing/ Vision: Hearing / Vision Do you or your family notice any trouble with your hearing that hasn't been managed with hearing aids?: No Do you have difficulty driving, watching TV, or doing any of your daily activities because of your eyesight?: No Have you had an eye exam within the past year?: Yes No results found. Safety: Safety Do you have a working smoke detector?: Yes Do you have any tripping hazards - loose or unsecured carpets or rugs?: No Do you have any tripping hazards - clutter in doorways, halls, or stairs?: No Do you have either shower bars, grab bars, non-slip mats or non-slip surfaces in your shower or bathtub? : (!) No Do all your stairways have a railing or banister? : Yes Do you fasten your seatbelt when you are in a car?: Yes Interventions: Patient declines any further evaluation / treatment for this issue ADL: ADL In the past 7 days, did you need help from others to perform any of the following everyday activities: Eating, dressing, grooming,bathing, toileting, or walking / balance? : No In the past 7 days, did you need help from others to take care of any of the following: laundry, housekeeping, banking / finances,shopping, telephone use, food preparation, transportation, or taking medications? : Yes Select all that apply: Transportation Interventions: Living Will: Living Will Do you have a living will?: Yes Cognitive: Cognitive Screening: Mini-Cog Words Recalled: 3 Total Score Interpretation: Normal Mini-Cog Interventions: Fall Risk: Fall Risk One or more falls in the last year:: Yes Advised to use a cane or walker to get around safely:: No Feels unsteady when walking:: No Steadies self on furniture while walking at home:: No Worried about falling:: Yes Interventions: Depression Screening: Over the past 2 weeks, how often have you been bothered by any of the following problems? Little interest or pleasure in doing things: Not at all Feeling down, depressed, or hopeless: Not at all Patient Health Questionnaire-2 Score: 0 Interventions: Tobacco Use: Social History Tobacco Use Smoking Status Never Smokeless Tobacco Never Alcohol Use: Audit Alcohol Screening Q2: How many drinks containing alcohol do you have on a typical day when you are drinking?: Patient does not drink Objective : BP (!) 170/82 (BP Location: Right arm, Patient Position: Sitting, BP Cuff Size: Small adult) Pulse 67 Temp 36.8 C (98.2 F) (Temporal) Ht 5' 1 (1.549 m) Wt 126 lb (57.2 kg) SpO2 96% BMI 23.81 kg/m No results found. documented in this encounter [facility] 08-29-2023 Instructions Morro Quintana PA-C - 08/29/2023 1:00 PM EST Personalized Preventative Plan for John Navarrete - 08/29/2023 Medicare offers a range of preventative health benefits. Some of the tests and screenings are paid in full while others may be subject to a deductible, co-insurance, and / or copay. Some of these benefits include a comprehensive review of your medical history including lifestyle, illnesses that may run in your family, and various assessments and screenings as appropriate. After reviewing your medical record and screening and assessments performed today, your provider may have ordered immunizations, labs, imaging, and / or referrals for you. A list of these orders (if applicable) as well as your Preventative Care list are included within your After Visit Summary for your review. Other Preventative Recommendations: A preventive eye exam by an dairy management specialist is recommended every 1-2 years to screen for glaucoma, cataracts, macular degeneration, and other eye disorders. A preventive dental visit is recommended every 6 months. Try to get at least 150 minutes of exercise per week or 10,000 steps per day on a pedometer. You need 1200-1500mg of calcium and [id number] international units of vitamin D per day. It is possible to meet your calcium requirement with diet alone, but a vitamin D supplement is usually necessary to meet this goal. When exposed to the sun, use a sunscreen that protects against both UVA and UVB radiation with an SPF of 30 or greater. Reapply every 2-3 hours or after sweating, drying off with a towel, or swimming. Always wear a seat belt when traveling in a car. Always wear a helmet when riding a bicycle or a motorcycle documented in this encounter [facility] 07-30-2023 Telephone encounter Note Pt scheduled 08/29/23 [facility] 07-30-2023 Miscellaneous Notes Pt scheduled 08/29/23 Medication name: verapamil SR (Calan SR) 240 MG ER tablet Medication dosage: 240 mg (Miligrams Monthly quantity needed: 90 How many day supply requestin days Medication route: oral (PO) Medication administration time(s): daily If taking medication PRN, reason for taking medication: N/A If this is a controlled substance do you receive this or any other controlled medication from any other doctor or facility: N/A Ordering provider: Dr. Mclaughlin Date of last office visit: 02.28.23 Date of next office visit: 08.29.23 Date of last refill: (see medication tab): 02.26.23 Updated/Validated preferred pharmacy: Yes Patient instructed to contact the pharmacy prior to picking up the medication: Yes documented in this encounter [facility] 07-29-2023 Telephone encounter Note Medication name: verapamil SR (Calan SR) 240 MG ER tablet Medication dosage: 240 mg (Miligrams Monthly quantity needed: 90 How many day supply requestin days Medication route: oral (PO) Medication administration time(s): daily If taking medication PRN, reason for taking medication: N/A If this is a controlled substance do you receive this or any other controlled medication from any other doctor or facility: N/A Ordering provider: Dr. Mclaughlin Date of last office visit: 02.28.23 Date of next office visit: 08.29.23 Date of last refill: (see medication tab): 02.26.23 Updated/Validated preferred pharmacy: Yes Patient instructed to contact the pharmacy prior to picking up the medication: Yes [facility] 07-29-2023 Miscellaneous Notes Medication name: verapamil SR (Calan SR) 240 MG ER tablet Medication dosage: 240 mg (Miligrams Monthly quantity needed: 90 How many day supply requestin days Medication route: oral (PO) Medication administration time(s): daily If taking medication PRN, reason for taking medication: N/A If this is a controlled substance do you receive this or any other controlled medication from any other doctor or facility: N/A Ordering provider: Dr. Mclaughlin Date of last office visit: 02.28.23 Date of next office visit: 08.29.23 Date of last refill: (see medication tab): 02.26.23 Updated/Validated preferred pharmacy: Yes Patient instructed to contact the pharmacy prior to picking up the medication: Yes documented in this encounter [facility] 06-20-2023 History of Present illness Narrative Images from the original note were not included. [facility] [address] [place] [address] Dept: [phone] Dept 06/20/2023 Chief Complaint Patient presents with Post-op R carpal tunnel release SUBJECTIVE John is approximately 3 month(s) s/p right endoscopic carpal tunnel release on 03/29/23. She is no longer taking anything for pain. She denies significant complaints other than the expected amount of pain. She reports continued numbness in the thumb, index and long fingers, and discomfort in her palm, which are slowly improving. She also has noticed a small hard bump on her distal left index finger, and she is unsure what it is. She also complains of bilateral small finger triggering. States he feels about 50% better with regards to numbness in the right hand. Still has discomfort in the palm and degree sensitive in the radial digits. Difficult time with buttoning buttons and fine motor task. OBJECTIVE BP 132/60 Ht 1.549 m (5' 1) Wt 57.6 kg (127 lb) BMI 24.00 kg/m Ortho Exam Focused Exam of the RIGHT Upper Extremity Skin: healed incision without sign of infection Edema: no evidence of edema Palpation: non tender to palpation throughout ROM: full functional ROM of the shoulder, elbow, wrist, and hand Stability: no evidence of joint instabilities Motor: Intact in the hand - able to fire AIN, PIN, and Ulnar nerves RIGHT Hand 2-point discrimination (mm) Thumb Index Long Ring Small r u r u r u r u r u 6 6 7 7 7 7 6 6 6 6 Median Ulnar Perfusion: Brisk capillary refill in all 5 digits IMAGING NONE ASSESSMENT (Z98.890) Status post carpal tunnel release 1. Status post carpal tunnel release PLAN John is only about 50% better following her carpal tunnel release. I looked back at her EMG which showed severe carpal tunnel. Understands it can take upwards of a full year to reach maximal improvement and I cannot guarantee 100% dilution of her initial symptoms. She is comfortable this plan. She will follow-up in 6 months time with repeat exam. Immobilization: NO immobilization required at this point - FULL ROM encouraged without resitrictions Weight Bearing: Weight Bearing As Tolerated Rehabilitation: NO formal rehabilitation required at this point. Follow-up: John will followup with me in 6 months. She knows to call the office with any questions or concerns in the interim. Future Imaging: NONE Noah Sommer MD Hand and Upper Extremity Surgery [facility] Department of Orthopaedics and Sports Medicine 06/20/2023 at 12:30 PM (Please note that portions of this note may have been completed with a voice recognition program. Efforts were made to edit the dictations but occasionally words are mis-transcribed.) documented in this encounter [facility] 04-08-2023 History of Present illness Narrative Subjective: John is approximately 10 day(s) s/p Right endoscopic carpal tunnel release DOS 03/29/23. Pain is minimal. She is taking Tylenol for pain relief. She denies significant complaints. She denies drainage from her incision. She reports no improvement in numbness/tingling in her right hand since surgery yet. The patient reports no significant change in her hand paresthesias postoperatively. She has minimal discomfort today. She does mention that she had constant numbness in her right hand for approximately 4 months prior to surgery. Objective: BP 130/70 Pulse 68 Ht 5' 1 (1.549 m) Wt 127 lb (57.6 kg) BMI 24.00 kg/m Right Upper Extremity Skin: Incision(s) is healing appropriately. No drainage. No erythema. Edema: Minimal surrounding edema. Perfusion: Brisk capillary refill to all digits with 2+ radial pulse. Sensation: RIGHT Hand 2-point discrimination (mm) Thumb Index Long Ring Small r u r u r u r u r u 5 5 6 7 7 7 5 5 5 5 Median Ulnar ROM: Wrist: Flexion 70 Extension 70 Supination 80 Pronation 80 Fingers flex to palm. XRay: None Assessment Diagnosis Plan 1. S/P endoscopic carpal tunnel release 2. Carpal tunnel syndrome of right wrist Plan I would like John to gradually return to normal activities without restrictions and begin wrist and hand range of motion exercises without limits to include nerve gliding exercises. The patient was advised to advance weightbearing activities using pain as a guide. Sutures were removed today in the office without complication. Expected postoperative recovery course was discussed with the patient including pillar pain and length of time for maximum improvement and return of full strength which can take up to a year. The patient was advised to perform edema control and scar tissue massage. The patient was provided with home going exercise instructions. her questions were answered today in the office. I would like the patient to follow up in [address] Sommer in [employer] (per her request) to reassess her postoperative progress. She is comfortable with the plan. Immobilization: NO immobilization required at this point - FULL ROM encouraged Weight Bearing: Weight bearing as tolerated Rehabilitation: Home Exercises: full range of motion and to be gradual weight bearing. Instructions reviewed today in office. HEP given in office today Dr. Sommer will see John back in 3 months to see how she is doing. John knows to call the office with any questions or concerns in the interim. Future Imaging: None Sutures were removed in office today. No dressing was applied to right wrist. Patient tolerated well with no concerns. Performed by: [facility] Electronically signed by Dayna Payne PA-C to Noah Sommer M.D. Hand & Upper Extremity Surgery 04/08/2023 at 2:48 PM. (Please note that portions of this note may have been completed with a voice recognition program. Efforts were made to edit the dictations but occasionally words are mis-transcribed.) documented in this encounter [facility] 04-08-2023 Instructions JULISSA Tripathi 04/08/2023 2:30 PM EDT Images from the original note were not included. THERAPY TO MAKE YOUR HANDS LESS TENDER Hand injuries are often very tender during the early healing phase. Often, tenderness in scars gets worse starting one to two weeks after injury or surgery. Unfortunately, this tenderness does not always go away by itself. The nerves in the hand are special and are more sensitive than other parts of the body. After any injury, the skin of the hand must get used to being touched again for the tenderness to go away. If you do not touch the sore areas of your hand, they may remain very sensitive and tender. The techniques of PERCUSSION and FRICTION MASSAGE outlined in this pamphlet will help speed up the process of recovery from tenderness in your hands and fingers. The goal of these exercises is to make your wounds less tender. It is normal for these exercises to be somewhat uncomfortable while doing them or shortly afterwards. If the exercises are too painful, try using less pressure. If that does not work, then give yourself a several hour break and try again. If pain again is a problem, speak with your doctor or your therapist. These exercises will not be recommended until it is safe to do them. PERCUSSION (Tapping): This technique activates the automatic reflex which makes us ignore things which are very repetitive. This reflex will dull the tenderness in areas of your hand that are touched repeatedly. Here is how to do percussion: 1. Tap lightly on the area of your hand which is tender. You can tap on the sensitive area with a finger tip of your other hand or with a light object such as a pencil. 2. Find the spot which is the most tender. 3. Note the time, and begin to tap rapidly (2-3 times a second), lightly and continuously on the most tender area. 4. Keep tapping without a break for three minutes or until you notice the feeling in the area change. The area may start to feel numb or it may simply feel a little bit less tender. 5. Take a minute rest and begin again. You may find that a different area is now the most tender spot. This exercise should be done as many times as possible during the day. It takes many thousands of taps to really change the tenderness in a sore area. The sooner you accumulate that many taps, the sooner your wounds will be more comfortable. FRICTION MASSAGE: The goal of friction massage is to STRETCH the scar tissue beneath the skin. As with percussion, it should be done many times during the day. This exercise not only helps improve tenderness, but helps restore the contour of the skin to a more normal appearance. Here is how to do friction massage: 1. Place a finger tip of your other hand against the central area of the scar. 2. Mentally note four directions that the skin can be pushed sideways: near, far, left and right. 3. With your finger tip pressed firmly against the scar and without sliding, gently but steadily push the skin to one side as if you were trying to slide the skin off of the bone. Hold this position for five seconds. 4. Briefly relax and then repeat this maneuver in one of the other directions. Make sure you attempt to slide the skin in all four directions. 5. If the scar is wider than your finger tip, repeat this stretching exercise on every point of the scar. This exercise is done without any skin lubrication. Remember to do this exercise before applying any antibiotic ointment or moisturizing creams. Carpal Tunnel Syndrome: Exercises Your Care Instructions Here are some examples of typical rehabilitation exercises for your condition. Start each exercise slowly. Ease off the exercise if you start to have pain. Your doctor or your physical or occupational therapist will tell you when you can start these exercises and which ones will work best for you. Warm-up stretches When you no longer have pain or numbness, you can do exercises to help prevent carpal tunnel syndrome from coming back. Do not do any stretch or movement that is uncomfortable or painful. Rotate your wrist up, down, and from side to side. Repeat 4 times. Stretch your fingers far apart. Relax them, and then stretch them again. Repeat 4 times. Stretch your thumb by pulling it back gently, holding it, and then releasing it. Repeat 4 times. How to do the exercises Prayer stretch Start with your palms together in front of your chest just below your chin. Slowly lower your hands toward your waistline, keeping your hands close to your stomach and your palms together until you feel a mild to moderate stretch under your forearms. Hold for at least 15 to 30 seconds. Repeat 2 to 4 times. Wrist flexor stretch Extend your arm in front of you with your palm up. Bend your wrist, pointing your hand toward the floor. With your other hand, gently bend your wrist farther until you feel a mild to moderate stretch in your forearm. Hold for at least 15 to 30 seconds. Repeat 2 to 4 times. Wrist extensor stretch Repeat steps 1 through 4 of the stretch above, but begin with your extended hand palm down. Follow-up care is a guerra part of your treatment and safety. Be sure to make and go to all appointments, and call your doctor if you are having problems. It's also a good idea to know your test results and keep a list of the medicines you take. documented in this encounter [facility] 02-28-2023 History of Present illness Narrative Images from the original note were not included. [facility] [address] [facility] [address] Dept: [phone] Dept Loc: [phone] Visit type: Established Patient Reason for Visit: Dizziness Assessment and Plan 1. Dizziness -Acute on chronic issue transient and temporary at times. - Previous MRI reviewed with the patient shows age-related changes nothing acute. - Discussed referral to ENT patient has declined. - Patient failed the clock test as she is concerned about possible Alzheimer's dementia we discussed it further and would need to do further MoCA testing or referral for dementia evaluation patient has declined referral and is declined any use of medications at this time as we discussed medicine such as Aricept. Follow up in about 6 months (around 08/31/2023) for AWV. Subjective HPI 87-year-old female with a history of hypertension who had a previous MRI of her brain back in November 2022 contact the office for close follow-up and evaluation to discuss her MRI results. Concerned for balance issues from time to time and dizziness sometimes when leaning forward. Gets forgetful at times. She was seen in the office previously blood work was done since was unremarkable showed no signs of dehydration or signs of anemia. She denies any history of injury trauma does states she had several episodes where she stumbled and fallen her symptoms primarily occur when she leans to forward when she is bending over. She does state from time to time she gets a little dizzy or she just feels her balance is off. Review of previous visits showed that she had a difficult time with heel-to-toe walking however her gait here appears otherwise unremarkable and she is able to walk upright without difficulty. Review of Systems Constitutional: Negative for chills and fever. HENT: Negative for congestion and sore throat. Respiratory: Negative for cough and shortness of breath. Cardiovascular: Negative for chest pain. Gastrointestinal: Negative for abdominal pain, diarrhea, nausea and vomiting. Genitourinary: Negative for difficulty urinating, dysuria, frequency and urgency. Musculoskeletal: Negative for back pain. Neurological: Positive for dizziness. Negative for light-headedness. All other systems reviewed and are negative. No Known Allergies Outpatient Medications Prior to Visit Medication Sig Dispense Refill Multiple Vitamin tablet Take 1 tablet by mouth in the morning. verapamil SR (Calan SR) 240 MG ER tablet Take 1 tablet (240 mg) by mouth Nightly. Do not crush or chew. 90 tablet 1 No facility-administered medications prior to visit. Past Medical History: Diagnosis Date Colitis Colon polyp 09/15/2019 HTN (hypertension) Osteoporosis Tachycardia Social History Tobacco Use Smoking status: Never Smokeless tobacco: Never Substance Use Topics Alcohol use: No Alcohol/week: 0.0 standard drinks Past Surgical History: Procedure Laterality Date COLONOSCOPY 09/15/2019 several. polyp EYE SURGERY Bilateral cataracts IMGHX XR ENDO COLONSCOPY W DILATATION 10/18/2022 1 polyp. No follow-up colonoscopy suggested due to age OSTEOTOMY Left 05/22/2019 Hallux Valgus correction TRIGGER FINGER RELEASE Right 06/23/2021 right middle and ring -dr cole TUBAL LIGATION Family History Problem Relation Name Age of Onset High Blood Pressure Sister Other (98788) Father 48 Alcohol at Heart disease Sister Valvular heart disease Heart disease Mother 94 [place]. Had coronary artery bypass graft age 86 Heart disease Father 48 48.00 [place] Hyperlipidemia Sister Objective BP (!) 148/70 (BP Location: Left arm, Patient Position: Sitting, BP Cuff Size: Large adult) Pulse 73 Temp 37 C (98.6 F) (Temporal) Ht 5' 2 (1.575 m) Wt 129 lb (58.5 kg) SpO2 96% BMI 23.59 kg/m Physical Exam Vitals reviewed. Constitutional: General: She is not in acute distress. Appearance: Normal appearance. She is not ill-appearing or toxic-appearing. HENT: Right Ear: Tympanic membrane and ear canal normal. Left Ear: Tympanic membrane and ear canal normal. Nose: Nose normal. Mouth/Throat: Mouth: Mucous membranes are moist. Pharynx: No oropharyngeal exudate. Eyes: General: No scleral icterus. Conjunctiva/sclera: Conjunctivae normal. Pupils: Pupils are equal, round, and reactive to light. Neck: Vascular: No carotid bruit. Cardiovascular: Rate and Rhythm: Normal rate and regular rhythm. Heart sounds: Normal heart sounds. No murmur heard. Pulmonary: Effort: Pulmonary effort is normal. No respiratory distress. Breath sounds: Normal breath sounds. Abdominal: General: There is no distension. Tenderness: There is no abdominal tenderness. Musculoskeletal: Cervical back: Normal range of motion and neck supple. No rigidity or tenderness. Lymphadenopathy: Cervical: No cervical adenopathy. Skin: General: Skin is warm and dry. Coloration: Skin is not jaundiced or pale. Neurological: General: No focal deficit present. Mental Status: She is alert and oriented to person, place, and time. Cranial Nerves: No cranial nerve deficit. Sensory: No sensory deficit. Motor: No weakness. Coordination: Coordination normal. Comments: Patient is able to perform finger-nose without any past-pointing. There is no signs of cranial nerve deficit. No appreciable signs of focal weakness. Psychiatric: Mood and Affect: Mood normal. Data Reviewed and Summarized Labs: Imaging/Testing: Morro Quintana PA-C 02/28/2023 Please note that portions of this note may have been completed with voice recognition software. Documentation reviewed prior to signing but minor errors in micro computer data processor may have occurred. documented in this encounter [facility] 02-28-2023 History of Present illness Narrative Images from the original note were not included. [address] [address] Dept: [phone] Dept Loc: [phone] Visit type: Established Patient Reason for Visit: Dizziness Assessment and Plan 1. Dizziness -Acute on chronic issue transient and temporary at times. - Previous MRI reviewed with the patient shows age-related changes nothing acute. - Discussed referral to ENT patient has declined. - Patient failed the clock test as she is concerned about possible Alzheimer's dementia we discussed it further and would need to do further MoCA testing or referral for dementia evaluation patient has declined referral and is declined any use of medications at this time as we discussed medicine such as Aricept. Follow up in about 6 months (around 08/31/2023) for AWV. Subjective HPI 87-year-old female with a history of hypertension who had a previous MRI of her brain back in November 2022 contact the office for close follow-up and evaluation to discuss her MRI results. Concerned for balance issues from time to time and dizziness sometimes when leaning forward. Gets forgetful at times. She was seen in the office previously blood work was done since was unremarkable showed no signs of dehydration or signs of anemia. She denies any history of injury trauma does states she had several episodes where she stumbled and fallen her symptoms primarily occur when she leans to forward when she is bending over. She does state from time to time she gets a little dizzy or she just feels her balance is off. Review of previous visits showed that she had a difficult time with heel-to-toe walking however her gait here appears otherwise unremarkable and she is able to walk upright without difficulty. Review of Systems Constitutional: Negative for chills and fever. HENT: Negative for congestion and sore throat. Respiratory: Negative for cough and shortness of breath. Cardiovascular: Negative for chest pain. Gastrointestinal: Negative for abdominal pain, diarrhea, nausea and vomiting. Genitourinary: Negative for difficulty urinating, dysuria, frequency and urgency. Musculoskeletal: Negative for back pain. Neurological: Positive for dizziness. Negative for light-headedness. All other systems reviewed and are negative. No Known Allergies Outpatient Medications Prior to Visit Medication Sig Dispense Refill Multiple Vitamin tablet Take 1 tablet by mouth in the morning. verapamil SR (Calan SR) 240 MG ER tablet Take 1 tablet (240 mg) by mouth Nightly. Do not crush or chew. 90 tablet 1 No facility-administered medications prior to visit. Past Medical History: Diagnosis Date Colitis Colon polyp 09/15/2019 HTN (hypertension) Osteoporosis Tachycardia Social History Tobacco Use Smoking status: Never Smokeless tobacco: Never Substance Use Topics Alcohol use: No Alcohol/week: 0.0 standard drinks Past Surgical History: Procedure Laterality Date COLONOSCOPY 09/15/2019 several. polyp EYE SURGERY Bilateral cataracts IMGHX XR ENDO COLONSCOPY W DILATATION 10/18/2022 1 polyp. No follow-up colonoscopy suggested due to age OSTEOTOMY Left 05/22/2019 Hallux Valgus correction TRIGGER FINGER RELEASE Right 06/23/2021 right middle and ring -dr sommer TUBAL LIGATION Family History Problem Relation Name Age of Onset High Blood Pressure Sister Other (12908) Father 48 Alcohol at Heart disease Sister Valvular heart disease Heart disease Mother 94 [place]. Had coronary artery bypass graft age 86 Heart disease Father 48 48.00 [place] Hyperlipidemia Sister Objective BP (!) 148/70 (BP Location: Left arm, Patient Position: Sitting, BP Cuff Size: Large adult) Pulse 73 Temp 37 C (98.6 F) (Temporal) Ht 5' 2 (1.575 m) Wt 129 lb (58.5 kg) SpO2 96% BMI 23.59 kg/m Physical Exam Vitals reviewed. Constitutional: General: She is not in acute distress. Appearance: Normal appearance. She is not ill-appearing or toxic-appearing. HENT: Right Ear: Tympanic membrane and ear canal normal. Left Ear: Tympanic membrane and ear canal normal. Nose: Nose normal. Mouth/Throat: Mouth: Mucous membranes are moist. Pharynx: No oropharyngeal exudate. Eyes: General: No scleral icterus. Conjunctiva/sclera: Conjunctivae normal. Pupils: Pupils are equal, round, and reactive to light. Neck: Vascular: No carotid bruit. Cardiovascular: Rate and Rhythm: Normal rate and regular rhythm. Heart sounds: Normal heart sounds. No murmur heard. Pulmonary: Effort: Pulmonary effort is normal. No respiratory distress. Breath sounds: Normal breath sounds. Abdominal: General: There is no distension. Tenderness: There is no abdominal tenderness. Musculoskeletal: Cervical back: Normal range of motion and neck supple. No rigidity or tenderness. Lymphadenopathy: Cervical: No cervical adenopathy. Skin: General: Skin is warm and dry. Coloration: Skin is not jaundiced or pale. Neurological: General: No focal deficit present. Mental Status: She is alert and oriented to person, place, and time. Cranial Nerves: No cranial nerve deficit. Sensory: No sensory deficit. Motor: No weakness. Coordination: Coordination normal. Comments: Patient is able to perform finger-nose without any past-pointing. There is no signs of cranial nerve deficit. No appreciable signs of focal weakness. Psychiatric: Mood and Affect: Mood normal. Data Reviewed and Summarized Labs: Imaging/Testing: Morro Quintana PA-C 02/28/2023 Please note that portions of this note may have been completed with voice recognition software. Documentation reviewed prior to signing but minor errors in micro computer data processor may have occurred. documented in this encounter [facility] 02-28-2023 Miscellaneous Notes Addended by: MORRO QUINTANA on: 03/01/2023 09:09 AM Modules accepted: Orders documented in this encounter [facility] 02-28-2023 Note Addended by: MORRO QUINTANA on: 03/01/2023 09:09 AM Modules accepted: Orders [facility] 02-26-2023 Telephone encounter Note Rx loaded Last ov 11/20/22 Next ov 02/28/23 [facility] 02-26-2023 Miscellaneous Notes Rx loaded Last ov 11/20/22 Next ov 02/28/23 Medication name: verapamil SR (Calan SR) 240 MG ER tablet To [facility] order pharmacy Medication dosage: 240 mg (Miligrams Monthly quantity needed: 90 How many day supply requestin days Medication route: oral (PO) Medication administration time(s): bedtime (HS) If taking medication PRN, reason for taking medication: N/A If this is a controlled substance do you receive this or any other controlled medication from any other doctor or facility: No Ordering provider: Dr. Iraheta Date of last office visit: 11/20/2022 Date of next office visit: 02/28/2023 Date of last refill: (see medication tab): 08/23/2023 Updated/Validated preferred pharmacy: Yes Patient instructed to contact the pharmacy prior to picking up the medication: No documented in this encounter [facility] 02-26-2023 Telephone encounter Note Medication name: verapamil SR (Calan SR) 240 MG ER tablet To [facility] Mail order pharmacy Medication dosage: 240 mg (Miligrams Monthly quantity needed: 90 How many day supply requestin days Medication route: oral (PO) Medication administration time(s): bedtime (HS) If taking medication PRN, reason for taking medication: N/A If this is a controlled substance do you receive this or any other controlled medication from any other doctor or facility: No Ordering provider: Dr. Iraheta Date of last office visit: 11/20/2022 Date of next office visit: 02/28/2023 Date of last refill: (see medication tab): 08/23/2023 Updated/Validated preferred pharmacy: Yes Patient instructed to contact the pharmacy prior to picking up the medication: No [facility] 02-20-2023 Procedure note Associated Ord er(s): NERVE CONDUCTION TEST WITH EMG [facility]rology Lab EMG/NCS report: Patient: Jonh Navarrete AGE: 87 y.o. Handedness: Left Gender: Female Referring physician: Noah Sommer MD Study date: 02/20/23 Reason for referral: Patient presents with numbness, weakness, and paresthesia in the right hand. EMG/NCS of the right arm is done to evaluate for mononeuropathy affecting the right upper extremity vs. Right cervical radiculopathy. Summary: The right median sensory nerve action potential was absent. The right ulnar sensory nerve action potential was remarkable for a decreased amplitude. The right radial sensory nerve action potential was unremarkable. The right median to ulnar palmar comparison mixed nerve action potential was remarkable for an absent median palmar response. The right median to APB compound muscle action potential was remarkable for a prolonged distal latency, decreased amplitude and a decreased conduction velocity. The right ulnar to ADM compound muscle action potential was remarkable for a decreased conduction velocity across the elbow segment. The right ulnar to FDI compound muscle action potential was remarkable for a decreased conduction velocity across the elbow segment. The right median to ulnar lumbrical interossei comparison study was remarkable for a prolonged median distal latency compared to its ulnar counterpart. Concentric needle EMG was performed in the right upper extremity. No increased insertional activity, fibrillation potentials, fasciculation potentials or positive sharp waves were seen any muscle tested. Motor unit action potentials demonstrated normal morphology and firing pattern throughout. Impression: This is an abnormal study. 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 carpal tunnel syndrome, which is severe electrophysiologically. 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 There is no evidence of a right cervical radiculopathy on this study. All normal values/reference values for this study were taken from the AANEM reference values which were created in 2019. This dictation was done by using the [employer] dictation system. It has been proofread but still may contain unrecognized voice recognition errors. [employer] Work Phone: 02-20-2023 Procedure note Associated Ord er(s): NERVE CONDUCTION TEST WITH EMG [facility] EMG/NCS report: Patient: John Navarrete AGE: 87 y.o. Handedness: Left Gender: Female Referring physician: Noah Sommer MD Study date: 02/20/23 Reason for referral: Patient presents with numbness, weakness, and paresthesia in the right hand. EMG/NCS of the right arm is done to evaluate for mononeuropathy affecting the right upper extremity vs. Right cervical radiculopathy. Summary: The right median sensory nerve action potential was absent. The right ulnar sensory nerve action potential was remarkable for a decreased amplitude. The right radial sensory nerve action potential was unremarkable. The right median to ulnar palmar comparison mixed nerve action potential was remarkable for an absent median palmar response. The right median to APB compound muscle action potential was remarkable for a prolonged distal latency, decreased amplitude and a decreased conduction velocity. The right ulnar to ADM compound muscle action potential was remarkable for a decreased conduction velocity across the elbow segment. The right ulnar to FDI compound muscle action potential was remarkable for a decreased conduction velocity across the elbow segment. The right median to ulnar lumbrical interossei comparison study was remarkable for a prolonged median distal latency compared to its ulnar counterpart. Concentric needle EMG was performed in the right upper extremity. No increased insertional activity, fibrillation potentials, fasciculation potentials or positive sharp waves were seen any muscle tested. Motor unit action potentials demonstrated normal morphology and firing pattern throughout. Impression: This is an abnormal study. 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 carpal tunnel syndrome, which is severe electrophysiologically. 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 There is no evidence of a right cervical radiculopathy on this study. All normal values/reference values for this study were taken from the AANEM reference values which were created in 2019. This dictation was done by using the [employer] dictation system. It has been proofread but still may contain unrecognized voice recognition errors. documented in this encounter [facility] 02-07-2023 History of Present illness Narrative Images from the original note were not included. [facility] [address] [place] [address] Dept: [phone] Dept 02/07/2023 Chief Complaint Patient presents with Follow-up New Complaint Right hand numbness and Left trigger fingers HISTORY John Navarrete is a 87 y.o. left-handed female who presents today complaining of numbness in her RIGHT hand, involving the index finger, long finger, thumb that has been present for 2 months. She also complains of triggering in the LEFT index and ring finger since about November that is happening frequently. She denies nighttime awakening and frequently dropping things. She denies medial elbow discomfort. Previous treatments include: Night Splinting: No Injections: No EMG: No Surgery on Affected Extremity: Yes middle and ring trigger finger release 06/2021 Left index and ring triggering. Right hand numbness. No results found for: HGBA1C Past Surgical History: Procedure Laterality Date COLONOSCOPY 09/15/2019 several. polyp EYE SURGERY Bilateral cataracts IMGHX XR ENDO COLONSCOPY W DILATATION 10/18/2022 1 polyp. No follow-up colonoscopy suggested due to age OSTEOTOMY Left 05/22/2019 Hallux Valgus correction TRIGGER FINGER RELEASE Right 06/23/2021 right middle and ring -dr sommer TUBAL LIGATION Past Medical History: Diagnosis Date Colitis Colon polyp 09/15/2019 HTN (hypertension) Osteoporosis Tachycardia No Known Allergies Current Outpatient Medications Medication Sig Dispense Refill Multiple Vitamin tablet Take 1 tablet by mouth in the morning. verapamil SR (Calan SR) 240 MG ER tablet Take 1 tablet (240 mg) by mouth Nightly. Do not crush or chew. 90 tablet 0 No current facility-administered medications for this visit. OBJECTIVE BP 118/64 Ht 5' 2 (1.575 m) Wt 130 lb (59 kg) BMI 23.78 kg/m Ortho Exam Comprehensive Exam of BILATERAL Upper Extremities RIGHT LEFT Atrophy THENAR (mild) not present Tinel's at Wrist negative negative Carpal Compression negative negative Tinel's at Elbow negative negative Flexion/Compression Elbow negative negative Ulnar Nerve Subluxation not appreciated not appreciated APB Strength 5/5 5/5 Intrinsic Strength 5/5 5/5 2-point discrimination (mm) RIGHT Hand Thumb Index Long Ring Small r u r u r u r u r u >10 >10 >10 >10 >10 >10 >10 5 5 5 Median Ulnar Palpable radial pulses bilaterally. Full range of motion without evidence of instabilities in bilateral shoulders, elbows, wrists, or digits. John is TTP over the A1 marialuisa of the left index finger, ring finger. She is able to reproduce triggering in office today. IMAGING None NCT/EMG (Copied Impression) None PROCEDURE Procedure Note: Trigger Finger Injection The LEFT INDEX finger A1 marialuisa was identified as the injection site. I discussed the risks/benefits of a corticosteroid injection to include but not be limited to infection, subcutaneous fat atrophy, elevated blood glucose, local redness and pain. After discussion of the risk/benefits the patient elected to proceed. Under sterile conditions, the flexor sheath was injected with a mixture of 0.5mL of 1% Lidocaine and 0.5mL of Celestone (6mg/mL). A sterile bandage was applied. John tolerated the procedure well without complication. I advised John of the expected response, possible reactions and the instructions for care of her hand. Procedure Note: Trigger Finger Injection The LEFT RING finger A1 marialuisa was identified as the injection site. I discussed the risks/benefits of a corticosteroid injection to include but not be limited to infection, subcutaneous fat atrophy, elevated blood glucose, local redness and pain. After discussion of the risk/benefits the patient elected to proceed. Under sterile conditions, the flexor sheath was injected with a mixture of 0.5mL of 1% Lidocaine and 0.5mL of Celestone (6mg/mL). A sterile bandage was applied. John tolerated the procedure well without complication. I advised John of the expected response, possible reactions and the instructions for care of her hand. ASSESSMENT (M65.322) Trigger index finger of left hand (M65.342) Trigger ring finger of left hand (R20.0) Numbness of right hand 1. Trigger index finger of left hand 2. Trigger ring finger of left hand 3. Numbness of right hand PLAN Aleisha has right-sided carpal tunnel syndrome and left index ring triggering. Left trigger fingers were injected. She will get an EMG of the right hand. She will follow-up after the EMG. Follow-up: John will followup with me after EMG/NCT. She knows to call the office with any questions or concerns in the interim. Next Appointment Imaging: None Noah Sommer MD Hand and Upper Extremity Surgery [facility] Department of Orthopaedics and Sports Medicine 02/07/2023 at 9:09 AM (Please note that portions of this note may have been completed with a voice recognition program. Efforts were made to edit the dictations but occasionally words are mis-transcribed.) documented in this encounter [facility] 12-07-2022 Telephone encounter Note Patient is anxious for results. [facility] 12-07-2022 Miscellaneous Notes Patient is anxious for results. Name of caller: John Navarrete Contact phone number: [phone] Relationship to Patient: Patient Provider: Dr. Iraheta Practice[facility] Chief Complaint/Reason for Call: Patient is needing to know the results of her MRI from Saturday. Please advise. Best time of day caller can be reached: Any Patient advised that office/PCP has 24-48 business hours to return their call: Yes documented in this encounter [facility] 12-07-2022 Telephone encounter Note Name of caller: John Navarrete Contact phone number: [phone] Relationship to Patient: Patient Provider: Dr. Iraheta Practice: [facility] Chief Complaint/Reason for Call: Patient is needing to know the results of her MRI from Saturday. Please advise. Best time of day caller can be reached: Any Patient advised that office/PCP has 24-48 business hours to return their call: Yes [facility] 11-28-2022 Telephone encounter Note This was addressed under lab section [facility] 11-28-2022 Miscellaneous Notes This was addressed under lab section Name of caller: John Contact phone number: [phone] Relationship to Patient: patient Provider: Dr. Iraheta Practice: [facility] Chief Complaint/Reason for Call: Patient is calling in for her results from CBC/labwork. Please advise. Best time of day caller can be reached: any but will at bible study until 2:30pm today. Patient advised that office/PCP has 24-48 business hours to return their call: no documented in this encounter [facility] 11-28-2022 Telephone encounter Note Name of caller: John Contact phone number: [phone] Relationship to Patient: patient Provider: Dr. Iraheta Practice: [facility] Chief Complaint/Reason for Call: Patient is calling in for her results from CBC/labwork. Please advise. Best time of day caller can be reached: any but will at bible study until 2:30pm today. Patient advised that office/PCP has 24-48 business hours to return their call: no [facility] 11-20-2022 History of Present illness Narrative Subjective: Patient ID: John Navarrete is a 87 y.o. female. 87-year-old female with a history of hypertension presents to the office complaining of dizziness. Has had this for about 6 months. Review of Systems Constitutional: Positive for fatigue. Negative for activity change, appetite change, fever and unexpected weight change. HENT: Positive for hearing loss (Chronic hearing loss. She does wear hearing aids.). Chronic hearing loss.. Has worn hearing aids for about 5 years Eyes: Negative for visual disturbance. Respiratory: Negative for chest tightness and shortness of breath. Cardiovascular: Negative for chest pain and palpitations. Gastrointestinal: Negative for abdominal pain, blood in stool, constipation and diarrhea. Endocrine: Negative for polydipsia and polyuria. Genitourinary: Negative for difficulty urinating and frequency. Musculoskeletal: Negative for arthralgias. Was having right low back pain. Not overly troublesome. No obvious weakness of either leg Skin: Negative for rash. Neurological: Positive for dizziness (Unsteady on her feet for about 6 months. Dizziness primarily when she turns her head quickly but recently she went down to pick something up and fell flat on the floor. Did not lose consciousness). Negative for headaches. Unsteady on her feet Psychiatric/Behavioral: Negative for dysphoric mood. The patient is not nervous/anxious. Patient is concerned about becoming more forgetful. She does remember however complaining of this 10 years ago. Objective: Physical Exam HENT: Right Ear: Tympanic membrane normal. Left Ear: Tympanic membrane normal. Eyes: Extraocular Movements: Extraocular movements intact. Neck: Thyroid: No thyromegaly. Vascular: No carotid bruit. Cardiovascular: Rate and Rhythm: Normal rate and regular rhythm. Heart sounds: No murmur heard. Pulmonary: Breath sounds: Normal breath sounds. Abdominal: Palpations: There is no mass. Tenderness: There is no abdominal tenderness. Musculoskeletal: Right lower leg: No edema. Left lower leg: No edema. Lymphadenopathy: Cervical: No cervical adenopathy. Skin: Findings: No rash. Neurological: Mental Status: She is alert. Comments: Patient was unable to walk a straight line. Very unsteady. Negative heel and toe walking. No dysfunction with fine dexterity. 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 Negative Hallpike. Patient is oriented to person place and time. She did not recall the human resources services specialist's name. BP (!) 144/74 Pulse 85 Temp 36.4 C (97.5 F) (Temporal) Ht 5' 2 (1.575 m) Wt 130 lb 12.8 oz (59.3 kg) SpO2 99% BMI 23.92 kg/m No Known Allergies Current Outpatient Medications on File Prior to Visit Medication Sig Dispense Refill Multiple Vitamin tablet Take 1 tablet by mouth in the morning. verapamil SR (Calan SR) 240 MG ER tablet Take 1 tablet (240 mg) by mouth Nightly. Do not crush or chew. 90 tablet 0 collagenase 250 UNIT/GM ointment APPLY TO WOUND ONCE A DAY (MORE FREQUENTLY IF DRESSING IS SOILED) FOR 30 DAYS 120 g 5 [DISCONTINUED] mesalamine ER (Apriso) 0.375 g 24 hr capsule Take 0.375 g by mouth in the morning. No current facility-administered medications on file prior to visit. Patient Active Problem List Diagnosis SVT (supraventricular tachycardia) (CMS/HCC) (HCC) Torus mandibularis Essential hypertension Menopause Social History Tobacco Use Smoking status: Never Smokeless tobacco: Never Substance Use Topics Alcohol use: No Alcohol/week: 0.0 standard drinks Past Surgical History: Procedure Laterality Date COLONOSCOPY 09/15/2019 several. polyp EYE SURGERY Bilateral cataracts IMGHX XR ENDO COLONSCOPY W DILATATION 10/18/2022 1 polyp. No follow-up colonoscopy suggested due to age OSTEOTOMY Left 05/22/2019 Hallux Valgus correction TRIGGER FINGER RELEASE Right 06/23/2021 right middle and ring -dr cole TUBAL LIGATION Family History Problem Relation Name Age of Onset High Blood Pressure Sister Other (88872) Father 48 Alcohol at Heart disease Sister Valvular heart disease Heart disease Mother 94 [place]. Had coronary artery bypass graft age 86 Heart disease Father 48 48.00 [place] Hyperlipidemia Sister Assessment / Plan: Diagnosis Plan 1. Ataxia CBC Comprehensive metabolic panel CBC Comprehensive metabolic panel Will set up MRI 2. Essential hypertension Comprehensive metabolic panel Comprehensive metabolic panel Systolic blood pressure elevated today. Blood pressure check 1 week 3. Forgetfulness Does not appear to be a problem. Will observe MRI of the brain documented in this encounter [facility] 11-15-2022 Telephone encounter Note Triage message reviewed with clinical staff. Patient appointment confirmed. PCP will assess at appointment visit. [facility] 11-15-2022 Miscellaneous Notes Triage message reviewed with clinical staff. Patient appointment confirmed. PCP will assess at appointment visit. S: Patient spoke with [facility] nurse regarding dizziness is worsening and has fallen a few times, bed spins with turning over. B: Onset of symptoms/concern 6 months but happens when turning over in bed also with looking up and down A: states it has gotten worse over the past week. Pt only wants to see Dr Iraheta R: Pt scheduled on 11/20/22 @ 9:50a. Advised to turn body, not head, also hold on to something if looking up or down Patient understands care advice. No further needs at this time. Patient instructed to call back with new or worsening symptoms. Reason for Disposition [1] NO dizziness now AND [2] age > 59 Answer Assessment - Initial Assessment Questions 1. Protocols used: Dizziness - [id number] documented in this encounter [facility] 11-15-2022 Telephone encounter Note S: Patient spoke with [facility] nurse regarding dizziness is worsening and has fallen a few times, bed spins with turning over. B: Onset of symptoms/concern 6 months but happens when turning over in bed also with looking up and down A: states it has gotten worse over the past week. Pt only wants to see Dr Iraheta R: Pt scheduled on 11/20/22 @ 9:50a. Advised to turn body, not head, also hold on to something if looking up or down Patient understands care advice. No further needs at this time. Patient instructed to call back with new or worsening symptoms. Reason for Disposition [1] NO dizziness now AND [2] age > 59 Answer Assessment - Initial Assessment Questions 1. Protocols used: Dizziness - [id number] [facility] 10-18-2022 Note HNO ID: [id number] Author: Whitley Reddy RN Service: ? Author Type: Registered Nurse Type: Nursing Progress Note Filed: 10/18/2022 1:07 PM Note Text: Pt. States readiness for discharge. Assisted with dressing. [facility] 10-18-2022 Note HNO ID: [id number] Author: Whitley Reddy RN Service: ? Author Type: Registered Nurse Type: Nursing Progress Note Filed: 10/18/2022 1:02 PM Note Text: Physician at bedside. [facility] 10-18-2022 Nurse Note Pt. States readiness for discharge. Assisted with dressing. [facility] 10-18-2022 Nurse Note Pt. States readiness for discharge. Assisted with dressing. Physician at bedside. Discharge instructions given and patient voices understanding. All questions answered. Whitley Redyd RN documented in this encounter [facility] 10-18-2022 Nurse Note Physician at bedside. [facility] 10-18-2022 Nurse Note Discharge instructions given and patient voices understanding. All questions answered. Whitley Reddy RN [facility] 10-18-2022 History and physical note HISTORY AND PHYSICAL John Navarrete, 87 year old female here colonoscopy, high risk for colon cancer, personal history of colon polyps Current history and physical on file: No Is a new History and Physical required for today's visit? Yes Indication for procedure: History of colon polyps PROCEDURE(S) SCHEDULED FOR: Colonoscopy with or without biopsies and with or without removal of polyps or lesions, dilation (any means), treatment of bleeding (any means), based on clinical findings. BASELINE BEHAVIOR: Calm BASELINE ORIENTATION: A & O x3 All medications and allergies reviewed: Yes Skin Assessment: Warm dry muscus membranes pink Airway/Respiratory Assessment: Airway: visualization of the uvula- Yes Mouth: opening greater than 2 fingerbreadths- Yes Neck: full range of motion- Yes Breath sounds clear/equal- Yes Cardiac Assessment: Regular rate and rhythm without murmur Abdominal Assessment: Abdomen soft, non-tender, no masses or organomegaly. Sedation Plan: Deep Additional Comments: None Maricruz Bedolla MD [facility] Work Phone: 10-18-2022 History and physical note HISTORY AND PHYSICAL John Navarrete, 87 year old female here colonoscopy, high risk for colon cancer, personal history of colon polyps Current history and physical on file: No Is a new History and Physical required for today's visit? Yes Indication for procedure: History of colon polyps PROCEDURE(S) SCHEDULED FOR: Colonoscopy with or without biopsies and with or without removal of polyps or lesions, dilation (any means), treatment of bleeding (any means), based on clinical findings. BASELINE BEHAVIOR: Calm BASELINE ORIENTATION: A & O x3 All medications and allergies reviewed: Yes Skin Assessment: Warm dry muscus membranes pink Airway/Respiratory Assessment: Airway: visualization of the uvula- Yes Mouth: opening greater than 2 fingerbreadths- Yes Neck: full range of motion- Yes Breath sounds clear/equal- Yes Cardiac Assessment: Regular rate and rhythm without murmur Abdominal Assessment: Abdomen soft, non-tender, no masses or organomegaly. Sedation Plan: Deep Additional Comments: None Maricruz Bedolla MD documented in this encounter [facility] 10-18-2022 Miscellaneous Notes Please call patient and advise that colonoscopy was abnormal, precancerous polyp. Recall in 5 years Maricruz Bedolla MD documented in this encounter [facility] 10-18-2022 Progress note Formatting of t his note might be different from the original. Please call patient and advise that colonoscopy was abnormal, precancerous polyp. Recall in 5 years Maricruz Bedolla MD [facility] 09-11-2022 Note HNO ID: [id number] Author: Yuli Drummond PA-C Service: ? Author Type: Physician Installation And Repair Technician Type: Progress Notes Filed: 09/11/2022 11:20 AM Note Text: CHIEF COMPLAINT: Patient presents with: Colonoscopy eval: Last colon 09/14/19 HPI John Navarrete is a 87 year old female here today for Colonoscopy eval (Last colon 09/14/19) PMHx of HTN, SVT, SOB Patient tells me that her bowels are usually regular for her. Mostly formed. No abdominal pain, nausea, vomiting, rectal bleeding. Dealing with low back pain. Colonoscopy 2019: Impression: - One 8 mm polyp in the proximal descending colon, removed with a hot snare. Resected and retrieved. Recommendation: - Patient has a contact number available for emergencies. The signs and symptoms of potential delayed complications were discussed with the patient. Return to normal activities tomorrow. Written discharge instructions were provided to the patient. - Resume previous diet. - Continue present medications. - Await pathology results. - No repeat colonoscopy due to age and current age (66 years or older). - The patient has taken no previous anticoagulant or antiplatelet agents. CONVERTED FINAL DIAGNOSIS Proximal descending colon polyp, biopsy - Sessile serrated polyp Current Outpatient Medications Medication Sig multivit with minerals/lutein (MULTIVITAMIN 50 PLUS ORAL) Take by mouth. verapamil SR (CALAN SR, ISOPTIN SR) 240 mg CR tablet Take 240 mg by mouth daily at bedtime. No current facility-administered medications for this visit. 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 ECHOCARDIOGRAM 02/26/2018 normal LV size and systolic fxn; LVEF 66%; moderate 2+ MR; mild 1+ TR; mild 1+ AI TUBAL LIGATION 1973 FAMILY HISTORY Problem Relation Age of Onset Coronary Artery Disease Mother had 4-vessel CABG at age 86 yrs Coronary Artery Disease Father Alcohol/Drug Father heavy drinker (whiskey) Heart disease Sister valvular; valve replacement (pig valve) Hypertension Sister Hyperlipidemia Sister DVT Brother other (pulmonary embolism) Brother REVIEW OF SYSTEMS Review of Systems All other systems reviewed and are negative. PHYSICAL EXAM Pulse 72 Ht 5' 2 (1.58m) Wt 134 lb (60.8kg) BMI 24.50 kg/(m2). Physical Exam Constitutional: Appearance: Normal appearance. She is normal weight. HENT: Head: Normocephalic and atraumatic. Eyes: General: No scleral icterus. Extraocular Movements: Extraocular movements intact. Conjunctiva/sclera: Conjunctivae normal. Pupils: Pupils are equal, round, and reactive to light. Cardiovascular: Rate and Rhythm: Normal rate and regular rhythm. Pulses: Normal pulses. Heart sounds: Normal heart sounds. Pulmonary: Effort: Pulmonary effort is normal. Breath sounds: Normal breath sounds. Abdominal: General: Abdomen is flat. Bowel sounds are normal. Palpations: Abdomen is soft. Tenderness: There is no abdominal tenderness. Musculoskeletal: General: Normal range of motion. Cervical back: Normal range of motion and neck supple. Skin: General: Skin is warm and dry. Coloration: Skin is not jaundiced. Neurological: General: No focal deficit present. Mental Status: She is alert and oriented to person, place, and time. Psychiatric: Mood and Affect: Mood normal. Behavior: Behavior normal. Thought Content: Thought content normal. Judgment: Judgment normal. Assessment/Plan (Z12.11) Screening for colon cancer (primary encounter diagnosis) (Z86.010) History of colonic polyps 1. Screening for colon cancer -- Patient is a healthy 87 year old here today to discuss screening colonoscopy. Discussed this potential complications of a colonoscopy at her age including anesthesia complications. -- She would like to proceed as she is nervous about having polyp. Order placed today. - COLONOSCOPY SCREENING; Future 2. History of colonic polyps -- Patient is a healthy 87 year old here today to discuss screening colonosco (more content not included)... [facility] 09-11-2022 History of Present illness Narrative CHIEF COMPLAINT: Patient presents with: Colonoscopy eval: Last colon 09/14/19 HPI John Navarrete is a 87 year old female here today for Colonoscopy eval (Last colon 09/14/19) PMHx of HTN, SVT, SOB Patient tells me that her bowels are usually regular for her. Mostly formed. No abdominal pain, nausea, vomiting, rectal bleeding. Dealing with low back pain. Colonoscopy 2019: Impression: - One 8 mm polyp in the proximal descending colon, removed with a hot snare. Resected and retrieved. Recommendation: - Patient has a contact number available for emergencies. The signs and symptoms of potential delayed complications were discussed with the patient. Return to normal activities tomorrow. Written discharge instructions were provided to the patient. - Resume previous diet. - Continue present medications. - Await pathology results. - No repeat colonoscopy due to age and current age (66 years or older). - The patient has taken no previous anticoagulant or antiplatelet agents. CONVERTED FINAL DIAGNOSIS Proximal descending colon polyp, biopsy - Sessile serrated polyp Current Outpatient Medications Medication Sig multivit with minerals/lutein (MULTIVITAMIN 50 PLUS ORAL) Take by mouth. verapamil SR (CALAN SR, ISOPTIN SR) 240 mg CR tablet Take 240 mg by mouth daily at bedtime. No current facility-administered medications for this visit. 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 ECHOCARDIOGRAM 02/26/2018 normal LV size and systolic fxn; LVEF 66%; moderate 2+ MR; mild 1+ TR; mild 1+ AI TUBAL LIGATION 1972 FAMILY HISTORY Problem Relation Age of Onset Coronary Artery Disease Mother had 4-vessel CABG at age 86 yrs Coronary Artery Disease Father Alcohol/Drug Father heavy drinker (whiskey) Heart disease Sister valvular; valve replacement (pig valve) Hypertension Sister Hyperlipidemia Sister DVT Brother other (pulmonary embolism) Brother REVIEW OF SYSTEMS Review of Systems All other systems reviewed and are negative. PHYSICAL EXAM Pulse 72 Ht 5' 2 (1.58m) Wt 134 lb (60.8kg) BMI 24.50 kg/(m^2). Physical Exam Constitutional: Appearance: Normal appearance. She is normal weight. HENT: Head: Normocephalic and atraumatic. Eyes: General: No scleral icterus. Extraocular Movements: Extraocular movements intact. Conjunctiva/sclera: Conjunctivae normal. Pupils: Pupils are equal, round, and reactive to light. Cardiovascular: Rate and Rhythm: Normal rate and regular rhythm. Pulses: Normal pulses. Heart sounds: Normal heart sounds. Pulmonary: Effort: Pulmonary effort is normal. Breath sounds: Normal breath sounds. Abdominal: General: Abdomen is flat. Bowel sounds are normal. Palpations: Abdomen is soft. Tenderness: There is no abdominal tenderness. Musculoskeletal: General: Normal range of motion. Cervical back: Normal range of motion and neck supple. Skin: General: Skin is warm and dry. Coloration: Skin is not jaundiced. Neurological: General: No focal deficit present. Mental Status: She is alert and oriented to person, place, and time. Psychiatric: Mood and Affect: Mood normal. Behavior: Behavior normal. Thought Content: Thought content normal. Judgment: Judgment normal. Assessment/Plan (Z12.11) Screening for colon cancer (primary encounter diagnosis) (Z86.010) History of colonic polyps 1. Screening for colon cancer -- Patient is a healthy 87 year old here today to discuss screening colonoscopy. Discussed this potential complications of a colonoscopy at her age including anesthesia complications. -- She would like to proceed as she is nervous about having polyp. Order placed today. - COLONOSCOPY SCREENING; Future 2. History of colonic polyps -- Patient is a healthy 87 year old here today to discuss screening colonoscopy. Discussed this potential complications of a colonoscopy at her age including anesthesia complications. -- She would like to proceed as she is nervous about having polyp. Order placed today. - COLONOSCOPY SCREENING; Future Follow up in office PRN. Recommended to please call office/go to ER if fever, chills, chest pain, SOB, diarrhea, nausea, emesis, worsening abdominal pain, dehydration occurs I spent 20 minutes in the visit, with more than 50% of the total [id number] time of the visit in counseling / coordination of care. I have confirmed and edited as necessary, the PFSH and ROS obtained by others. Yuli Drummond PA-C September 11, 2022 11:17 AM documented in this encounter [facility] 06-23-2021 History of Present illness Narrative Pt transfered to phase 2 from OR- report received from [facility], pt is alert and oriented with vital signs with in normal limits, Pt under local anesthesia ONLY documented in this encounter [facility] Work Phone: 04-08-2018 History of Past i llness Narrative Problem Noted Date Resolved Date A-fib 04/08/2018 documented as of this encounter (statuses as of 09/11/2022) [facility] History of Past illness Narrative* Problem Noted Date Resolved Date A-fib 04/08/2018 documented as of this encounter (statuses as of 10/21/2022) [facility] note* Diagnosis Right arm pain Pain in limb documented in this encounter [facility] Work Phone: Evaluation noteNo assessment information available [facility] Work Phone: Evaluation note* Diagnosis Screening for colon cancer- Primary Special screening for malignant neoplasms, colon History of colonic polyps Personal history of colonic polyps documented in this encounter [facility]* Diagnosis Trigger index finger of left hand Trigger ring finger of left hand Numbness of right hand [facility] Diagnosis [facility]umbness of right hand [facility] Diagnosis Dizziness- Primary Dizziness and giddiness [facility] Diagnosis Dizziness- Primary Dizziness and giddiness [facility] Diagnosis S/P endoscopic carpal tunnel release- Primary Other postprocedural status Carpal tunnel syndrome of right wrist [facility] Diagnosis Status post carpal tunnel release- Primary Other postprocedural status [facility] Diagnosis Routine general medical examination at health care facility- Primary Routine general medical examination at a health care facility Elevated blood pressure reading in office with diagnosis of hypertension [facility] Diagnosis Carpal tunnel syndrome of right wrist- Primary S/P endoscopic carpal tunnel release Other postprocedural status Trigger finger, right little finger Trigger finger, left little finger [facility] Diagnosis Skin tear of lower leg without complication, left, initial encounter- Primary Skin infection Unspecified local infection of skin and subcutaneous tissue [facility] Diagnosis Skin tear of lower leg without complication, left, initial encounter- Primary Skin infection Unspecified local infection of skin and subcutaneous tissue [facility] Diagnosis Skin tear of lower leg without complication, left, initial encounter- Primary Pain in left leg Cellulitis of left leg [facility] Diagnosis Skin tear of lower leg without complication, left, initial encounter- Primary Pain in left leg Cellulitis of left leg [facility] Diagnosis Skin tear of lower leg without complication, left, initial encounter- Primary Cellulitis of left leg Pain in left leg [facility] Diagnosis Essential hypertension- Primary Unspecified essential hypertension Skin tear of lower leg without complication, left, initial encounter Palpitations Cerebral vascular disease Unspecified cerebrovascular disease Mild cognitive impairment with memory loss Mild cognitive impairment, so stated documented [facility]* Diagnosis Open wound of left lower leg, subsequent encounter- Primary Skin tear of lower leg without complication, left, initial encounter Cellulitis of left leg Pain in left leg [facility] Diagnosis Cellulitis of left leg- Primary Open wound of left lower leg, subsequent encounter Pain in left leg documented in this encounter [facility]* Diagnosis Essential hypertension Unspecified essential hypertension documented in this encounter [facility]* Diagnosis Pain in left leg- Primary Open wound of left lower leg, subsequent encounter Edema of left lower leg documented in this encounter [facility]* Diagnosis Essential hypertension Unspecified essential hypertension [facility] Diagnosis Subacute cough- Primary Essential hypertension Unspecified essential hypertension Memory loss Lipid screening Screening for lipoid disorders Cerebral vascular disease Unspecified cerebrovascular disease Subacute cough [facility] Diagnosis Subacute cough documented in this encounter [facility]* Diagnosis Memory loss- Primary [facility]* Diagnosis Screening for colon cancer Special screening for malignant neoplasms, colon History of colonic polyps Personal history of colonic polyps documented [facility]* Diagnosis Moderate dementia without behavioral disturbance, psychotic disturbance, mood disturbance, or anxiety, unspecified dementia type (HCC)- Primary Vertigo Dizziness and giddiness documented in this encounter [facility]* Diagnosis Bursitis of other bursa of left hip- Primary Essential hypertension Unspecified essential hypertension Other constipation Rectal bleeding Hemorrhage of rectum and anus documented in this encounter [facility]* Diagnosis Ataxia- Primary Lack of coordination Essential hypertension Unspecified essential hypertension Forgetfulness Other general symptoms documented in this encounter [facility]* Diagnosis Ataxia Lack of coordination [facility] Diagnosis Moderate dementia without behavioral disturbance, psychotic disturbance, mood disturbance, or anxiety, unspecified dementia type (HCC)- Primary Unsteadiness on feet documented in this encounter [facility]* Diagnosis Unsteadiness on feet documented in this encounter [facility]* Diagnosis Unsteadiness on feet- Primary documented in this encounter [facility]* Diagnosis Unsteadiness on feet- Primary documented in this encounter [facility]* Diagnosis Palpitations- Primary Essential hypertension Unspecified essential hypertension Moderate late onset Alzheimer's dementia without behavioral disturbance, psychotic disturbance, mood disturbance, or anxiety (HCC) documented in this encounter [facility]* Diagnosis Unsteadiness on feet- Primary documented in this encounter [facility]* Diagnosis Unsteadiness on feet- Primary documented in this encounter [facility]* Diagnosis Unsteadiness on feet- Primary [facility]* Diagnosis Unsteadiness on feet- Primary documented in this encounter [facility]* Diagnosis Unsteadiness on feet- Primary documented in this encounter [facility]* Diagnosis Unsteadiness on feet- Primary [facility]* Diagnosis Unsteadiness on feet- Primary [facility]* Instructions* Dayna Payne PA - 06/23/2021 Images from the original note were not included. Trigger Finger Release: What to Expect at Home Your Recovery Your finger and hand may be sore and swollen for several days or weeks. It may be hard to move yourfinger at first. This usually gets better after several weeks. You may feel numbness or tingling near the cut, called an incision, that the doctor made. This feeling will probably get better in a fewdays, but it may take several months to completely go away. Your stitches will be removed 1 to 2 weeks after surgery. You received a local injection in your operative finger(s) with lidocaine and epinephrine today. Itis normal for your finger tip(s) to look pale or white for up to 10 hours after surgery but if thispersists past the 10 hours please call the office immediately at [phone]. It will probably take about 6-12 weeks for your finger to heal completely. Once healed, your fingermay move easily without pain. How soon you can return to work depends on your job. If you can do your job without using the hand,you may be able to go back 1 or 2 days after surgery. But if your job requires you to do repeated finger movements, put pressure on your hand, or lift things, you may need to take up to 6 weeks off work. How much time you will need to take off work can be decided at your initial post operative appointment. This care sheet gives you a general idea about how long it will take for you to recover. But each person recovers at a different pace. Follow the steps below to get better as quickly as possible. How can you care for yourself at home? Activity Rest when you feel tired. Getting enough sleep will help you recover. Try to walk each day. Start by walking a little more than you did the day before. Bit by bit, increase the amount you walk. Until your stitches are removed in the office, you are to remain non weight bearing in operative extremity. For 1 to 2 weeks after surgery, avoid using your hand. This includes lifting things heavier than 1 to 2 pounds or doing repeated finger or hand movements, such as typing, using a computer mouse, washing windows, vacuuming, or chopping food. Do not use power tools, and avoid other activities that make your hand vibrate. Ask when you can drive again. You may be able to go back to work 1 or 2 days after surgery. It depends on the type of work you doand how you feel. You may shower, but do not get your hand wet. Keep the bandage dry by covering it with plastic. Do not take a bath, swim, use a hot tub, or soak your hand until cleared by the surgeon's office. Diet You can eat your normal diet. If your stomach is upset, try bland, low-fat foods like plain rice, broiled chicken, toast, and yogurt. Medicines Your can restart your normal medicines immediately after surgery. Instructions will be provided if you are to be taking any new medicines. Take pain medicines exactly as directed. ? If you are not taking a prescription pain medicine, take an [id number] medicine such as acetaminophen (Tylenol), ibuprofen (Advil, Motrin), or naproxen (Aleve). Read and follow all instructions on the label. ? Do not take two or more pain medicines at the same time unless told to do so. Many pain medicineshave acetaminophen, which is Tylenol. Too much acetaminophen (Tylenol) can be harmful. If you think your pain medicine is making you sick to your stomach: ? Take your medicine after meals. ? Ask for a different pain medicine. If prescribed antibiotics, take them as directed. Do not stop taking them just because you feel better. You need to take the full course of antibiotics. Incision care Leave the operative bandage on your hand for one week and please keep clean and dry. After one weekfrom the date of surgery, you can remove the bandage. After the bandage is removed, it is okay to shower and get the incision wet but do not soak the incision. Please keep a dry dressing or band aid over the incision until follow up appointment in 1-2 weeks. After bandage removal, wash the area daily with warm, soapy water and pat it dry. Don't use hydrogen peroxide or alcohol, which can slow healing. You may cover the area with a gauze bandage or Band-Aid. Change the bandage every day. Keep the area clean and dry. Exercise Gently bend and straighten your fingers throughout the day to keep them flexible and help reduce swelling. Perform range of motion exercises of index finger, long finger, ring finger, little finger, and thumb in dressing with goal of touching fingertips to palm by initial post op appointment. Please see below instructions on finger exercises. You may need finger and hand therapy. This helps you regain range of motion, strength, and bakery helper in your finger and hand. To get the best results, you need to do the exercises correctly and as often and as long as your doctor or your physical or occupational therapist tells you to. This will be decided at your initial post op appointment. Ice and elevation Put ice or a cold pack on your hand and wrist for 10 to 20 minutes at a time. Try to do this every 1 to 2 hours for the next 3 days (when you are awake) or until the swelling goes down. Put a thin cloth between the ice and your skin. Prop up your hand on a pillow anytime you sit or lie down during the first 2 or 3 days after surgery. Try to keep the hand above the level of your heart. This will help reduce swelling. Follow-up care is a guerra part of your treatment and safety. Be sure to make and go to all appointments, and call your doctor if you are having problems. It's also a good idea to know your test resultsand keep a list of the medicines you take. When should you call for help? Call 911 anytime you think you may need emergency care. For example, call if: You passed out (lost consciousness). You have severe trouble breathing. You have sudden chest pain and shortness of breath, or you cough up blood. Call your doctor now or seek immediate medical care if: You have pain that does not get better after you take pain medicine. You have loose stitches, or your incision comes open. Your incision bleeds through a large bandage. You have signs of infection, such as: ? Increased pain, swelling, warmth, or redness. ? Red streaks leading from the incision. ? Pus draining from the incision. ? Swollen lymph nodes in your neck, armpits, or groin. ? A fever. Your hand or fingers are cool or pale or change color after 10 hours from surgery. You have tingling or numbness in your hand or fingers after 10 hours from surgery. You cannot move your fingers. Watch closely for any changes in your health, and be sure to contact your doctor if: You are not getting better as expected. Where can you learn more? Go to [email or web address] and sign in to your [employer] account. Enter F681 in the Search Health Information box to learn more about Trigger Finger Release: What to Expect at Home. If you do not have an account, please click on the Sign Up Now link. Current as of: April 15, 2019Content Version: 12.4 Open English. Care instructions adapted under license by [employer]. If you have questions about a medical condition or this instruction, always ask your healthcare professional. [employer] disclaims any warranty or liability for your use of this information. Finger: Exercises Introduction Here are some examples of exercises for you to try. The exercises may be suggested for a condition or for rehabilitation. Start each exercise slowly. Ease off the exercises if you start to have pain. You will be told when to start these exercises and which ones will work best for you. How to do the exercises Tendon leatha 1. In this exercise, the steps follow one another to make a continuous movement. 2. With one hand, point your fingers and thumb straight up. Your wrist should be relaxed, followingthe line of your fingers and thumb. 3. Curl your fingers so that the top two joints in them are bent, and your fingers wrap down. Your fingertips should touch or be near the base of your fingers. Your fingers will look like a hook. 4. Make a fist by bending your knuckles. Your thumb can gently rest against your index (pointing) finger. 5. Unwind your fingers slightly so that your fingertips can touch the base of your palm. Your thumbcan rest against your index finger. Hold that position for about 6 seconds. 6. Move back to your starting position, with your fingers and thumb pointing up. 7. Repeat the series of motions 8 to 12 times. 8. Switch hands, and repeat steps 1 through 6. Thumb flexion/extension 1. Place your forearm and hand on a table with your thumb pointing up. 2. Bend your thumb downward and across your palm so that your thumb touches the base of your littlefinger. Hold that position for about 6 seconds. Then straighten your thumb. 3. Repeat 8 to 12 times. 4. Switch hands, and repeat steps 1 through 3. Thumb abduction/adduction 1. With one hand, point your fingers and thumb straight up. Your wrist should be relaxed, followingthe line of your fingers and thumb. 2. Pull your thumb away from your palm as far as you can. Hold that position for about 6 seconds. Then slowly move your thumb back to the starting position, with your thumb resting against your index(pointing) finger. 3. Repeat 8 to 12 times. 4. Switch hands, and repeat steps 1 through 3. Finger opposition 1. With one hand, point your fingers and thumb straight up. Your wrist should be relaxed, followingthe line of your fingers and thumb. 2. Touch your thumb to each finger, one finger at a time. This will look like an okay sign, but try to keep your other fingers straight and pointing upward as much as you can. 3. Repeat 8 to 12 times. 4. Switch hands, and repeat steps 1 through 3. Follow-up care is a guerra part of your treatment and safety. Be sure to make and go to all appointments, and call your doctor if you are having problems. It's also a good idea to know your test resultsand keep a list of the medicines you take. Where can you learn more? Go to [email or web address] and sign in to your [employer] account. Enter [id number] in the Search Health Information box to learn more about Finger: Exercises. If you do not have an account, please click on the Sign Up Now link. Current as of: April 15, 2019Content Version: 12.4 Open English. Care instructions adapted under license by [employer]. If you have questions about a medical condition or this instruction, always ask your healthcare professional. [employer] disclaims any warranty or liability for your use of this information. documented in this encounterSUMMA Work Phone: Reason for referral (narrative)* Outpatient Procedure (Routine) - Authorized Specialty Diagnoses / Procedures Referred By Contac t Referred To Contact [facility] Diagnoses Screening for colon cancer History of colonic polyps Procedures COLONOSCOPY SCREENING COLONOSCOPY FLX DX W/COLLJ SPEC WHEN PFRMD Yuli Drummond PA-C [address] [place] [address] [facility] [address] [place] [address] Referral ID Status Reason Start Date Expiration Date Visits Requested Visits Authorized [id number] Authorized Auto-Generat ed Referral 2 09/11/2023 1 1 [facility] for referral (narrative)* Consultation (Routine) - Authorized Specialty Diagnoses / Procedures Referred By Contact Referred To Contact Physical Medicine and Rehabilitation Diagnoses Numbness of right hand Procedures NERVE CONDUCTION TEST WITH EMG Noah Sommer MD [address] [facility] [address] [place] [address] Referral ID Status Reason Start Date Expiration Date V isits Requested Visits Authorized [id number] Authorized 02/07/2023 08/06/2023 1 [facility] Consultation (Routine) - Closed Specialty Diagnoses / Procedures Referred By Contact Referred To Contact Physical Medicine and Rehabilitation Diagnoses Numbness of right hand Procedures NERVE CONDUCTION TEST WITH EMG Noah Sommer MD [address] [facility] [address] [place] [address] Referral ID Status Reason Start Date Expiration Date Visits Re quested Visits Authorized [id number] Closed 02/07/2023 08/06/2023 1 [facility] Consultation (Routine) - Pending Review Specialty Diagnoses / Procedures Referred By Contac t Referred To Contact Wound Care Diagnoses Skin tear of lower leg without complication, left, initial encounter Procedures GA OFFICE/OUTPATIENT NEW HIGH MDM 60 MINUTES Viviana Mills APRN - [employer] [address] [place] [address] [place] [address] [facility] [address] [place] [address] Referral ID Status Reason Start Date Expiration Date Visits Requested Visits Authorized [id number] Pending Review Specialty Services Required 02/25/2024 02/24/2025 1 1 [facility] Consultation (Routine) - Pending Review Specialty Diagnoses / Procedures Referred By Contac t Referred To Contact Neurology Diagnoses Memory loss Procedures GA OFFICE/OUTPATIENT NEW HIGH MDM 60 MINUTES Wilfrido Mclaughlin DO [address] [place] [address] [facility] Neuro [address] [place] [address] Referral ID Status Reason Start Date Expiration Date Visits Requested Visits Authorized [id number] Pending Review Specialty Services Required 06/25/2024 06/25/2025 1 1 [facility] for referral (narrative)* Outpatient Procedure (Routine) - Closed Specialty Diagnoses / Procedures Referred By Contmarilyn t Referred To Contact [facility] Diagnoses Screening for colon cancer History of colonic polyps Procedures COLONOSCOPY SCREENING COLONOSCOPY FLX DX W/COLLJ SPEC WHEN Yuli Haywood PA-C [address] [place] [address] [address] Referral ID Status Reason Start Date Expiration Date V isits Requested Visits Authorized [id number] Closed Auto-Generate d Referral 09/11/2022 09/11/2023 [address] [facility] for visit Narrative* Consultation (Routine) - Closed Specialty Diagnoses / Procedures Referred By Contact Referred To Contact Physical Medicine and Rehabilitation Diagnoses Numbness of right hand Procedures NERVE CONDUCTION TEST WITH EMG Noah Sommer MD [address] [facility] [address] [place] [address] Referral ID Status Reason Start Date Expiration Date Visits Re quested Visits Authorized [id number] Closed 02/07/2023 08/06/2023 1 1 [facility] for visit Narrative* Outpatient Procedure (Routine) - Closed Specialty Diagnoses / Procedures Referred By Contmarilyn vásquez Referred To Contact [facility] Diagnoses Screening for colon cancer History of colonic polyps Procedures COLONOSCOPY SCREENING COLONOSCOPY FLX DX W/COLLJ SPEC WHEN Yuli Haywood PA-C [address] [place] [address] [address] Referral ID Status Reason Start Date Expiration Date V isits Requested Visits Authorized [id number] Closed Auto-Generate d Referral 09/11/2022 09/11/2023 [address] [facility] for visit Narrative* Therapy (Routine) - Authorized Specialty Diagnoses / Procedures Referred By Contac t Referred To Contact Physical Therapy Diagnoses Unsteadiness on feet Procedures GA OFFICE/OUTPATIENT NEW HIGH MDM 60 MINUTES Morro Mccray MD [address] [place] [address] Phone: tel: fax: [facility] at [place] [address] [place] [address] Phone: tel: fax: Referral ID Status Reason Start Date Expiration Date Visits Requested Visits Authorized [id number] Authorized Eval and Treat 12/03/2024 11/28/2025 99 99 [facility] Summary Purpose Family History No Family History Records Found Relationship Condition Age at Onset Recorded Date/T jenny father Cardiac disease Unknown Hypertension Unknown Advance Directives No Advanced Directives Records FoundDocuments on File Type Date Recorded Patient Compliance Intern Expl anation ACP-Advance Directive ACP-Power of Comp Field Case Manager Latest Code Status on File Code Status Date Activated Date Inactivated Comments Full Code 05/22/2019 6:11 AM 05/22/2019 12:22 PM Latest Code Status on File Code Status Date Activated Date Inactivated Comments Full Code 06/23/2021 6:13 AM Full Code 05/22/2019 6:11 AM 05/22/2019 12:22 PM Latest Code Status on File Code Status Date Activated Date Inactivated Comments Full Code 06/23/2021 6:13 AM 06/23/2021 10:32 AM Documents on File Type Date Recorded Patient Compliance Intern Expl anation Advance Directive(s) 07/31/2017 9:12 AM Advance Directive(s) 07/31/2017 9:13 AM Documents on File Type Date Recorded Patient Compliance Intern Expl anation Advance Directive(s) 07/31/2017 9:12 AM Advance Directive(s) 07/31/2017 9:13 AM Latest Code Status on File Code Status Date Activated Date Inactivated Comments Full Code 03/29/2023 6:02 AM 03/29/2023 10:25 AM Latest Code Status on File Code Status Date Activated Date Inactivated Comments Full Code 03/29/2023 6:02 AM 03/29/2023 10:25 AM Date Activated Date Inactivated Comments 03/29/2023 6:02 AM 03/29/2023 10:25 AM Date Activated Date Inactivated Comments 03/29/2023 6:02 AM 03/29/2023 10:25 AM Documents on File Type Date Recorded Patient Compliance Intern Expl anation Advance Directive(s) 07/31/2017 9:13 AM Advance Directive(s) 07/31/2017 9:12 AM Assessments Diagnosis Low back pain without sciatica, unspecified back pain laterality, unspecified chronicity Chief Complaint and Reason for Visit Chief Complaint ABNORMAL ULTRASOUND OF BREAST Reason for Referral Specialty Diagnoses / Procedures Referred By Contac t Referred To Contact Radiology Diagnoses Ataxia Procedures MR brain w and wo contrast Tang Iraheta, DO [address] [place] [address] Referral ID Status Reason Start Date Expiration Date Visits Re quested Visits Authorized [id number] Closed 11/23/2022 05/22/2023 1 1 Additional Source Comments INFORMATION SOURCE (unrecogn ized section and content) DATE CREATED AUTHOR 04/09/2018 [facility] DATE CREATED AUTHOR AUTHOR'S ORGANIZ ATION 04/10/2018 [facility] DATE CREATED AUTHOR AUTHOR'S ORGANIZ ATION 04/10/2018 [facility] DATE CREATED AUTHOR AUTHOR'S ORGANIZ ATION [facility] DATE CREATED AUTHOR AUTHOR'S ORGANIZ ATION 03/03/2022 [facility] DATE CREATED AUTHOR AUTHOR'S ORGANIZ ATION 10/20/2022 [facility] DATE CREATED AUTHOR AUTHOR'S ORGANIZ ATION 06/03/2025 [facility] Scheduled Active and Recently Administ ered Medications (unrecognized section and content) Medication Order 06/21/2021 06/22/2021 06/23/2021 lidocaine-EPINEPHrine 1 %-1:[id number] injection 8 mL (COMPLETED) 8 mL, IntraDERmal, ONCE, On Sat06/23/21 at 0630, For 1 dose, 10cc syringe (8cc 1% lidocaine with epinephrine (1/100,000) + 2cc sodium bicarbonate) in pre operative unit, Pre-op (day of surgery) 0749 (Given by Other - Provider: Torrie Knott RN - Comment: Givewn by Dr. Sommer) sodium bicarbonate 4.2 % injection 1 mEq (COMPLETED) 1 mEq, IntraVENous, ONCE, On Sat06/23/21 at 0630, For 1 dose, 10cc syringe (8cc 1% lidocaine with epinephrine (1/100,000) + 2cc sodium bicarbonate) in pre operative unit, Pre-op (day of surgery) 0750 (Given by Other - Provider: Torrie Knott RN - Comment: Given by Dr. Sommer) Care Teams (unrecognized sec tion and content) Sanitizer Relationship Specialty Start Date End Date Tang Iraheta DO [address], [place] [id number] PCP - General Family Medicine 07/22/15 Sanitizer Relationship Specialty Start Date End Date Tang Iraheta DO [address], [place] [phone] PCP - General Family Medicine 07/22/15 Sanitizer Relationship Specialty Start Date End Date Tang Iraheta DO [address], [place] [id number] PCP - General Family Medicine 07/22/15 Sanitizer Relationship Specialty Start Date End Date Tang Iraheta DO [address] [place], [place] [phone] PCP - General Family Medicine 02/16/18 Deandra Tanner MD [address] [place] [phone] Specialty Expressive Music Therapist Cardiology 04/08/18 Moi Melton [address] [place] [address] Specialty Expressive Music Therapist Gastroenterology 04/08/18 Sanitizer Relationship Specialty Start Date End Date Tang Iraheta DO [address] [place], [place] [id number] PCP - General Family Medicine 02/16/18 Deandra Tanner MD [address] [place] [phone] Specialty Expressive Music Therapist Cardiology 04/08/18 Geronimo Moivicente Duval [address] [place] [address] Specialty Expressive Music Therapist Gastroenterology 04/08/18 Sanitizer Relationship Specialty Start Date End Date Mary Irving PROOFING MACHINE OPERATOR - PIPELINE INTEGRITY ENGINEER [address] [place] [address] PCP - General Nurse Practitioner Family 02/07/23 Sanitizer Relationship Specialty Start Date End Date Tang Iraheta, DO [address] [place] [address] PCP - General 03/21/19 02/06/23 Mary Irving PROOFING MACHINE OPERATOR - PIPELINE INTEGRITY ENGINEER [address] [place] [address] PCP - General Nurse Practitioner Family 02/07/23 Sanitizer Relationship Specialty Start Date End Date Mary Irving PROOFING MACHINE OPERATOR - PIPELINE INTEGRITY ENGINEER [address] [place] [address] PCP - General Nurse Practitioner Family 02/07/23 Sanitizer Relationship Specialty Start Date End Date Wilfrido Mclaughlin, DO [address] [place] [address] PCP - General Family Medicine 02/26/23 Sanitizer Relationship Specialty Start Date End Date Wilfrido Mclaughlin, DO [address] [place] [address] PCP - General Family Medicine 02/26/23 Sanitizer Relationship Specialty Start Date End Date Wilfrido Mclaughlin, DO [address] [place] [address] PCP - General Family Medicine 02/26/23 Sanitizer Relationship Specialty Start Date End Date Wilfrido Mclaughlin, DO [address] [place], [place] [phone] PCP - General Family Medicine 02/26/23 Sanitizer Relationship Specialty Start Date End Date Wilfrido Mclaughlin, [address] [place], [place] [phone] PCP - General Family Medicine 02/26/23 Sanitizer Relationship Specialty Start Date End Date Wilfrido Mclaughlin, DO [address] [place] [address] PCP - General Family Medicine 02/26/23 Sanitizer Relationship Specialty Start Date End Date Wilfrido Mclaughlin, DO [address] [place] [address] PCP - General Family Medicine 02/26/23 Sanitizer Relationship Specialty Start Date End Date Wilfrido Mclaughlin, DO [address] [place] [address] PCP - General Family Medicine 02/26/23 Sanitizer Relationship Specialty Start Date End Date Wilfrido Mclaughlin, DO [address] [place] [address] PCP - General Family Medicine 02/26/23 Sanitizer Relationship Specialty Start Date End Date Wilfrido Mclaughlin, DO [address] [place] [address] PCP - General Family Medicine 02/26/23 Sanitizer Relationship Specialty Start Date End Date LawsonWilfrido rossi, DO [address] [place] [address] PCP - General Family Medicine 02/26/23 Sanitizer Relationship Specialty Start Date End Date Wilfrido Mclaughlin, DO [address] [place] [address] PCP - General Family Medicine 02/26/23 Sanitizer Relationship Specialty Start Date End Date Wilfrido Mclaughlin, DO [address] [place] [address] PCP - General Family Medicine 02/26/23 Sanitizer Relationship Specialty Start Date End Date Wilfrido Mclaughlin, DO [address] [place] [address] PCP - General Family Medicine 02/26/23 Sanitizer Relationship Specialty Start Date End Date Wilfrido Mclaughlin, DO [address] [place] [address] PCP - General Family Medicine 02/26/23 Sanitizer Relationship Specialty Start Date End Date Wilfrido Mclaughlin, DO [address] [place] [address] PCP - General Family Medicine 02/26/23 Sanitizer Relationship Specialty Start Date End Date Wilfrido Mclaughlin, DO [address] [place] [address] PCP - General Family Medicine 02/26/23 Sanitizer Relationship Specialty Start Date End Date Wilfrido Mclaughlin, DO [address] [place] [address] PCP - General Family Medicine 02/26/23 Sanitizer Relationship Specialty Start Date End Date LawsonWilfrido rossi, DO [address] [place] [address] PCP - General Family Medicine 02/26/23 Sanitizer Relationship Specialty Start Date End Date LawsonWilfrido rossi, DO [address] [place] [address] PCP - General Family Medicine 02/26/23 Sanitizer Relationship Specialty Start Date End Date LawsonWilfrido rossi, DO [address] [place] [address] PCP - General Family Medicine 02/26/23 Sanitizer Relationship Specialty Start Date End Date ArnoldoWilfrido, DO [address] [place] [address] PCP - General Family Medicine 02/26/23 Sanitizer Relationship Specialty Start Date End Date ArnoldoWilfrido, DO [address] [place] [address] PCP - General Family Medicine 02/26/23 Sanitizer Relationship Specialty Start Date End Date Tang Iraheta, DO [address] [place], [place] [phone] PCP - General Family Medicine 02/16/18 Deandra Tanner MD [address] [phone] Specialty Expressive Music Therapist Cardiology 04/08/18 Moi Melton [address] [place] [address] Specialty Expressive Music Therapist Gastroenterology 04/08/18 Sanitizer Relationship Specialty Start Date End Date Wilfrido Mclaughlin, DO [address] [place] [address] PCP - General Family Medicine 02/26/23 Sanitizer Relationship Specialty Start Date End Date Wilfrido Mclaughlin, [address] [place] [address] PCP - General Family Medicine 02/26/23 Sanitizer Relationship Specialty Start Date End Date Wilfrido Mclaughlin, [address] [place] [address] PCP - General Family Medicine 02/26/23 Sanitizer Relationship Specialty Start Date End Date Tang Iraheta [place] [facility] [place] [address] PCP - General 03/21/19 Sanitizer Relationship Specialty Start Date End Date Tang Iraheta DO [address] [place] [phone] PCP - General 03/21/19 Sanitizer Relationship Specialty Start Date End Date Tang Iraheta DO [facility] [place] [phone] PCP - General 03/21/19 Sanitizer Relationship Specialty Start Date End Date Wilfrido Mclaughlin, [address] [place] [address] PCP - General Family Medicine 02/26/23 Sanitizer Relationship Specialty Start Date End Date Arnoldo Wilfrido Erazo, DO [address] [place] [phone] PCP - General Family Medicine 02/26/23 Sanitizer Relationship Specialty Start Date End Date Arnoldo Wilfrido Erazo, DO [address] [place] [address] PCP - General Family Medicine 02/26/23 Sanitizer Relationship Specialty Start Date End Date Arnoldo Wilfrido Erazo, DO [address] [place] [phone] PCP - General Family Medicine 02/26/23 Sanitizer Relationship Specialty Start Date End Date Arnoldo Wilfrido Erazo, DO [address] [place] [address] PCP - General Family Medicine 02/26/23 Sanitizer Relationship Specialty Start Date End Date Arnoldo Wilfrido Erazo, DO [address] [place] [phone] PCP - General Family Medicine 02/26/23 Sanitizer Relationship Specialty Start Date End Date Arnoldo Wilfrido Erazo, DO [address] [place] [address] PCP - General Family Medicine 02/26/23 Sanitizer Relationship Specialty Start Date End Date Arnoldo Wilfrido Erazo, DO [address] [place] [phone] PCP - General Family Medicine 02/26/23 Sanitizer Relationship Specialty Start Date End Date Wilfrido Mclaughlin, DO [address] [place] [address] PCP - General Family Medicine 02/26/23 Sanitizer Relationship Specialty Start Date End Date LawsonraheemsidraWilfrido, DO [address] [place] [address] PCP - General Family Medicine 02/26/23 Sanitizer Relationship Specialty Start Date End Date LawsonWilfrido rossi, DO [address] [place] [phone] PCP - General Family Medicine 02/26/23 Sanitizer Relationship Specialty Start Date End Date LawsonWilfrido rossi, DO [address] [place] [phone] PCP - General Family Medicine 02/26/23 Sanitizer Relationship Specialty Start Date End Date Wilfrido Mclaughlin, DO [address] [place] [address] PCP - General Family Medicine 02/26/23 Sanitizer Relationship Specialty Start Date End Date Wilfrido Mclaughlin, DO [address] [place] [address] PCP - General Family Medicine 02/26/23 Goals (unrecognized section and content) Goals may be documented in a n alternate section Source Comments (unrecognize d section and content) In the event this informatio n is protected by the Federal Confidentiality of Alcohol and Drug Abuse Patient Records regulations: The Federal rules restrict any use of the information to criminally investigate or prosecute any alcohol or drug abuse patient.[facility] CenterIn the event this information is protected by the Federal Confidentiality of Alcohol and Drug Abuse Patient Records regulations: The Federal rules restrict any use of the information to criminally investigate or prosecute any alcohol or drug abuse patient.[facility] CenterIn the event this information is protected by the Federal Confidentiality of Alcohol and Drug Abuse Patient Records regulations: The Federal rules restrict any use of the information to criminally investigate or prosecute any alcohol or drug abuse patient.[facility] Reason for Visit (unrecogniz ed section and content) Reason Comments Colonoscopy eval Last colon 09/14/19 Reason Comments Follow-up New Complaint Right hand numbness and Left trigger fingers Reason Onset Date Comments Results 12/07/2022 Reason Onset Date Comments Med Refill 02/26/2023 Reason Comments Dizziness Reason Comments Post-op Right endoscopic CTR DOS 03/29/2023 Reason Comments Post-op R carpal tunnel rele ase Reason Onset Date Comments Med Refill 07/29/2023 Reason Comments Medicare Annual Wellness Visit Initial Reason Onset Date Comments Med Refill 11/01/2023 verapamil SR (Ca iveth SR) 240 MG ER tablet Reason Comments Follow-up Right endoscopic car pal tunnel release on 03/29/23, Bilateral small trigger fingers Reason Onset Date Comments Med Refill 01/20/2024 Reason Onset Date Comments Laceration 02/24/2024 Reason Comments Laceration Left leg Reason Comments Wound Care Reason Onset Date Comments Appointment 02/26/2024 Wound care Reason Comments Follow-up Med check Reason Comments Blood Pressure Check Reason Onset Date Comments Med Refill 05/11/2024 Reason Comments Follow-up Med check Cough X 3 wk Reason Onset Date Comments Referral 06/24/2024 Reason Comments Med Refill Reason Comments New Patient Memory Loss Reason Comments Leg Pain Left leg Rectal Bleeding Constipation Reason Onset Date Comments Medication Problem 09/23/2024 Reason Onset Date Comments Dizziness 11/15/2022 Reason Comments Dizziness With movement Reason Onset Date Comments Results 11/28/2022 Specialty Diagnoses / Procedures Referred By Valentina vásquez Referred To Contact Radiology Diagnoses Ataxia Procedures MR brain w and wo contrast Tang Iraheta, DO [address] [place] [address] Referral ID Status Reason Start Date Expiration Date Visits Re quested Visits Authorized [id number] Closed 11/23/2022 05/22/2023 1 1 Reason Comments Follow-up Memory Loss Reason Onset Date Comments Med Refill 12/08/2024 Reason Comments Follow-up Med Check Dizziness With rapid heart rat e Reason Onset Date Comments Medication Problem 12/30/2024 Reason Onset Date Comments Other 11/06/2024 FOR RECORDS PERTAINING TO PATIENTS WHO ARE OR HAVE BEEN ENROLLED IN A CHEMICAL DEPENDENCY/SUBSTANCEABUSE PROGRAM, SOME INFORMATION MAY BE OMITTED. This clinical summary was aggregated from multiple sources. Caution should be exercised in using it in the provision of clinical care. This summary normalizes information from multiple sources, and as a consequence, information in this document may materially change the coding, format and clinical context of patient data. In addition, data may be omitted in some cases. CLINICAL DECISIONS SHOULD BE BASED ON THE PRIMARY CLINICAL RECORDS. [facility]. provides no warranty or guarantee of the accuracy or completeness of information in this document.
[2025-06-09 22:09] LABS: Hematocrit 40.3 % (37-47); Hemoglobin 13.4 g/dL (12.0-15.0); Immature Granulocytes Count 0.010 X10^3/uL (0.0-0.0); Mean Corp Hgb Conc 33.3 g/dL (32-36); Mean Corpuscular Volume 95.7 fL (81-99); Mean Platelet Vol. 9.7 fl (6.2-12.0); NRBC Flagged by Analyzer 0 % (0-5); Platelet Count 257 K/mm3 (150-450); RBC Distribution Width CV 12.6 % (11.6-14.6); RBC Distribution Width SD 44.2 fl (35.1-43.9); Red Blood Count 4.21 M/mm3 (4.2-5.4); White Blood Count 5.8 K/mm3 (4.4-11.0)
[2025-06-09 22:18] LABS: AST(SGOT) 27 U/L (<=31); Alanine Aminotransfer ALT/SGPT 20 U/L (<=34); Albumin, Serum 4.4 g/dL (3.4-4.8); Alkaline Phosphatase 88 U/L (35-104); Anion Gap 12 (5-15); BUN 21 mg/dL (4-19); BUN/Creat Ratio 22.4 RATIO (10-20); Calcium,Total 10.1 mg/dL (7.6-11.0); Carbon Dioxide 24.4 mmol/L (21.0-32.0); Chloride 103 mmol/L (98-108); Cholesterol 162 mg/dL (<=200); Globulin 2.7 g/dL (2.2-4.2); Glucose 90 mg/dL (70-99); Low Density Lipoprotein Calc. 68 mg/dL; Potassium 4.3 mmol/L (3.3-5.1); Triglycerides 116 mg/dL; Very Low Density Lipoprotein 23 mg/dL (5-40); cholesterol:hdl ratio screen 2.28
== END | disposition home or self-care (01) ==
PROVIDERS: PCP Nurse Practitioner; Referring Provider Nurse Practitioner; Visit Provider Nurse Practitioner
DX: I10 Essential (primary) hypertension (principal); K62.5 Hemorrhage of anus and rectum; E78.5 Hyperlipidemia, unspecified
CPT/HCPCS: 80053; 80061; 85025